=== PATIENT | male | born 1935 | race Caucasian/White ===

== ENCOUNTER 2017-05-29 08:25 | Outpatient (RCR) | payer MEDICARE, BC, SELFPAY ==
[2017-05-29 10:18] LABS: Prothrombin Time (Protime)PT. 21.8 SECONDS (11.7-14.9)
== END 2017-05-29 08:50 | disposition home or self-care (01) ==
LOC: LAB 08:25
PROVIDERS: Family Provider Internal Medicine; PCP Internal Medicine; Visit Provider Internal Medicine Cardiovascular Disease
DX: Z79.01 Long term (current) use of anticoagulants (principal); I47.2 Ventricular tachycardia; I38 Endocarditis, valve unspecified; L81.4 Other melanin hyperpigmentation; L82.0 Inflamed seborrheic keratosis; D64.9 Anemia, unspecified; D18.01 Hemangioma of skin and subcutaneous tissue; Z85.828 Personal history of other malignant neoplasm of skin; Z82.49 Family history of ischemic heart disease and other diseases of the circulatory system
CPT/HCPCS: 36415; 85610

== ENCOUNTER 2017-08-24 08:26 | Outpatient (RCR) | payer MEDICARE, BC, SELFPAY ==
[2017-08-24 09:14] LABS: International Normalized Ratio 2.2; Prothrombin Time (Protime)PT. 24.5 SECONDS (11.7-14.9)
[2017-08-24 09:46] LABS: AST(SGOT) 23 U/L (15-37); Alanine Aminotransfer ALT/SGPT 18 U/L (16-61); Albumin, Serum 3.3 g/dL (3.2-5.0); Alkaline Phosphatase 88 U/L (45-117); Bilirubin, Direct 0.27 mg/dL (0.00-0.30); Cholesterol 153 mg/dL (200); Globulin 4.1 g/dL (2.2-4.2); High Density Lipoprotein 47 mg/dL; Protein, Total 7.4 g/dL (6.4-8.2); Triglycerides 69 mg/dL; Very Low Density Lipoprotein 14 mg/dL (5-40)
== END 2017-08-24 09:00 | disposition home or self-care (01) ==
LOC: LAB 08:26
PROVIDERS: Physician Assistant Medical; Family Provider Internal Medicine; PCP Internal Medicine; Visit Provider Internal Medicine Cardiovascular Disease
DX: E78.5 Hyperlipidemia, unspecified (principal); Z82.49 Family history of ischemic heart disease and other diseases of the circulatory system; I47.2 Ventricular tachycardia; L81.4 Other melanin hyperpigmentation; L82.0 Inflamed seborrheic keratosis; D18.01 Hemangioma of skin and subcutaneous tissue; I38 Endocarditis, valve unspecified; D64.9 Anemia, unspecified; Z79.899 Other long term (current) drug therapy; Z85.828 Personal history of other malignant neoplasm of skin; Z68.30 Body mass index [BMI] 30.0-30.9, adult; Z79.01 Long term (current) use of anticoagulants
CPT/HCPCS: 36415; 80061; 80076; 85610

== ENCOUNTER 2017-09-24 08:47 | Outpatient (RCR) | payer MEDICARE, BC, SELFPAY ==
[2017-09-24 10:07] LABS: Absolute Neutrophil Count 3.7 X10^3/uL (2.0-7.7); Basophil# 0.04 X10^3/uL; Basophil% 0.7 % (0-1); Eosinophil# 0.27 X10^3/uL; Hematocrit 36.7 % (40-54); Hemoglobin 11.8 g/dl (13.0-16.5); Lymphocyte % 16.8 % (19-41); Mean Corp Hgb Conc 32.2 g/gl (32-36); Mean Corpuscular Hgb 29.5 pg (27.0-32.0); Mean Corpuscular Volume 91.8 fL (80-94); Monocyte% 9.3 % (0-10); Neutrophil # 3.66 X10^3/uL (2.7-7.7); Neutrophil % 68.2 % (47-70); Platelet Count 205 K/mm3 (150-450); RBC Distribution Width CV 14.4 % (11.6-14.6); RBC Distribution Width SD 48.5 fl (35.1-43.9); White Blood Count 5.4 K/mm3 (4.4-11.0)
[2017-09-24 10:14] LABS: International Normalized Ratio 2.2; Prothrombin Time (Protime)PT. 24.1 SECONDS (11.7-14.9)
[2017-09-24 10:15] LABS: POSITIVE COUNT NO; POSITIVE DIFFERENTIAL NO; POSITIVE MORPHOLOGY NO
[2017-09-24 10:47] LABS: ALB/GLOB Ratio 0.8 RATIO (0.9-2.4); AST(SGOT) 21 U/L (15-37); Alanine Aminotransfer ALT/SGPT 19 U/L (16-61); Albumin, Serum 3.2 g/dL (3.2-5.0); Alkaline Phosphatase 94 U/L (45-117); Anion Gap 7 (5-15); BUN 20 mg/dL (7-18); BUN/Creat Ratio 16.3 RATIO (10-20); Calcium,Total 8.7 mg/dL (8.5-10.1); Chloride 108 mmol/L (98-107); Creatinine, Serum 1.23 mg/dL (0.70-1.30); EST Glomerular Filtration Rate 60 mL/min (>60); Est Glom Filt Rate - Afr Amer 72 mL/min (>60); Ferritin 157 ng/mL (26-388); Globulin 4.2 g/dL (2.2-4.2); Glucose 92 mg/dL (74-106); Iron 76 ug/dL (65-175); Iron Binding Capacity,Total 244 ug/dL (250-450); Protein, Total 7.4 g/dL (6.4-8.2); Sodium Level 142 mmol/L (136-145); Thyroid Stim Hormone (TSH) 0.64 uIU/mL (0.358-3.74)
== END 2017-09-24 09:00 | disposition home or self-care (01) ==
LOC: LAB 08:47
PROVIDERS: Family Provider Internal Medicine; PCP Internal Medicine; Visit Provider Internal Medicine Cardiovascular Disease
DX: E03.9 Hypothyroidism, unspecified (principal); I11.9 Hypertensive heart disease without heart failure; E55.9 Vitamin D deficiency, unspecified; D50.0 Iron deficiency anemia secondary to blood loss (chronic)
CPT/HCPCS: 36415; 80053; 82306; 82728; 83540; 83550; 84443; 85025; 85610

== ENCOUNTER 2017-10-26 08:50 | Outpatient (RCR) | payer MEDICARE, BC, SELFPAY ==
--- NOTE | 2017-10-26 08:50 | DT_ITS ---
This patient was seen during an EMR downtime October 22, 2017 - October 29, 2017. This patient may have a combination of paper and electronic documentation or all paper documentation. All documentation is viewable within the e-chart portion of [employer] for each patient visit.
[2017-10-26 10:59] LABS: International Normalized Ratio 2.5; Prothrombin Time (Protime)PT. 27.4 SECONDS (11.7-14.9)
== END 2017-10-26 10:00 | disposition home or self-care (01) ==
LOC: LAB 08:50
PROVIDERS: Family Provider Internal Medicine; PCP Internal Medicine; Visit Provider Internal Medicine Cardiovascular Disease
DX: I48.91 Unspecified atrial fibrillation (principal); Z79.01 Long term (current) use of anticoagulants
CPT/HCPCS: 36415; 85610

== ENCOUNTER 2017-12-03 11:26 | Outpatient (RCR) | payer MEDICARE, BC, SELFPAY ==
[2017-12-03 12:14] LABS: International Normalized Ratio 2.2; Prothrombin Time (Protime)PT. 24.9 SECONDS (11.7-14.9)
== END 2017-12-03 13:00 | disposition home or self-care (01) ==
LOC: LAB 11:26
PROVIDERS: Family Provider Internal Medicine; PCP Internal Medicine; Visit Provider Internal Medicine Cardiovascular Disease
DX: I48.91 Unspecified atrial fibrillation (principal); Z79.01 Long term (current) use of anticoagulants
CPT/HCPCS: 36415; 85610

== ENCOUNTER → 2018-01-04 10:58 | Outpatient (CLI) | payer MEDICARE, BC, SELFPAY ==
[2018-01-04 11:10] VITALS: BP 123/72; PULSE 74; RESP 14; TEMP 36.4; O2SAT 96; BMI 28.8
[2018-01-04 15:09] VITALS: BP 111/57; PULSE 82; RESP 16; O2SAT 93
== END ==
PROVIDERS: Family Provider Internal Medicine; PCP Internal Medicine; Visit Provider Specialist
DX: M54.16 Radiculopathy, lumbar region (principal)
CPT/HCPCS: 62284; 72131; 72265; Q9965

== ENCOUNTER 2018-01-14 09:26 | Outpatient (RCR) | payer MEDICARE, BC, SELFPAY ==
[2018-01-14 10:36] LABS: International Normalized Ratio 1.9; Prothrombin Time (Protime)PT. 21.7 SECONDS (11.7-14.9)
== END 2018-01-14 11:00 | disposition home or self-care (01) ==
LOC: LAB 09:26
PROVIDERS: Family Provider Internal Medicine; PCP Internal Medicine; Visit Provider Internal Medicine Cardiovascular Disease
DX: I48.91 Unspecified atrial fibrillation (principal); Z79.01 Long term (current) use of anticoagulants
CPT/HCPCS: 36415; 85610

== ENCOUNTER 2018-01-30 13:07 | Outpatient (RCR) | payer MEDICARE, BC, SELFPAY ==
[2018-01-30 14:32] LABS: International Normalized Ratio 2.6; Prothrombin Time (Protime)PT. 27.6 SECONDS (11.7-14.9)
== END 2018-01-30 14:00 | disposition home or self-care (01) ==
LOC: LAB 13:07
PROVIDERS: Family Provider Internal Medicine; PCP Internal Medicine; Visit Provider Internal Medicine Cardiovascular Disease
DX: I48.91 Unspecified atrial fibrillation (principal); Z79.01 Long term (current) use of anticoagulants
CPT/HCPCS: 36415; 85610

== ENCOUNTER 2018-03-08 08:32 | Outpatient (RCR) | payer MEDICARE, BC, SELFPAY ==
[2018-03-08 09:44] LABS: International Normalized Ratio 2.2; Prothrombin Time (Protime)PT. 24.5 SECONDS (11.7-14.9)
[2018-03-08 10:00] LABS: AST(SGOT) 19 U/L (15-37); Alanine Aminotransfer ALT/SGPT 20 U/L (16-61); Albumin, Serum 3.2 g/dL (3.2-5.0); Alkaline Phosphatase 93 U/L (45-117); Bilirubin, Direct 0.25 mg/dL (0.00-0.30); Cholesterol 170 mg/dL (200); Globulin 3.9 g/dL (2.2-4.2); High Density Lipoprotein 45 mg/dL; Protein, Total 7.1 g/dL (6.4-8.2); Triglycerides 98 mg/dL; Very Low Density Lipoprotein 20 mg/dL (5-40)
== END 2018-03-08 10:00 | disposition home or self-care (01) ==
LOC: LAB 08:32
PROVIDERS: Physician Assistant Medical; Family Provider Internal Medicine; PCP Internal Medicine; Referring Provider Internal Medicine Cardiovascular Disease; Visit Provider Internal Medicine Cardiovascular Disease
DX: I48.91 Unspecified atrial fibrillation (principal); Z79.01 Long term (current) use of anticoagulants; E78.5 Hyperlipidemia, unspecified
CPT/HCPCS: 36415; 80061; 80076; 85610

== ENCOUNTER 2018-04-15 09:02 | Outpatient (RCR) | payer MEDICARE, BC, SELFPAY ==
[2018-04-15 09:53] LABS: International Normalized Ratio 3.3; Prothrombin Time (Protime)PT. 34.1 SECONDS (11.7-14.9)
== END 2018-04-19 10:54 | disposition home or self-care (01) ==
LOC: LAB 09:02
PROVIDERS: Family Provider Internal Medicine; PCP Internal Medicine; Referring Provider Internal Medicine Cardiovascular Disease; Visit Provider Internal Medicine Cardiovascular Disease
DX: I48.91 Unspecified atrial fibrillation (principal); Z79.01 Long term (current) use of anticoagulants
CPT/HCPCS: 36415; 85610

== ENCOUNTER → 2018-04-29 14:42 | Outpatient (CLI) | payer MEDICARE, BC, SELFPAY ==
[2018-04-29 12:55] VITALS: BMI 28.8
--- NOTE | 2018-04-29 14:55 | RAD_ITS ---
STUDY: X-RAY CHEST REASON FOR EXAM: Male, 82 years old. Tachycardia TECHNIQUE: Frontal and lateral views of the chest COMPARISON: None. FINDINGS: The lungs are clear. There are no pleural effusions. There is no pneumothorax. The heart is enlarged. There is a dual-lead pacemaker in place. There is a moderate-sized hiatal hernia. The patient is status post sternotomy and coronary artery bypass. The visualized osseous structures are within normal limits. RAD/Chest PA and Lateral IMPRESSION: Clear lungs. Cardiomegaly. Pacemaker in place. Status post sternotomy. Moderate hiatal hernia. Electronically Signed: Perfecto Fischer, at 15:13 EST Tel , Service support ,
== END ==
PROVIDERS: Family Provider Internal Medicine; PCP Internal Medicine; Referring Provider Internal Medicine Cardiovascular Disease; Visit Provider Internal Medicine Cardiovascular Disease
DX: I48.2 Chronic atrial fibrillation (principal); I44.30 Unspecified atrioventricular block; I47.2 Ventricular tachycardia; I51.7 Cardiomegaly; K44.9 Diaphragmatic hernia without obstruction or gangrene; Z95.0 Presence of cardiac pacemaker
CPT/HCPCS: 71046

== ENCOUNTER → 2018-05-06 07:53 | Day surgery (SDC) | payer MEDICARE, BC, SELFPAY ==
[2018-04-29 15:02] LABS: Bacteria 0 SEEN /hpf (None Seen); Mucous, Urine 0 SEEN /hpf (<or=2+); Red Blood Cells-Urine 0 SEEN /hpf (0-5); Squamous Epithelial Cells - UA 0 SEEN /hpf (0-5)
[2018-04-29 15:21] LABS: Hematocrit 36.6 % (40-54); Hemoglobin 11.8 g/dl (13.0-16.5); Mean Corp Hgb Conc 32.2 g/gl (32-36); Mean Corpuscular Hgb 29.9 pg (27.0-32.0); Mean Corpuscular Volume 92.9 fL (80-94); Platelet Count 224 K/mm3 (150-450); RBC Distribution Width CV 13.9 % (11.6-14.6); RBC Distribution Width SD 46.1 fl (35.1-43.9); Red Blood Count 3.94 M/mm3 (4.6-6.2); White Blood Count 6.7 K/mm3 (4.4-11.0)
[2018-04-29 15:23] LABS: Scan Indicated on CBC? Y/N NO
[2018-04-29 15:44] LABS: Anion Gap 8 (5-15); BUN 25 mg/dL (7-18); Chloride 106 mmol/L (98-107); Creatinine, Serum 1.25 mg/dL (0.70-1.30); EST Glomerular Filtration Rate 59 mL/min (>60); Est Glom Filt Rate - Afr Amer 71 mL/min (>60); Glucose 94 mg/dL (74-106); Potassium 4.2 mmol/L (3.5-5.1); Sodium Level 139 mmol/L (136-145)
[2018-04-29 15:58] LABS: Prothrombin Time (Protime)PT. 22.7 SECONDS (11.7-14.9)
[2018-04-29 17:23] LABS: Color, Urine Yellow (Yellow); Glucose, Dipstick Normal (Normal); Ketone-Dipstick Negative (Negative); Leukocyte Esterase-Dipstick Negative /ul (Negative); Nitrite-Dipstick Negative (Negative); Occult Blood-Urine Negative /ul (Negative); Protein-Dipstick Negative (Negative); Specific Gravity, Urine 1.015 (1.002-1.030); Urine Bilirubin Dipstick Negative (Negative); Urine Clarity Clear (Clear); Urine Urobilinogen Normal (Normal)
[2018-04-29 19:03] LABS: White Blood Cells 0-5 SEEN /hpf (0-5)
[2018-05-03 09:13] VITALS: BMI 28.8
--- NOTE | 2018-05-06 10:16 | CL.IE_ITS ---
Patient: IVANIA GOMEZ Study Date: 05/06/2018 Performing: Femi Bowen MD : 1935 Age: 82 Gender: male PROCEDURES PERFORMED [id number] REMOVAL+REPLACEMENT PACER-DUAL LEAD INDICATIONS Atrioventricular (AV) block End-of-life replacement indicator PROCEDURE DETAILS The patient was brought to the Catheterization Lab in the postabsorptive nonsedated state. Infor med consent was obtained prior to the procedure. Local anesthetic was given subcutaneously to the [facility] upper chest area with Lidocaine 2%. Incision was made to the right upper chest. PPM generator was removed. PPM generator was then interrogated by the graphics programmer. PPM generator was attached to the le ad(s) and inserted into the pocket. Device pocket was irrigated with antibiotic. Subcutaneous closure was completed with 3-0 Vicryl. Skin closure was completed with 4-0 Vicryl. Ster[facility]strips [facility] sub[facility]. The patient tolerated the procedure well. Estimated Blood Loss: < 10 mls IMPLANTED / EX-PLANTED DEVICES IMPLANTED DEVICE(S): PPM Generator - Buckle Strap Puncher: Rover, Model # Halma S DR CHAVIRA [place] [id number] , Serial # [id number] DEVICE PARAMETERS DEVICE PARAMETERS: Mode- VVIR Lower rate- 60 Upper rate- 130 CONCLUSIONS / RECOMMENDATIONS Device Conclusions: Successful implantation of a dual chamber pacemaker battery change and replacemen t Device Recommendations: Follow up with Primary Care Physician PROCEDURE MEDICATIONS Fentanyl 50 mcg IV Versed 1 mg IV Oxygen: 2 L/min via nasal cannula Antibiotic given in appropriate timeframe. Ancef 2 Gm IV @ 05/06/2018 09:31:34 Signed By Femi Bowen MD On 05/06/2018 10:15:28 Femi Bowen MD
--- OUTSIDE RECORDS SUMMARY | 2018-08-07 18:14 | XMS RPT_ITS ---
:1935 Author Organization [facility] Support Name Relationship Address Phone FRENCH GOMEZA Unavailable [address] + [place] [address] MENGES, YINKA Unavailable [address] + [place] [address] R Unavailable Unavailable Unavailable JASON, JAIME Unavailable [address] + [place] [address] MENLILI, YINKA Unavailable [address] + [place] [address] R Unavailable Unavailable Unavailable JASON, JAIME Unavailable [address] + [place] [address] MENLILI, YINKA Unavailable x + [place] [address] R Unavailable Unavailable Unavailable JASON, JAIME Unavailable [address] + [place] [address] MENLILI, YINKA Unavailable Unavailable + R Unavailable Unavailable Unavailable JASON, JAIME Unavailable [address] + [place] [address] MENLILI, YINKA Unavailable . + ., . . R Unavailable Unavailable Unavailable MENLILI, JAIME Unavailable [address] + [place] [address] MENLILI, YINKA Unavailable Unavailable + R Unavailable Unavailable Unavailable MENLILI, JAIME Unavailable [address] + [place] [address] R Unavailable Unavailable Unavailable MENLILI, JAIME Unavailable [address] + [place] [address] R Unavailable Unavailable Unavailable MENLILI, JAIME Unavailable [address] + [place] [address] R Unavailable Unavailable Unavailable MENGES, JAIME Unavailable [address] + [place] [address] R Unavailable Unavailable Unavailable MENGES, JAIME Unavailable [address] + [place] [address] R Unavailable Unavailable Unavailable MENGES, JAIME Unavailable [address] + [place] [address] R Unavailable Unavailable Unavailable MENGES, JAIME Unavailable [address] + [place] [address] R Unavailable Unavailable Unavailable MENGES, JAIME Unavailable [address] + [place] [address] R Unavailable Unavailable Unavailable MENGES, JAIME Unavailable [address] + [place] [address] R Unavailable Unavailable Unavailable MENGES, JAIME Unavailable [address] + [place] [address] R Unavailable Unavailable Unavailable MENGES, JAIME Unavailable [address] + [place] [address] R Unavailable Unavailable Unavailable MENGES, JAIME Unavailable [address] + [place] [address] R Unavailable Unavailable Unavailable MENGES, JAIME Unavailable [address] + [place] [address] R Unavailable Unavailable Unavailable MENGES, JAIME Unavailable [address] + [place] [address] R Unavailable Unavailable Unavailable MENGES, JAIME Unavailable [address] + [place] [address] R Unavailable Unavailable Unavailable MENGES, JAIME Unavailable [address] + [place] [address] R Unavailable Unavailable Unavailable MENGES, JAIME Unavailable [address] + [place] [address] R Unavailable Unavailable Unavailable MENGES, JAIME Unavailable [address] + [place] [address] R Unavailable Unavailable Unavailable MENGES, JAIME Unavailable [address] + [place] [address] R Unavailable Unavailable Unavailable MENGES, JAIME Unavailable [address] + [place] [address] R Unavailable Unavailable Unavailable MENGES, JAIME Unavailable [address] + [place] [address] R Unavailable Unavailable Unavailable MENGES, JAIME Unavailable [address] + [place] [address] R Unavailable Unavailable Unavailable R Unavailable Unavailable Unavailable R Unavailable Unavailable Unavailable R Unavailable Unavailable Unavailable R Unavailable Unavailable Unavailable Care Team Providers Name Role Phone Awa Blair Attending Unavailable Awa Blair Referring Unavailable Peg, Olive Primary Care Unavailable MoodisPalmer mehta Attending Unavailable Moodispaw, Palmer Referring Unavailable Peg, Olive Primary Care Unavailable Peg, Olive Consulting Unavailable Opal Shields Attending Unavailable Peg, Olive Referring Unavailable Moodispayonatan, Palmer Attending Unavailable Moodispayonatan Palmer Referring Unavailable Peg, Olive Primary Care Unavailable Peg, Olive Consulting Unavailable Opal Shields Attending Unavailable Peg, Olive Referring Unavailable Peg, Olive Attending Unavailable MoodispaPalmer tam Attending Unavailable Moodispayonatan Palmer Referring Unavailable Peg, Olive Primary Care Unavailable Awa Blair Attending Unavailable Peg, Olive Referring Unavailable Andrés, Femi Attending Unavailable Andrés, Gibson Referring Unavailable MoodispaPalmer tam Attending Unavailable Moodispaw Palmer Referring Unavailable Peg, Olive Primary Care Unavailable Opal Shields Attending Unavailable Peg, Olive Referring Unavailable Andrés, Gibson Attending Unavailable Andrés, Gibson Referring Unavailable Peg, Olive Primary Care Unavailable MoodispawPalmer Attending Unavailable Moodispaw Palmer Referring Unavailable Peg, Olive Primary Care Unavailable MoodispaPalmer tam Attending Unavailable Moodispaw, Palmer Referring Unavailable Peg, Olive Primary Care Unavailable Moodispaw, Palmer Attending Unavailable Moodispaw, Palmer Referring Unavailable Peg, Olive Primary Care Unavailable Opal Shields Attending Unavailable Peg, Olive Referring Unavailable CorneliusOpal Attending Unavailable Peg, Olive Referring Unavailable Peg, Olive Primary Care Unavailable Moodispaw, Palmer Attending Unavailable Moodispaw, Palmer Attending Unavailable Moodispaw, Palmer Referring Unavailable Peg, Olive Primary Care Unavailable Peg, Olive Consulting Unavailable Cornelius, Opal Attending Unavailable Peg, Olive Referring Unavailable Peg, Olive Primary Care Unavailable Moodispaw, Palmer Attending Unavailable Moodispaw, Palmer Referring Unavailable Peg, Olive Primary Care Unavailable Peg, Olive Consulting Unavailable Perfecto White Attending Unavailable Peg, Olive Primary Care Unavailable Moodispaw, Palmer Attending Unavailable Cornelius, Opal Attending Unavailable Peg, Olive Referring Unavailable Peg, Olive Attending Unavailable Cornelius, Opal Attending Unavailable Peg, Olive Referring Unavailable BlairAwa Attending Unavailable Peg, Olive Referring Unavailable Moodispaw, Palmer Attending Unavailable Moodispaw, Palmer Referring Unavailable Peg, Olive Primary Care Unavailable Peg, Olive Consulting Unavailable Cornelius, Opal Attending Unavailable Peg, Olive Referring Unavailable Cornelius, Opal Attending Unavailable Peg, Olive Referring Unavailable Peg, Olive Primary Care Unavailable BinghamAwa stanford Attending Unavailable Moodispaw, Palmer Attending Unavailable Moodispaw, Palmer Referring Unavailable Peg, Olive Primary Care Unavailable Peg, Olive Consulting Unavailable PROBLEMS PROBLEMS DATE TYPE CONDITION / CODE ATTENDING STATUS SOURCE 06/05/2018 Unknown I25.10 - Blair, Active [place] Atherosclerotic heart [facility] disease [facility] coronary artery Repository without angina pectoris / I25.10(ICD-10) 06/05/2018 Unknown I48.2 - Chronic atrial Blair, Active [place] fibrillation / [facility] I48.2(ICD-10) Hospital Repository 06/05/2018 Unknown Z95.0 - Presence of Blair, Active [place] cardiac pacemaker / [facility] Z95.0(ICD-10) Hospital Repository 06/05/2018 Unknown I10 - Essential Blair, Active [place] (primary) hypertension [facility] / I10(ICD-10) Hospital Repository 06/05/2018 Unknown E78.00 - Pure Blair, Active [place] hypercholesterolemia, [facility] unspecified / Hospital E78.00(ICD-10) Repository 05/20/2018 Unknown Z79.01 - long-term Moodispaw, Active [place] (current) use of [facility] anticoagulants / Hospital Z79.01(ICD-10) Repository 05/21/2018 Unknown I47.2 - Ventricular Cornelius, Opal Active [place] tachycardia / Community I47.2(ICD-10) Hospital Repository 05/21/2018 Unknown I47.9 - Paroxysmal Cornelius, Opal Active [place] tachycardia, Community unspecified / Hospital I47.9(ICD-10) Repository 05/21/2018 Unknown I44.30 - Unspecified Cornelius, Opal Active [place] atrioventricular block [facility] / I44.30(ICD-10) Hospital Repository 05/21/2018 Unknown I49.01 - Ventricular Cornelius, Opal Active [place] fibrillation / [facility] I49.01(ICD-10) Hospital Repository 03/21/2018 Unknown I48.91 - Unspecified Moodispaw, Active [place] atrial fibrillation / [facility] I48.91(ICD-10) Hospital Repository 03/21/2018 Unknown E78.5 - Moodispaw, Active [place] Hyperlipidemia, [facility] unspecified / Hospital E78.5(ICD-10) Repository 10/18/2017 Unknown E03.9 - Moodispaw, Active [place] Hypothyroidism, [facility] unspecified / Hospital E03.9(ICD-10) Repository 10/18/2017 Unknown 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, 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) / Repository D50.0(ICD-10) 10/18/2017 Unknown E55.9 - Vitamin D Moodispaw, Active [place] deficiency, [facility] unspecified / Hospital E55.9(ICD-10) Repository PROCEDURES PROCEDURES No Procedure Records FoundRESULTS RESULTS STRESS REPORT Observed: 06/11/2018 Status: F Source: [place] 10:25 AM [facility] REPOSITORY [facility] [address] [place] [address] MR#: [id number] Acct: [id number] Name: IVANIA GOMEZ Rep #: [id number] : 1935 82 From: Palmer Lindo MD Primary Care: Olive Sellers DO Status: REG RCR Ordering Dr: Sex: Domenica Collins Stress Test Report Date: 06/11/2917 Procedure: Pharmacologic stress nuclear imaging study Indications: CAD; PCI; CAD; PPM; preoperative cardiovascular evaluation Consent: Per the patient Procedure: The patient underwent pharmacologic (Regadenoson) evaluation with a peak heart rate of 64 beats per minute (46 percent predicted maximal heart rate) and a peak blood pressure of 122/76 mmHg. The baseline ECG demonstrated an electronic ventricular paced rhythm . The peak pharmacologic ECG demonstrated an electronic ventricular paced rhythm . There were no cardiac dysrhythmias pretest, during pharmacologic infusion, or recovery. There was no complaint of chest discomfort during pharmacologic infusion or recovery. The examination was discontinued secondary to completion of protocol. Impression: 1. Pharmacologic (Regadenoson) evaluation 2. Peak pharmacologic ECG with an electronic ventricular paced rhythm . 3. There were no cardiac dysrhythmias pretest, during pharmacologic infusion, or recovery. 4. Nuclear images pending Myocardial perfusion imaging study: Technique: The patient was injected with 11.1 millicuries of technetium 99m Cardiolite and subsequently rest SPECT Cardiolite nuclear imaging was obtained in the horizontal long, vertical long, and short axis views. The patient underwent pharmacologic (Regadenoson) evaluation with a peak heart rate of 64 beats per minute (46 % percent predicted maximal heart rate) and a peak blood pressure of 122/76 mmHg. The patient was injected with 33.4 millicuries of technetium 99m Cardiolite and subsequently stress SPECT Cardiolite nuclear imaging was obtained in the horizontal long, vertical long, and short axis views. A gated Cardiolite study at peak stress was not obtained. Interpretation: Rest and stress SPECT Cardiolite nuclear imaging status post realignment, normalization, and attenuation correction demonstrate the appearance of relative uniform tracer uptake and myocardial perfusion appearing within normal limits . A gated Cardiolite study at peak stress was not obtained. Impression: 1. Rest and stress SPECT Cardiolite nuclear imaging demonstrate relative uniform tracer uptake and myocardial perfusion appearing within normal limits. 2. A gated Cardiolite study at peak stress was not obtained. This note was generated with [employer] software. It may contain incorrect words, spelling, and punctuation that were not noted in checking the note before signing. 06/11/18 1025 <Electronically signed by Palmer Lindo MD> Date Palmer Lindo MD CC: Olive Jesuson DO; Palmer Lindo MD Date Dictated: 06/11/183 Date Transcribed: 06/11/181012 Viscose Cellar Worker: PM Signed PROTHROMBIN TIME W/INR Collected: 06/11/2018 Status: F Source: [place] 9:41 AM [facility] [place] TYPE CODE TESTS RESULT OUT OF RANGE REFERENCE UNITS LAB L300.4150 11.7-14.9 SECONDS High PROTIME 27.1 LAB L300.4200 Normal INR 2.5 Performed By: #### L300.3900 #### [facility] [address] [place], [address] CARDIOLOGY VISIT Observed: 06/05/2018 Status: F Source: [place] REPORT 9:57 AM [facility] [place] [facility] [address] [place] [address] OFFICE VISIT Date of Service: 06/05/18 MR#: [id number] Acct: [id number] Name: IVANIA GOMEZ Rep #: [id number] : 1935 Provider: Awa Blair Age/Sex: 82/M Location: [facility] Status: Signed HPI HPI Chief Complaint: LUMBAR MYELOGRAM Details: IVANIA GOMEZ, is a 82 M who presents to the office today for cardiac clearance for an upcoming back surgery. Last month he underwent a generator change as his pacemaker reached JASWINDER. He has a history of coronary artery disease with bypass surgery in 1980 where he had an SVG to the LAD, SVG to the RCA, SVG to the 2 circumflex branches and then a redo in 2006 with an KIRBY to the LAD, HAIDER graft to the second obtuse marginal, SVG to the posterior lateral of the circumflex, SVG to the posterior descending branch of the RCA. 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 From a cardiac standpoint, patient is doing well. He does not have any chest discomfort/heaviness/tightness. His exercise tolerance is stable for his age. He does not have any worsening symptoms of shortness of breath. He denies any PND. He does not have any orthopnea. He does not have any symptoms of congestive heart failure. He does not have any palpitations that he is aware of. He does not have any lightheadedness or dizziness. He does not have any near-syncope or syncope. He does not have any lower extremity edema. He does not have any symptoms of claudication. 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 Accompanied by: Is patient in pain?: No Allergies No Known Allergies Allergy (Verified 06/05/18 09:30) Medications aspirin 81 mg tablet,delayed release 81 mg PO QDAY 04/26/17 [History Confirmed 06/05/18] cholecalciferol (vitamin D3) 2,000 unit tablet 2,000 unit PO QDAY tab 04/26/17 [History Confirmed 06/05/18] doxazosin 8 mg tablet 8 mg PO QDAY tab 04/26/17 [History Confirmed 06/05/18] ferrous sulfate 325 mg (65 mg iron) tablet,delayed release See Rx Instructions PO QDAY tab 04/30/17 [History Confirmed 06/05/18] levothyroxine 125 mcg tablet 125 mcg PO .COMPLEX tab 01/25/18 [History Confirmed 06/05/18] pantoprazole 40 mg tablet,delayed release 40 mg PO .QOD tab 01/25/18 [History Confirmed 06/05/18] metoprolol succinate ER 50 mg tablet,extended release 24 hr 50 mg PO DAILY #90 tab 02/18/18 [Rx Confirmed 06/05/18] nitroglycerin 400 mcg/spray translingual 0.4 mg TRANSLINGUAL Q5M PRN #4.9 g 04/29/18 [Rx Confirmed 06/05/18] warfarin 3 mg tablet 3 mg PO QDAY tab 04/29/18 [History Confirmed 06/05/18] PFSH Medical History Arteriosclerotic heart disease (ASHD) (Chronic) Chronic atrial fibrillation (Chronic) Ventricular fibrillation (Acute) HLD (hyperlipidemia) (Chronic) HTN (hypertension) (Chronic) Atrioventricular block (Chronic) Paroxysmal ventricular tachycardia (Chronic) Paroxysmal tachycardia (Inactive) Atrial arrhythmia (Chronic) Syncope and collapse (Chronic) 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) 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) Anemia (Acute) Lentigo (Acute) GERD (gastroesophageal reflux disease) (Chronic) Neoplasm of oropharynx (Chronic) Surgical History Hx of CABG (Chronic) S/P PTCA (percutaneous transluminal coronary angioplasty) (Chronic 03/24/97) History of cholecystectomy (Resolved) History of circumcision (Resolved) History of tonsillectomy (Resolved 1941) S/P placement of cardiac pacemaker (Resolved) Family History Father Hypertension Cancer Son Hypertension Mother Cancer Son H/O cardiac radiofrequency ablation Social History Smoking Status: Former smoker how long ago did patient quit smokin years ago alcohol intake: current alcohol intake frequency: a few times a week Alcohol type: beer substance use type: does not use caffeine: Yes Type: coffee Number of servings: 3 eating out: 1-3 times/week what type of physical activity do you participate in: none seatbelt use: always do you feel safe at home: Yes ROS Const Const: Negative for weakness, fatigue, fever(s) or headache(s) Eyes Eyes: Negative for blind spots, loss of peripheral vision or transient loss of vision ENT ENT: Negative for headache(s) Cardio Chest Pain: No Palpitations: No Edema: None Muscle aches with walking: None Resp Respiratory: Negative for SOB with activity, SOB at rest, SOB orthopnea\SOB lying down or Cough GI GI: Negative nausea, vomiting, heartburn or vomiting blood/hematemesis : Negative for hematuria Musc Musc: Positive for muscle aches/ myalgia (back ache) Neuro Neuro: Negative for weakness or headache(s) Rafat Hematologic/Lymphatic: Negative for easy bleeding Endo Endo: Negative for fatigue Cardiology Exam Const Appearance: cooperative, no acute distress, well developed, comfortable and well groomed Orientation: alert, awake and oriented x3 Head Head: normocephalic and normal to inspection; negative atraumatic Ears: hearing grossly normal bilaterally Nose: external nose normal Face and Sinus: face symmetric Mouth: oral mucosae normal Teeth and gingiva: fair dentition Eyes General: appearance normal, both eyes and all related structures Conjunctivae: conjunctivae normal Pupils: PERRL Neck Neck: normal visual inspection, no lymphadenopathy and no JVD Carotids: Negative bruit Chest Chest inspection: normal inspection of the chest and symmetric chest movement Auscultation: Bilateral: Clear to Auscultation Cardio Palpation: normal PMI Rate: regular rate Rhythm: regular rhythm Heart sounds: S1 normal, S2 normal and rub Murmur: Grade 2/6, soft, mid systolic, LLSB and LVOT GI GI: normal to inspection, soft, no hepatosplenomegaly and bowel sounds present; negative tender Neuro General: alert, awake, oriented x3 and moves all extremities Skin Skin: no rashes or lesions noted Extremities Pulses: Normal: Right Posterior Tibial Pulse, Left Posterior Tibial Pulse, Right Radial Pulse, Left Radial Pulse Lower Extremity Edema: None: Bilateral Psych Psychological: normal affect Assessment AND Plan 1. 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 Re-do CABG x4 KIRBY to LAD free, HAIDER grafted to second obtuse marginal, SVG to posterior decend branch of RCA in 2006. Plan Stable, from a cardiac standpoint patient does not have any symptoms of angina. It has been greater than 5 years since he had his last stress test, with his upcoming surgery would like to obtain a stress test to evaluate for underlaying ischemia. Pt was not symptomatic prior to his bypass surgery. He does have a PPM, he will need a medication stress test. We recommend that they continue with current aggressive medical management and risk factor modification. Orders Orders: 2. Pure hypercholesterolemia E78.00 Plan Recent lipid profile demonstrates a total cholesterol of 170, HDL 45, LDL 105. Patient will continue with current aggressive medical management. Orders Orders: 3. Essential hypertension I10 Plan Blood pressure is well controlled on current medications, we do not recommend any changes at this time. Orders Orders: 4. Chronic atrial fibrillation I48.2 Plan Heart rate is adequately controlled. They will continue with her anticoagulation with a therapeutic INR goal of 2-3. Orders Orders: 5. Cardiac pacemaker in situ Z95.0 Plan Pacemaker is functioning appropriately. We will continue to monitor at routine scheduled pacemaker interrogations. Orders Orders: Plan Detail Additional Comments If his stress test is negative, it would be okay to proceed with his surgery from a cardiac standpoint. Would recommend that he continue with his BB through out the chino-operative phase up to and including morning of surgery. It would be okay to hold his coumadin and resume post op. Thank you for allowing us to participate in patient's plan of care, if you have any questions please do not hesitate to call. This note was generated using a voice recognition system and there may be incorrect words, spelling or punctuation errors that were not noted when reviewing the office note prior to saving. Follow Up 06/05/18 (keep as is) Coding Level of Care Code Off vis,est,level 3 Diagnoses Arteriosclerotic heart disease (ASHD) I25.10 Pure hypercholesterolemia E78.00 Hyperlipidemia type: pure hypercholesterolemia Essential hypertension I10 Hypertension type: essential hypertension Chronic atrial fibrillation I48.2 Cardiac pacemaker in situ Z95.0 Coding Level of Care Code Off vis,est,level 3 Diagnoses Arteriosclerotic heart disease (ASHD) I25.10 Pure hypercholesterolemia E78.00 Hyperlipidemia type: pure hypercholesterolemia Essential hypertension I10 Hypertension type: essential hypertension Chronic atrial fibrillation I48.2 Cardiac pacemaker in situ Z95.0 Supplemental Info Supplemental Information NONI from 2011 demonstrated: Mild concentric left ventricular hypertrophy. Left ventricular systolic function is lower limits of normal. The estimated ejection fraction is 50 %. Shaggy appearing proximal pacemaker lead within SVC with multiple mobile filamentous structures localized to distal atrial segment of lead suspicious for vegetations. Mild mitral annular calcification. Mild mitral valve prolapse. Small mobile filamentous structures localized to the atrial aspect of the mitral valve likely representing strands. Early vegetations cannot be excluded. Mild (1+) mitral valve insufficiency. Mild (1+) tricuspid valve insufficiency. Trivial aortic valve insufficiency. Mild (1+) pulmonic valve insufficiency. Right ventricular systolic pressure estimated to be 25 mmHg. Mild atherosclerosis of the aortic arch and descending aorta. Labs LDL Cholesterol 105 mg/dL (0-130) 03/08/18 HDL Cholesterol 45 mg/dL (40-) 03/08/18 Triglycerides 98 mg/dL (-199) 03/08/18 VLDL Cholesterol 20 mg/dL (5-40) 03/08/18 Diagnostics Electrocardiogram 04/29/18 Pacemaker Check 05/20/18 Chest X-Ray 04/29/18 Details:: 06/05/18 0957 <Electronically signed by Awa CHASE> Date Awa CHASE Cosigner Signature: Date (if applicable) CC: Olive Sellers DO PACEMAKER CHECK Observed: 05/20/2018 Status: F Source: [place] 12:29 PM [facility] REPOSITORY [facility] [address] [place] [address] Pacemaker Check Date of Service: 05/20/18 1203 MR#: [id number] Acct: [id number] Name: IVANIA GOMEZ Rep #: [id number] : 1935 From: Opal Shields Age/Sex: 82/M Location: [facility] [place] Status: Signed Billing Codes PM Device Codes: PM Dev Prog Eval, Dual 05/20/18 1204 <Electronically signed by Opal Shields > Date Opal Shields 05/20/18 1229<Electronically signed by Palmer Lindo MD> Sandrine Signature: Date (if applicable) Palmer Lindo MD CC: PROTHROMBIN TIME W/INR Collected: 05/20/2018 Status: F Source: [place] 10:20 AM [facility] REPOSITORY TYPE CODE TESTS RESULT OUT OF RANGE REFERENCE UNITS LAB L300.4150 11.7-14.9 SECONDS High PROTIME 23.5 LAB L300.4200 Normal INR 2.1 Performed By: #### L300.3900 #### [facility] [address] [place], [address] CARDIOLOGY VISIT Observed: 05/06/2018 Status: F Source: [place] REPORT 12:37 PM [facility] REPOSITORY [facility] [address] [place] [address] OFFICE VISIT Date of Service: 04/29/18 MR#: [id number] Acct: [id number] Name: IVANIA GOMEZ Rep #: [id number] : 1935 Provider: Awa Blair Age/Sex: 82/M Location: [facility] Status: Signed HPI HPI Details: IVANIA GOMEZ, is a 82 M who presents to the office today for an updated H AND P for his upcoming generator change on his pacemaker. He has a history of coronary artery disease with bypass surgery in 1980 where he had an SVG to the LAD, SVG to the RCA, SVG to the 2 circumflex branches and then a redo in 2006 with an KIRBY to the LAD, HAIDER graft to the second obtuse marginal, SVG to the posterior lateral of the circumflex, SVG to the posterior descending branch of the RCA. 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 Pt is also in need of having back surgery. They are requesting clearance from our office. This will be done at [facility]. From a cardiac standpoint, patient is doing well. He does not have any chest discomfort/heaviness/tightness. His exercise tolerance is stable for his age. He does not have any worsening symptoms of shortness of breath. He denies any PND. He does not have any orthopnea. He does not have any symptoms of congestive heart failure. He does not have any palpitations that he is aware of. He does not have any lightheadedness or dizziness. He does not have any near-syncope or syncope. He does not have any lower extremity edema. He does not have any symptoms of claudication. 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 Accompanied by: Is patient in pain?: No Allergies No Known Allergies Allergy (Verified 04/29/18 13:06) Medications aspirin 81 mg tablet,delayed release 81 mg PO QDAY 04/26/17 [History Confirmed 05/03/18] cholecalciferol (vitamin D3) 2,000 unit tablet 2,000 unit PO QDAY tab 04/26/17 [History Confirmed 05/03/18] doxazosin 8 mg tablet 8 mg PO QDAY tab 04/26/17 [History Confirmed 05/03/18] ferrous sulfate 325 mg (65 mg iron) tablet,delayed release See Rx Instructions PO QDAY tab 04/30/17 [History Confirmed 05/03/18] levothyroxine 125 mcg tablet 125 mcg PO .COMPLEX tab 01/25/18 [History Confirmed 05/03/18] pantoprazole 40 mg tablet,delayed release 40 mg PO .QOD tab 01/25/18 [History Confirmed 05/03/18] metoprolol succinate ER 50 mg tablet,extended release 24 hr 50 mg PO DAILY #90 tab 02/18/18 [Rx Confirmed 05/03/18] nitroglycerin 400 mcg/spray translingual 0.4 mg TRANSLINGUAL Q5M PRN #4.9 g 04/29/18 [Rx Confirmed 05/03/18] warfarin 3 mg tablet 3 mg PO QDAY tab 04/29/18 [History Confirmed 05/03/18] Ejection fraction %: 50 to 54 PFSH Medical History Arteriosclerotic heart disease (ASHD) (Chronic) Chronic atrial fibrillation (Chronic) Ventricular fibrillation (Acute) HLD (hyperlipidemia) (Chronic) HTN (hypertension) (Chronic) Atrioventricular block (Chronic) Paroxysmal ventricular tachycardia (Chronic) Paroxysmal tachycardia (Inactive) Atrial arrhythmia (Chronic) Syncope and collapse (Chronic) 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) 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) Anemia (Acute) Lentigo (Acute) GERD (gastroesophageal reflux disease) (Chronic) Neoplasm of oropharynx (Chronic) Surgical History Hx of CABG (Chronic) S/P PTCA (percutaneous transluminal coronary angioplasty) (Chronic 03/24/97) History of cholecystectomy (Resolved) History of circumcision (Resolved) History of tonsillectomy (Resolved 1941) S/P placement of cardiac pacemaker (Resolved) Family History Father Hypertension Cancer Son Hypertension Mother Cancer Son H/O cardiac radiofrequency ablation Social History Smoking Status: Former smoker how long ago did patient quit smokin years ago alcohol intake: current alcohol intake frequency: a few times a week Alcohol type: beer substance use type: does not use caffeine: Yes Type: coffee Number of servings: 3 eating out: 1-3 times/week what type of physical activity do you participate in: none seatbelt use: always do you feel safe at home: Yes ROS Const Const: Negative for weakness, fatigue, fever(s) or headache(s) Eyes Eyes: Negative for blind spots, loss of peripheral vision or transient loss of vision ENT ENT: Negative for headache(s), dizziness, tinnitus or Nosebleed/epistaxis Cardio Chest Pain: No Palpitations: No Edema: None Muscle aches with walking: None Resp Respiratory: Negative for SOB with activity, SOB at rest, SOB orthopnea\SOB lying down or Cough GI GI: Negative nausea, vomiting, heartburn or vomiting blood/hematemesis : Negative for hematuria Musc Musc: Positive for muscle aches/ myalgia (back ache) Neuro Neuro: Negative for weakness, headache(s), dizziness, near syncope, syncope, lightheadedness or orthostatic symptoms Rafat Hematologic/Lymphatic: Negative for easy bleeding Endo Endo: Negative for fatigue Cardiology Exam Const Appearance: cooperative, no acute distress, well developed, comfortable and well groomed Orientation: alert, awake and oriented x3 Head Head: normocephalic and normal to inspection; negative atraumatic Ears: hearing grossly normal bilaterally Nose: external nose normal Face and Sinus: face symmetric Mouth: oral mucosae normal Teeth and gingiva: fair dentition Eyes General: appearance normal, both eyes and all related structures Conjunctivae: conjunctivae normal Pupils: PERRL Neck Neck: normal visual inspection, no lymphadenopathy and no JVD Carotids: Negative bruit Chest Chest inspection: normal inspection of the chest and symmetric chest movement Auscultation: Bilateral: Clear to Auscultation Cardio Palpation: normal PMI Rate: regular rate Rhythm: regular rhythm Heart sounds: S1 normal, S2 normal and rub Murmur: Grade 2/6, soft, mid systolic, LLSB and LVOT GI GI: normal to inspection, soft, no hepatosplenomegaly and bowel sounds present; negative tender Neuro General: alert, awake, oriented x3 and moves all extremities Skin Skin: no rashes or lesions noted Extremities Pulses: Normal: Right Posterior Tibial Pulse, Left Posterior Tibial Pulse, Right Radial Pulse, Left Radial Pulse Lower Extremity Edema: None: Bilateral Psych Psychological: normal affect Assessment AND Plan 1. 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 Re-do CABG x4 KIRBY to LAD free, HAIDER grafted to second obtuse marginal, SVG to posterior decend branch of RCA in 2006. Plan Stable, from a cardiac standpoint patient does not have any symptoms of angina. We recommend that they continue with current aggressive medical management and risk factor modification. Orders Orders: 2. Essential hypertension I10 Plan Blood pressure is well controlled on current medications, we do not recommend any changes at this time. 3. Pure hypercholesterolemia E78.00; E78.0 Plan Recent lipid profile demonstrates a total cholesterol of 170, HDL 45, LDL 105. Patient will continue with current aggressive medical management. 4. Paroxysmal ventricular tachycardia I47.2 Plan Stable, will continue to monitor through his pacemaker interrogations. He will continue with his current dose of beta-rahat. 5. Cardiac pacemaker in situ Z95.0 Plan Patient is scheduled to have a generator change in the near future. We will continue to monitor pacemaker interrogations appropriately. Orders Orders: Plan Detail Other Medications New: Additional Comments We will follow-up with patient after his pacemaker generator change. Patient will need a cardiac clearance at that time for his upcoming surgery. Thank you for allowing us to participate in patient's plan of care, if you have any questions please do not hesitate to call. This note was generated using a voice recognition system and there may be incorrect words, spelling or punctuation errors that were not noted when reviewing the office note prior to saving. 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 Essential hypertension I10 Hypertension type: essential hypertension Pure hypercholesterolemia E78.00; E78.0 Hyperlipidemia type: pure hypercholesterolemia Paroxysmal ventricular tachycardia I47.2 Cardiac pacemaker in situ Z95.0 05/06/18 1237 <Electronically signed by Awa CHASE> Date Awa CHASE Cosigner Signature: Date (if applicable) CC: Olive Sellers DO CBC-COMPLETE BLOOD CNT Collected: 05/06/2018 Status: F Source: [place] NO DIFF 9:30 AM [facility] [place] TYPE CODE TESTS RESULT OUT OF RANGE REFERENCE UNITS LAB L100.1000 4.4-11.0 K/mm3 Normal WBC 6.7 LAB L100.1200 4.6-6.2 M/mm3 Low RBC 3.94 LAB L100.1300 13.0-16.5 g/dl Low HGB 11.8 LAB L100.1400 40-54 % Low HCT 36.6 LAB L100.1500 80-94 fL Normal MCV 92.9 LAB L100.1600 27.0-32.0 pg Normal MCH 29.9 LAB L100.1700 32-36 g/gl Normal MCHC 32.2 LAB L100.1810 11.6-14.6 % Normal RDW CV 13.9 LAB L100.1820 35.1-43.9 fl High RDW SD 46.1 LAB L100.1900 150-450 K/mm3 Normal PLT 224 LAB L100.2000 6.2-12.0 fl Normal MPV 10.0 Performed By: #### L100.0500 #### [facility] [address] [place], [address] BASIC METABOLIC Collected: 05/06/2018 Status: F Source: [place] PROFILE (BMP) 9:30 AM [facility] [place] [place] TYPE CODE TESTS RESULT OUT OF RANGE REFERENCE UNITS LAB L501.0100 74-106 mg/dL Normal GLU 94 Result Comment: Please note revised GLUCOSE reference range effective 2017. LAB L501.1000 7-18 mg/dL High BUN 25 LAB L501.1100 0.70-1.30 mg/dL Normal CREAT,SERUM 1.25 Result Comment: The validity of the calculated GFR AND GFRAA in patients over 70 years has not been determined. Clinical correlation is essential. LAB L501.1110 >60 mL/min Low EST GFR 59 Result Comment: Non- GFR Calc LAB L501.1115 >60 mL/min Normal EST GFR - AA 71 Result Comment: GFR Calc LAB L501.1300 10-20 RATIO Normal BUN/CRE 20.0 LAB L501.2200 8.5-10.1 mg/dL CA Normal 9.0 LAB L501.5300 136-145 mmol/L NA Normal 139 LAB L501.5600 3.5-5.1 mmol/L K Normal 4.2 LAB L501.5900 98-107 mmol/L CL Normal 106 LAB L501.6100 21.0-32.0 mmol/L Normal CO2 25.0 LAB L501.6200 5-15 Normal GAP 8 Performed By: #### L500.2500 #### [facility] [address] [place], [address] PROTHROMBIN TIME W/INR Collected: 05/06/2018 Status: F Source: [place] 9:30 AM [facility] [place] TYPE CODE TESTS RESULT OUT OF RANGE REFERENCE UNITS LAB L300.4150 11.7-14.9 SECONDS High PROTIME 22.7 LAB L300.4200 Normal INR 2.0 Performed By: #### L300.3900 #### [facility] [address] [place], [address] URINALYSIS, COMPLETE Collected: 05/06/2018 Status: F Source: [place] 9:30 AM [facility] [place] Order Comment: How was Urine Obtained? 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 DIPSTX 1.015 LAB L400.3550 5.0 - 8.0 pH UR Normal 6.0 LAB L400.3600 Negative mg/dl PROT Normal DIPSTX Negative LAB L400.3700 Normal mg/dl Normal UROBILI Normal LAB L400.3750 Negative Normal NITRITE UR Negative LAB L400.3780 Negative /ul Normal OCCULT BLOOD-UR Negative LAB L400.3800 Negative /ul LEUK Normal ESTERASE Negative LAB L400.4050 0-5 /hpf WBC Normal 0-5 SEEN LAB L400.4100 0-5 /hpf 0 Normal RBC-UA SEEN LAB L400.4150 0-5 /hpf SQUAM 0 Normal EPI SEEN LAB L400.4300 None Seen /hpf 0 Normal BACTERIA SEEN LAB L400.4350 <or=2+ /hpf 0 Normal MUCUS, URINE SEEN Performed By: #### L400.0001 #### [facility] [address] [place] [address], [id number] PROTIME W/INR Collected: 05/06/2018 Status: F Source: [place] FINGERSTICK 8:01 AM [facility] TYPE CODE TESTS RESULT OUT OF RANGE REFERENCE UNITS LAB L9200.1001 11.9-14.4 SEC Normal PROTIME ISTAT 14.0 Result Comment: Reference Range 11.9 - 14.4 LAB L9200.2000 Normal INR ISTAT 1.20 Result Comment: Critical Value > 3.5 Performed By: #### L9200.0000 #### [facility] Point of Care [address] [place], [place] [address] PACEMAKER CHECK Observed: 04/29/2018 Status: F Source: [place] 4:12 PM [facility] [place], [place] [id number] Pacemaker Check Date of Service: 04/29/18 1427 MR#: [id number] Acct: [id number] Name: IVANIA GOMEZ Rep #: [id number] : 1935 From: Opal Shields Age/Sex: 82/M Location: [facility] Status: Signed Billing Codes PM Device Codes: PM Dev Prog Eval, Dual 04/29/18 1431 <Electronically signed by Opal Shields > Date Opal Shields 04/29/18 1612<Electronically signed by Palmer Lindo MD> Cosigner Signature: Date (if applicable) Palmer Lindo MD CC: CHEST PA AND LATERAL Observed: 04/29/2018 Status: F Source: [place] 2:48 PM [facility] [address] [place] [address] Chest PA and Lateral MR#: [id number] Acct: [id number] Name: IVANIA GOMEZ Rep #: [id number] : 1935 M 82 From: Perfecto Fischer MD PCP: Olive Sellers DO Status: REG CLI Study: Chest PA and Lateral Date of Exam: 04/29/18 Exam# [id number] Ordering Dr: Palmer Lindo MD STUDY: X-RAY CHEST REASON FOR EXAM: Male, 82 years old. Tachycardia TECHNIQUE: Frontal and lateral views of the chest COMPARISON: None. FINDINGS: The lungs are clear. There are no pleural effusions. There is no pneumothorax. The heart is enlarged. There is a dual-lead pacemaker in place. There is a moderate-sized hiatal hernia. The patient is status post sternotomy and coronary artery bypass. The visualized osseous structures are within normal limits. RAD/Chest PA and Lateral IMPRESSION: Clear lungs. Cardiomegaly. Pacemaker in place. Status post sternotomy. Moderate hiatal hernia. Electronically Signed: Perfecto Fischer, at 15:13 EST Tel , Service support , CC: Olive Sellers DO; Palmer Lindo MD Viscose Cellar Worker: Signed 12 LEAD EKG PERFORMED Observed: 04/29/2018 Status: F Source: KEY BY [facility] 2:17 PM [facility] [address] [address] 12 Lead EKG performed by [facility] 04/29/181416 MR#: [id number] Acct: [id number] Name: IVANIA GOMEZ Rep #: [id number] : 1935 82 From: Awa CHASE Attending Dr: Awa Blair Status: DEP AMB Ordering Dr: Awa Blair Date: 04/29/18 Location: [facility] Sex: M C Admitted: BMS/12 Lead EKG performed by [facility] ECG Report Interpretation Electronic ventricular pacemaker Pacemaker ECG, No further analysis Electronically signed on 04/29/2018 at 16:16 by Palmer Lindo Software Version [id number] 04/29/18 1618 Date Awa CHASE CC: Olive Sellers DO Date Dictated: 04/29/181416 Date Transcribed: 04/29/181416 Viscose Cellar Worker: MMM Signed PROTHROMBIN TIME W/INR Collected: 04/15/2018 Status: F Source: KEY 9:07 AM [facility] REPOSITORY TYPE CODE TESTS RESULT OUT OF RANGE REFERENCE UNITS LAB L300.4150 11.7-14.9 SECONDS High PROTIME 34.1 LAB L300.4200 Normal INR 3.3 Performed By: #### L300.3900 #### [facility] [address] [place], [address] PACEMAKER CHECK Observed: 04/04/2018 Status: F Source: KEY 8:11 AM [facility] [address] [place] [address] Pacemaker Check Date of Service: 04/03/18 1759 MR#: [id number] Acct: [id number] Name: IVANIA GOMEZ Rep #: [id number] : 1935 From: Opal Shields Age/Sex: 82/M Location: [facility] Status: Signed Billing Codes PM Device Codes: PM Dev Interrogate (Remot 04/03/18 1801 <Electronically signed by Opal Shields > Date Opal Shields 04/04/18 0811<Electronically signed by Palmer Lindo MD> Cosigner Signature: Date (if applicable) Palmer Lindo MD CC: PACEMAKER CHECK Observed: 03/11/2018 Status: F Source: KEY 6:30 PM [facility] REPOSITORY [facility] [address] [place] [address] Pacemaker Check Date of Service: 03/11/18 1523 MR#: [id number] Acct: [id number] Name: IVANIA GOMEZ Rep #: [id number] : 1935 From: Opal Shields Age/Sex: 82/M Location: [facility] Status: Signed Billing Codes PM Device Codes: PM Dev Prog Micheline, Dual 03/11/18 1525 <Electronically signed by Opal Shields > Date Opal Shields 03/11/18 1830<Electronically signed by Palmer Lindo MD> Cosigner Signature: Date (if applicable) Palmer Lindo MD CC: PROTHROMBIN TIME W/INR Collected: 03/08/2018 Status: F Source: [place] 8:43 AM [facility] TYPE CODE TESTS RESULT OUT OF RANGE REFERENCE UNITS LAB L300.4150 11.7-14.9 SECONDS High PROTIME 24.5 LAB L300.4200 Normal INR 2.2 Performed By: #### L300.3900 #### [facility] [address] [place], [place], [address] LIVER PROFILE Collected: 03/08/2018 Status: F Source: [place] 8:43 AM [facility] TYPE CODE TESTS RESULT OUT OF RANGE REFERENCE UNITS LAB L501.1500 6.4-8.2 g/dL Normal T PROT 7.1 LAB L501.1800 3.2-5.0 g/dL Normal ALB 3.2 LAB L501.1950 2.2-4.2 g/dL Normal GLOB 3.9 LAB L501.4100 15-37 U/L Normal AST 19 LAB L501.4305 45-117 U/L Normal ALK P 93 LAB L501.4405 16-61 U/L Normal ALT 20 LAB L501.4600 0.20-1.00 mg/dL Normal T BILI 1.00 LAB L501.4700 0.00-0.30 mg/dL Normal D BILI 0.25 Performed By: #### L500.3400, L500.4100 #### [facility] [address] [place], [address] LIPID PROFILE Collected: 03/08/2018 Status: F Source: KEY 8:43 AM [facility] [place] TYPE CODE TESTS RESULT OUT OF RANGE REFERENCE UNITS LAB L501.4900 200 mg/dL Normal CHOL 170 Result Comment: <200 mg/dL Desirable 200-240 mg/dL Borderline >240 mg/dL High Risk LAB L501.5000 mg/dL Normal TRIG 98 Result Comment: The drugs N-Acetylcysteine and Metamizole may falsely depress this assay. Serum Triglycerides Reference Interval Normal <150 mg/dL Borderline high 150 - 199 mg/dL High 200 - 499 mg/dL Very High > or = 500 mg/dL LAB L501.6400 mg/dL Normal HDL 45 Result Comment: The drugs N-Acetylcysteine and Metamizole may falsely depress this assay. Reference Range HDL <40 mg/dL Low HDL Cholesterol HDL >or= 60 mg/dL High HDL Cholesterol LAB L501.6500 0-130 mg/dL Normal LDL 105 LAB L501.6600 5-40 mg/dL Normal VLDL 20 Performed By: #### L500.3400, L500.4100 #### [facility] [address] [place], [address] PACEMAKER CHECK Observed: 02/11/2018 Status: F Source: KEY 4:59 PM [facility] [address] [place] [address] Pacemaker Check Date of Service: 02/11/18 1628 MR#: [id number] Acct: [id number] Name: IVANIA GOMEZ Rep #: [id number] : 1935 From: Opal Shields Age/Sex: 82/M Location: [facility] Status: Signed Billing Codes PM Device Codes: PM Dev Interrogate (Remot 02/11/18 1631 <Electronically signed by Opal Shields > Date Opal Shields 02/11/18 1659<Electronically signed by Palmer Lindo MD> Cosignfe Signature: Date (if applicable) Palmer Lindo MD CC: PACEMAKER CHECK Observed: 02/08/2018 Status: F Source: KEY 4:34 PM [facility] REPOSITORY [facility] [address] [place] [address] Pacemaker Check Date of Service: 01/02/181946 MR#: [id number] Acct: [id number] Name: IVANIA GOMEZ Rep #: [id number] : 1935 From: Opal Shields Age/Sex: 82/M Location: [facility] Status: Signed Billing Codes PM Device Codes: PM Dev Interrogate (Remot 02/08/18 1129 <Electronically signed by Opal Shields > Date Opal Shields 02/08/18 1634<Electronically signed by Palmer Lindo MD> Cosignfe Signature: Date (if applicable) Palmer Lindo MD CC: PROTHROMBIN TIME W/INR Collected: 01/30/2018 Status: F Source: KEY 1:13 PM [facility] REPOSITORY TYPE CODE TESTS RESULT OUT OF RANGE REFERENCE UNITS LAB L300.4150 11.7-14.9 SECONDS High PROTIME 27.6 LAB L300.4200 Normal INR 2.6 Performed By: #### L300.3900 #### [facility] [address] [place], [address] CARDIOLOGY VISIT Observed: 01/25/2018 Status: F Source: [place] REPORT 2:51 PM [facility] [address] [place] [address] OFFICE VISIT Date of Service: 01/25/18 MR#: [id number] Acct: [id number] Name: IVANIA GOMEZ Rep #: [id number] : 1935 Provider: Palmer Lindo MD Age/Sex: 82/M Location: [facility] Status: Signed HPI HPI Details: IVANIA GOMEZ, is a 82 M who presents to the office today for outpatient cardiovascular follow-up of his complex cardiovascular disease history. 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 At the present time he states overall he is doing well. He is being followed for his complex cardiovascular disease history and his permanent pacemaker. He denies any obvious symptoms suspicious for classic angina pectoris or CHF/pulmonary edema. There has been no episodes of orthopnea or PND or peripheral pitting edema. He has had no near syncope or syncope. His pacemaker is being followed. It was checked in November of this year. His battery longevity is approximately 6 months. Intake Vital Signs01/25/18 Height 5 ft 9 in 01/25/18 Weight: 193 lb 01/25/18 Body Mass Index (BMI) 28.5 01/25/18 Blood Pressure 114/60 Intake Visit Reasons: 6 M FU Allergies No Known Allergies Allergy (Unverified 01/25/18 14:00) Medications aspirin 81 mg tablet,delayed release 81 mg PO QDAY 04/26/17 [History Confirmed 01/25/18] cholecalciferol (vitamin D3) 2,000 unit tablet 2,000 unit PO QDAY tab 04/26/17 [History Confirmed 01/25/18] doxazosin 8 mg tablet 8 mg PO QDAY tab 04/26/17 [History Confirmed 01/25/18] nitroglycerin 400 mcg/spray translingual 0.4 mg TRANSLINGUAL Q5M PRN g 04/26/17 [History Confirmed 01/25/18] ferrous sulfate 325 mg (65 mg iron) tablet,delayed release See Label Instructions PO QDAY tab 04/30/17 [History Confirmed 01/25/18] warfarin 3 mg tablet 3 mg PO QDAY #90 tab 10/17/17 [Rx Confirmed 01/25/18] levothyroxine 125 mcg tablet 125 mcg PO .COMPLEX tab 01/25/18 [History Confirmed 01/25/18] metoprolol succinate ER 50 mg tablet,extended release 24 hr 50 mg PO DAILY tab 01/25/18 [History Confirmed 01/25/18] pantoprazole 40 mg tablet,delayed release 40 mg PO .QOD tab 01/25/18 [History Confirmed 01/25/18] [facility] Medical History Chronic atrial fibrillation (Chronic) Ventricular fibrillation (Acute) HLD (hyperlipidemia) (Chronic) HTN (hypertension) (Chronic) Atrioventricular block (Chronic) Paroxysmal ventricular tachycardia (Chronic) Paroxysmal tachycardia (Inactive) Atrial arrhythmia (Chronic) Syncope and collapse (Chronic) 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) 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) Anemia (Acute) [place]igo (Acute) GERD (gastroesophageal reflux disease) (Chronic) Neoplasm of oropharynx (Chronic) Surgical History Hx of CABG (Chronic) S/P PTCA (percutaneous transluminal coronary angioplasty) (Chronic 03/24/97) S/P placement of cardiac pacemaker (Resolved) Family History Father Hypertension Cancer Son Hypertension Mother Cancer Other Diabetes Social History Smoking Status: Former smoker alcohol intake: current alcohol intake frequency: a few times a week Alcohol type: beer substance use type: does not use caffeine: Yes Type: tea Number of servings: 2, coffee Number of servings: 2 eating out: 1-3 times/week what type of physical activity do you participate in: none seatbelt use: always do you feel safe at home: Yes ROS Const Const: Positive for fatigue (continues); negative for weakness, weight gain, weight loss, frequent falls or excessive sweating Eyes Eyes: Negative for change in vision, blurry vision or transient loss of vision ENT ENT: Positive for balance problems (unsteadiness); negative for dizziness Cardio Chest Pain: No Palpitations: No Edema: None Muscle aches with walking: None Resp Respiratory: Negative for SOB with activity or SOB at rest GI GI: Negative vomiting or vomiting blood/hematemesis : Negative for hematuria Musc Musc: Positive for balance problems (unsteadiness) and muscle aches/ myalgia (DX spinal stenosis, following up with [facility]); negative for muscle weakness or joint pain Skin Skin: Negative non-healing lesions or rash Neuro Neuro: Negative for weakness, blurry vision, dizziness, lightheadedness, frequent falls or orthostatic symptoms Rafat Hematologic/Lymphatic: Negative for easy bleeding Endo Endo: Positive for fatigue (continues); negative for excessive sweating Psych Psych: Negative for anxiety or depression Allergy Allergy/Immunology: Negative for hives, Negative for rash Cardiology Exam Const Appearance: cooperative, no acute distress, well developed, comfortable and well groomed Orientation: alert, awake and oriented x3 Head Head: normocephalic and normal to inspection; negative atraumatic Ears: hearing grossly normal bilaterally Nose: external nose normal Face and Sinus: face symmetric Mouth: oral mucosae normal Teeth and gingiva: fair dentition Eyes General: appearance normal, both eyes and all related structures Conjunctivae: conjunctivae normal Pupils: PERRL Neck Neck: normal visual inspection, no lymphadenopathy and no JVD Carotids: Negative bruit Chest Chest inspection: normal inspection of the chest and symmetric chest movement Auscultation: Bilateral: Clear to Auscultation Cardio Palpation: normal PMI Rate: regular rate Rhythm: regular rhythm Heart sounds: S1 normal, S2 normal and rub Murmur: Grade 2/6, soft, mid systolic, LLSB and LVOT GI GI: normal to inspection, soft, no hepatosplenomegaly and bowel sounds present; negative tender Neuro General: alert, awake, oriented x3 and moves all extremities Skin Skin: no rashes or lesions noted Extremities Pulses: Normal: Right Posterior Tibial Pulse, Left Posterior Tibial Pulse, Right Radial Pulse, Left Radial Pulse Lower Extremity Edema: None: Bilateral Psych Psychological: normal affect Supplemental Info He did have a transthoracic echocardiogram on 09/29/2009. retation S urn ma ry Mild concentric left ventricular hypertrophy. Left ventricular systolic function is lower limits of normal, estimated ejection fraction is 50%, Paced septal motion. Mildly calcified aortic root. Mild mitral annular calcification. Mild diffuse mitral valve thickening. Mild mitral valve prolapse. Trivial mitral valve insufficiency. Mild () tricuspid valve insufficiency. Aortic sclerosis, no stenosis. Trivial aortic valve insufficiency. Trivial pulmonic valve insufficiency. Right ventricular systolic pressure estimated to be 23 mmHg. lCD or pacer leads identified within the right atrium and right ventricle. He did have a transesophageal echocardiogram performed on 04/10/2011 Interpretation Summary Mild concentric left ventricular hypertrophy. Left ventricular systolic function is lower limits of normal. The estimated ejection fraction is 50 %. Shaggy appearing proximal pacemaker lead within SVC with multiple mobile filamentous structures localized to distal atrial segment of lead suspicious for vegetations. Mild mitral annular calcification. Mild mitral valve prolapse. Small mobile filamentous structures localized to the atrial aspect of the mitral valve likely representing strands. Early vegetations cannot be excluded. Mild (1+) mitral valve insufficiency. Mild (1+) tricuspid valve insufficiency. Trivial aortic valve insufficiency. Mild (1+) pulmonic valve insufficiency. Right ventricular systolic pressure estimated to be 25 mmHg. Mild atherosclerosis of the aortic arch and descending aorta. He had a pharmacologic stress nuclear imaging study performed on 09/29/2009. CONCLUSION 1. Normal physiologic response to regadenoson. 2. No chest discomfort to suggest angina elicited with regadenoson, dyspnea. only. 3. Resting electrocardiogram demonstrating a.V sequential paced rhythm. 4. Electrocardiogram with regadenoson demonstrating AV sequential paced rhythm with pseudofusion inconclusive for ischemia.. 5. Nuclear Images demonstrate a small fixed, basal inferior perfusion defect suspicious for prior infarct versus diaphragmatic attenuation, with, a reversible perfusion defect extending into the midinferior to inferoapical and basal inferolateral segments suggestive of inducible ischemia possibly in a chino infarct distribution. Calculated, ejection fraction by gated SPECT imaging was 33%. He had a cardiac catheterization performed on 10/26/2009 at [facility]. Per the conclusion is stated he had a patent SVG graft to the third OM with patent associated free HAIDER artery to the posterior lateral branch. He had a previous cardiac catheterization on on 10/12/2009 at [facility]. Per the report he had: Subtle mid inferior segmental left ventricular dysfunction with a preserved ejection fraction of 55% Left main coronary artery 20-30% distal stenosis LAD with 20-30% ostial stenosis, 40-50% proximal stenosis, and 80-90% mid stenosis, filling via a patent KIRBY artery graft Second diagonal branch with 30-40% ostial stenosis LCx with 40-50% ostial stenosis and 40-50% proximal stenosis and 20-30% mid stenosis Second OM was 40-50% ostial stenosis Third OM occluded RCA occluded Right PDA filling via an SVG graft First right posterior lateral branch occluded and filling via collaterals Second right posterior lateral occluded filling via a patent SVG graft SVG graft to the right PDA patent SVG graft to the second right posterior lateral patent SVG graft to the posterior lateral circumflex with associated free HAIDER to the OM occluded KIRBY to the LAD patent He does have a permanent pacemaker: Date Evaluated: 01/18/2017 Follow-up location: Remote Health Coordinator: [employer] Name: Alexia Model #: SEDR01 Serial #: [id number] Date Implanted: 04/19/2011 Device Characteristics Device: Dual Chamber Type: Pacemaker Remote: [employer] Assessment AND Plan 1. CAD (coronary artery disease) I25.10 Plan At the present time he appears to be without acute symptoms. He will continue risk factor modification and medical management. 2. 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 Re-do CABG x4 KIRBY to LAD free, HAIDER grafted to second obtuse marginal, SVG to posterior decend branch of RCA in 2006. Plan He has a history of CABG as noted above. He is undergone noninvasive and invasive studies as noted above. At the present time he appears to be without acute symptoms. He will continue medical therapy 3. Chronic atrial fibrillation I48.2 Plan He does have a history of chronic underlying atrial dysrhythmia/fibrillation. He will continue medical management. This does include anticoagulant therapy peer 4. 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 He will continue to be followed. Eventually he will need a pacemaker generator change. Plan Detail Additional Comments He states he is going to be evaluated by the [facility] orthopedic surgery group for spinal stenosis. It is unclear whether he will need a surgical procedure or not. At the moment he appears to be without any obvious adverse cardiovascular symptoms or events. He will continue his medical management. If he does need a noncardiac surgical procedure then he will need to have close follow-up of his cardiac rate rhythm and blood pressure during and following his surgical procedure. An attempt should be made to avoid volume overload during and following his surgical procedure. He would need to continue medical management in and around the time of his surgical procedure especially with respect to his beta-blockers which she has been on for some time. He would need temporary interruption of his anticoagulant therapy in and around the time of his procedure. Based upon his underlying cardiac dysrhythmia would not be unreasonable to consider bridging therapy with subcutaneous Lovenox in and around the time of his surgical procedure. Certainly he would be at an increased risk for adverse cardiovascular events from noncardiac surgery, however, hopefully if he remains clinically stable with close monitoring and management of these risk and be kept at a minimum. Follow Up 6 Months (PFM) Coding Level of Care Code Off vis,est,level 3 Diagnoses CAD (coronary artery disease) I25.10 Coronary Disease-Associated Artery/Lesion type: [place] artery [place] vs. transplanted heart: [place] heart History of coronary artery bypass graft Z95.1 Chronic atrial fibrillation I48.2 Presence of cardiac pacemaker Z95.0 Coding Level of Care Code Off vis,est,level 3 Diagnoses CAD (coronary artery disease) I25.10 Coronary Disease-Associated Artery/Lesion type: [place] artery [place] vs. transplanted heart: [place] heart History of coronary artery bypass graft Z95.1 Chronic atrial fibrillation I48.2 Presence of cardiac pacemaker Z95.0 01/25/18 1451 <Electronically signed by Palmer Lindo MD> Date Palmer Lindo MD Cosigner Signature: Date (if applicable) CC: Olive Sellers DO PROTHROMBIN TIME W/INR Collected: 01/14/2018 Status: F Source: KEY 9:32 AM [facility] [place] TYPE CODE TESTS RESULT OUT OF RANGE REFERENCE UNITS LAB L300.4150 11.7-14.9 SECONDS High PROTIME 21.7 LAB L300.4200 Normal INR 1.9 Performed By: #### L300.3900 #### [facility] [address] [place], [address] LUMBAR MYELOGRAM Observed: 01/04/2018 Status: F Source: KEY 11:04 AM [facility] [place] [facility] [address] [place] [address] Lumbar Myelogram MR#: [id number] Acct: [id number] Name: IVANIA GOMEZ Rep #: [id number] : 1935 M 82 From: Dami Colindres MD PCP: Olive Sellers DO Status: REG CLI Study: Lumbar Myelogram Date of Exam: 01/04/18 Exam# [id number] Ordering Dr: Perfecto White MD PROCEDURE: LUMBAR MYELOGRAM DATE OF EXAMINATION: January 04, 2018. INDICATION: Male, 82 years old. Low back pain. PHYSICIAN: Dami Colindres M.D. CONSENT: The patient's history and physical findings were reviewed. The lumbar myelogram procedure was discussed with the patient prior to signing a consent. SEDATION: Local anesthesia with 3 mL of 1% lidocaine was used. FLUOROSCOPY TIME (if supplied): (0:48) minutes/seconds Injection Information: 15 cc of Isovue-M 200. Number of images obtained: 5 TECHNIQUE: Digital fluoroscopy was used to identify a safe approach for the lumbar myelogram. The back was prepped and draped in usual fashion. Local anesthesia was utilized. Under fluoroscopic guidance a 22- gauge spinal needle was inserted into the spinal canal at the L4-5 level. Clear spinal fluid was seen. 15 mL of Isovue 200 M was injected into the spinal canal. There is evidence of multiple levels of spinal stenosis with disc space narrowing. This is worse at the L3-L4, L4-L5 and L5-S1 levels. A CT scan will follow. The patient tolerated the procedure well. RAD/Lumbar Myelogram IMPRESSION: Multilevel spinal stenosis. A CT scan will follow. Electronically Signed: Dami Colindres MD at 13:18 EDT Tel [phone], Service support , CC: Olive Sellers DO; Perfecto White MD Viscose Cellar Worker: Signed SPINE LUMBAR WITHOUT Observed: 01/04/2018 Status: F Source: KEY CONTRAST 11:04 AM [facility] [place] [facility] [address] [place] [address] Spine Lumbar without Contrast MR#: [id number] Acct: [id number] Name: IVANIA GOMEZ Rep #: [id number] : 1935 M 82 From: Dami Colindres MD PCP: Olive Sellers DO Status: REG CLI Study: Spine Lumbar without Contrast Date of Exam: 01/04/18 Exam# [id number] Ordering Dr: Perfecto White MD STUDY: CT LUMBAR SPINE WITH INTRATHECAL CONTRAST (LUMBAR CT MYELOGRAM) REASON FOR EXAM: Male, 82 years old. Chronic low back pain and radiculopathy. RADIATION DOSAGE (If Supplied By Facility): CTDIvol = ( 18.78 ) mGy, DLP = ( 531.39 ) mGycm TECHNIQUE: Transaxial images were obtained from the L1 vertebra through the S1 vertebral level, following intrathecal administration of 15 ml of Isovue-M 200 contrast material, performed by Dr. Colindres. Please refer to this physicians technical notes for procedural details. Coronal and sagittal reconstructions were obtained. Individualized dose optimization techniques were used for this CT. COMPARISON: None. FINDINGS: There is straightening of the normal lumbar lordosis. There is no substantial scoliosis. Multilevel spondylosis. There is dependent layering of contrast material in the distal thecal sac. The conus medullaris terminates in a normal position at the L1-L2 level. There is no demonstrated cauda equina nerve root abnormality or intraspinal mass. L1-2: Mild to moderate degree of disc space narrowing with disc degeneration. Anterior spondylosis. Mild central diffuse posterior disc bulge. Mild deformity of the anterior thecal sac causing mild degree of central canal stenosis. Facet joint osteoarthritis. L2-3: Moderate degree of disc space narrowing. Hypertrophy of the facet joints as well as the ligamentum flavum causing a moderate degree of spinal stenosis worse posteriorly. Diffuse spondylosis and facet joint osteoarthritis. L3-4: Mild degree of disc space narrowing. Moderate to severe degree of spinal stenosis due to a combination of diffuse posterior disc bulge as well as facet joint osteoarthritis and hypertrophy of the ligamentum flavum. Mild degree diffuse posterior disc bulge. Marked degree of bilateral neural foraminal stenosis. L4-5: Moderate degree of disc space narrowing with disc degeneration. Marked degree of diffuse spinal stenosis with bilateral neural foraminal stenosis due to a combination of facet joint osteoarthritis and hypertrophy as well as hypertrophy of the ligamenta flava. L5-S1: Moderate degree of disc space narrowing and degeneration. Moderate size right lateral posterior disc herniation causing deformity of the thecal sac on the right side as well as compression of the right S1 nerve root. Mild degree of degenerative changes of the sacroiliac joints. Atherosclerotic calcification of the abdominal aorta. CT/Spine Lumbar without Contrast IMPRESSION: Multilevel spinal stenosis worse at the L3-L4 and L4-L5 levels. Moderate size right lateral posterior disc herniation causing compromise of the exiting nerve root on the right side. Electronically Signed: Dami Colindres MD at 13:25 EDT Tel [phone], Service support , CC: Olive White MD Viscose Cellar Worker: Signed PROTHROMBIN TIME W/INR Collected: 12/03/2017 Status: F Source: KEY 11:30 AM [facility] [place] TYPE CODE TESTS RESULT OUT OF RANGE REFERENCE UNITS LAB L300.4150 11.7-14.9 SECONDS High PROTIME 24.9 LAB L300.4200 Normal INR 2.2 Performed By: #### L300.3900 #### [facility] [address] [place], [address] PACEMAKER CHECK Observed: 11/28/2017 Status: F Source: KEY 8:01 AM [facility] [place] [facility] [address] [place] [address] Pacemaker Check Date of Service: 11/27/171936 MR#: [id number] Acct: [id number] Name: IVANIA GOMEZ Rep #: [id number] : 1935 From: Opal Shields Age/Sex: 82/M Location: [facility] [place] Status: Signed Billing Codes PM Device Codes: PM Dev Interrogate (Remot 11/27/171937 <Electronically signed by Opal Shields > Date Opal Shields 11/28/17800<Electronically signed by Palmer Lindo MD> Cosigner Signature: Date (if applicable) Palmer Lindo MD CC: DOWNTIME REPORT Observed: 11/08/2017 Status: F Source: [place] 12:21 PM [facility] Medical Records Department [address] [facility] [place] [address] Downtime Report MR#: [id number] Acct: [id number] Name: IVANIA GOMEZ Rep #: [id number] : 1935 82 From: Eric West PCP: Olive Sellers DO Status: REG RCR This patient was seen during an EMR downtime October 22, 2017 - October 29, 2017. This patient may have a combination of paper and electronic documentation or all paper documentation. All documentation is viewable within the e-chart portion of [employer] for each patient visit. PACEMAKER CHECK Observed: 10/29/2017 Status: F Source: [place] 8:40 AM [facility] [address] [place] [address] Pacemaker Check Date of Service: 10/20/17 0950 MR#: [id number] Acct: [id number] Name: IVANIA GOMEZ Rep #: [id number] : 1935 From: Opal Shields Age/Sex: 82/M Location: [facility] Status: Signed Comments Summary Comments: Remote Dual Chamber Pacemaker Evaluation: Remote interrogation shows 22 MS episodes, 100% total time and no VHR episodes since 04/30/17. Presenting rhythm shows ventricular paced @ 75 ppm with underlying atrial fib. Pt on Coumadin. Estimated battery life 9 mos. SUPERVISOR FLESHING=15.7%. Lead impedances, sensing and atrial adaptive pace/sense threshold remain stable. Normal remote PPM function. Pt notified remote transmission received and next f/u appt scheduled for in 2 mos d/t approaching JASWINDER. Device Device Date Interviewed: 10/02/17 Follow-up Location: remote Interview Reason: scheduled follow up Health Coordinator: [employer] Name: Sensia Model: SEDR01 Serial #: [id number] Implant Date: 04/19/11 Year(s): 6 Implant Physician: Perfecto Mcclendon M.D. @ [facility] Patient Characteristics Atrial Indication: Atrial tachycardia, Paroxysmal atrial fibrillation AV/Node Indication: Second degree AV block Ejection fraction %: 50 to 54 By: Echo Underlying rhythm: Sinus rhythm Pacemaker Dependent: No Device Characteristics Device: Dual Chamber Type: Pacemaker Remote Follow-Up: [facility] Leads Lead #1 Health Coordinator Lead 1: [employer] Model Lead 1: 5076/52 Serial# Lead 1: [id number] Date Implanted Lead 1: 04/26/07 Position Lead 1: RA Lead #2 Health Coordinator Lead 2: [employer] Model Lead 2: 5076/45 Serial# Lead 2: [id number] Date Implanted Lead 2: 04/19/11 Position Lead 2: RA Lead #3 Health Coordinator Lead 3: [employer] Model Lead 3: 5076/58 Serial# Lead 3: [id number] Date Implanted Lead 3: 04/26/07 Position Lead 3: RV Lead #4 Health Coordinator Lead 4: [employer] Model Lead 4: 5076/52 Serial# Lead 4: [id number] Date Implanted Lead 4: 04/19/11 Position Lead 4: RV Diagnostics Pacing % RA Pacin.8 % RV Pacin.7 Mode Switching Total # Episodes: 22 % Mode switched: 100 Arrhythmias Non-Sust Episodes: 0 Measurements Battery Voltage (V): 2.66 Predicted Remaining Longevity (months or years): 9 mos RA Measurements Signal Amplitude (mV): 1.0 Impedance (Ohms): 491 Threshold Voltage: 0.75 @ PW(ms): 0.4 RV Measurements Signal Amplitude (mV): 8.0 Impedance (Ohms): 441 Mohit Settings Mohit Settings Pacemaker Mode DDDR Output/Sensing V/PW (ms) 1.5/0.4 4.0/0.52 Sensitivity RA RV LV Comments: Billing Codes PM Device Codes: PM Dev Interrogate (Remot Assessment AND Plan Problems 1. Cardiac pacemaker in situ Z95.0 2. CAD (coronary artery disease) I25.10 3. Ventricular tachycardia I47.2 4. Syncope and collapse R55 5. Atrial arrhythmia I49.8 6. Ventricular fibrillation I49.01 7. Chronic atrial fibrillation I48.2 8. Paroxysmal tachycardia I47.9 9. Paroxysmal ventricular tachycardia I47.2 10. Atrioventricular block I44.30 10/20/17 1008 <Electronically signed by Opal Shields > Date Opal Shields 10/29/17 0839<Electronically signed by Palmer Lindo MD> Cosigner Signature: Date (if applicable) Palmer Lindo MD CC: PROTHROMBIN TIME W/INR Collected: 10/26/2017 Status: F Source: [place] 8:54 AM [facility] [place] TYPE CODE TESTS RESULT OUT OF RANGE REFERENCE UNITS LAB L300.4150 11.7-14.9 SECONDS High PROTIME 27.4 LAB L300.4200 Normal INR 2.5 Performed By: #### L300.3900 #### [facility] [address] [place], [address] CBC W/DIFF, AUTOMATED Collected: 09/24/2017 Status: F Source: [place] 8:50 AM [facility] [place] Order Comment: PT/INR FOR DR GUICHO FUENTES ARE FOR DR SELLERS TYPE CODE TESTS RESULT OUT OF RANGE REFERENCE UNITS LAB L100.1000 4.4-11.0 K/mm3 Normal WBC 5.4 LAB L100.1200 4.6-6.2 M/mm3 Low RBC 4.00 LAB L100.1300 13.0-16.5 g/dl Low HGB 11.8 LAB L100.1400 40-54 % Low HCT 36.7 LAB L100.1500 80-94 fL Normal MCV 91.8 LAB L100.1600 27.0-32.0 pg Normal MCH 29.5 LAB L100.1700 32-36 g/gl Normal MCHC 32.2 LAB L100.1810 11.6-14.6 % Normal RDW CV 14.4 LAB L100.1820 35.1-43.9 fl High RDW SD 48.5 LAB L100.1900 150-450 K/mm3 Normal PLT 205 LAB L100.2000 6.2-12.0 fl Normal MPV 10.0 LAB L100.2100 47-70 % Normal NEUT% 68.2 LAB L100.2200 19-41 % Low LY% 16.8 LAB L100.2300 0-10 % Normal MONO% 9.3 LAB L100.2400 0-5 % Normal EO% 5.0 LAB L100.2500 0-1 % Normal BASO% 0.7 LAB L100.2550 0.0-0.9 % Normal IM GRAN % 0.000 Result Comment: IG% - Immature Granulocytes (promyelocytes, myelocytes and metamyelocytes) > 1% indicates that a LEFT SHIFT is Present. LAB L100.2620 2.0-7.7 X10 3/uL Normal Absolute Neut 3.7 LAB L100.2720 0.83-4.51 X10 3/ul Normal Absolute Lymph 0.90 Performed By: #### L100.0100 #### [facility] [address] [place], [address] VITAMIN D,25 HYDROXY Collected: 09/24/2017 Status: F Source: [place] 8:50 AM [facility] [place] Order Comment: PT/INR FOR DR GUICHO FUENTES ARE FOR DR SELLERS TYPE CODE TESTS RESULT OUT OF RANGE REFERENCE UNITS LAB L506.1000 29.95-100.01 ng/mL Normal Vitamin D 56.0 25-OH Result Comment: Vitamin D 25(OH) Status Range Deficiency <20 ng/mL (50nmol/L) Insuffciency 20 - 30 ng/mL (50 - 75 nmol/L) Sufficiency 30 - 100 ng/mL (75 - 250 nmol/L) Toxicity >100 ng/mL (>250 nmol/L) Performed By: #### L506.1000 #### [facility] [address] [place], [address] COMPREHENSIVE METABOLIC Collected: 09/24/2017 Status: F Source: [facility] 8:50 AM [facility] [place] Order Comment: PT/INR FOR DR LINDO REST ARE FOR DR SELLERS TYPE CODE TESTS RESULT OUT OF RANGE REFERENCE UNITS LAB L501.0100 74-106 mg/dL Normal GLU 92 Result Comment: Please note revised GLUCOSE reference range effective 2017. LAB L501.1000 7-18 mg/dL High BUN 20 LAB L501.1100 0.70-1.30 mg/dL Normal CREAT,SERUM 1.23 Result Comment: The validity of the calculated GFR AND GFRAA in patients over 70 years has not been determined. Clinical correlation is essential. LAB L501.1110 >60 mL/min Normal EST GFR 60 Result Comment: Non- GFR Calc LAB L501.1115 >60 mL/min Normal EST GFR - AA 72 Result Comment: GFR Calc LAB L501.1300 10-20 RATIO Normal BUN/CRE 16.3 LAB L501.1500 6.4-8.2 g/dL T Normal PROT 7.4 LAB L501.1800 3.2-5.0 g/dL Normal ALB 3.2 LAB L501.1950 2.2-4.2 g/dL Normal GLOB 4.2 LAB L501.2000 0.9-2.4 RATIO Low A/G 0.8 LAB L501.2200 8.5-10.1 mg/dL CA Normal 8.7 LAB L501.4100 15-37 U/L Normal AST 21 LAB L501.4305 45-117 U/L Normal ALK P 94 LAB L501.4405 16-61 U/L Normal ALT 19 LAB L501.4600 0.20-1.00 mg/dL T Normal BILI 1.00 LAB L501.5300 136-145 mmol/L NA Normal 142 LAB L501.5600 3.5-5.1 mmol/L K Normal 4.0 LAB L501.5900 98-107 mmol/L High CL 108 LAB L501.6100 21.0-32.0 mmol/L Normal CO2 27.0 LAB L501.6200 5-15 Normal GAP 7 Performed By: #### L500.4050, L501.9520, L503.6075, L503.6150, L503.6550 #### [facility] [address] [place], [place], [id number] THYROID STIM HORMONE Collected: 09/24/2017 Status: F Source: KEY (TSH) 8:50 AM [facility] [place] [facility] Order Comment: PT/INR FOR DR GUICHO FUENTES ARE FOR DR SELLERS TYPE DILLON TESTS RESULT OUT OF RANGE REFERENCE UNITS LAB L501.9520 0.358-3.74 uIU/mL Normal TSH 0.64 Performed By: #### L500.4050, L501.9520, L503.6075, L503.6150, L503.6550 #### [facility] [address] [place], [place], [address] IRON BINDING Collected: 09/24/2017 Status: F Source: KEY [facility],TOTAL 8:50 AM [facility] [place] [facility] Order Comment: PT/INR FOR DR GUICHO FUENTES ARE FOR DR SELLERS TYPE CODE TESTS RESULT OUT OF RANGE REFERENCE UNITS LAB L503.6075 250-450 ug/dL Low TIBC 244 Performed By: #### L500.4050, L501.9520, L503.6075, L503.6150, L503.6550 #### [facility] [address] [place], [place], [id number] IRON Collected: 09/24/2017 Status: F Source: KEY 8:50 AM [facility] [place] [facility] Order Comment: PT/INR FOR DR GUICHO FUENTES ARE FOR DR SELLERS TYPE CODE TESTS RESULT OUT OF RANGE REFERENCE UNITS LAB L503.6150 65-175 ug/dL Normal IRON 76 Performed By: #### L500.4050, L501.9520, L503.6075, L503.6150, L503.6550 #### [facility] [address] [place], [place], [id number] FERRITIN Collected: 09/24/2017 Status: F Source: TIMPSON 8:50 AM [facility] [place] [facility] Order Comment: PT/INR FOR DR GUICHO FUENTES ARE FOR DR SELLERS TYPE CODE TESTS RESULT OUT OF RANGE REFERENCE UNITS LAB L503.6550 26-388 ng/mL Normal FERRITIN 157 Performed By: #### L500.4050, L501.9520, L503.6075, L503.6150, L503.6550 #### [facility] [address] [place], [place], [id number] PROTHROMBIN TIME W/INR Collected: 09/24/2017 Status: F Source: TIMPSON 8:49 AM [facility] [place] [facility] Order Comment: PT/INR FOR DR GUICHO FUENTES ARE FOR DR SELLERS Comments: standing order good from 05/29/17-05/29/18 Comments: standing order good from 05/29/17-05/29/18 TYPE CODE TESTS RESULT OUT OF RANGE REFERENCE UNITS LAB L300.4150 11.7-14.9 SECONDS High PROTIME 24.1 LAB L300.4200 Normal INR 2.2 Performed By: #### L300.3900 #### [facility] [address] [place], [place], [address] PROTHROMBIN TIME W/INR Collected: 08/24/2017 Status: F Source: TIMPSON 8:36 AM [facility] [place] [facility] TYPE CODE TESTS RESULT OUT OF RANGE REFERENCE UNITS LAB L300.4150 11.7-14.9 SECONDS High PROTIME 24.5 LAB L300.4200 Normal INR 2.2 Performed By: #### L300.3900 #### [facility] [address] [place], [place], [id number] LIVER PROFILE Collected: 08/24/2017 Status: F Source: KEY 8:35 AM [facility] [place] [facility] Order Comment: Order Date: 02/22/17 Order Info: 0788-1 - *Hepatic Function Panel Order Info: 67552-1 - *Lipid Profile CC PCP Comments: 12 hours fasting, may have water. TYPE CODE TESTS RESULT OUT OF RANGE REFERENCE UNITS LAB L501.1500 6.4-8.2 g/dL Normal T PROT 7.4 LAB L501.1800 3.2-5.0 g/dL Normal ALB 3.3 LAB L501.1950 2.2-4.2 g/dL Normal GLOB 4.1 LAB L501.4100 15-37 U/L Normal AST 23 LAB L501.4305 45-117 U/L Normal ALK P 88 LAB L501.4405 16-61 U/L Normal ALT 18 Result Comment: Please note revised ALT reference range effective 2017. LAB L501.4600 0.20-1.00 mg/dL Normal T BILI 0.90 LAB L501.4700 0.00-0.30 mg/dL Normal D BILI 0.27 Performed By: #### L500.3400 #### [facility] [address] [place], [address] LIPID PROFILE Collected: 08/24/2017 Status: F Source: KEY 8:35 AM [facility] [place] [facility] Order Comment: Order Date: 02/22/17 Order Info: 0788-1 - *Hepatic Function Panel Order Info: 73566-3 - *Lipid Profile CC PCP Comments: 12 hours fasting, may have water. TYPE CODE TESTS RESULT OUT OF RANGE REFERENCE UNITS LAB L501.4900 200 mg/dL Normal CHOL 153 Result Comment: <200 mg/dL Desirable 200-240 mg/dL Borderline >240 mg/dL High Risk LAB L501.5000 mg/dL Normal TRIG 69 Result Comment: The drugs N-Acetylcysteine and Metamizole may falsely depress this assay. Serum Triglycerides Reference Interval Normal <150 mg/dL Borderline high 150 - 199 mg/dL High 200 - 499 mg/dL Very High > or = 500 mg/dL LAB L501.6400 mg/dL Normal HDL 47 Result Comment: The drugs N-Acetylcysteine and Metamizole may falsely depress this assay. Reference Range HDL <40 mg/dL Low HDL Cholesterol HDL >or= 60 mg/dL High HDL Cholesterol LAB L501.6500 0-130 mg/dL Normal LDL 92 LAB L501.6600 5-40 mg/dL Normal VLDL 14 Performed By: #### L500.4100 #### [facility] [address] [place], [address] PACEMAKER CHECK Observed: 08/14/2017 Status: F Source: TIM[place]ON 11:40 AM [facility] [place] [facility] [address] [place] [address] Pacemaker Check Date of Service: 07/31/17 1118 MR#: [id number] Acct: [id number] Name: IVANIA GOMEZ Rep #: [id number] : 1935 From: Opal Shields Age/Sex: 82/M Location: [facility] Status: Signed Comments Summary Comments: Remote Dual Chamber Pacemaker Evaluation: Remote interrogation shows 14 MS episodes, 100% total time and no VHR episodes since 04/30/17. Presenting rhythm shows Ventricular paced @ 66 ppm with underlying atrial fib. Pt on Coumadin. SUPERVISOR FLESHING=17.6%, AP 13.2%. Battery longevity approx 11 mos. Lead impedances, sensing and adaptive atrial threshold remain stable. Normal remote PPM function. Pt notified remote transmission received and next f/u appt scheduled for in 2 mos. Device Device Date Interviewed: 07/31/17 Follow-up Location: remote Interview Reason: scheduled follow up Health Coordinator: Med[employer] Name: Sensia Model: SEDR01 Serial #: [id number] Implant Date: 04/19/11 Year(s): 6 Implant Physician: Perfecto Mcclendon M.D. @ [facility] Patient Characteristics Atrial Indication: Atrial tachycardia, Paroxysmal atrial fibrillation AV/Node Indication: Second degree AV block (Mobitz I) Ejection fraction %: 50 to 54 By: Echo Underlying rhythm: Sinus rhythm Pacemaker Dependent: No Device Characteristics Device: Dual Chamber Type: Pacemaker Remote Follow-Up: [facility] Leads Lead #1 Health Coordinator Lead 1: Medtronic Model Lead 1: 5076/52 Serial# Lead 1: [id number] Date Implanted Lead 1: 04/26/07 Position Lead 1: RA Lead #2 Health Coordinator Lead 2: Medtronic Model Lead 2: 5076/45 Serial# Lead 2: [id number] Date Implanted Lead 2: 04/19/11 Position Lead 2: RA Lead #3 Health Coordinator Lead 3: Medtronic Model Lead 3: 5076/58 Serial# Lead 3: [id number] Date Implanted Lead 3: 04/26/07 Position Lead 3: RV Lead #4 Health Coordinator Lead 4: Medtronic Model Lead 4: 5076/52 Serial# Lead 4: [id number] Date Implanted Lead 4: 04/19/11 Position Lead 4: RV Diagnostics Pacing % RA Pacin.2 % RV Pacin.6 Mode Switching Total # Episodes: 14 % Mode switched: 100 Arrhythmias Non-Sust Episodes: 0 Measurements Battery Voltage (V): 2.69 Predicted Remaining Longevity (months or years): 11 mos RA Measurements Signal Amplitude (mV): 1.0 Impedance (Ohms): 479 Threshold Voltage: 0.75 @ PW(ms): 0.4 RV Measurements Impedance (Ohms): 435 Mohit Settings Mohit Settings Pacemaker Mode DDDR Output/Sensing V/PW (ms) 1.5/0.4 4.0/0.52 Sensitivity RA RV LV Comments: Billing Codes PM Device Codes: PM Dev Interrogate (Remot Assessment AND Plan Problems 1. Cardiac pacemaker in situ Z95.0 2. Syncope and collapse R55 3. Ventricular fibrillation I49.01 4. Chronic atrial fibrillation I48.2 5. Coronary artery disease involving [place] coronary artery of [place] heart without angina pectoris I25.10 6. Paroxysmal tachycardia I47.9 7. Paroxysmal ventricular tachycardia I47.2 08/13/17 1637 <Electronically signed by Opal Shields > Date Opal Shields 08/14/17 1140<Electronically signed by Awa CHASE> Sandrine Signature: Date (if applicable) Awa Blair CC: David Jain MD ALLERGIES ALLERGIES DATE TYPE / CODE NAME / CODE REACTION SEVERITY SOURCE 06/05/2018 Drug No Known Unknown [place] [facility] Allergy/4160 Allergies/F00 Hospital 13462(SNOMED 6925421(RXNOR Repository CT) M) ENCOUNTERS ENCOUNTERS ADMIT/DISCHARGE ACCOUNT ADMITTING ENCOUNTER LOCATION SOURCE NUMBER CLASS 06/11/2018 [id number] [place]ulatory [place] 5 [facility] ing:LAB Repository 06/11/2018 [id number] Ambulatory [place] 9 [facility] ing:[facility] Repository 06/05/2018/ [id number] Ambulatory BMSBuilding:B [place] [facility] 6 [facility] Repository 05/20/2018/ [id number] Ambulatory [place] 8 9 [facility] ing:LAB Repository 05/20/2018/ [id number] Ambulatory BMSBuilding:B [place] [facility] 0 [facility] Repository 05/06/2018 [id number] Ambulatory BMSBuilding:W [place] 1 [facility] Repository 05/06/2018 [id number] [place]ulatory [place] [facility] ing:CLSP Repository 04/29/2018 [id number] Ambulatory [place] 8 [facility] ing:RAD Repository 04/29/2018/ [id number] Ambulatory BMSBuilding:B [place] 7 [facility] Repository 04/29/2018/ [id number] Ambulatory BMSBuilding:B [place] 2 [facility] Repository 04/15/2018/ [id number] Ambulatory [place] 8 4 [facility] ing:LAB Repository 04/03/2018/ [id number] Ambulatory BMSBuilding:B [place] 2 [facility] Repository 03/11/2018/ [id number] Ambulatory BMSBuilding:B [place] [facility] 3 [facility] Repository 03/08/2018/ [id number] [place]ulatory [place] 1 [facility] ing:LAB Repository 02/11/2018/09/24/201 [id number] Ambulatory BMSBuilding:B [place] 7 [facility] Repository 01/30/2018/ [id number] Ambulatory [place] 8 0 [facility] ing:LAB Repository 01/28/2018 [id number] Ambulatory BMSBuilding:B [place] 2 [facility] Repository 01/25/2018/ [id number] Ambulatory BMSBuilding:B [place] 8 9 [facility] Repository 01/25/2018 [id number] Ambulatory BMSBuilding:B [place] 1 [facility] Repository 01/14/2018/ [id number] Ambulatory [place] 8 4 [facility] ing:LAB Repository 01/09/2018 [id number] Ambulatory BMSBuilding:B [place] [facility] Repository 01/04/2018 [id number] Ambulatory [place] 2 [facility] ing:RAD Repository 01/02/2018/ [id number] Ambulatory BMSBuilding:B [place] 4 [facility] Repository 12/03/2017/ [id number] Ambulatory [place] 8 7 [facility] ing:LAB Repository 11/27/2017/ [id number] Ambulatory BMSBuilding:B [place] 9 [facility] Repository 10/26/2017/ [id number] Ambulatory [place] 8 6 [facility] ing:LAB Repository 10/02/2017/ [id number] Ambulatory BMSBuilding:B [place] 8 8 [facility] Repository 09/24/2017/ [id number] [place]ulatory [place] 7 [facility] ing:LAB Repository 08/24/2017/ [id number] Ambulatory [place] 8 5 [facility] ing:LAB Repository 07/31/2017/ [id number] Ambulatory BMSBuilding:B [place] 8 3 [facility] Repository 07/25/2017 [id number] Ambulatory BMSBuilding:B [place] 2 [facility] Repository 07/03/2017 [id number] Ambulatory BMSBuilding:B [place] [facility] Repository PAYERS PAYERS ENCOUNTER GUARANTOR PAYER SUBSCRIBER SOURCE 06/11/2018 IVANIA Nickerson Primary IVANIA Baoster [id number] Insurance:MEDICARE MENGESDOB: Community [place] PART A [facility] [id number] Number[place] Repository [address]Plj: 330 [id number] [phone] () Date:2017-06-26 06/11/2018 Secondary IVANIA Mackey Insurance:ANTHEMPolic MENGESDOB: Community y Number: [id number] Hospital [id number] Repository Date:1700-29-16GN [address] [place] [address]DK: 06/11/2018 Tertiary NOT GIVENUNK Key Insurance:SELF PAY [facility] Number: Effective Repository Date:2018-05-20 06/11/2018 IVANIA Nickerson Primary IVANIA Nickerson [place] [id number] Insurance:MEDICARE MENGESDOB: [facility] PART A [facility] [id number] Number[place] Repository [address]Gup: 330 [id number] [phone] () Date:2018-06-05 06/11/2018 Secondary IVANIA Mackey Insurance:ANTHEMPolic MENGESDOB: Community y Number: [id number] Hospital [id number] Repository Date:5025-75-35[address]Z[place], [place] [address]GX: 06/11/2018 Tertiary NOT GIVENUNK [place] Insurance:SELF PAY [facility] Number: Effective Repository Date:2018-06-05 06/05/2018 IVANIA Nickerson Primary IVANIA Baoster [id number] Insurance:MEDICARE MENGESDOB: [facility] PART A [facility] [id number] Number: Repository [address]Mdm: 330 [id number] [phone] (HP) Date:2018-04-29 06/05/2018 Secondary SOHEILA [place] Insurance:ANTHEMPolic MENGESDOB: Community y Number: [id number] Hospital [id number] Repository Date:6830-60-42BS [address]NWQ, [place] [address]TK: 06/05/2018 Tertiary NOT GIVENUNK [place] Insurance:SELF PAY [facility] Number: Effective Repository Date:2018-06-05 05/20/2018 SOHEILA Primary SOHEILA [place] [id number] Insurance:MEDICARE MENGESDOB: [facility] PART A [facility] [id number] Number: Repository [address]Jxv: 330 [id number] [phone] () Date:2017-06-26 05/20/2018 Secondary SOHEILA [place] Insurance:ANTHEMPolic MENGESDOB: Community y Number: [id number] Hospital [id number] Repository Date:7044-77-10TC [address], [place] [address]CZ: 05/20/2018 Tertiary NOT GIVENUNK [place] Insurance:SELF PAY [facility] Number: Effective Repository Date:2018-04-22 05/20/2018 SOHEILA Primary SOHEILA [place] [id number] Insurance:MEDICARE MENGESDOB: [facility] PART A [facility] [id number] Number: Repository [address]Xoz: 330 [id number] [phone] (HP) Date:2018-04-23 05/20/2018 Secondary [place] Insurance:ANTHEMPolic MENGESDOB: Community y Number: [id number] Hospital [id number] Repository Date:4611-13-62YK [address], [place] [address]CZ: 05/20/2018 Tertiary NOT GIVENUNK [place] Insurance:SELF PAY [facility] Number: Effective Repository Date:2018-05-20 05/06/2018 SOHEILA Primary SOHEILA [place] [id number] Insurance:MEDICARE MENGESDOB: Community [place] [facility] PART A [facility] [id number] Number: Repository [address]Sux: 330 [id number] [phone] (HP) Date:2018-04-22 05/06/2018 Secondary SOHEILA [place] Insurance:ANTHEMPolic MENGESDOB: Community y Number: [id number] Hospital [id number] Repository Date:6955-46-38PW [address] [place] [address]VC: 05/06/2018 Tertiary NOT GIVENUNK [place] Insurance:SELF PAY [facility] Number: Effective Repository Date:2018-05-06 05/06/2018 SOHEILA Primary [place]IL[place] [id number] Insurance:MEDICARE MENGESDOB: Community [facility] [id number] Number: Repository [address]Xui: 330 [id number] [phone] (HP) Date:2018-04-22 05/06/2018 Secondary SOHEILA [place] Insurance:ANTHEMPolic MENGESDOB: Community y Number: [id number] Hospital [id number] Repository Date:6710-22-83YZ [address] [place] [address]BA: 05/06/2018 Tertiary NOT GIVENUNK [place] Insurance:SELF PAY [facility] Number: Effective Repository Date:2018-04-22 04/29/2018 SOHEILA Primary [place]IL[place] [id number] Insurance:MEDICARE MENGESDOB: Community [facility] PART A [facility] [id number] Number: Repository [address]Mqc: 330 [id number] [phone] (HP) Date:2018-04-29 04/29/2018 Secondary [place] Insurance:ANTHEMPolic MENGESDOB: Community y Number: [id number] Hospital [id number] Repository Date:4932-10-51OO [address] [address]PW: 04/29/2018 Tertiary NOT GIVENUNK [place] Insurance:SELF PAY [facility] Number: Effective Repository Date:2018-04-29 04/29/2018 SOHEILA Primary SOHEILA [place] [id number] Insurance:MEDICARE MENGESDOB: Community [place] PART A olic [id number] Number: Repository [address]Wsl: 330 [id number] [phone] (HP) Date:2018-04-23 04/29/2018 Secondary [place] Insurance:ANTHEMPolic MENGESDOB: Community y Number: [id number] Hospital [id number] Repository Date:1922-46-98DV [address] [address]MO: 04/29/2018 Tertiary NOT GIVENUNK [place] Insurance:SELF PAY [facility] Number: Effective Repository Date:2018-04-29 04/29/2018 SOHEILA Primary [place] [id number] Insurance:MEDICARE MENGESDOB: Community [place] PART A [facility] [id number], [place] Number: Repository [address]Vvo: 330 [id number] [phone] () Date:2018-04-23 04/29/2018 Secondary SOHEILA [place] Insurance:ANTHEMPolic MENGESDOB: Community y Number: [id number] Hospital [id number] Repository Date:7748-45-06ZI [address] [place] [address] 15[address]CO: 04/29/2018 Tertiary NOT GIVENUNK [place] Insurance:SELF PAY [facility] Number: Effective Repository Date:2018-04-23 04/15/2018 SOHEILA Primary [place] [id number] Insurance:MEDICARE MENGESDOB: Community [place] PART A [facility] [id number], [place] Number: Repository [address]Zyt: 330 [id number] [phone] (HP) Date:2017-06-26 04/15/2018 Secondary SOHEILA [place] Insurance:ANTHEMPolic MENGESDOB: Community y Number: [id number] Hospital [id number] Repository Date:4386-29-30CS [address]HY[address] [place] [address]JQ: 04/15/2018 Tertiary NOT GIVENUNK [place] Insurance:SELF PAY [facility]: Effective Repository Date:2018-03-21 04/03/2018 IVANIA Nickerson Primary [place] [id number] Insurance:MEDICARE MENGESDOB: Community [place] PART A olicy [id number], [place] Number: Repository [address]Dcf: 330 [id number] [phone] () Date:2018-03-11 04/03/2018 Secondary [place] Insurance:ANTHEMPolic MENGESDOB: Community y Number: [id number] Hospital [id number] Repository Date:8004-25-94CK [address]SELX[address] [place] [address]FV: 04/03/2018 Tertiary NOT GIVENUNK [place] Insurance:SELF PAY [facility] Number: Effective Repository Date:2018-04-03 03/11/2018 IVANIA Nickerson Primary [place] [id number] Insurance:MEDICARE MENGESDOB: Community [place] PART A olic [id number], [place] Number: Repository [address]Fuu: 330 [id number] [phone] () Date:2018-02-11 03/11/2018 Secondary [place] Insurance:ANTHEMPolic MENGESDOB: Community y Number: [id number] Hospital [id number] Repository Date:0622-15-60BP [address]QPU[address] [place] [address]ZT: 03/11/2018 Tertiary NOT GIVENUNK [place] Insurance:SELF PAY [facility] Number: Effective Repository Date:2018-03-11 03/08/2018 IVANIA Nickerson Primary IVANIA Nickerson [place] [id number] Insurance:MEDICARE MENGESDOB: Community [place] PART A [facility] [id number], [place] Number: Repository [address]Jpz: 330 [id number] [phone] (HP) Date:2017-06-26 03/08/2018 Secondary IVANIA Nickerson [place] Insurance:ANTHEMPolic MENGESDOB: Community y Number: [id number] Hospital [id number] Repository Date:3387-80-02DE [address] [place] [address] 389[address]QJ: 03/08/2018 Tertiary NOT GIVENUNK [place] Insurance:SELF PAY [facility] Number: Effective Repository Date:2018-02-20 02/11/2018 IVANIA Nickerson Primary SOHEILA [place] [id number] Insurance:MEDICARE MENGESDOB: [facility] PART A [facility] [id number], [place] Number: Repository [address]Kti: 330 [id number] [phone] (HP) Date:2018-02-08 02/11/2018 Secondary [place] Insurance:ANTHEMPolic MENGESDOB: Community y Number: [id number] Hospital [id number] Repository Date:6013-90-42OX [address] [place] [address] 43[address]LV: 02/11/2018 Tertiary NOT GIVENUNK [place] Insurance:SELF PAY [facility] Number: Effective Repository Date:2018-02-11 01/30/2018 SOHEILA Primary SOHEILA [place] [id number] Insurance:MEDICARE MENGESDOB: [facility] PART A [facility] [id number], [place] Number: Repository [address]Yxj: 330 [id number] [phone] (HP) Date:2017-06-26 01/30/2018 Secondary SOHEILA [place] Insurance:ANTHEMPolic MENGESDOB: Community y Number: [id number] Hospital [id number] Repository Date:5837-71-18BV [address]JRQMQOC, [place] [address]RQ: 01/30/2018 Tertiary NOT GIVENUNK [place] Insurance:SELF PAY [facility] Number: Effective Repository Date:2018-01-22 01/28/2018 IVANIA Nickerson Primary [place] [id number] Insurance:MEDICARE MENGESDOB: Community [facility] PART [facility] [id number] Number: Repository [address]Jof: 330 [id number] [phone] (HP) Date:2017-04-30 01/28/2018 Secondary [place] Insurance:ANTHEMPolic MENGESDOB: Community y Number: [id number] Hospital [id number] Repository Date:0384-62-15TE [address] [place] [address]67[address]HM: 01/28/2018 Tertiary NOT GIVENUNK [place] Insurance:SELF PAY [facility] Number: Effective Repository Date:2017-04-30 01/25/2018 IVANIA Nickerson Primary [place] [id number] Insurance:MEDICARE MENGESDOB: Community [facility] PART A [facility] [id number], [place] Number: Repository [address]Aod: 330 [id number] [phone] (HP) Date:2017-12-11 01/25/2018 Secondary [place] Insurance:ANTHEMPolic MENGESDOB: Community y Number: [id number] Hospital [id number] Repository Date:7588-34-62VO [address]MQVGKLD, [place] [address]DS: 01/25/2018 Tertiary NOT GIVENUNK [place] Insurance:SELF PAY [facility] Number: Effective Repository Date:2018-01-25 01/25/2018 IVANIA Nickerson Primary SOHEILA [place] [id number] Insurance:MEDICARE MENGESDOB: [facility] PART A [facility] [id number], [place] Number: Repository [id number]: 330 [id number] [phone] (HP) Date:2018-01-25 01/25/2018 Secondary IVANIA Nickerson [place] Insurance:ANTHEMPolic MENGESDOB: Community y Number: [id number] Hospital [id number] Repository Date:5843-81-96NH [address]MFVRISM, [place] [address]ID: 01/25/2018 Tertiary NOT GIVENUNK [place] Insurance:SELF PAY [facility] Number: Effective Repository Date:2018-01-25 01/14/2018 SOHEILA Primary [place] [id number] Insurance:MEDICARE MENGESDOB: Community [place] PART A [facility] [id number] Number: Repository [id number]: 330 [id number] [phone] (HP) Date:2017-06-26 01/14/2018 Secondary [place] Insurance:ANTHEMPolic MENGESDOB: Community y Number: [id number] Hospital [id number] Repository Date:4900-69-21[address], [place] [address]SO: 01/14/2018 Tertiary NOT GIVENUNK [place] Insurance:SELF PAY [facility] Number: Effective Repository Date:2017-12-20 01/09/2018 SOHEILA Primary [place] [id number] Insurance:MEDICARE MENGESDOB: Community [place] A [facility] [id number] Number: Repository [id number]: 330 [id number] [phone] (HP) Date:2017-10-02 01/09/2018 Secondary [place] Insurance:ANTHEMPolic MENGESDOB: Community y Number: [id number] Hospital [id number] Repository Date:0463-70-27OL [address], [place] [address]UL: 01/09/2018 Tertiary NOT GIV[place]K [place] Insurance:SELF PAY [facility] Number: Effective Repository Date:2017-10-02 01/04/2018 SOHEILA Primary [place] [id number] Insurance:MEDICARE MENGESDOB: Community [place] PART A [facility] [id number] Number: Repository [id number]: 330 [id number] [phone] ([phone] Date:2017-11-12 01/04/2018 Secondary [place] Insurance:ANTHEMPolic MENGESDOB: Community y Number: [id number] Hospital [id number] Repository Date:3389-39-67[id number] [place] [address]GD: 01/04/2018 Tertiary NOT [place] Insurance:SELF PAY [facility]: Effective Repository Date:2017-11-12 01/02/2018 IVANIA Nickerson Primary [place] [id number] Insurance:MEDICARE MENGESDOB: Community [place] A olic[place] [id number] Number: Repository [id number]: 330 [id number] [phone] Date:2017-11-27 01/02/2018 Secondary IVANIA [place] Insurance:ANTHEMPolic MENGESDOB: Community y Number: [id number] Hospital [id number] Repository Date:1559-88-63KM [address], [place] [address]VA: 01/02/2018 Tertiary NOT [place] Insurance:SELF PAY [facility] Number: Effective Repository Date:2018-01-02 12/03/2017 IVANIA Nickerson Primary [place] [id number] Insurance:MEDICARE MENGESDOB: Community [place] A o[place] [id number] Number: Repository [id number]: 330 [id number] [phone] (HP) Date:2017-06-26 12/03/2017 Secondary [place] Insurance:ANTHEMPolic MENGESDOB: Community y Number: [id number] Hospital [id number] Repository Date:6144-76-78CF [address] [address]SU: 12/03/2017 Tertiary NOT [place] Insurance:SELF PAY [facility] Number: Effective Repository Date:2017-11-16 11/27/2017 IVANIA Nickerson Primary IVANIA Nickerson [place] [id number] Insurance:MEDICARE MENGESDOB: Community [place] [id number] Number: Repository [id number]: 330 [id number] [phone] (HP) Date:2017-10-02 11/27/2017 Secondary [place] Insurance:ANTHEMPolic MENGESDOB: Community y Number: [id number] Hospital [id number] Repository Date:5037-06-37MF [address] [place] [address]PA: 11/27/2017 Tertiary NOT [place] Insurance:SELF PAY [facility] Number: Effective Repository Date:2017-11-27 10/26/2017 IVANIA Nickerson Primary [place] [id number] Insurance:MEDICARE MENGESDOB: [facility] [id number], [place] Number: Repository [id number]: 330 [id number] [phone] (HP) Date:2017-06-26 10/26/2017 Secondary [place] Insurance:ANTHEMPolic MENGESDOB: Community y Number: [id number] Hospital [id number] Repository Date:1236-48-34VP [address] [place] [address]LN: 10/26/2017 Tertiary NOT [place] Insurance:SELF PAY [facility] Number: Effective Repository Date:2017-10-18 10/02/2017 SOHEILA Primary [place] [id number] Insurance:MEDICARE MENGESDOB: [facility] PART A [facility] [id number], [place] Number: Repository [id number]: 330 [id number] [phone] (HP) Date:2017-07-31 10/02/2017 Secondary [place] Insurance:ANTHEMPolic MENGESDOB: Community y Number: [id number] Hospital [id number] Repository Date:3129-71-78BA [address]BIHGV, [place] [address]DX: 10/02/2017 Tertiary NOT [place] Insurance:SELF PAY [facility] Number: Effective Repository Date:2017-10-02 09/24/2017 IVANIA Nickerson Primary [place] [id number] Insurance:MEDICARE MENGESDOB: Community [place] A [facility] [id number], [place] Number: Repository [id number]: 330 [id number] [phone] (HP) Date:2017-06-26 09/24/2017 Secondary [place] Insurance:ANTHEMPolic MENGESDOB: Community y Number: [id number] Hospital [id number] Repository Date:3864-39-55OU [address] [place] [address]QA: 09/24/2017 Tertiary NOT GIV[place] Insurance:SELF PAY [facility] Number: Effective Repository Date:2017-09-18 08/24/2017 IVANIA Nickerson Primary [place] [id number] Insurance:MEDICARE MENGESDOB: Community [facility] [id number] Number: Repository [id number]: 330 [id number] [phone] (HP) Date:2017-06-26 08/24/2017 Secondary IVANIA Nickerson [place] Insurance:ANTHEMPolic MENGESDOB: Community y Number: [id number] Hospital [id number] Repository Date:3590-20-97YG [address], [place] [address]NW: 08/24/2017 Tertiary NOT [place] Insurance:SELF PAY [facility] Number: Effective Repository Date:2017-06-26 07/31/2017 IVANIA Nickerson Primary [place] [id number] Insurance:MEDICARE MENGESDOB: [facility] [id number] Number: Repository [id number]: 330 [id number] [phone] (HP) Date:2017-04-29 07/31/2017 Secondary IVANIA Nickerson [place] Insurance:ANTHEMPolic MENGESDOB: Community y Number: [id number] Hospital [id number] Repository Date:7101-82-64OA [address]NTPV, [place] [address]QV: 07/31/2017 Tertiary NOT G[place]K [place] Insurance:SELF PAY [facility] Number: Effective Repository Date:2017-04-29 07/25/2017 SOHEILA Primary [place] [id number] Insurance:MEDICARE MENGESDOB: Community [place] PART A [facility] [id number], [place] Number: Repository [id number]: 330 [id number] [phone] (HP) Date:2017-07-25 07/25/2017 Secondary [place] Insurance:ANTHEMPolic MENGESDOB: Community y Number: [id number] Hospital [id number] Repository Date:3092-34-39CZ [address]AFUHIZD, [place] [address]PI: 07/25/2017 Tertiary NOT [place]K [place] Insurance:SELF PAY [facility] Number: Effective Repository Date:2017-07-25 07/03/2017 SOHEILA Primary [place] [id number] Insurance:MEDICARE MENGESDOB: [facility] PART A [facility] [id number], [place] Number: Repository [id number]: 330 [id number] [phone] (HP) Date:2017-07-03 07/03/2017 Secondary [place] Insurance:ANTHEMPolic MENGESDOB: Community y Number: [id number] Hospital [id number] Repository Date:9195-70-24KH [address], [place] [address]JR: 07/03/2017 Tertiary NOT [place] Insurance:SELF PAY [facility] Number: Effective Repository Date:2017-07-03
== END ==
PROVIDERS: Internal Medicine Cardiovascular Disease; Family Provider Internal Medicine; PCP Internal Medicine; Referring Provider Internal Medicine Cardiovascular Disease; Visit Provider Internal Medicine Cardiovascular Disease
DX: Z45.010 Encounter for checking and testing of cardiac pacemaker pulse generator [battery] (principal); I44.1 Atrioventricular block, second degree; I25.10 Atherosclerotic heart disease of native coronary artery without angina pectoris; I10 Essential (primary) hypertension; I47.2 Ventricular tachycardia; E78.00 Pure hypercholesterolemia, unspecified; I48.2 Chronic atrial fibrillation; I49.01 Ventricular fibrillation; I38 Endocarditis, valve unspecified; E78.5 Hyperlipidemia, unspecified; D64.9 Anemia, unspecified; K21.9 Gastro-esophageal reflux disease without esophagitis; Z95.1 Presence of aortocoronary bypass graft; Z79.01 Long term (current) use of anticoagulants; Z79.82 Long term (current) use of aspirin; Z79.899 Other long term (current) drug therapy; Z87.891 Personal history of nicotine dependence; Z00.6 Encounter for examination for normal comparison and control in clinical research program
CPT/HCPCS: 33228; 36415; 36416; 80048; 81001; 85027; 85610; 99152; 99153; J7040; J7050; C1769

== ENCOUNTER 2018-05-20 10:18 | Outpatient (RCR) | payer MEDICARE, BC, SELFPAY ==
[2018-05-03 09:13] VITALS: BMI 28.8
[2018-05-20 11:52] LABS: International Normalized Ratio 2.1; Prothrombin Time (Protime)PT. 23.5 SECONDS (11.7-14.9)
== END 2018-05-20 11:00 | disposition home or self-care (01) ==
LOC: LAB 10:18
PROVIDERS: Family Provider Internal Medicine; PCP Internal Medicine; Referring Provider Internal Medicine Cardiovascular Disease; Visit Provider Internal Medicine Cardiovascular Disease
DX: I48.91 Unspecified atrial fibrillation (principal); Z79.01 Long term (current) use of anticoagulants
CPT/HCPCS: 36415; 85610

== ENCOUNTER → 2018-06-11 07:06 | Outpatient (CLI) | payer MEDICARE, BC, SELFPAY ==
[2018-06-05 09:30] VITALS: BMI 28.0
--- OUTSIDE RECORDS SUMMARY | 2018-08-13 07:24 | XMS RPT_ITS ---
:1935 Author Organization [facility] Support Name Relationship Address Phone FRENCH GOMEZA Unavailable [address] + [place] [address] MENLILI, YINKA Unavailable [address] + [place] [address] R Unavailable Unavailable Unavailable JASON, JAIME Unavailable [address] + [place] [address] JASON, YINKA Unavailable [address] + [place] [address] R Unavailable Unavailable Unavailable JASON, JAIME Unavailable [address] + [place] [address] MENLILI, YINKA Unavailable x + [place] [address] R Unavailable Unavailable Unavailable JASON, JAIME Unavailable [address] + [place] [address] MENLILI, YINKA Unavailable Unavailable + R Unavailable Unavailable Unavailable JASON, JAIME Unavailable [address] + [place] [address] JASON, YINKA Unavailable . + ., . . R Unavailable Unavailable Unavailable MENLILI, JAIME Unavailable [address] + [place] [address] R Unavailable Unavailable Unavailable MENGES, JAIME Unavailable [address] + [place] [address] MENLILI, YINKA Unavailable Unavailable + R Unavailable Unavailable Unavailable JASON, JAIME Unavailable [address] + [place] [address] R Unavailable Unavailable Unavailable MENLILI, JAIME Unavailable [address] + [place] [address] R Unavailable Unavailable Unavailable MENGES, JAIME Unavailable [address] + [place] [address] R Unavailable Unavailable Unavailable MENGES, JAIME Unavailable [address] + [place] [address] R Unavailable Unavailable Unavailable MENGES, JAIME Unavailable [address] + [place] [address] R Unavailable Unavailable Unavailable MENGES, JAIME Unavailable [address] + [place] [address] R Unavailable Unavailable Unavailable MENGES, JAIME Unavailable [address] + [place] [address] R Unavailable Unavailable Unavailable MENGES, JAIME Unavailable [address] + [place] [address] R Unavailable Unavailable Unavailable MENGES, JAIME Unavailable [address] + [place] [address] R Unavailable Unavailable Unavailable MENGES, JAIME Unavailable [address] + [place] [address] R Unavailable Unavailable Unavailable MENGES, JAIME Unavailable [address] + [place] [address] R Unavailable Unavailable Unavailable MENGES, JAIME Unavailable [address] + [place] [address] R Unavailable Unavailable Unavailable MENGES, JAIME Unavailable [address] + [place] [address] R Unavailable Unavailable Unavailable MENGES, JAIME Unavailable [address] + [place] [address] R Unavailable Unavailable Unavailable MENGES, JAIME Unavailable [address] + [place] [address] R Unavailable Unavailable Unavailable MENGES, JAIME Unavailable [address] + [place] [address] R Unavailable Unavailable Unavailable MENGES, JAIME Unavailable [address] + [place] [address] R Unavailable Unavailable Unavailable MENGES, JAIME Unavailable [address] + [place] [address] R Unavailable Unavailable Unavailable MENLILI, JAIME Unavailable [address] + [place] [address] R Unavailable Unavailable Unavailable MENGES, JAIME Unavailable [address] + [place] [address] R Unavailable Unavailable Unavailable MENLILI, JAIME Unavailable [address] + [place] [address] R Unavailable Unavailable Unavailable R Unavailable Unavailable Unavailable R Unavailable Unavailable Unavailable R Unavailable Unavailable Unavailable R Unavailable Unavailable Unavailable Care Team Providers Name Role Phone Palmer Lindo Attending Unavailable ArslanispawPalmer Referring Unavailable Peg, Olive Primary Care Unavailable Andrés, Henderson Attending Unavailable Andrés, Henderson Referring Unavailable Peg, Olive Primary Care Unavailable Opal Shields Attending Unavailable Peg, Olive Referring Unavailable Moodispayonatan, Palmer Attending Unavailable Moodistyson, Palmer Referring Unavailable Peg, Olive Primary Care Unavailable Andrés, Femi Attending Unavailable Andrés, Femi Referring Unavailable Awa Blair Attending Unavailable Peg, Olive Referring Unavailable Moodispayonatan, Palmer Attending Unavailable Moodispayonatan, Palmer Referring Unavailable Peg, Olive Primary Care Unavailable Peg, Olive Attending Unavailable Peg, Olive Attending Unavailable Opal Shields Attending Unavailable Peg, Olive Referring Unavailable MoodispaPalmer tam Attending Unavailable Moodispayonatan Palmer Referring Unavailable Peg, Olive Primary Care Unavailable Peg, Olive Consulting Unavailable Opal Shields Attending Unavailable Peg, Olive Referring Unavailable Moodispaw, Palmer Attending Unavailable Moodispaw, Palmer Referring Unavailable Peg, Olive Primary Care Unavailable Peg, Olive Consulting Unavailable Awa Blair Attending Unavailable Awa Blair Referring Unavailable Peg, Olive Primary Care Unavailable Moodispaw, Palmer Attending Unavailable Moodispaw, Palmer Referring Unavailable Peg, Olive Primary Care Unavailable Peg, Olive Consulting Unavailable Opal Shields Attending Unavailable Peg, Olive Referring Unavailable Opal Shields Attending Unavailable Peg, Olive Referring Unavailable Peg, Olive Primary Care Unavailable Moodispaw, Palmer Attending Unavailable Prefecto White Attending Unavailable Peg, Olive Primary Care Unavailable Moodispaw, Palmer Attending Unavailable Moodispaw, Palmer Referring Unavailable Peg, Olive Primary Care Unavailable Peg, Olive Consulting Unavailable Cornelius, Opal Attending Unavailable Epg, Olive Referring Unavailable Peg, Olive Primary Care Unavailable Moodispaw, Palmer Attending Unavailable Moodispaw, Palmer Referring Unavailable Peg, Olive Primary Care Unavailable Peg, Olive Consulting Unavailable BinghamAwa Attending Unavailable Moodispaw, Palmer Attending Unavailable Cornelius, Opal Attending Unavailable Peg, Olive Referring Unavailable Peg, Olive Primary Care Unavailable Moodispaw, Palmer Attending Unavailable Moodispaw, Palmer Referring Unavailable Peg, Olive Primary Care Unavailable Peg, Olive Consulting Unavailable Cornelius, Opal Attending Unavailable Peg, Olive Referring Unavailable Moodispaw, Palmer Attending Unavailable Moodispaw, Palmer Referring Unavailable Peg, Olive Primary Care Unavailable Cornelius, Opal Attending Unavailable Peg, Olive Referring Unavailable Moodispaw, Palmer Attending Unavailable Moodispaw, Palmer Referring Unavailable Peg, Olive Primary Care Unavailable Awa Blair Attending Unavailable Peg, Olive Referring Unavailable Cornelius, Opal Attending Unavailable Peg, Olive Referring Unavailable PROBLEMS PROBLEMS DATE TYPE CONDITION / CODE ATTENDING STATUS SOURCE 06/05/2018 Unknown I48.2 - Chronic atrial Rossy, Active [place] fibrillation / [facility] I48.2(ICD-10) Hospital Repository 06/05/2018 Unknown Z95.0 - Presence of Blair, Active [place] cardiac pacemaker / [facility] Z95.0(ICD-10) Hospital Repository 06/05/2018 Unknown I25.10 - Blair, Active [place] Atherosclerotic heart [facility] disease of [facility] coronary artery Repository without angina pectoris / I25.10(ICD-10) 06/05/2018 Unknown I10 - Essential Blair, Active [place] (primary) hypertension [facility] / I10(ICD-10) Hospital Repository 06/05/2018 Unknown E78.00 - Pure Blair, Active [place] hypercholesterolemia, [facility] unspecified / Hospital E78.00(ICD-10) Repository 05/20/2018 Unknown Z79.01 - FDC Moodispaw, Active [place] (current) use of [facility] anticoagulants / Hospital Z79.01(ICD-10) Repository 05/21/2018 Unknown I44.30 - Unspecified CorneliusOpal Active [place] atrioventricular block [facility] / I44.30(ICD-10) Hospital Repository 05/21/2018 Unknown I47.2 - Ventricular Cornelius, Opal Active [place] tachycardia / [facility] I47.2(ICD-10) Hospital Repository 05/21/2018 Unknown I47.9 - Paroxysmal Cornelius, Opal Active [place] tachycardia, [facility] unspecified / Hospital I47.9(ICD-10) Repository 05/21/2018 Unknown I49.01 - Ventricular Cornelius, Opal Active [place] fibrillation / [facility] I49.01(ICD-10) Hospital Repository 03/21/2018 Unknown E78.5 - Moodispaw, Active [place] Hyperlipidemia, [facility] unspecified / Hospital E78.5(ICD-10) Repository 03/21/2018 Unknown I48.91 - Unspecified Moodispaw, Active [place] atrial fibrillation / [facility] I48.91(ICD-10) Hospital Repository 10/18/2017 Unknown E03.9 - Moodispaw, Active [place] Hypothyroidism, [facility] unspecified / Hospital E03.9(ICD-10) Repository 10/18/2017 Unknown 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, 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 This note was generated with [employer] software. It may contain incorrect words, spelling, and punctuation that were not noted in checking the note before signing. 06/11/18 1025 <Electronically signed by Palmer Lindo MD> Date Palmer Lindo MD CC: Olive Jesuson DO; Palmer Lindo MD Date Dictated: 06/11/183 Date Transcribed: 06/11/181012 Steam Conditioner Operator: PM Signed PROTHROMBIN TIME W/INR Collected: 06/11/2018 Status: F Source: [place] 9:41 AM [facility] REPOSITORY TYPE CODE TESTS RESULT OUT OF RANGE REFERENCE UNITS LAB L300.4150 11.7-14.9 SECONDS High PROTIME 27.1 LAB L300.4200 Normal INR 2.5 Performed By: #### L300.3900 #### [facility] [address] [place], [address] CARDIOLOGY VISIT Observed: 06/05/2018 Status: F Source: [place] REPORT 9:57 AM [facility] REPOSITORY [facility] [address] [place] [address] OFFICE VISIT Date of Service: 06/05/18 MR#: [id number] Acct: [id number] Name: IVANIA GOMEZ Rep #: [id number] : 1935 Provider: Awa Blair Age/Sex: 82/M [place] 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 [place] [address] Pacemaker Check Date of Service: 05/20/18 1203 MR#: [id number] Acct: [id number] Name: IVANIA GMOEZ Rep #: [id number] : 1935 From: Opal Shields Age/Sex: 82/M [place] [facility] [place]: Signed Billing Codes PM Device Codes: PM Dev Prog Eval, Dual 05/20/18 1204 <Electronically signed by Opal Shields > Date Opal Shields 05/20/18 1229<Electronically signed by Palmer Lindo MD> Sandrine Signature: Date (if applicable) Palmer Lindo MD CC: PROTHROMBIN TIME W/INR Collected: 05/20/2018 Status: F Source: [place] 10:20 AM [facility]PITAL REPOSITORY TYPE CODE TESTS RESULT OUT OF RANGE REFERENCE UNITS LAB L300.4150 11.7-14.9 SECONDS High PROTIME 23.5 LAB L300.4200 Normal INR 2.1 Performed By: #### L300.3900 #### [facility] [address] [place], [address] CARDIOLOGY VISIT Observed: 05/06/2018 Status: F Source: [place] REPORT 12:37 PM [facility] HOSPITAL REPOSITORY [facility] [place] [facility] [address] [place] [address] OFFICE VISIT Date of Service: 04/29/18 MR#: [id number] Acct: [id number] Name: IVANIA GOMEZ Rep #: [id number] : 1935 Provider: Awa Blair Age/Sex: 82/M [place] [facility] Status: Signed HPI HPI Details: IVANIA GOMEZ, [...] our office. This will be done at [facility]. 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, [address] PROTHROMBIN TIME W/INR Collected: 05/06/2018 Status: F Source: [place] 9:30 AM [facility] REPOSITORY TYPE CODE TESTS RESULT OUT OF RANGE REFERENCE UNITS LAB L300.4150 11.7-14.9 SECONDS High PROTIME 22.7 LAB L300.4200 Normal INR 2.0 Performed By: #### L300.3900 #### [facility] [address] [place], [address] URINALYSIS, COMPLETE Collected: 05/06/2018 Status: F Source: [place] 9:30 AM [facility] REPOSITORY Order Comment: How was Urine Obtained? BRINEYARD SUPERVISOR TO SPECIFY TYPE CODE TESTS RESULT OUT [...] URINE SEEN Performed By: #### L400.0001 #### [facility] [address] [place] [address], [id number] PROTIME W/INR Collected: 05/06/2018 Status: F Source: [place] FINGERSTICK 8:01 AM [facility] REPOSITORY TYPE CODE TESTS RESULT OUT OF RANGE REFERENCE UNITS LAB L9200.1001 11.9-14.4 SEC Normal PROTIME ISTAT 14.0 Result Comment: Reference Range 11.9 - 14.4 LAB L9200.2000 Normal INR ISTAT 1.20 Result Comment: Critical Value > 3.5 Performed By: #### L9200.0000 #### [facility] Point of Care [address] [place], [place] [address] PACEMAKER CHECK Observed: 04/29/2018 Status: F Source: [place] 4:12 PM [facility] REPOSITORY [facility] [address] [place], [place] [address] Pacemaker Check Date of Service: 04/29/18 1427 MR#: [id number] Acct: [id number] Name: IVANIA GOMEZ Rep #: [id number] : 1935 From: Opal Shields Age/Sex: 82/M [place] [facility] [place]: Signed Billing Codes PM Device Codes: PM Dev Prog Eval, Dual 04/29/18 1431 <Electronically signed by Opal Shields > Date Opal Shields 04/29/18 1612<Electronically signed by Palmer Lindo MD> Cosigner Signature: Date (if applicable) Palmer Lindo MD CC: CHEST PA AND LATERAL Observed: 04/29/2018 Status: F Source: [place] 2:48 PM [facility] REPOSITORY [facility] Imaging Services [address] [place] [address] Chest PA and Lateral MR#: [id number] Acct: [id number] Name: IVANIA GOMEZ Rep #: [id number] : 1935 M 82 From: Perfecto Fischer MD PCP: Olive Sellers DO Status: REG CLI Study: Chest PA and Lateral Date of Exam: 04/29/18 Exam# [id number] Ordering Dr: Palmer Lindo MD STUDY: X-RAY [...] Service support , CC: Olive Sellers DO; Pamler Lindo MD Steam Conditioner Operator: Signed 12 LEAD EKG PERFORMED Observed: 04/29/2018 Status: F Source: [place] [facility] 2:17 PM [facility] REPOSITORY [address] [address] 12 Lead EKG performed by [facility] 04/29/181416 MR#: [id number] Acct: [id number] Name: IVANIA GOMEZ Rep #: [id number] : 1935 82 From: Awa CHASE Attending Dr: Awa Blair Status: DEP AMB Ordering Dr: Awa Blair Date: 04/29/18 [place] [facility] Sex: M C Admitted: BMS/12 Lead EKG performed by [facility] ECG Report Interpretation Electronic ventricular pacemaker Pacemaker ECG, No further analysis Electronically signed on 04/29/2018 at 16:16 by Palmer Lindo Software Version [id number] 04/29/18 1618 Date Awa CHASE CC: Olive Sellers DO Date Dictated: 04/29/181416 Date Transcribed: 04/29/181416 Steam Conditioner Operator: MMM Signed PROTHROMBIN TIME W/INR Collected: 04/15/2018 Status: F Source: [place] 9:07 AM [facility] HOSPITAL REPOSITORY TYPE CODE TESTS RESULT OUT OF RANGE REFERENCE UNITS LAB L300.4150 11.7-14.9 SECONDS High PROTIME 34.1 LAB L300.4200 Normal INR 3.3 Performed By: #### L300.3900 #### [facility] [address] [place], [address] PACEMAKER CHECK Observed: 04/04/2018 Status: F Source: [place] 8:11 AM [facility] REPOSITORY [facility] [address] [place] [address] Pacemaker Check Date of Service: 04/03/18 1759 MR#: [id number] Acct: [id number] Name: IVANIA GOMEZ Rep #: [id number] : 1935 From: Opal Shields Age/Sex: 82/M [place] [facility] Status: Signed Billing Codes PM Device Codes: PM Dev Interrogate (Remot 04/03/18 1801 <Electronically signed by Opal Shields > Date Opal Shields 04/04/18 0811<Electronically signed by Palmer Lindo MD> Cosigner Signature: Date (if applicable) Palmer Lindo MD CC: PACEMAKER CHECK Observed: 03/11/2018 Status: F Source: [place] 6:30 PM [facility] HOSPITAL REPOSITORY [facility] [address] [place] [address] Pacemaker Check Date of Service: 03/11/18 1523 MR#: [id number] Acct: [id number] Name: IVANIA GOMEZ Rep #: [id number] : 1935 From: Opal Shields Age/Sex: 82/M Location[place] [facility] Status: Signed Billing Codes PM Device Codes: PM Dev Prog Micheline, Dual 03/11/18 1525 <Electronically signed by Opal Shields > Date Opal Shields 03/11/18 1830<Electronically signed by Palmer Lindo MD> Cosigner Signature: Date (if applicable) Palmer Lindo MD CC: PROTHROMBIN TIME W/INR Collected: 03/08/2018 Status: F Source: [place] 8:43 AM [facility] REPOSITORY TYPE CODE TESTS RESULT OUT OF RANGE REFERENCE UNITS LAB L300.4150 11.7-14.9 SECONDS High PROTIME 24.5 LAB L300.4200 Normal INR 2.2 Performed By: #### L300.3900 #### [facility] [address] [place], [place], [address] LIVER PROFILE Collected: 03/08/2018 Status: F Source: [place] 8:43 AM [facility] REPOSITORY TYPE CODE TESTS RESULT OUT OF [...] 0.25 Performed By: #### L500.3400, L500.4100 #### [facility] [address] [place], [address] LIPID PROFILE Collected: 03/08/2018 Status: F Source: [place] 8:43 AM [facility] REPOSITORY TYPE CODE TESTS RESULT OUT OF [...] 20 Performed By: #### L500.3400, L500.4100 #### [facility] [address] [place], [address] PACEMAKER CHECK Observed: 02/11/2018 Status: F Source: [place] 4:59 PM [facility] REPOSITORY [facility] [address] [place] [address] Pacemaker Check Date of Service: 02/11/18 1628 MR#: [id number] Acct: [id number] Name: IVNAIA GOMEZ Rep #: [id number] : 1935 From: Opal Shields Age/Sex: 82/M [place] [facility] [place]: Signed Billing Codes PM Device Codes: PM Dev Interrogate (Remot 02/11/18 1631 <Electronically signed by Opal Shields > Date Opal Shields 02/11/18 1659<Electronically signed by Palmer Lindo MD> Cosignfe Signature: Date (if applicable) Palmer Lindo MD CC: PACEMAKER CHECK Observed: 02/08/2018 Status: F Source: [place] 4:34 PM [facility] HOSPITAL REPOSITORY [facility] [address] [place] [address] Pacemaker Check Date of Service: 01/02/181946 MR#: [id number] Acct: [id number] Name: IVANIA GOMEZ Rep #: [id number] : 1935 From: Opal Shields Age/Sex: 82/M Location[place] [facility] Status: Signed Billing Codes PM Device Codes: PM Dev Interrogate (Remot 02/08/18 1129 <Electronically signed by Opal Shields > Date Opal Shields 02/08/18 1634<Electronically signed by Palmer Lindo MD> Cosignfe Signature: Date (if applicable) Palmer Lindo MD CC: PROTHROMBIN TIME W/INR Collected: 01/30/2018 Status: F Source: [place] 1:13 PM [facility] HOSPITAL REPOSITORY TYPE CODE TESTS RESULT OUT OF RANGE REFERENCE UNITS LAB L300.4150 11.7-14.9 SECONDS High PROTIME 27.6 LAB L300.4200 Normal INR 2.6 Performed By: #### L300.3900 #### [facility] [address] [place], [address] CARDIOLOGY VISIT Observed: 01/25/2018 Status: F Source: [place] 2:51 PM [facility] REPOSITORY [facility] [address] [place] [address] OFFICE VISIT Date of Service: 01/25/18 MR#: [id number] Acct: [id number] Name: IVANIA GOMEZ Rep #: [id number] : 1935 Provider: Palmer Lindo MD Age/Sex: 82/M [place] [facility] [place]: Signed HPI HPI Details: IVANIA GOMEZ, [...] PO .QOD tab 01/25/18 [History Confirmed 01/25/18] [facility] Medical History Chronic atrial fibrillation (Chronic) Ventricular fibrillation (Acute) HLD (hyperlipidemia) (Chronic) HTN (hypertension) (Chronic) Atrioventricular block (Chronic) Paroxysmal ventricular tachycardia (Chronic) Paroxysmal tachycardia (Inactive) Atrial arrhythmia (Chronic) Syncope and collapse (Chronic) 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 Per the conclusion is stated he had a patent SVG graft to the third OM with patent associated free HAIDER artery to the posterior lateral branch. He had a previous cardiac catheterization on on 10/12/2009 at [facility]. Per the report he had: Subtle mid [...] pacemaker: Date Evaluated: 01/18/2017 Follow-up location: Remote Stitch Cleaner: Magine Name: Alexia Model #: [id number] Serial #: [id number] Date Implanted: 04/19/2011 Device Characteristics Device: Dual Chamber Type: Pacemaker Remote: [employer] Assessment AND Plan 1. CAD (coronary artery [...] is going to be evaluated by the [facility] orthopedic surgery group for spinal stenosis. It [...] artery disease) I25.10 Coronary Disease-Associated Artery/Lesion type: ho-chunk artery [place] vs. transplanted heart: ho-chunk heart History of coronary artery bypass graft Z95.1 Chronic atrial fibrillation I48.2 Presence of cardiac pacemaker Z95.0 Coding Level of Care Code Off vis,est,level 3 Diagnoses CAD (coronary artery disease) I25.10 Coronary Disease-Associated Artery/Lesion type: ho-chunk artery [place] vs. transplanted heart: ho-chunk heart History of coronary artery bypass graft Z95.1 Chronic atrial fibrillation I48.2 Presence of cardiac pacemaker Z95.0 01/25/18 1451 <Electronically signed by Palmer Lindo MD> Date Palmer Lindo MD Cosigner Signature: Date (if applicable) CC: Olive Sellers DO PROTHROMBIN TIME W/INR Collected: 01/14/2018 Status: F Source: [place] 9:32 AM [facility] REPOSITORY TYPE CODE TESTS RESULT OUT OF RANGE REFERENCE UNITS LAB L300.4150 11.7-14.9 SECONDS High PROTIME 21.7 LAB L300.4200 Normal INR 1.9 Performed By: #### L300.3900 #### [facility] [address] [place], [place], [address] LUMBAR MYELOGRAM Observed: 01/04/2018 Status: F Source: KEY 11:04 AM [facility] REPOSITORY [facility] Imaging Services [address] [place] [address] Lumbar Myelogram MR#: [id number] Acct: [id number] Name: IVANIA GOMEZ Rep #: [id number] : 1935 M 82 From: Dami Colindres MD PCP: Olive Sellers DO Status: REG CLI Study: Lumbar Myelogram Date of Exam: 01/04/18 Exam# [id number] Ordering Dr: Perfecto White MD PROCEDURE: LUMBAR [...] Dami Colindres MD at 13:18 EDT Tel [phone], Service support , CC: Olive Sellers DO; Perfecto White MD Steam Conditioner Operator: Signed SPINE LUMBAR WITHOUT Observed: 01/04/2018 Status: F Source: KEY CONTRAST 11:04 AM [facility] REPOSITORY [facility] Imaging Services [address] [place] [address] Spine Lumbar without Contrast MR#: [id number] Acct: [id number] Name: IVANIA GOMEZ Rep #: [id number] : 1935 M 82 From: Dami Colindres MD PCP: Olive Sellers DO Status: REG CLI Study: Spine Lumbar without Contrast Date of Exam: 01/04/18 Exam# [id number] Ordering Dr: Perfecto White MD STUDY: CT [...] Dami Colindres MD at 13:25 EDT Tel [phone], Service support , CC: Olive White MD Steam Conditioner Operator: Signed PROTHROMBIN TIME W/INR Collected: 12/03/2017 Status: F Source: KEY 11:30 AM [facility] REPOSITORY TYPE CODE TESTS RESULT OUT OF RANGE REFERENCE UNITS LAB L300.4150 11.7-14.9 SECONDS High PROTIME 24.9 LAB L300.4200 Normal INR 2.2 Performed By: #### L300.3900 #### [facility] [address] [place], [address] PACEMAKER CHECK Observed: 11/28/2017 Status: F Source: KEY 8:01 AM [facility] REPOSITORY [facility] [address] [place] [address] Pacemaker Check Date of Service: 11/27/171936 MR#: [id number] Acct: [id number] Name: IVANIA GOMEZ Rep #: [id number] : 1935 From: Opal Shields Age/Sex: 82/M [place] [facility] [place]: Signed Billing Codes PM Device Codes: PM Dev Interrogate (Remot 11/27/171937 <Electronically signed by Opal Shields > Date Opal Shields 11/28/17800<Electronically signed by Palmer Lindo MD> Cosigner Signature: Date (if applicable) Palmer Lindo MD CC: DOWNTIME REPORT Observed: 11/08/2017 Status: F Source: [place] 12:21 PM [facility] Medical Records Department [address] [facility] [place] [address] Downtime Report MR#: [id number] Acct: [id number] Name: IVANIA GOMEZ Rep #: [id number] : 1935 82 From: Eric West PCP: Olive Sellers DO Status: REG RCR This patient was seen during an EMR downtime October 22, 2017 - October 29, 2017. This patient may have a combination of paper and electronic documentation or all paper documentation. All documentation is viewable within the e-chart portion of [employer] for each patient visit. PACEMAKER CHECK Observed: 10/29/2017 Status: F Source: [place] 8:40 AM [facility] [address] [place] [address] Pacemaker Check Date of Service: 10/20/17 0950 MR#: [id number] Acct: [id number] Name: IVANIA GOMEZ Rep #: [id number] : 1935 From: Opal Shields Age/Sex: 82/M [place] [facility] Status: Signed Comments Summary Comments: Remote Dual Chamber Pacemaker Evaluation: Remote interrogation shows 22 MS episodes, 100% total time and no VHR episodes since 04/30/17. Presenting rhythm shows ventricular paced @ 75 ppm with underlying atrial fib. Pt on Coumadin. Estimated battery life 9 mos. RUBBER PRESS TENDER=15.7%. Lead impedances, sensing and atrial adaptive pace/sense threshold remain stable. Normal remote PPM function. Pt notified remote transmission received and next f/u appt scheduled for in 2 mos d/t approaching JASWINDER. Device Device Date Interviewed: 10/02/17 Follow-up Location: remote Interview Reason: scheduled follow up Stitch Cleaner: Medtronic Name: Sensia Model: SEDR01 Serial #: [id number] Implant Date: 04/19/11 Year(s): 6 Implant Physician: Perfecto Mcclendon M.D. @ [facility] Patient Characteristics Atrial Indication: Atrial tachycardia, Paroxysmal atrial fibrillation AV/Node Indication: Second degree AV block Ejection fraction %: 50 to 54 By: Echo Underlying rhythm: Sinus rhythm Pacemaker Dependent: No Device Characteristics Device: Dual Chamber Type: Pacemaker Remote Follow-Up: Care[facility] Leads Lead #1 Stitch Cleaner Lead 1: Medtronic Model Lead 1: 5076/52 Serial# Lead 1: [id number] Date Implanted Lead 1: 04/26/07 Position Lead 1: RA Lead #2 Stitch Cleaner Lead 2: Medtronic Model Lead 2: 5076/45 Serial# Lead 2: [id number] Date Implanted Lead 2: 04/19/11 Position Lead 2: RA Lead #3 Stitch Cleaner Lead 3: Medtronic Model Lead 3: 5076/58 Serial# Lead 3: [id number] Date Implanted Lead 3: 04/26/07 Position Lead 3: RV Lead #4 Stitch Cleaner Lead 4: Medtronic Model Lead 4: 5076/52 Serial# Lead 4: [id number] Date Implanted Lead 4: 04/19/11 Position Lead [...] 10/26/2017 Status: F Source: [place] 8:54 AM [facility] REPOSITORY TYPE CODE TESTS RESULT OUT OF RANGE REFERENCE UNITS LAB L300.4150 11.7-14.9 SECONDS High PROTIME 27.4 LAB L300.4200 Normal INR 2.5 Performed By: #### L300.3900 #### [facility] [address] [place], [address] CBC W/DIFF, AUTOMATED Collected: 09/24/2017 Status: F Source: [place] 8:50 AM [facility] REPOSITORY Order Comment: PT/INR FOR DR GUICHO [...] Lymph 0.90 Performed By: #### L100.0100 #### [facility] [address] [place], [address] VITAMIN D,25 HYDROXY Collected: 09/24/2017 Status: F Source: [place] 8:50 AM [facility] REPOSITORY Order Comment: PT/INR FOR DR GUICHO [...] (>250 nmol/L) Performed By: #### L506.1000 #### [facility] [address] [place], [address] COMPREHENSIVE METABOLIC Collected: 09/24/2017 Status: F Source: [facility] 8:50 AM [facility] REPOSITORY Order Comment: PT/INR FOR DR LINDO [...] #### L500.4050, L501.9520, L503.6075, L503.6150, L503.6550 #### [facility] [address] [place], [place], [address] THYROID STIM HORMONE Collected: 09/24/2017 Status: F Source: [place] (TSH) 8:50 AM [facility] REPOSITORY Order Comment: PT/INR FOR DR GUICHO FUENTES ARE FOR DR SELLERS TYPE DILLON TESTS RESULT OUT OF RANGE REFERENCE UNITS LAB L501.9520 0.358-3.74 uIU/mL Normal TSH 0.64 Performed By: #### L500.4050, L501.9520, L503.6075, L503.6150, L503.6550 #### [facility] [address] [place], [place], [address] IRON BINDING Collected: 09/24/2017 Status: F Source: [place] [facility] 8:50 AM [facility] REPOSITORY Order Comment: PT/INR FOR DR GUICHO FUENTES ARE FOR DR SELLERS TYPE CODE TESTS RESULT OUT OF RANGE REFERENCE UNITS LAB L503.6075 250-450 ug/dL Low TIBC 244 Performed By: #### L500.4050, L501.9520, L503.6075, L503.6150, L503.6550 #### [facility] [address] [place], [place], [address] IRON Collected: 09/24/2017 Status: F Source: [place] 8:50 AM [facility] REPOSITORY Order Comment: PT/INR FOR DR GUICHO FUENTES ARE FOR DR SELLERS TYPE CODE TESTS RESULT OUT OF RANGE REFERENCE UNITS LAB L503.6150 65-175 ug/dL Normal IRON 76 Performed By: #### L500.4050, L501.9520, L503.6075, L503.6150, L503.6550 #### [facility] [address] [place], [place], [address] FERRITIN Collected: 09/24/2017 Status: F Source: [place] 8:50 AM [facility] REPOSITORY Order Comment: PT/INR FOR DR GUICHO FUENTES ARE FOR DR SELLERS TYPE CODE TESTS RESULT OUT OF RANGE REFERENCE UNITS LAB L503.6550 26-388 ng/mL Normal FERRITIN 157 Performed By: #### L500.4050, L501.9520, L503.6075, L503.6150, L503.6550 #### [facility] [address] [place], [place], [address] PROTHROMBIN TIME W/INR Collected: 09/24/2017 Status: F Source: [place] 8:49 AM [facility] REPOSITORY Order Comment: PT/INR FOR DR GUICHO FUENTES ARE FOR DR SELLERS Comments: standing order good from 05/29/17-05/29/18 Comments: standing order good from 05/29/17-05/29/18 TYPE CODE TESTS RESULT OUT OF RANGE REFERENCE UNITS LAB L300.4150 11.7-14.9 SECONDS High PROTIME 24.1 LAB L300.4200 Normal INR 2.2 Performed By: #### L300.3900 #### [facility] [address] [place], [place], [address] PROTHROMBIN TIME W/INR Collected: 08/24/2017 Status: F Source: [place] 8:36 AM [facility] REPOSITORY TYPE CODE TESTS RESULT OUT OF RANGE REFERENCE UNITS LAB L300.4150 11.7-14.9 SECONDS High PROTIME 24.5 LAB L300.4200 Normal INR 2.2 Performed By: #### L300.3900 #### [facility] [address] [place], [place], [address] LIVER PROFILE Collected: 08/24/2017 Status: F Source: [place] 8:35 AM [facility] REPOSITORY Order Comment: Order Date: 02/22/17 Order Info: 0788-1 - *Hepatic Function Panel Order Info: 71265-1 - *Lipid Profile CC PCP Comments: 12 [...] BILI 0.27 Performed By: #### L500.3400 #### [facility] [address] [place], [address] LIPID PROFILE Collected: 08/24/2017 Status: F Source: [place] 8:35 AM [facility] REPOSITORY Order Comment: Order Date: 02/22/17 Order Info: 0788-1 - *Hepatic Function Panel Order Info: 89764-4 - *Lipid Profile CC PCP Comments: 12 [...] VLDL 14 Performed By: #### L500.4100 #### [facility] [address] [place], [address] PACEMAKER CHECK Observed: 08/14/2017 Status: F Source: [place] 11:40 AM [facility] REPOSITORY [facility] [address] [place] [address] Pacemaker Check Date of Service: 07/31/17 1118 MR#: [id number] Acct: [id number] Name: IVANIA GOMEZ Rep #: [id number] : 1935 From: Opla Shields Age/Sex: 82/M [place] [facility] Status: Signed Comments Summary Comments: Remote Dual Chamber Pacemaker Evaluation: Remote interrogation shows 14 MS episodes, 100% total time and no VHR episodes since 04/30/17. Presenting rhythm shows Ventricular paced @ 66 ppm with underlying atrial fib. Pt on Coumadin. RUBBER PRESS TENDER=17.6%, AP 13.2%. Battery longevity approx 11 mos. Lead impedances, sensing and adaptive atrial threshold remain stable. Normal remote PPM function. Pt notified remote transmission received and next f/u appt scheduled for in 2 mos. Device Device Date Interviewed: 07/31/17 Follow-up Location: remote Interview Reason: scheduled follow up Stitch Cleaner: Medtronic Name: Sensia Model: SEDR01 Serial #: [id number] Implant Date: 04/19/11 Year(s): 6 Implant Physician: Perfecto Mcclendon M.D. @ [facility] Patient Characteristics Atrial Indication: Atrial tachycardia, Paroxysmal atrial fibrillation AV/Node Indication: Second degree AV block (Mobitz I) Ejection fraction %: 50 to 54 By: Echo Underlying rhythm: Sinus rhythm Pacemaker Dependent: No Device Characteristics Device: Dual Chamber Type: Pacemaker Remote Follow-Up: [facility] Leads Lead #1 Stitch Cleaner Lead 1: Medtronic Model Lead 1: 5076/52 Serial# Lead 1: [id number] Date Implanted Lead 1: 04/26/07 Position Lead 1: RA Lead #2 Stitch Cleaner Lead 2: Medtronic Model Lead 2: 5076/45 Serial# Lead 2: [id number] Date Implanted Lead 2: 04/19/11 Position Lead 2: RA Lead #3 Stitch Cleaner Lead 3: Medtronic Model Lead 3: 5076/58 Serial# Lead 3: [id number] Date Implanted Lead 3: 04/26/07 Position Lead 3: RV Lead #4 Stitch Cleaner Lead 4: Medtronic Model Lead 4: 5076/52 Serial# Lead 4: [id number] Date Implanted Lead 4: 04/19/11 Position Lead [...] fibrillation I48.2 5. 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 Paroxysmal tachycardia I47.9 7. Paroxysmal ventricular tachycardia I47.2 08/13/17 1637 <Electronically signed by Opal Shields > Date Opal Shields 08/14/17 1140<Electronically signed by Awa CHASE> Sandrine Signature: Date (if applicable) Awa Blair CC: David Jain MD ALLERGIES ALLERGIES DATE TYPE / CODE NAME / CODE REACTION SEVERITY SOURCE 06/05/2018 Drug No Known Unknown [place] [facility] Allergy/4160 Allergies/F00 Hospital 27435(SNOMED 3824650(RXNOR Repository CT) M) ENCOUNTERS ENCOUNTERS ADMIT/DISCHARGE ACCOUNT ADMITTING ENCOUNTER LOCATION SOURCE NUMBER CLASS 06/11/2018 [id number] Ambulatory [place] 5 [facility] ing:LAB Repository 06/11/2018 [id number] Ambulatory [place] 9 [facility] ing:[facility] Repository 06/05/2018/ [id number] Ambulatory BMSBuilding:B [place] 6 [facility] Repository 05/20/2018/ [id number] Ambulatory [place] 8 9 [facility] ing:LAB Repository 05/20/2018/ [id number] Ambulatory BMSBuilding:B [place] 0 [facility] Repository 05/06/2018 [id number] Ambulatory [place] 7 [facility] ing:CLSP Repository 05/06/2018 [id number] Ambulatory BMSBuilding:W [place] 1 [facility] Repository 04/29/2018 [id number] Ambulatory [place] 8 [facility] ing:RAD Repository 04/29/2018/ [id number] Ambulatory BMSBuilding:B [place] 8 2 [facility] Repository 04/29/2018/ [id number] Ambulatory BMSBuilding:B [place] 7 [facility] Repository 04/15/2018/ [id number] Ambulatory [place] 8 4 [facility] ing:LAB Repository 04/03/2018/ [id number] Ambulatory BMSBuilding:B [place] 2 [facility] Repository 03/11/2018/ [id number] Ambulatory BMSBuilding:B [place] 8 3 [facility] Repository 03/08/2018/ [id number] Ambulatory [place] 1 [facility] ing:LAB Repository 02/11/2018/ [id number] Ambulatory BMSBuilding:B [place] 7 [facility] Repository 01/30/2018/ [id number] Ambulatory [place] 8 0 [facility] ing:LAB Repository 01/28/2018 [id number] Ambulatory BMSBuilding:B [place] 2 [facility] Repository 01/25/2018/ [id number] Ambulatory BMSBuilding:B [place] 8 9 [facility] Repository 01/25/2018 [id number] Ambulatory BMSBuilding:B [place] 1 [facility] Repository 01/14/2018/ [id number] Ambulatory [place] 8 4 [facility] ing:LAB Repository 01/09/2018 [id number] Ambulatory BMSBuilding:B [place] 6 [facility] Repository 01/04/2018 [id number] Ambulatory [place] 2 [facility] ing:RAD Repository 01/02/2018/ [id number] Ambulatory BMSBuilding:B [place] 8 4 [facility] Repository 12/03/2017/ [id number] Ambulatory [place] 8 7 [facility] ing:LAB Repository 11/27/2017/ [id number] Ambulatory BMSBuilding:B [place] 8 9 [facility] Repository 10/26/2017/ [id number] Ambulatory [place] 8 6 [facility] ing:LAB Repository 10/02/2017/ [id number] Ambulatory BMSBuilding:B [place] 8 8 [facility] Repository 09/24/2017/ [id number] Ambulatory [place] 8 7 [facility] ing:LAB Repository 08/24/2017/ [id number] Ambulatory [place] 8 5 [facility] ing:LAB Repository 07/31/2017/ [id number] Ambulatory BMSBuilding:B [place] 8 3 [facility] Repository 07/25/2017 [id number] Ambulatory BMSBuilding:B [place] 2 [facility] Repository 07/03/2017 [id number] Ambulatory BMSBuilding:B [place] 5 [facility] Repository PAYERS PAYERS ENCOUNTER GUARANTOR PAYER SUBSCRIBER SOURCE 06/11/2018 IVANIA Nickerson Primary IVANIA Baoster [id number] Insurance:MEDICARE MENGESDOB: Community [place] PART A [facility] [id number] Number: Repository [address]Nzn: 330 [id number] [phone] () Date:2017-06-26 06/11/2018 Secondary IVANIA Mackey Insurance:ANTHEMPolic MENGESDOB: Community y Number: [id number] Hospital [id number] Repository Date:1287-03-51ZE [address] [place] [address]UO: 06/11/2018 Tertiary NOT GIVENUNK [place] Insurance:SELF PAY [facility] Number: Effective Repository Date:2018-05-20 06/11/2018 IVANIA Nickerson Primary IVANIA Nickerson [place] [id number] Insurance:MEDICARE MENGESDOB: [facility] PART A [facility] [id number], [place] Number: Repository [address]Yhk: 330 [id number] [phone] () Date:2018-06-05 06/11/2018 Secondary IVANIA Mackey Insurance:ANTHEMPolic MENGESDOB: Community y Number: [id number] Hospital [id number] Repository Date:5800-56-27QO [address], [place] [address]ZI: 06/11/2018 Tertiary NOT GIVENUNK [place] Insurance:SELF PAY [facility] Number: Effective Repository Date:2018-06-05 06/05/2018 IVANIA Nickerson Primary IVANIA Baoster [id number] Insurance:MEDICARE MENGESDOB: [facility] PART A [facility] [id number], [place] Number: Repository [address]Ahs: 330 [id number] [phone] (HP) Date:2018-04-29 06/05/2018 Secondary SOHEILA [place] Insurance:ANTHEMPolic MENGESDOB: Community y Number: [id number] Hospital [id number] Repository Date:3951-47-69FP [address], [place] [address]WB: 06/05/2018 Tertiary NOT GIVENUNK [place] Insurance:SELF PAY [facility] Number: Effective Repository Date:2018-06-05 05/20/2018 SOHEILA Primary SOHEILA [place] [id number] Insurance:MEDICARE MENGESDOB: [facility] PART A [facility] [id number], [place] Number: Repository [address]Oal: 330 [id number] [phone] () Date:2017-06-26 05/20/2018 Secondary SOHEILA [place] Insurance:ANTHEMPolic MENGESDOB: Community y Number: [id number] Hospital [id number] Repository Date:8159-39-22MK [address], [place] [address]PY: 05/20/2018 Tertiary NOT GIVENUNK [place] Insurance:SELF PAY [facility] Number: Effective Repository Date:2018-04-22 05/20/2018 SOHEILA Primary SOHEILA [place] [id number] Insurance:MEDICARE MENGESDOB: [facility] PART A [facility] [id number], [place] Number: Repository [address]Fwa: 330 [id number] [phone] (HP) Date:2018-04-23 05/20/2018 Secondary [place]ILA [place] Insurance:ANTHEMPolic MENGESDOB: Community y Number: [id number] Hospital [id number] Repository Date:0770-03-32UQ [address], [place] [address]AP: 05/20/2018 Tertiary NOT GIVENUNK [place] Insurance:SELF PAY [facility] Number: Effective Repository Date:2018-05-20 05/06/2018 SOHEILA Primary SOHEILA [place] [id number] Insurance:MEDICARE MENGESDOB: Community [place] PART A [facility] [id number], [place] Number: Repository [address]Bmw: 330 [id number] [phone] (HP) Date:2018-04-22 05/06/2018 Secondary SOHEILA [place] Insurance:ANTHEMPolic MENGESDOB: Community y Number: [id number] Hospital [id number] Repository Date:3712-01-73GK [address] [place] [address]QX: 05/06/2018 Tertiary NOT GIVENUNK [place] Insurance:SELF PAY [facility] Number: Effective Repository Date:2018-04-22 05/06/2018 SOHEILA Primary SO[place]IL[place] [id number] Insurance:MEDICARE MENGESDOB: [facility] [id number], [place] Number: Repository [address]Fdn: 330 [id number] [phone] (HP) Date:2018-04-22 05/06/2018 Secondary SOHEILA [place] Insurance:ANTHEMPolic MENGESDOB: Community y Number: [id number] Hospital [id number] Repository Date:1640-07-15AO [address] [place] [address]AC: 05/06/2018 Tertiary NOT GIVENUNK [place] Insurance:SELF PAY [facility] Hospital Number: Effective Repository Date:2018-05-06 04/29/2018 SOHEILA Primary SOHEILA [place] [id number] Insurance:MEDICARE MENGESDOB: [facility] [id number], [place] Number: Repository [address]Tmi: 330 [id number] [phone] (HP) Date:2018-04-29 04/29/2018 Secondary [place]HEIL[place] Insurance:ANTHEMPolic MENGESDOB: Community y Number: [id number] Hospital [id number] Repository Date:9342-12-20FZ [address] [address]CB: 04/29/2018 Tertiary NOT GIVENUNK [place] Insurance:SELF PAY [facility] Number: Effective Repository Date:2018-04-29 04/29/2018 SOHEILA Primary SOHEILA [place] [id number] Insurance:MEDICARE MENGESDOB: Community [place] PART A olic [id number], [place] Number: Repository [address]Xoo: 330 [id number] [phone] (HP) Date:2018-04-23 04/29/2018 Secondary [place] Insurance:ANTHEMPolic MENGESDOB: Community y Number: [id number] Hospital [id number] Repository Date:3976-25-93[address] [address]DG: 04/29/2018 Tertiary NOT GIVENUNK [place] Insurance:SELF PAY [facility] Hospital Number: Effective Repository Date:2018-04-23 04/29/2018 SOHEILA Primary SOHEILA [place] [id number] Insurance:MEDICARE MENGESDOB: Community [place] PART A [facility] [id number], [place] Number: Repository [address]Svk: 330 [id number] [phone] () Date:2018-04-23 04/29/2018 Secondary SOHEILA [place] Insurance:ANTHEMPolic MENGESDOB: Community y Number: [id number] Hospital [id number] Repository Date:3672-61-01TD [address] [place] [address]QA: 04/29/2018 Tertiary NOT GIVENUNK [place] Insurance:SELF PAY [facility] Number: Effective Repository Date:2018-04-29 04/15/2018 SOHEILA Primary [place] [id number] Insurance:MEDICARE MENGESDOB: Community [place] PART A [facility] [id number], [place] Number: Repository [address]Act: 330 [id number] [phone] (HP) Date:2017-06-26 04/15/2018 Secondary SOHEILA [place] Insurance:ANTHEMPolic MENGESDOB: Community y Number: [id number] Hospital [id number] Repository Date:8684-68-48HL [address] [address]VI: 04/15/2018 Tertiary NOT GIVENUNK [place] Insurance:SELF PAY [facility] Number: Effective Repository Date:2018-03-21 04/03/2018 IVANIA Nickerson Primary [place] [id number] Insurance:MEDICARE MENGESDOB: Community [place] PART A olicy [id number], [place] Number: Repository [address]Amj: 330 [id number] [phone] () Date:2018-03-11 04/03/2018 Secondary [place] Insurance:ANTHEMPolic MENGESDOB: Community y Number: [id number] Hospital [id number] Repository Date:1329-52-27GK [address] [place] [address]NX: 04/03/2018 Tertiary NOT GIVENUNK [place] Insurance:SELF PAY [facility] Number: Effective Repository Date:2018-04-03 03/11/2018 IVANIA Nickerson Primary [place] [id number] Insurance:MEDICARE MENGESDOB: Community [place] PART A olic [id number], [place] Number: Repository [address]Onu: 330 [id number] [phone] () Date:2018-02-11 03/11/2018 Secondary [place] Insurance:ANTHEMPolic MENGESDOB: Community y Number: [id number] Hospital [id number] Repository Date:3430-45-25YM [address] [place] [address]VN: 03/11/2018 Tertiary NOT GIVENUNK [place] Insurance:SELF PAY [facility] Number: Effective Repository Date:2018-03-11 03/08/2018 IVANIA Nickerson Primary IVANIA Nickerson [place] [id number] Insurance:MEDICARE MENGESDOB: Community [place] PART A [facility] [id number], [place] Number: Repository [address]Mkz: 330 [id number] [phone] (HP) Date:2017-06-26 03/08/2018 Secondary IVANIA Nickerson [place] Insurance:ANTHEMPolic MENGESDOB: Community y Number: [id number] Hospital [id number] Repository Date:2863-53-37CW [address] [place] [address] 35351WZ: 03/08/2018 Tertiary NOT GIVENUNK Key Insurance:SELF PAY [facility] Number: Effective Repository Date:2018-02-20 02/11/2018 IVANIA Nickerson Primary [place] [id number] Insurance:MEDICARE MENGESDOB: [facility] PART A [facility] [id number] Number[place] Repository [id number]: 330 [id number] [phone] (HP) Date:2018-02-08 02/11/2018 Secondary [place]HEILA [place] Insurance:ANTHEMPolic MENGESDOB: Community y Number: [id number] Hospital [id number] Repository Date:3888-81-78OH [address] [place] [address] 68800ZQ: 02/11/2018 Tertiary NOT GIVENUNK Key Insurance:SELF PAY [facility] Number: Effective Repository Date:2018-02-11 01/30/2018 SOHEILA Primary [place]IL[place] [id number] Insurance:MEDICARE MENGESDOB: [facility] PART A [facility] [id number] Number: Repository [id number]: 330 [id number] [phone] (HP) Date:2017-06-26 01/30/2018 Secondary [place] Insurance:ANTHEMPolic MENGESDOB: Community y Number: [id number] Hospital [id number] Repository Date:5947-05-82IP [address], [place] [address]AW: 01/30/2018 Tertiary NOT GIV[place]UNK [place] Insurance:SELF PAY [facility] Number: Effective Repository Date:2018-01-22 01/28/2018 IVANIA Nickerson Primary [place] [id number] Insurance:MEDICARE MENGESDOB: [facility] [id number] Number: Repository [id number]: 330 [id number] [phone] (HP) Date:2017-04-30 01/28/2018 Secondary [place]HEILA [place] Insurance:ANTHEMPolic MENGESDOB: Community y Number: [id number] Hospital [id number] Repository Date:7007-72-36QH [address] [place] [address] 595[address]II: 01/28/2018 Tertiary NOT GIVENUNK Key Insurance:SELF PAY [facility] Number: Effective Repository Date:2017-04-30 01/25/2018 IVANIA Nickerson Primary [place] [id number] Insurance:MEDICARE MENGESDOB: Community [facility] PART A [facility] [id number] Number: Repository [id number]: 330 [id number] [phone] (HP) Date:2017-12-11 01/25/2018 Secondary [place]IL[place] Insurance:ANTHEMPolic MENGESDOB: Community y Number: [id number] Hospital [id number] Repository Date:1526-89-86ZK [address], [place] [address]MO: 01/25/2018 Tertiary NOT GIV[place]UNK [place] Insurance:SELF PAY [facility] Number: Effective Repository Date:2018-01-25 01/25/2018 IVANIA Nickerson Primary [place] [id number] Insurance:MEDICARE MENGESDOB: [facility] PART A [facility] [id number] Number: Repository [id number]: 330 [id number] [phone] (HP) Date:2018-01-25 01/25/2018 Secondary IVANIA Nickerson [address] Insurance:ANTHEMPolic MENGESDOB: Community y Number: [id number] Hospital [id number] Repository Date:9481-64-40XT [address]GS[place], [place] [address]UX: 01/25/2018 Tertiary NOT GIV[place]UNK [place] Insurance:SELF PAY [facility] Number: Effective Repository Date:2018-01-25 01/14/2018 SOHEILA Primary [place]IL[place] [id number] Insurance:MEDICARE MENGESDOB: Community [place] PART A [facility] [id number] Number: Repository [address]Gxp: 330 [id number] [phone] (HP) Date:2017-06-26 01/14/2018 Secondary [place] Insurance:ANTHEMPolic MENGESDOB: Community y Number: [id number] Hospital [id number] Repository Date:6382-25-51TS [address]FKXQIFC, [place] [address]HY: 01/14/2018 Tertiary NOT GIV[place]UNK [place] Insurance:SELF PAY [facility] Number: Effective Repository Date:2017-12-20 01/09/2018 SOHEILA Primary [place] [id number] Insurance:MEDICARE MENGESDOB: Community [place] PART A [facility] [id number] Number: Repository [address]Mgp: 330 [id number] [phone] (HP) Date:2017-10-02 01/09/2018 Secondary [place] Insurance:ANTHEMPolic MENGESDOB: Community y Number: [id number] Hospital [id number] Repository Date:8145-23-31JQ [address], [place] [address]IS: 01/09/2018 Tertiary NOT GIVENUNK Key Insurance:SELF PAY [facility] Number: Effective Repository Date:2017-10-02 01/04/2018 SOHEILA Primary [place]IL[place] [address] [id number] Insurance:MEDICARE MENGESDOB: Community [place] PART A [facility] [id number] Number: Repository [id number]: 330 [id number] [phone] ([phone] Date:2017-11-12 01/04/2018 Secondary [place] Insurance:ANTHEMPolic MENGESDOB: Community y Number: [id number] Hospital [id number] Repository Date:0220-21-87JM [address] [place] [address] 117[address]MQ: 01/04/2018 Tertiary NOT GIVENUNK [place] Insurance:SELF PAY [facility] Effective Repository Date:2017-11-12 01/02/2018 IVANIA Nickerson Primary [place] [id number] Insurance:MEDICARE MENGESDOB: Community [place] PART A olicy [id number] Number: Repository [address]Pti: 330 [id number] [phone] Date:2017-11-27 01/02/2018 Secondary IVANIA Nickerson [address] Insurance:ANTHEMPolic MENGESDOB: Community y Number: [id number] Hospital [id number] Repository Date:4421-65-77ON [address]ANWPQV, [place] [address]IG: 01/02/2018 Tertiary NOT [place]IV[place]UNK [place] Insurance:SELF PAY [facility] Number: Effective Repository Date:2018-01-02 12/03/2017 IVANIA Nickerson Primary [place] [id number] Insurance:MEDICARE MENGESDOB: Community [place] PART A olicy [id number] Number: Repository [address]Uui: 330 [id number] [phone] (HP) Date:2017-06-26 12/03/2017 Secondary [place] Insurance:ANTHEMPolic MENGESDOB: Community y Number: [id number] Hospital [id number] Repository Date:2840-64-78IE [address] [address]HW: 12/03/2017 Tertiary NOT GIVENUNK [place] Insurance:SELF PAY [facility] Number: Effective Repository Date:2017-11-16 11/27/2017 IVANIA Nickerson Primary IVANIA Nickerson [place] [id number] Insurance:MEDICARE MENGESDOB: Community [place] PART A olicy [id number], [place] Number: Repository [address]Tmd: 330 [id number] [phone] ([phone] Date:2017-10-02 11/27/2017 Secondary [place] Insurance:ANTHEMPolic MENGESDOB: Community y Number: [id number] Hospital [id number] Repository Date:9601-13-48GB [address] [place] [address] 844[address]YS: 11/27/2017 Tertiary NOT GIVENUNK [place] Insurance:SELF PAY [facility] Number: Effective Repository Date:2017-11-27 10/26/2017 IVANIA Nickerson Primary [place] [id number] Insurance:MEDICARE MENGESDOB: [facility] [id number], [place] Number: Repository [address]Yek: 330 [id number] [phone] (HP) Date:2017-06-26 10/26/2017 Secondary [place] Insurance:ANTHEMPolic MENGESDOB: Community y Number: [id number] Hospital [id number] Repository Date:5688-22-68FD [address] [place] [address] 94252TZ: 10/26/2017 Tertiary NOT GIV[place]UNK [place] Insurance:SELF PAY [facility] Number: Effective Repository Date:2017-10-18 10/02/2017 SOHEILA Primary [place] [id number] Insurance:MEDICARE MENGESDOB: [facility] PART A [facility] [id number], [place] Number: Repository [address]Gpi: 330 [id number] [phone] ([phone] Date:2017-07-31 10/02/2017 Secondary [place] Insurance:ANTHEMPolic MENGESDOB: Community y Number: [id number] Hospital [id number] Repository Date:5667-06-48ZT [address]WYJRY, [place] [address]TR: 10/02/2017 Tertiary NOT GIV[place]UNK [place] Insurance:SELF PAY [facility] Number: Effective Repository Date:2017-10-02 09/24/2017 IVANIA Nickerson Primary [place] [id number] Insurance:MEDICARE MENGESDOB: Community [place] PART A [facility] [id number], [place] Number: Repository [address]Nkx: 330 [id number] [phone] (HP) Date:2017-06-26 09/24/2017 Secondary [place] Insurance:ANTHEMPolic MENGESDOB: Community y Number: [id number] Hospital [id number] Repository Date:6816-00-65KD [address] [place] [address] 507[address]VJ: 09/24/2017 Tertiary NOT GIVENUNK [place] Insurance:SELF PAY [facility] Number: Effective Repository Date:2017-09-18 08/24/2017 IVANIA Nickerson Primary [place] [id number] Insurance:MEDICARE MENGESDOB: [facility] [id number] Number: Repository [address]Xnb: 330 [id number] [phone] (HP) Date:2017-06-26 08/24/2017 Secondary IVANIA Nickerson [place] Insurance:ANTHEMPolic MENGESDOB: Community y Number: [id number] Hospital [id number] Repository Date:0689-81-94LU [address]QGWQNZU, [place] [address]VV: 08/24/2017 Tertiary NOT GIVENUNK [place] Insurance:SELF PAY [facility] Hospital Number: Effective Repository Date:2017-06-26 07/31/2017 IVANIA Nickerson Primary [place] [id number] Insurance:MEDICARE [facility]ENGESDOB[facility] [id number], [place] Number: Repository [address]Aln: 330 [id number] [phone] (HP) Date:2017-04-29 07/31/2017 Secondary IVANIA Nickerson [place] Insurance:ANTHEMPolic MENGESDOB: Community y Number: [id number] Hospital [id number] Repository Date:7143-70-55ZF [address]BV, [place] [address]AU: 07/31/2017 Tertiary NOT GIVENUNK [place] Insurance:SELF PAY [facility] Number: Effective Repository Date:2017-04-29 07/25/2017 SOHEILA Primary [place] [id number] Insurance:MEDICARE MENGESDOB: Community [place] [facility] [id number] Number: Repository 58[address]Gcl: 330 [id number] [phone] (HP) Date:2017-07-25 07/25/2017 Secondary [place] Insurance:ANTHEMPolic MENGESDOB: Community y Number: [id number] Hospital [id number] Repository Date:4679-31-44WU [address]NFQKXBL, [place] [address]TY: 07/25/2017 Tertiary NOT GIVENUNK [place] Insurance:SELF PAY [facility] Number: Effective Repository Date:2017-07-25 07/03/2017 SOHEILA Primary [place] [id number] Insurance:MEDICARE MENGESDOB: [facility] PART A [facility] [id number], [place] Number: Repository [address]Jpd: 330 [id number] [phone] (HP) Date:2017-07-03 07/03/2017 Secondary [place]A [place] Insurance:ANTHEMPolic MENGESDOB: Community y Number: [id number] Hospital [id number] Repository Date:5811-75-84BJ [address]EZMSKYX, [place] [address]OZ: 07/03/2017 Tertiary NOT GIVENUNK [place] Insurance:SELF PAY [facility] Number: Effective Repository Date:2017-07-03
== END ==
PROVIDERS: Family Provider Internal Medicine; PCP Internal Medicine; Referring Provider Physician Assistant Medical; Visit Provider Physician Assistant Medical
DX: I25.10 Atherosclerotic heart disease of native coronary artery without angina pectoris (principal); I48.2 Chronic atrial fibrillation; I10 Essential (primary) hypertension; E78.00 Pure hypercholesterolemia, unspecified; Z95.0 Presence of cardiac pacemaker
CPT/HCPCS: 78452; 93017; A9500; A4216; J2785

== ENCOUNTER 2018-06-11 09:37 | Outpatient (RCR) | payer MEDICARE, BC, SELFPAY ==
[2018-05-03 09:13] VITALS: BMI 28.8
[2018-06-05 09:30] VITALS: BMI 28.0
--- NOTE | 2018-06-11 10:13 | STRESSREP ---
Stress Test Report Date: 06/11/2917 Procedure: Pharmacologic stress nuclear imaging study Indications: CAD; PCI; CAD; PPM; preoperative cardiovascular evaluation Consent: Per the patient Procedure: The patient underwent pharmacologic (Regadenoson) evaluation with a peak heart rate of 64 beats per minute (46 percent predicted maximal heart rate) and a peak blood pressure of 122/76 mmHg. The baseline ECG demonstrated an electronic ventricular paced rhythm . The peak pharmacologic ECG demonstrated an electronic ventricular paced rhythm . There were no cardiac dysrhythmias pretest, during pharmacologic infusion, or recovery. There was no complaint of chest discomfort during pharmacologic infusion or recovery. The examination was discontinued secondary to completion of protocol. Impression: 1. Pharmacologic (Regadenoson) evaluation 2. Peak pharmacologic ECG with an electronic ventricular paced rhythm . 3. There were no cardiac dysrhythmias pretest, during pharmacologic infusion, or recovery. 4. Nuclear images pending Myocardial perfusion imaging study: Technique: The patient was injected with 11.1 millicuries of technetium 99m Cardiolite and subsequently rest SPECT Cardiolite nuclear imaging was obtained in the horizontal long, vertical long, and short axis views. The patient underwent pharmacologic (Regadenoson) evaluation with a peak heart rate of 64 beats per minute (46 % percent predicted maximal heart rate) and a peak blood pressure of 122/76 mmHg. The patient was injected with 33.4 millicuries of technetium 99m Cardiolite and subsequently stress SPECT Cardiolite nuclear imaging was obtained in the horizontal long, vertical long, and short axis views. A gated Cardiolite study at peak stress was not obtained. Interpretation: Rest and stress SPECT Cardiolite nuclear imaging status post realignment, normalization, and attenuation correction demonstrate the appearance of relative uniform tracer uptake and myocardial perfusion appearing within normal limits . A gated Cardiolite study at peak stress was not obtained. Impression: 1. Rest and stress SPECT Cardiolite nuclear imaging demonstrate relative uniform tracer uptake and myocardial perfusion appearing within normal limits. 2. A gated Cardiolite study at peak stress was not obtained. This note was generated with [employer] software. It may contain incorrect words, spelling, and punctuation that were not noted in checking the note before signing.
[2018-06-11 10:34] LABS: International Normalized Ratio 2.5; Prothrombin Time (Protime)PT. 27.1 SECONDS (11.7-14.9)
--- OUTSIDE RECORDS SUMMARY | 2018-08-13 11:15 | XMS RPT_ITS ---
:1935 Author Organization [facility] Support Name Relationship Address Phone FRENCH GOMEZA Unavailable [address] + [place] [address] MENLILI, YINKA Unavailable [address] + [place] [address] R Unavailable Unavailable Unavailable JASON, JAIME Unavailable [address] + [place] [address] JASON, YINKA Unavailable [address] + [place] [address] R Unavailable Unavailable Unavailable JASON, JAIME Unavailable [address] + [place] [address] MENLILI, YINKA Unavailable x + [place] [address] R Unavailable Unavailable Unavailable JASON, JAIME Unavailable [address] + [place] [address] MENLILI, YINKA Unavailable Unavailable + R Unavailable Unavailable Unavailable JASON, JAIME Unavailable [address] + [place] [address] JASON, YINKA Unavailable . + ., . . R Unavailable Unavailable Unavailable MENLILI, JAIME Unavailable [address] + [place] [address] R Unavailable Unavailable Unavailable MENGES, JAIME Unavailable [address] + [place] [address] MENLILI, YINKA Unavailable Unavailable + R Unavailable Unavailable Unavailable JASON, JAIME Unavailable [address] + [place] [address] R Unavailable Unavailable Unavailable MENLILI, JAIME Unavailable [address] + [place] [address] R Unavailable Unavailable Unavailable MENGES, JAIME Unavailable [address] + [place] [address] R Unavailable Unavailable Unavailable MENGES, JAIME Unavailable [address] + [place] [address] R Unavailable Unavailable Unavailable MENGES, JAIME Unavailable [address] + [place] [address] R Unavailable Unavailable Unavailable MENGES, JAIME Unavailable [address] + [place] [address] R Unavailable Unavailable Unavailable MENGES, JAIME Unavailable [address] + [place] [address] R Unavailable Unavailable Unavailable MENGES, JAIME Unavailable [address] + [place] [address] R Unavailable Unavailable Unavailable MENGES, JAIME Unavailable [address] + [place] [address] R Unavailable Unavailable Unavailable MENGES, JAIME Unavailable [address] + [place] [address] R Unavailable Unavailable Unavailable MENGES, JAIME Unavailable [address] + [place] [address] R Unavailable Unavailable Unavailable MENGES, JAIME Unavailable [address] + [place] [address] R Unavailable Unavailable Unavailable MENGES, JAIME Unavailable [address] + [place] [address] R Unavailable Unavailable Unavailable MENGES, JAIME Unavailable [address] + [place] [address] R Unavailable Unavailable Unavailable MENGES, JAIME Unavailable [address] + [place] [address] R Unavailable Unavailable Unavailable MENGES, JAIME Unavailable [address] + [place] [address] R Unavailable Unavailable Unavailable MENGES, JAIME Unavailable [address] + [place] [address] R Unavailable Unavailable Unavailable MENGES, JAIME Unavailable [address] + [place] [address] R Unavailable Unavailable Unavailable MENREUBEN PEARSONNICA Unavailable [address] + [place] [address] R Unavailable Unavailable Unavailable MENLILI, JAIME Unavailable [address] + [place] [address] R Unavailable Unavailable Unavailable MENREUBEN PEARSONNICA Unavailable [address] + [place] [address] R Unavailable Unavailable Unavailable R Unavailable Unavailable Unavailable R Unavailable Unavailable Unavailable R Unavailable Unavailable Unavailable R Unavailable Unavailable Unavailable Care Team Providers Name Role Phone Palmer Lindo Attending Unavailable Palmer Lindo Referring Unavailable Peg, Olive Primary Care Unavailable Andrés, Friesland Attending Unavailable Andrés, Friesland Referring Unavailable Peg, Olive Primary Care Unavailable Opal Shields Attending Unavailable Peg, Olive Referring Unavailable MoodPalmer linder Attending Unavailable Palmer Lindo Referring Unavailable Peg, Olive Primary Care Unavailable Andrés, Femi Attending Unavailable Andrés, Femi Referring Unavailable BlairAwa ndiaye Attending Unavailable Peg, Olive Referring Unavailable BlairAwa Attending Unavailable BlairAwa M Referring Unavailable Pge, Olive Primary Care Unavailable Palmer Lindo Attending Unavailable Palmer Lindo Referring Unavailable Peg, Olive Primary Care Unavailable Peg, Olive Attending Unavailable Peg, Olive Attending Unavailable Opal Shields Attending Unavailable Peg, Olive Referring Unavailable Palmer Lindo Attending Unavailable Palmer Lindo Referring Unavailable Peg, Olive Primary Care Unavailable Peg, Olive Consulting Unavailable Opal Shields Attending Unavailable Peg, Olive Referring Unavailable MoodispaPalmer tam Attending Unavailable Palmer Lindo Referring Unavailable Peg, Olive Primary Care Unavailable Peg, Olive Consulting Unavailable Palmer Lindo Attending Unavailable Palmer Lindo Referring Unavailable Peg, Olive Primary Care Unavailable Peg, Olive Consulting Unavailable Opal Shields Attending Unavailable Peg, Olive Referring Unavailable Opal Shields Attending Unavailable Peg, Olive Referring Unavailable Peg, Olive Primary Care Unavailable ArslanisPalmer mehta Attending Unavailable Perfecto White Attending Unavailable Peg, Olive [...] Chronic atrial Rossy, Active [place] fibrillation / [facility] I48.2(ICD-10) Hospital Repository 06/05/2018 Unknown Z95.0 - Presence of Blair, Active [place] cardiac pacemaker / [facility] Z95.0(ICD-10) Hospital Repository 06/05/2018 Unknown I25.10 - Blair, Active [place] Atherosclerotic heart [facility] disease of [facility] coronary artery Repository without angina pectoris / I25.10(ICD-10) 06/05/2018 Unknown I10 - Essential Blair, Active [place] (primary) hypertension [facility] / I10(ICD-10) Hospital Repository 06/05/2018 Unknown E78.00 - Pure Blair, Active [place] hypercholesterolemia, [facility] unspecified / Hospital E78.00(ICD-10) Repository 05/20/2018 Unknown Z79.01 - care home [place], Active [place] (current) use of [facility] anticoagulants / Hospital Z79.01(ICD-10) Repository 05/21/2018 Unknown I44.30 - Unspecified CorneliusOpal Active [place] atrioventricular block [facility] / I44.30(ICD-10) Hospital Repository 05/21/2018 Unknown I47.2 - Ventricular Cornelius, Opal Active [place] tachycardia / [facility] I47.2(ICD-10) Hospital Repository 05/21/2018 Unknown I47.9 - Paroxysmal Cornelius, Opal Active [place] tachycardia, [facility] unspecified / Hospital I47.9(ICD-10) Repository 05/21/2018 Unknown I49.01 - Ventricular Cornelius, Opal Active [place] fibrillation / [facility] I49.01(ICD-10) Hospital Repository 03/21/2018 Unknown E78.5 - [place], Active [place] Hyperlipidemia, [facility] unspecified / Hospital E78.5(ICD-10) Repository 03/21/2018 Unknown I48.91 - Unspecified [place], Active [place] atrial fibrillation / [facility] I48.91(ICD-10) Hospital Repository 10/18/2017 Unknown E03.9 - [place], Active [place] Hypothyroidism, [facility] unspecified / Hospital E03.9(ICD-10) Repository 10/18/2017 Unknown 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, 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 This note was generated with [employer] software. It may contain incorrect words, spelling, and punctuation that were not noted in checking the note before signing. 06/11/18 1025 <Electronically signed by Palmer Lindo MD> Date Palmer Lindo MD CC: Olive Jesuson DO; Palmer Lindo MD Date Dictated: 06/11/183 Date Transcribed: 06/11/181012 Pharmacy Aide: PM Signed PROTHROMBIN TIME W/INR Collected: 06/11/2018 Status: F Source: [place] 9:41 AM [facility] TYPE CODE TESTS RESULT OUT OF RANGE REFERENCE UNITS LAB L300.4150 11.7-14.9 SECONDS High PROTIME 27.1 LAB L300.4200 Normal INR 2.5 Performed By: #### L300.3900 #### [facility] [address] [place], [address] CARDIOLOGY VISIT Observed: 06/05/2018 Status: F Source: [place] REPORT 9:57 AM [facility] 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 [place] [address] Pacemaker Check Date of Service: 05/20/18 1203 MR#: [id number] Acct: [id number] Name: IVANIA GOMEZ Rep #: [id number] : 1935 From: Opal Shields Age/Sex: 82/M Location: [facility] Status: Signed Billing Codes PM Device Codes: PM Dev Prog Eval, Dual 05/20/18 1204 <Electronically signed by Opal Shields > Date Opal Shields 05/20/18 1229<Electronically signed by Palmer Lindo MD> Sandrine Signature: Date (if applicable) Palmer Lindo MD CC: PROTHROMBIN TIME W/INR Collected: 05/20/2018 Status: F Source: [place] 10:20 AM [facility] REPOSITORY TYPE CODE TESTS RESULT OUT OF RANGE REFERENCE UNITS LAB L300.4150 11.7-14.9 SECONDS High PROTIME 23.5 LAB L300.4200 Normal INR 2.1 Performed By: #### L300.3900 #### [facility] [address] [place], [address] CARDIOLOGY VISIT Observed: 05/06/2018 Status: F Source: [place] REPORT 12:37 PM [facility] REPOSITORY [facility] [address] [place] [address] OFFICE VISIT Date of Service: 04/29/18 MR#: [id number] Acct: [id number] Name: IVANIA GOMEZ Rep #: [id number] : 1935 Provider: wAa Blair Age/Sex: 82/M Location: [facility] Status: Signed HPI HPI Details: IVANIA [...] our office. This will be done at [facility]. 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, [address] PROTHROMBIN TIME W/INR Collected: 05/06/2018 Status: F Source: [place] 9:30 AM [facility] TYPE CODE TESTS RESULT OUT OF RANGE REFERENCE UNITS LAB L300.4150 11.7-14.9 SECONDS High PROTIME 22.7 LAB L300.4200 Normal INR 2.0 Performed By: #### L300.3900 #### [facility] [address] [facility] [place], [address] URINALYSIS, COMPLETE Collected: 05/06/2018 Status: F Source: [place] 9:30 AM [facility] Order Comment: How was Urine Obtained? SUPERVISOR MOLD CONSTRUCTION TO SPECIFY TYPE CODE TESTS RESULT OUT [...] URINE SEEN Performed By: #### L400.0001 #### [facility] [address] [place] [address], [id number] PROTIME W/INR Collected: 05/06/2018 Status: F Source: [place] FINGERSTICK 8:01 AM [facility] TYPE CODE TESTS RESULT OUT OF RANGE REFERENCE UNITS LAB L9200.1001 11.9-14.4 SEC Normal PROTIME ISTAT 14.0 Result Comment: Reference Range 11.9 - 14.4 LAB L9200.2000 Normal INR ISTAT 1.20 Result Comment: Critical Value > 3.5 Performed By: #### L9200.0000 #### [facility] Point of Care [address] [place], [place] [address] PACEMAKER CHECK Observed: 04/29/2018 Status: F Source: [place] 4:12 PM [facility] [place], [place] [address] Pacemaker Check Date of Service: 04/29/18 1427 MR#: [id number] Acct: [id number] Name: IVANIA GOMEZ Rep #: [id number] : 1935 From: Opal Shields Age/Sex: 82/M Location: [facility] Status: Signed Billing Codes PM Device Codes: PM Dev Prog Eval, Dual 04/29/18 1431 <Electronically signed by Opal Shields > Date Opal Shields 04/29/18 1612<Electronically signed by Palmer Lindo MD> Cosigner Signature: Date (if applicable) Palmer Lindo MD CC: CHEST PA AND LATERAL Observed: 04/29/2018 Status: F Source: [place] 2:48 PM [facility] Imaging Services [address] [place] [address] Chest PA and Lateral MR#: [id number] Acct: [id number] Name: IVANIA GOMEZ Rep #: [id number] : 1935 M 82 From: Perfecto Fischer MD PCP: Olive Sellers DO Status: REG CLI Study: Chest PA and Lateral Date of Exam: 04/29/18 Exam# [id number] Ordering Dr: Palmer Lindo MD STUDY: X-RAY [...] CC: Olive Sellers DO; Palmer Lindo MD Pharmacy Aide: Signed 12 LEAD EKG PERFORMED Observed: 04/29/2018 Status: F Source: [place] BY [facility] 2:17 PM [facility] [address] [address] 12 Lead EKG performed by [facility] 04/29/181416 MR#: [id number] Acct: [id number] Name: IVANIA GOMEZ Rep #: [id number] : 1935 82 From: Awa CHASE Attending Dr: Awa Blair Status: DEP AMB Ordering Dr: Awa Blair Date: 04/29/18 Location: [facility] Sex: M C Admitted: BMS/12 Lead EKG performed by [facility] ECG Report Interpretation Electronic ventricular pacemaker Pacemaker ECG, No further analysis Electronically signed on 04/29/2018 at 16:16 by Palmer Lindo Software Version [id number] 04/29/18 1618 Date Awa CHASE CC: Olive Sellers DO Date Dictated: 04/29/181416 Date Transcribed: 04/29/181416 Pharmacy Aide: MMM Signed PROTHROMBIN TIME W/INR Collected: 04/15/2018 Status: F Source: [place] 9:07 AM [facility] REPOSITORY TYPE CODE TESTS RESULT OUT OF RANGE REFERENCE UNITS LAB L300.4150 11.7-14.9 SECONDS High PROTIME 34.1 LAB L300.4200 Normal INR 3.3 Performed By: #### L300.3900 #### [facility] [address] [place], [address] PACEMAKER CHECK Observed: 04/04/2018 Status: F Source: [place] 8:11 AM [facility] [address] [place] [address] Pacemaker Check Date of Service: 04/03/18 1759 MR#: [id number] Acct: [id number] Name: IVANIA GOMEZ Rep #: [id number] : 1935 From: Opal Shields Age/Sex: 82/M Location: [facility] Status: Signed Billing Codes PM Device Codes: PM Dev Interrogate (Remot 04/03/18 1801 <Electronically signed by Opal Shields > Date Opal Shields 04/04/18 0811<Electronically signed by Palmer Lindo MD> Cosigner Signature: Date (if applicable) Palmer Lindo MD CC: PACEMAKER CHECK Observed: 03/11/2018 Status: F Source: [place] 6:30 PM [facility] REPOSITORY [facility] [address] [place] [address] Pacemaker Check Date of Service: 03/11/18 1523 MR#: [id number] Acct: [id number] Name: IVANIA OGMEZ Rep #: [id number] : 1935 From: Opal Shields Age/Sex: 82/M Location: [facility] Status: Signed Billing Codes PM Device Codes: PM Dev Prog Micheline, Dual 03/11/18 1525 <Electronically signed by Opal Shields > Date Opal Shields 03/11/18 1830<Electronically signed by Palmer Lindo MD> Cosigner Signature: Date (if applicable) Palmer Lindo MD CC: PROTHROMBIN TIME W/INR Collected: 03/08/2018 Status: F Source: [place] 8:43 AM [facility] TYPE CODE TESTS RESULT OUT OF RANGE REFERENCE UNITS LAB L300.4150 11.7-14.9 SECONDS High PROTIME 24.5 LAB L300.4200 Normal INR 2.2 Performed By: #### L300.3900 #### [facility] [address] [place], [place], [address] LIVER PROFILE Collected: 03/08/2018 Status: F Source: [place] 8:43 AM [facility] TYPE CODE TESTS RESULT OUT OF [...] 0.25 Performed By: #### L500.3400, L500.4100 #### [facility] [address] [place], [address] LIPID PROFILE Collected: 03/08/2018 Status: F Source: [place] 8:43 AM [facility] TYPE CODE TESTS RESULT OUT OF [...] 20 Performed By: #### L500.3400, L500.4100 #### [facility] [address] [place], [address] PACEMAKER CHECK Observed: 02/11/2018 Status: F Source: [place] 4:59 PM [facility] [address] [place] [address] Pacemaker Check Date of Service: 02/11/18 1628 MR#: [id number] Acct: [id number] Name: IVANIA GOMEZ Rep #: [id number] : 1935 From: Opal Shields Age/Sex: 82/M Location: [facility] Status: Signed Billing Codes PM Device Codes: PM Dev Interrogate (Remot 02/11/18 1631 <Electronically signed by Opal Shields > Date Opal Shields 02/11/18 1659<Electronically signed by Palmer Lindo MD> Cosignfe Signature: Date (if applicable) Palmer Lindo MD CC: PACEMAKER CHECK Observed: 02/08/2018 Status: F Source: [place] 4:34 PM [facility] REPOSITORY [facility] [address] [place] [address] Pacemaker Check Date of Service: 01/02/181946 MR#: [id number] Acct: [id number] Name: IVANIA GOMEZ Rep #: [id number] : 1935 From: Opal Shields Age/Sex: 82/M Location: [facility] Status: Signed Billing Codes PM Device Codes: PM Dev Interrogate (Remot 02/08/18 1129 <Electronically signed by Opal Shields > Date Opal Shields 02/08/18 1634<Electronically signed by Palmer Lindo MD> Cosignfe Signature: Date (if applicable) Palmer Lindo MD CC: PROTHROMBIN TIME W/INR Collected: 01/30/2018 Status: F Source: [place] 1:13 PM [facility] REPOSITORY TYPE CODE TESTS RESULT OUT OF RANGE REFERENCE UNITS LAB L300.4150 11.7-14.9 SECONDS High PROTIME 27.6 LAB L300.4200 Normal INR 2.6 Performed By: #### L300.3900 #### [facility] [address] [place], [address] CARDIOLOGY VISIT Observed: 01/25/2018 Status: F Source: [place] RE[place] 2:51 PM [facility] [address] [place] [address] OFFICE VISIT Date of Service: 01/25/18 MR#: [id number] Acct: [id number] Name: IVANIA GOMEZ Rep #: [id number] : 1935 Provider: Palmer Lindo MD Age/Sex: 82/M Location: [facility] Status: Signed HPI HPI Details: IVANIA GOMEZ, [...] PO .QOD tab 01/25/18 [History Confirmed 01/25/18] [facility] Medical History Chronic atrial fibrillation (Chronic) Ventricular fibrillation (Acute) HLD (hyperlipidemia) (Chronic) HTN (hypertension) (Chronic) Atrioventricular block (Chronic) Paroxysmal ventricular tachycardia (Chronic) Paroxysmal tachycardia (Inactive) Atrial arrhythmia (Chronic) Syncope and collapse (Chronic) 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 Per the conclusion is stated he had a patent SVG graft to the third OM with patent associated free HAIDER artery to the posterior lateral branch. He had a previous cardiac catheterization on on 10/12/2009 at [facility]. 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 CAD (coronary artery [...] is going to be evaluated by the [facility] orthopedic surgery group for spinal stenosis. [...] artery disease) I25.10 Coronary Disease-Associated Artery/Lesion type: [place] artery [place] vs. transplanted heart: [place] heart History of coronary artery bypass graft Z95.1 Chronic atrial fibrillation I48.2 Presence of cardiac pacemaker Z95.0 Coding Level of Care Code Off vis,est,level 3 Diagnoses CAD (coronary artery disease) I25.10 Coronary Disease-Associated Artery/Lesion type: [place] artery [place] vs. transplanted heart: [place] heart History of coronary artery bypass graft Z95.1 Chronic atrial fibrillation I48.2 Presence of cardiac pacemaker Z95.0 01/25/18 1451 <Electronically signed by Palmer Lindo MD> Date Palmer Lindo MD Cosigner Signature: Date (if applicable) CC: Olive Sellers DO PROTHROMBIN TIME W/INR Collected: 01/14/2018 Status: F Source: [place] 9:32 AM [facility] TYPE CODE TESTS RESULT OUT OF RANGE REFERENCE UNITS LAB L300.4150 11.7-14.9 SECONDS High PROTIME 21.7 LAB L300.4200 Normal INR 1.9 Performed By: #### L300.3900 #### [facility] [address] [place], [address] LUMBAR MYELOGRAM Observed: 01/04/2018 Status: F Source: [place] 11:04 AM [facility] Imaging Services [address] [place] [address] Lumbar Myelogram MR#: [id number] Acct: [id number] Name: IVANIA GOMEZ Rep #: [id number] : 1935 M 82 From: Dami Colindres MD PCP: Olive Sellers DO Status: REG CLI Study: Lumbar Myelogram Date of Exam: 01/04/18 Exam# [id number] Ordering Dr: Perfecto White MD PROCEDURE: LUMBAR [...] Dami Colindres MD at 13:18 EDT Tel [phone], Service support , CC: Olive Sellers DO; Perfecto White MD Pharmacy Aide: Signed SPINE LUMBAR WITHOUT Observed: 01/04/2018 Status: F Source: [place] CONTRAST 11:04 AM [facility] Imaging Services [address] [place] [address] Spine Lumbar without Contrast MR#: [id number] Acct: [id number] Name: IVANIA GOMEZ Rep #: [id number] : 1935 M 82 From: Dami Colindres MD PCP: Olive Sellers DO Status: REG CLI Study: Spine Lumbar without Contrast Date of Exam: 01/04/18 Exam# [id number] Ordering Dr: Perfecto White MD STUDY: CT [...] Dami Colindres MD at 13:25 EDT Tel [phone], Service support , CC: Olive White MD Pharmacy Aide: Signed PROTHROMBIN TIME W/INR Collected: 12/03/2017 Status: F Source: [place] 11:30 AM [facility] TYPE CODE TESTS RESULT OUT OF RANGE REFERENCE UNITS LAB L300.4150 11.7-14.9 SECONDS High PROTIME 24.9 LAB L300.4200 Normal INR 2.2 Performed By: #### L300.3900 #### [facility] [address] [place], [address] PACEMAKER CHECK Observed: 11/28/2017 Status: F Source: [place] 8:01 AM [facility] [facility] REPOSITORY [facility] [address] [place] [address] Pacemaker Check Date of Service: 11/27/171936 MR#: [id number] Acct: [id number] Name: IVANIA GOMEZ Rep #: [id number] : 1935 From: Opal Shields Age/Sex: 82/M Location: [facility] Status: Signed Billing Codes PM Device Codes: PM Dev Interrogate (Remot 11/27/171937 <Electronically signed by Opal Shields > Date Opal Shields 11/28/17800<Electronically signed by Palmer Lindo MD> Cosigner Signature: Date (if applicable) Palmer Lindo MD CC: DOWNTIME REPORT Observed: 11/08/2017 Status: F Source: [place] 12:21 PM [facility] Medical Records Department [address] [facility] [place] [address] Downtime Report MR#: [id number] Acct: [id number] Name: IVANIA GOMEZ Rep #: [id number] : 1935 82 From: Eric West PCP: Olive Sellers DO Status: REG RCR This patient was seen during an EMR downtime October 22, 2017 - October 29, 2017. This patient may have a combination of paper and electronic documentation or all paper documentation. All documentation is viewable within the e-chart portion of [employer] for each patient visit. PACEMAKER CHECK Observed: 10/29/2017 Status: F Source: [place] 8:[address] [facility] [address] [place] [address] Pacemaker Check Date of Service: 10/20/17 0950 MR#: [id number] Acct: [id number] Name: IVANIA GOMEZ Rep #: [id number] : 1935 From: Opal Shields Age/Sex: 82/M Location: [facility] Status: Signed Comments Summary Comments: Remote Dual Chamber Pacemaker Evaluation: Remote interrogation shows 22 MS episodes, 100% total time and no VHR episodes since 04/30/17. Presenting rhythm shows ventricular paced @ 75 ppm with underlying atrial fib. Pt on Coumadin. Estimated battery life 9 mos. 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 Lead impedances, sensing and atrial adaptive pace/sense threshold remain stable. Normal remote PPM function. Pt notified remote transmission received and next f/u appt scheduled for in 2 mos d/t approaching JASWINDER. Device Device Date Interviewed: 10/02/17 Follow-up Location: remote Interview Reason: scheduled follow up Professor Of Industrial Technology: Medtronic Name: Sensia Model: SEDR01 Serial #: [id number] Implant Date: 04/19/11 Year(s): 6 Implant Physician: Perfecto Mcclendon M.D. @ [facility] Patient Characteristics Atrial Indication: Atrial tachycardia, Paroxysmal atrial fibrillation AV/Node Indication: Second degree AV block Ejection fraction %: 50 to 54 By: Echo Underlying rhythm: Sinus rhythm Pacemaker Dependent: No Device Characteristics Device: Dual Chamber Type: Pacemaker Remote Follow-Up: [employer] Leads Lead #1 Professor Of Industrial Technology Lead 1: Medtronic Model Lead 1: 5076/52 Serial# Lead 1: [id number] Date Implanted Lead 1: 04/26/07 Position Lead 1: RA Lead #2 Professor Of Industrial Technology Lead 2: Medtronic Model Lead 2: 5076/45 Serial# Lead 2: [id number] Date Implanted Lead 2: 04/19/11 Position Lead 2: RA Lead #3 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, [address] CBC W/DIFF, AUTOMATED Collected: 09/24/2017 Status: F Source: [place] 8:50 AM [facility] [place] Order Comment: PT/INR FOR DR GUICHO [...] Lymph 0.90 Performed By: #### L100.0100 #### [facility] [address] [place], [address] VITAMIN D,25 HYDROXY Collected: 09/24/2017 Status: F Source: [place] 8:50 AM [facility] [facility] Order Comment: PT/INR FOR DR GUICHO [...] (>250 nmol/L) Performed By: #### L506.1000 #### [facility] [address] [place], [address] COMPREHENSIVE METABOLIC Collected: 09/24/2017 Status: F Source: [facility] 8:50 AM [facility] [facility] Order Comment: PT/INR FOR DR LINDO [...] #### L500.4050, L501.9520, L503.6075, L503.6150, L503.6550 #### [facility] [address] [place], [place], [address] THYROID STIM HORMONE Collected: 09/24/2017 Status: F Source: [place] (T[facility]) 8:50 AM [facility] [place] [facility] Order Comment: PT/INR FOR DR GUICHO FUENTES ARE FOR DR SELLERS TYPE DILLON TESTS RESULT OUT OF RANGE REFERENCE UNITS LAB L501.9520 0.358-3.74 uIU/mL Normal TSH 0.64 Performed By: #### L500.4050, L501.9520, L503.6075, L503.6150, L503.6550 #### [facility] [address] [place], [place], [address] IRON BINDING Collected: 09/24/2017 Status: F Source: [place] [facility] 8:50 AM [facility] [place] [facility] [place] Order Comment: PT/INR FOR DR GUICHO FUENTES ARE FOR DR SELLERS TYPE CODE TESTS RESULT OUT OF RANGE REFERENCE UNITS LAB L503.6075 250-450 ug/dL Low TIBC 244 Performed By: #### L500.4050, L501.9520, L503.6075, L503.6150, L503.6550 #### [facility] [address] [place], [place], [address] IRON Collected: 09/24/2017 Status: F Source: [place] 8:50 AM [facility] [place] [facility] Order Comment: PT/INR FOR DR GUICHO FUENTES ARE FOR DR SELLERS TYPE CODE TESTS RESULT OUT OF RANGE REFERENCE UNITS LAB L503.6150 65-175 ug/dL Normal IRON 76 Performed By: #### L500.4050, L501.9520, L503.6075, L503.6150, L503.6550 #### [facility] [address] [place], [place], [address] FERRITIN Collected: 09/24/2017 Status: F Source: [place] 8:50 AM [facility] [place] [facility] Order Comment: PT/INR FOR DR GUICHO FUENTES ARE FOR DR SELLERS TYPE CODE TESTS RESULT OUT OF RANGE REFERENCE UNITS LAB L503.6550 26-388 ng/mL Normal FERRITIN 157 Performed By: #### L500.4050, L501.9520, L503.6075, L503.6150, L503.6550 #### [facility] [address] [place], [place], [address] PROTHROMBIN TIME W/INR Collected: 09/24/2017 Status: F Source: [place] 8:49 AM [facility] [place] [facility] Order Comment: PT/INR FOR DR GUICHO FUENTES ARE FOR DR SELLERS Comments: standing order good from 05/29/17-05/29/18 Comments: standing order good from 05/29/17-05/29/18 TYPE CODE TESTS RESULT OUT OF RANGE REFERENCE UNITS LAB L300.4150 11.7-14.9 SECONDS High PROTIME 24.1 LAB L300.4200 Normal INR 2.2 Performed By: #### L300.3900 #### [facility] [address] [place], [place], [address] PROTHROMBIN TIME W/INR Collected: 08/24/2017 Status: F Source: [place] 8:36 AM [facility] [place] [facility] TYPE CODE TESTS RESULT OUT OF RANGE REFERENCE UNITS LAB L300.4150 11.7-14.9 SECONDS High PROTIME 24.5 LAB L300.4200 Normal INR 2.2 Performed By: #### L300.3900 #### [facility] [address] [place], [place], [address] LIVER PROFILE Collected: 08/24/2017 Status: F Source: [place] 8:35 AM [facility] [place] [facility] Order Comment: Order Date: 02/22/17 Order Info: 0788-1 - *Hepatic Function Panel Order Info: 32369-7 - *Lipid Profile CC PCP Comments: 12 [...] BILI 0.27 Performed By: #### L500.3400 #### [facility] [address] [place], [address] LIPID PROFILE Collected: 08/24/2017 Status: F Source: [place] 8:35 AM [facility] [place] [facility] Order Comment: Order Date: 02/22/17 Order Info: 0788-1 - *Hepatic Function Panel Order Info: 48963-6 - *Lipid Profile CC PCP Comments: 12 [...] VLDL 14 Performed By: #### L500.4100 #### [facility] [address] [place], [address] PACEMAKER CHECK Observed: 08/14/2017 Status: F Source: [place] 11:40 AM [facility] [place] [facility] [place] [facility] [address] [place] [address] Pacemaker Check Date of Service: 07/31/17 1118 MR#: [id number] Acct: [id number] Name: IVANIA GOMEZ Rep #: [id number] : 1935 From: Opal Shields Age/Sex: 82/M Location: [facility] Status: Signed Comments Summary Comments: Remote Dual Chamber Pacemaker Evaluation: Remote interrogation shows 14 MS episodes, 100% total time and no VHR episodes since 04/30/17. Presenting rhythm shows Ventricular paced @ 66 ppm with underlying atrial fib. Pt on Coumadin. 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 Battery longevity approx 11 mos. Lead impedances, sensing and adaptive atrial threshold remain stable. Normal remote PPM function. Pt notified remote transmission received and next f/u appt scheduled for in 2 mos. Device Device Date Interviewed: 07/31/17 Follow-up Location: remote Interview Reason: scheduled follow up Professor Of Industrial Technology: Medtronic Name: Sensia Model: SEDR01 Serial #: [id number] Implant Date: 04/19/11 Year(s): 6 Implant Physician: Perfecto Mcclendon M.D. @ [facility] Patient Characteristics Atrial Indication: Atrial tachycardia, Paroxysmal atrial fibrillation AV/Node Indication: Second degree AV block (Mobitz I) Ejection fraction %: 50 to 54 By: Echo Underlying rhythm: Sinus rhythm Pacemaker Dependent: No Device Characteristics Device: Dual Chamber Type: Pacemaker Remote Follow-Up: [employer] Lead #1 Professor Of Industrial Technology Lead 1: Medtronic Model Lead 1: 5076/52 Serial# Lead 1: [id number] Date Implanted Lead 1: 04/26/07 Position Lead 1: RA Lead #2 Professor Of Industrial Technology Lead 2: Medtronic Model Lead 2: 5076/45 Serial# Lead 2: [id number] Date Implanted Lead 2: 04/19/11 Position Lead 2: RA Lead #3 Professor Of Industrial Technology Lead 3: Medtronic Model Lead 3: 5076/58 Serial# Lead 3: [id number] Date Implanted Lead 3: 04/26/07 Position Lead 3: RV Lead #4 Professor Of Industrial Technology Lead 4: Medtronic Model Lead 4: 5076/52 Serial# Lead 4: [id number] Date Implanted Lead 4: 04/19/11 Position Lead [...] fibrillation I48.2 5. 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 Paroxysmal tachycardia I47.9 7. Paroxysmal ventricular tachycardia I47.2 08/13/17 1637 <Electronically signed by Opal Shields > Date Opal Shields 08/14/17 1140<Electronically signed by Awa CHASE> Sandrine Signature: Date (if applicable) Awa Blair CC: David Jain MD ALLERGIES ALLERGIES DATE TYPE / CODE NAME / CODE REACTION SEVERITY SOURCE 06/05/2018 Drug No Known Unknown [facility] Allergy/4160 Allergies/F00 Hospital 40949(SNOMED 2206739(RXNOR Repository CT) M) ENCOUNTERS ENCOUNTERS ADMIT/DISCHARGE ACCOUNT ADMITTING ENCOUNTER LOCATION SOURCE NUMBER CLASS 06/11/2018 [id number] Ambulatory [place] [facility] ing:LAB Repository 06/11/2018 [id number] Ambulatory [place] [facility] ing:[facility] Repository 06/05/2018/ [id number] Ambulatory BMSBuilding:B [place] [facility] 6 [facility] Repository 05/20/2018/ [id number] Ambulatory [place] 8 9 [facility] ing:LAB Repository 05/20/2018/ [id number] Ambulatory BMSBuilding:B [place] 8 0 [place] Repository 05/06/2018 [id number] Ambulatory [place] 7 [facility] ing:CLSP Repository 05/06/2018 [id number] Ambulatory BMSBuilding:W [place] [facility] Repository 04/29/2018 [id number] Ambulatory [place] 8 [facility] ing:RAD Repository 04/29/2018/ [id number] Ambulatory BMSBuilding:B [place] 8 2 [place] Repository 04/29/2018/ [id number] Ambulatory BMSBuilding:B [place] 7 [place] Repository 04/15/2018/ [id number] Ambulatory [place] 8 4 [facility] ing:LAB Repository 04/03/2018/ [id number] Ambulatory BMSBuilding:B [place] 8 2 [place] Repository 03/11/2018/ [id number] Ambulatory BMSBuilding:B [place] 8 3 [facility] Repository 03/08/2018/ [id number] Ambulatory [place] 8 1 [facility] ing:LAB Repository 02/11/2018/ [id number] Ambulatory BMSBuilding:B [place] 7 [place] Repository 01/30/2018/ [id number] Ambulatory [place] 8 0 [facility] ing:LAB Repository 01/28/2018 [id number] Ambulatory BMSBuilding:B [place] 2 [facility] Repository 01/25/2018/ [id number] Ambulatory BMSBuilding:B [place] 8 9 [facility] Repository 01/25/2018 [id number] Ambulatory BMSBuilding:B [place] 1 [facility] Repository 01/14/2018/ [id number] Ambulatory [place] 8 4 [facility] ing:LAB Repository 01/09/2018 [id number] Ambulatory BMSBuilding:B [place] 6 [facility] Repository 01/04/2018 [id number] Ambulatory [place] [facility] ing:RAD Repository 01/02/2018/ [id number] Ambulatory BMSBuilding:B [place] 8 4 [facility] Repository 12/03/2017/ [id number] Ambulatory [place] 8 7 [facility] ing:LAB Repository 11/27/2017/ [id number] Ambulatory BMSBuilding:B [place] 8 9 [facility] Repository 10/26/2017/ [id number] Ambulatory [place] 8 6 [facility] ing:LAB Repository 10/02/2017/ [id number] Ambulatory BMSBuilding:B [place] 8 8 [facility] Repository 09/24/2017/ [id number] Ambulatory [place] 8 7 [facility] ing:LAB Repository 08/24/2017/ [id number] Ambulatory [place] 8 5 [facility] ing:LAB Repository 07/31/2017/ [id number] Ambulatory BMSBuilding:B [place] 8 3 [facility] Repository 07/25/2017 [id number] Ambulatory BMSBuilding:B [place] 2 [facility] Repository 07/03/2017 [id number] Ambulatory BMSBuilding:B [place] 5 [facility] Repository PAYERS PAYERS ENCOUNTER GUARANTOR PAYER SUBSCRIBER SOURCE 06/11/2018 IVANIA Nickerson Primary IVANIA Baoster [id number] Insurance:MEDICARE MENGESDOB: Community [place] PART [place] [facility] [id number] Number: Repository [address]Has: 330 [id number] [phone] () Date:2017-06-26 06/11/2018 Secondary IVANIA Mackey Insurance:ANTHEMPolic MENGESDOB: Community y Number: [id number] [facility] [id number] Repository Date:2189-08-81TB [id number] [place] [address]VF: 06/11/2018 Tertiary NOT GIVENUNK Key Insurance:SELF PAY [facility] Number: Effective Repository Date:2018-05-20 06/11/2018 IVANIA Nickerson Primary IVANIA Nickerson [place] [id number] Insurance:MEDICARE MENGESDOB: [facility] PART A [facility] [id number] Number: Repository [address]Mfj: 330 [id number] [phone] () Date:2018-06-05 06/11/2018 Secondary IVANIA Mackey Insurance:ANTHEMPolic MENGESDOB: Community y Number: [id number] Hospital [id number] Repository Date:3749-97-03WS [address], [place] [address]MH: 06/11/2018 Tertiary NOT GIV[place]UNK [place] Insurance:SELF PAY [facility] Number: Effective Repository Date:2018-06-05 06/05/2018 IVANIA Nickerson Primary IVANIA Baoster [id number] Insurance:MEDICARE MENGESDOB: [facility] PART A [facility] [id number] Number: Repository [address]Mee: 330 [id number] [phone] (HP) Date:2018-04-29 06/05/2018 Secondary SOHEILA [place] Insurance:ANTHEMPolic MENGESDOB: Community y Number: [id number] Hospital [id number] Repository Date:9158-13-50ED [address], [place] [address]UV: 06/05/2018 Tertiary NOT GIVENUNK [place] Insurance:SELF PAY [facility] Number: Effective Repository Date:2018-06-05 05/20/2018 SOHEILA Primary SO[place] [id number] Insurance:MEDICARE MENGESDOB: [facility] PART A [facility] [id number] Number: Repository [address]Tiw: 330 [id number] [phone] () Date:2017-06-26 05/20/2018 Secondary SOHEILA [place] Insurance:ANTHEMPolic MENGESDOB: Community y Number: [id number] Hospital [id number] Repository Date:7458-05-10JE [address], [place] [address]UY: 05/20/2018 Tertiary NOT GIVENUNK [place] Insurance:SELF PAY [facility] Number: Effective Repository Date:2018-04-22 05/20/2018 SOHEILA Primary SOHEILA [place] [id number] Insurance:MEDICARE MENGESDOB: [facility] PART A [facility] [id number] Number: Repository [address]Plh: 330 [id number] [phone] (HP) Date:2018-04-23 05/20/2018 Secondary [place] Insurance:ANTHEMPolic MENGESDOB: Community y Number: [id number] Hospital [id number] Repository Date:0244-21-63US [address]FLO[place], [place] [address]II: 05/20/2018 Tertiary NOT GIVENUNK [place] Insurance:SELF PAY [facility] Number: Effective Repository Date:2018-05-20 05/06/2018 SOHEILA Primary SOHEILA [place] [id number] Insurance:MEDICARE MENGESDOB: [place] PART [place] [facility] [id number] Number: Repository [address]Lni: 330 [id number] [phone] (HP) Date:2018-04-22 05/06/2018 Secondary SOHEILA [place] Insurance:ANTHEMPolic MENGESDOB: Community y Number: [id number] Hospital [id number] Repository Date:0832-91-10NL [address] [place] [address]XQ: 05/06/2018 Tertiary NOT GIVENUNK [place] Insurance:SELF PAY [facility] Number: Effective Repository Date:2018-04-22 05/06/2018 SOHEILA Primary [place] [id number] Insurance:MEDICARE MENGESDOB: [facility] [id number] Number: Repository [address]Mef: 330 [id number] [phone] (HP) Date:2018-04-22 05/06/2018 Secondary SOHEILA [place] Insurance:ANTHEMPolic MENGESDOB: Community y Number: [id number] Hospital [id number] Repository Date:0783-87-53HR [address] [place] [address]HF: 05/06/2018 Tertiary NOT GIVENUNK [place] Insurance:SELF PAY [facility] Number: Effective Repository Date:2018-05-06 04/29/2018 SOHEILA Primary [place] [id number] Insurance:MEDICARE MENGESDOB: [facility] [id number] Number: Repository [address]Jzg: 330 [id number] [phone] (HP) Date:2018-04-29 04/29/2018 Secondary [place] Insurance:ANTHEMPolic MENGESDOB: Community y Number: [id number] Hospital [id number] Repository Date:1219-24-49GY [address] [address]QO: 04/29/2018 Tertiary NOT GIVENUNK Key Insurance:SELF PAY [facility] Number: Effective Repository Date:2018-04-29 04/29/2018 SOHEILA Primary SOHEILA [place] [id number] Insurance:MEDICARE MENGESDOB: Community [place] olic [id number] Number: Repository [address]Bbo: 330 [id number] [phone] (HP) Date:2018-04-23 04/29/2018 Secondary [place] Insurance:ANTHEMPolic MENGESDOB: Community y Number: [id number] Hospital [id number] Repository Date:1699-87-54KC[address] [address]TU: 04/29/2018 Tertiary NOT GIVENUNK Key Insurance:SELF PAY [facility] Number: Effective Repository Date:2018-04-23 04/29/2018 SOHEILA Primary [place] [id number] Insurance:MEDICARE MENGESDOB: Community [place] PART A [facility] [id number] Number: Repository [address]Svh: 330 [id number] [phone] () Date:2018-04-23 04/29/2018 Secondary SOHEILA [place] Insurance:ANTHEMPolic MENGESDOB: Community y Number: [id number] Hospital [id number] Repository Date:3858-71-18XK [address] [place] [address]KX: 04/29/2018 Tertiary NOT GIVENUNK [place] Insurance:SELF PAY [facility] Number: Effective Repository Date:2018-04-29 04/15/2018 SOHEILA Primary [place] [id number] Insurance:MEDICARE MENGESDOB: Community [place] PART A [facility] [id number] Number: Repository [address]Jmu: 330 [id number] [phone] (HP) Date:2017-06-26 04/15/2018 Secondary SOHEILA [place] Insurance:ANTHEMPolic MENGESDOB: Community y Number: [id number] Hospital [id number] Repository Date:3757-44-23QC [address]XSS[address] [place] [address]RF: 04/15/2018 Tertiary NOT GIVENUNK [place] Insurance:SELF PAY [facility]: Effective Repository Date:2018-03-21 04/03/2018 IVANIA Nickerson Primary [place] [id number] Insurance:MEDICARE MENGESDOB: Community [place] PART A olicy [id number] Number: Repository [address]Duz: 330 [id number] [phone] () Date:2018-03-11 04/03/2018 Secondary [place] Insurance:ANTHEMPolic MENGESDOB: Community y Number: [id number] Hospital [id number] Repository Date:1325-17-67LC [address] [place] [address]DC: 04/03/2018 Tertiary NOT GIVENUNK [place] Insurance:SELF PAY [facility] Number: Effective Repository Date:2018-04-03 03/11/2018 IVANIA Nickerson Primary [place] [id number] Insurance:MEDICARE MENGESDOB: Community [place] A olic [id number] Number: Repository [address]Aqy: 330 [id number] [phone] () Date:2018-02-11 03/11/2018 Secondary [place] Insurance:ANTHEMPolic MENGESDOB: Community y Number: [id number] Hospital [id number] Repository Date:8501-30-37KN [address]CNPKZGG [place] [address]XK: 03/11/2018 Tertiary NOT GIVENUNK [place] Insurance:SELF PAY [facility] Number: Effective Repository Date:2018-03-11 03/08/2018 IVANIA Nickerson Primary IVANIA Nickerson [place] [id number] Insurance:MEDICARE MENGESDOB: Community [place] PART A [facility] [id number] Number: Repository [address]Feo: 330 [id number] [phone] (HP) Date:2017-06-26 03/08/2018 Secondary IVANIA Nickerson [place] Insurance:ANTHEMPolic MENGESDOB: Community y Number: [id number] Hospital [id number] Repository Date:5653-91-57DM [address] [place] [address]KS: 03/08/2018 Tertiary NOT GIVENUNK [place] Insurance:SELF PAY [facility] Number: Effective Repository Date:2018-02-20 02/11/2018 IVANIA Nickerson Primary SOHEILA [place] [id number] Insurance:MEDICARE MENGESDOB: [facility] PART A [facility] [id number] Number: Repository [address]Fvm: 330 [id number] [phone] (HP) Date:2018-02-08 02/11/2018 Secondary [place] Insurance:ANTHEMPolic MENGESDOB: Community y Number: [id number] Hospital [id number] Repository Date:8144-14-12JC [address] [place] [address]VT: 02/11/2018 Tertiary NOT GIVENUNK [place] Insurance:SELF PAY [facility] Number: Effective Repository Date:2018-02-11 01/30/2018 SOHEILA Primary SOHEILA [place] [id number] Insurance:MEDICARE MENGESDOB: [facility] PART A [facility] [id number] Number: Repository [address]Kcm: 330 [id number] [phone] (HP) Date:2017-06-26 01/30/2018 Secondary SOHEILA [place] Insurance:ANTHEMPolic MENGESDOB: Community y Number: [id number] Hospital [id number] Repository Date:0369-17-39NG [address]U, [place] [address]US: 01/30/2018 Tertiary NOT GIVENUNK [place] Insurance:SELF PAY [facility] Number: Effective Repository Date:2018-01-22 01/28/2018 IVANIA Nickerson Primary [place] [id number] Insurance:MEDICARE MENGESDOB: [facility] [id number] Number: Repository [address]Tll: 330 [id number] [phone] (HP) Date:2017-04-30 01/28/2018 Secondary [place] Insurance:ANTHEMPolic MENGESDOB: Community y Number: 3022-09-54GYY [facility] [id number] Repository Date:2563-49-06CN [address] [place] [address] 46555WU: 01/28/2018 Tertiary NOT GIVENUNK [place] Insurance:SELF PAY [facility] Number: Effective Repository Date:2017-04-30 01/25/2018 IVANIA Nickerson Primary [place] [id number] Insurance:MEDICARE MENGESDOB: Community [facility] PART A [facility] [id number] Number: Repository [address]Oai: 330 [id number] [phone] (HP) Date:2017-12-11 01/25/2018 Secondary [place] Insurance:ANTHEMPolic MENGESDOB: Community y Number: [id number] Hospital [id number] Repository Date:6816-75-25[address]CPTQOC, [place] [address]RN: 01/25/2018 Tertiary NOT GIVENUNK [place] Insurance:SELF PAY [facility] Number: Effective Repository Date:2018-01-25 01/25/2018 IVANIA Nickerson Primary [place] [id number] Insurance:MEDICARE MENGESDOB: [facility] PART A [facility] [id number] Number: Repository [id number]: 330 [id number] [phone] (HP) Date:2018-01-25 01/25/2018 Secondary IVANIA Nickerson [place] Insurance:ANTHEMPolic MENGESDOB: Community y Number: [id number] Hospital [id number] Repository Date:8019-41-12RP [address]ZALHJMI, [place] [address]BF: 01/25/2018 Tertiary NOT GIVENUNK [place] Insurance:SELF PAY [facility] Number: Effective Repository Date:2018-01-25 01/14/2018 [place] Primary [place] [id number] Insurance:MEDICARE MENGESDOB: Community [place] PART A [facility] [id number] Number: Repository [id number]: 330 [id number] [phone] (HP) Date:2017-06-26 01/14/2018 Secondary [place] Insurance:ANTHEMPolic MENGESDOB: Community y Number: [id number] Hospital [id number] Repository Date:8481-76-82[address]FIH, [place] [address]CZ: 01/14/2018 Tertiary NOT GIVENUNK [place] Insurance:SELF PAY [facility] Number: Effective Repository Date:2017-12-20 01/09/2018 [place] Primary [place] [id number] Insurance:MEDICARE MENGESDOB: Community [place] PART A [facility] [id number] Number: Repository [id number]: 330 [id number] [phone] (HP) Date:2017-10-02 01/09/2018 Secondary [place] Insurance:ANTHEMPolic MENGESDOB: Community y Number: [id number] Hospital [id number] Repository Date:6339-65-51[address]IPGHT[place], [place] [address]CZ: 01/09/2018 Tertiary NOT GIVENUNK [place] Insurance:SELF PAY [facility] Number: Effective Repository Date:2017-10-02 01/04/2018 [place] Primary [place] [id number] Insurance:MEDICARE MENGESDOB: Community [place] PART A [facility] [id number] Number: Repository [address]Pcu: 330 [id number] [phone] (HP) Date:2017-11-12 01/04/2018 Secondary [place] Insurance:ANTHEMPolic MENGESDOB: Community y Number: [id number] Hospital [id number] Repository Date:1051-75-50TR [address] [place] [address]IW: 01/04/2018 Tertiary NOT GIVENUNK [place] Insurance:SELF PAY [facility] Effective Repository Date:2017-11-12 01/02/2018 IVANIA Nickerson Primary [place] [id number] Insurance:MEDICARE MENGESDOB: Community [place] PART A [place] [id number] Number: Repository [address]Bls: 330 [id number] [phone] Date:2017-11-27 01/02/2018 Secondary IVANIA Nickerson [place] Insurance:ANTHEMPolic MENGESDOB: Community y Number: [id number] Hospital [id number] Repository Date:4620-07-15BQ [address]SEHZHNT, [place] [address]NO: 01/02/2018 Tertiary NOT GIVENUNK [place] Insurance:SELF PAY [facility] Number: Effective Repository Date:2018-01-02 12/03/2017 IVANIA Nickerson Primary [place] [id number] Insurance:MEDICARE MENGESDOB: Community [place] PART A [place] [id number] Number[place] Repository [address]Lbp: 330 [id number] [phone] (HP) Date:2017-06-26 12/03/2017 Secondary [place] Insurance:ANTHEMPolic MENGESDOB: Community y Number: [id number] Hospital [id number] Repository Date:3915-84-09AC [address]BJLLPJB [place] [address]XS: 12/03/2017 Tertiary NOT GIVENUNK [place] Insurance:SELF PAY [facility] Number: Effective Repository Date:2017-11-16 11/27/2017 IVANIA Nickerson Primary IVANIA Nickerson [place] [id number] Insurance:MEDICARE MENGESDOB: Community [place] PART A [place] [id number] Number: Repository [address]Uol: 330 [id number] [phone] (HP) Date:2017-10-02 11/27/2017 Secondary [place] Insurance:ANTHEMPolic MENGESDOB: Community y Number: [id number] Hospital [id number] Repository Date:6952-41-53ZL [address] [place] [address] 379[address]VB: 11/27/2017 Tertiary NOT GIVENUNK [place] Insurance:SELF PAY [facility] Number: Effective Repository Date:2017-11-27 10/26/2017 IVANIA Nickerson Primary [place] [id number] Insurance:MEDICARE MENGESDOB: [facility] [id number] Number: Repository [address]Lhm: 330 [id number] [phone] (HP) Date:2017-06-26 10/26/2017 Secondary [place] Insurance:ANTHEMPolic MENGESDOB: Community y Number: [id number] Hospital [id number] Repository Date:1855-83-71YS [address] [place] [address]GU: 10/26/2017 Tertiary NOT GIVENUNK [place] Insurance:SELF PAY [facility] Number: Effective Repository Date:2017-10-18 10/02/2017 [place] Primary [place] [id number] Insurance:MEDICARE MENGESDOB: [facility] PART A [facility] [id number] Number: Repository [address]Fso: 330 [id number] [phone] (HP) Date:2017-07-31 10/02/2017 Secondary [place] Insurance:ANTHEMPolic MENGESDOB: Community y Number: [id number] Hospital [id number] Repository Date:8821-11-36[address]RFKBVZR, [place] [address]EV: 10/02/2017 Tertiary NOT GIVENUNK [place] Insurance:SELF PAY [facility] Number: Effective Repository Date:2017-10-02 09/24/2017 IVANIA Nickerson Primary [place] [id number] Insurance:MEDICARE MENGESDOB: Community [place] PART A [facility] [id number] Number: Repository [address]Qsi: 330 [id number] [phone] (HP) Date:2017-06-26 09/24/2017 Secondary [place] Insurance:ANTHEMPolic MENGESDOB: Community y Number: [id number] Hospital [id number] Repository Date:0989-13-97CR [address] [place] [address]PX: 09/24/2017 Tertiary NOT GIVENUNK [place] Insurance:SELF PAY [facility] Number: Effective Repository Date:2017-09-18 08/24/2017 IVANIA Nickerson Primary [place] [id number] Insurance:MEDICARE MENGESDOB: [facility] [id number] Number[place] Repository [address]Ctn: 330 [id number] [phone] (HP) Date:2017-06-26 08/24/2017 Secondary IVANIA Nickerson [place] Insurance:ANTHEMPolic MENGESDOB: Community y Number: [id number] Hospital [id number] Repository Date:3167-95-12QG [address]TAUIVWI, [place] [address]EA: 08/24/2017 Tertiary NOT GIVENUNK [place] Insurance:SELF PAY [facility] Number: Effective Repository Date:2017-06-26 07/31/2017 IVANIA Nickerson Primary [place] [id number] Insurance:MEDICARE [facility] [id number] Number[place] Repository [id number]: 330 [id number] [phone] (HP) Date:2017-04-29 07/31/2017 Secondary IVANIA Nickerson [place] Insurance:ANTHEMPolic MENGESDOB: Community y Number: [id number] Hospital [id number] Repository Date:5111-06-89ZV [address]BVSXVWY, [place] [address]KH: 07/31/2017 Tertiary NOT GIVENUNK [place] Insurance:SELF PAY [facility] Number: Effective Repository Date:2017-04-29 07/25/2017 [place] Primary [place] [id number] Insurance:MEDICARE MENGESDOB: [place] [facility] [id number] Number: Repository [address]Yns: 330 [id number] [phone] (HP) Date:2017-07-25 07/25/2017 Secondary [place] Insurance:ANTHEMPolic MENGESDOB: Community y Number: [id number] Hospital [id number] Repository Date:7673-79-33ZM [address]RDQLSLN, [place] [address]QV: 07/25/2017 Tertiary NOT GIVENUNK [place] Insurance:SELF PAY [facility] Number: Effective Repository Date:2017-07-25 07/03/2017 [place] Primary [place] [id number] Insurance:MEDICARE MENGESDOB: [facility] PART A [facility] [id number] Number: Repository [address]Wpn: 330 [id number] [phone] (HP) Date:2017-07-03 07/03/2017 Secondary [place] Insurance:ANTHEMPolic MENGESDOB: Community y Number: [id number] Hospital [id number] Repository Date:5894-45-24AN [address]AIKPK[place], [place] [address]ZY: 07/03/2017 Tertiary NOT GIVENUNK [place] Insurance:SELF PAY [facility] Number: Effective Repository Date:2017-07-03
== END 2018-06-11 10:00 | disposition home or self-care (01) ==
LOC: LAB 09:37
PROVIDERS: Family Provider Internal Medicine; PCP Internal Medicine; Referring Provider Internal Medicine Cardiovascular Disease; Visit Provider Internal Medicine Cardiovascular Disease
DX: I48.2 Chronic atrial fibrillation (principal); I25.10 Atherosclerotic heart disease of native coronary artery without angina pectoris; I10 Essential (primary) hypertension; E78.00 Pure hypercholesterolemia, unspecified; Z95.0 Presence of cardiac pacemaker; Z79.01 Long term (current) use of anticoagulants
CPT/HCPCS: 36415; 78452; 85610; 93017; A9500; A4216; J2785

== ENCOUNTER 2018-07-12 08:40 | Outpatient (RCR) | payer MEDICARE, BC, SELFPAY ==
[2018-06-05 09:30] VITALS: BMI 28.0
[2018-07-12 10:33] LABS: International Normalized Ratio 2.9; Prothrombin Time (Protime)PT. 30.2 SECONDS (11.7-14.9)
== END 2018-07-18 14:17 | disposition home or self-care (01) ==
LOC: LAB 08:40
PROVIDERS: Family Provider Internal Medicine; PCP Internal Medicine; Referring Provider Internal Medicine Cardiovascular Disease; Visit Provider Internal Medicine Cardiovascular Disease
DX: I48.91 Unspecified atrial fibrillation (principal); Z79.01 Long term (current) use of anticoagulants
CPT/HCPCS: 36415; 85610

== ENCOUNTER 2018-08-12 09:16 | Outpatient (RCR) | payer MEDICARE, BC, SELFPAY ==
[2018-06-05 09:30] VITALS: BMI 28.0
[2018-08-12 09:56] LABS: International Normalized Ratio 2.7; Prothrombin Time (Protime)PT. 28.8 SECONDS (11.7-14.9)
== END 2018-08-12 10:00 | disposition home or self-care (01) ==
LOC: LAB 09:16
PROVIDERS: Family Provider Internal Medicine; PCP Internal Medicine; Referring Provider Internal Medicine Cardiovascular Disease; Visit Provider Internal Medicine Cardiovascular Disease
DX: I48.91 Unspecified atrial fibrillation (principal); Z79.01 Long term (current) use of anticoagulants
CPT/HCPCS: 36415; 85610

== ENCOUNTER → 2018-08-23 08:10 | Outpatient (CLI) | payer MEDICARE, BC, SELFPAY ==
[2018-06-05 09:30] VITALS: BMI 28.0
[2018-08-23 08:18] LABS: Mucous, Urine 0 SEEN /hpf (<or=2+); Red Blood Cells-Urine 0 SEEN /hpf (0-5)
[2018-08-23 09:16] LABS: Absolute Lymphocyte Count 0.92 X10^3/ul (0.83-4.51); Absolute Neutrophil Count 3.9 X10^3/uL (2.0-7.7); Basophil# 0.07 X10^3/uL; Basophil% 1.2 % (0-1); Eosinophil# 0.29 X10^3/uL; Eosinophils% 5.1 % (0-5); Hemoglobin 11.1 g/dl (13.0-16.5); Lymphocyte # 0.92 X10^3/ul (4.0); Lymphocyte % 16.1 % (19-41); Mean Corp Hgb Conc 31.7 g/gl (32-36); Mean Corpuscular Hgb 28.9 pg (27.0-32.0); Mean Corpuscular Volume 91.1 fL (80-94); Mean Platelet Vol. 9.7 fl (6.2-12.0); Monocyte# 0.52 X10^3/uL; Monocyte% 9.1 % (0-10); Neutrophil # 3.93 X10^3/uL (2.7-7.7); Neutrophil % 68.5 % (47-70); Platelet Count 209 K/mm3 (150-450); RBC Distribution Width CV 14.3 % (11.6-14.6); RBC Distribution Width SD 47.1 fl (35.1-43.9); Red Blood Count 3.84 M/mm3 (4.6-6.2); White Blood Count 5.7 K/mm3 (4.4-11.0)
[2018-08-23 09:18] LABS: POSITIVE COUNT NO; POSITIVE DIFFERENTIAL NO; POSITIVE MORPHOLOGY NO
[2018-08-23 09:19] LABS: Color, Urine Yellow (Yellow); Glucose, Dipstick Normal (Normal); Ketone-Dipstick Negative (Negative); Leukocyte Esterase-Dipstick Negative /ul (Negative); Nitrite-Dipstick Negative (Negative); Occult Blood-Urine Negative /ul (Negative); Protein-Dipstick Negative (Negative); Specific Gravity, Urine 1.015 (1.002-1.030); Urine Bilirubin Dipstick Negative (Negative); Urine Clarity Sl. Cloudy (Clear); Urine Urobilinogen 1 mg/dl (Normal)
[2018-08-23 09:33] LABS: Bacteria RARE /hpf (None Seen); Squamous Epithelial Cells - UA 0-5 SEEN /hpf (0-5); White Blood Cells 0-5 SEEN /hpf (0-5)
[2018-08-23 09:40] LABS: Microalbumin,Random Urine 11.1 mg/L (NO RANGE EST.)
[2018-08-23 09:49] LABS: Vitamin D,25 Hydroxy 61.2 ng/mL (29.95-100.01)
[2018-08-23 09:52] LABS: ALB/GLOB Ratio 0.8 RATIO (0.9-2.4); AST(SGOT) 20 U/L (15-37); Alanine Aminotransfer ALT/SGPT 15 U/L (16-61); Albumin, Serum 3.1 g/dL (3.2-5.0); Alkaline Phosphatase 95 U/L (45-117); Anion Gap 8 (5-15); BUN 20 mg/dL (7-18); BUN/Creat Ratio 15.2 RATIO (10-20); Calcium,Total 8.6 mg/dL (8.5-10.1); Chloride 108 mmol/L (98-107); Creatinine, Serum 1.32 mg/dL (0.70-1.30); EST Glomerular Filtration Rate 55 mL/min (>60); Est Glom Filt Rate - Afr Amer 67 mL/min (>60); Free T3 2.3 pg/mL (2.18-3.98); Glucose 90 mg/dL (74-106); Potassium 3.9 mmol/L (3.5-5.1); Protein, Total 7.1 g/dL (6.4-8.2); Sodium Level 144 mmol/L (136-145); Thyroid Stim Hormone (TSH) 0.04 uIU/mL (0.358-3.74)
[2018-08-24 16:06] LABS: CHOLESTEROL TOTAL 160 mg/dL (100-199); HDL-C 44 mg/dL (>39); SMALL LDL-P 533 nmol/L (<=527); TRIGLYCERIDES 71 mg/dL (0-149)
[2018-08-25 09:51] LABS: INSULIN RESISTANCE SCORE 40 (<=45); LDL SIZE 20.7 nm (>20.5); LDL-C 102 mg/dL (0-99); LDL-P 1221 nmol/L (<1000)
== END ==
PROVIDERS: Family Provider Internal Medicine; PCP Internal Medicine; Referring Provider Internal Medicine; Visit Provider Internal Medicine
DX: E55.9 Vitamin D deficiency, unspecified (principal); E78.00 Pure hypercholesterolemia, unspecified; E03.9 Hypothyroidism, unspecified; I25.10 Atherosclerotic heart disease of native coronary artery without angina pectoris
CPT/HCPCS: 36415; 80053; 80061; 81001; 82043; 82306; 82570; 83704; 84439; 84443; 84481; 85025

== ENCOUNTER 2018-09-13 08:21 | Outpatient (RCR) | payer MEDICARE, BC, SELFPAY ==
[2018-06-05 09:30] VITALS: BMI 28.0
[2018-09-04 15:45] VITALS: BMI 27.8
[2018-09-13 09:33] LABS: International Normalized Ratio 2.7; Prothrombin Time (Protime)PT. 28.7 SECONDS (11.7-14.9)
== END 2018-09-17 16:00 | disposition home or self-care (01) ==
LOC: LAB 08:21
PROVIDERS: Family Provider Internal Medicine; PCP Internal Medicine; Referring Provider Internal Medicine Cardiovascular Disease; Visit Provider Internal Medicine Cardiovascular Disease
DX: I48.91 Unspecified atrial fibrillation (principal); Z79.01 Long term (current) use of anticoagulants
CPT/HCPCS: 36415; 85610

== ENCOUNTER → 2018-11-08 13:35 | Outpatient (CLI) | payer MEDICARE, BC, SELFPAY ==
[2018-09-04 15:45] VITALS: BMI 27.8
--- NOTE | 2018-11-08 13:39 | CT_ITS ---
STUDY: CT CERVICAL SPINE WITHOUT CONTRAST REASON FOR EXAM: Male, 83 years old. Tingling in neck RADIATION DOSAGE (If Supplied By Facility): CTDIvol = ( 32.53 ) mGy, DLP = ( 1334.69 ) mGycm TECHNIQUE: High resolution transaxial imaging was performed without contrast material. Sagittal and coronal images were reconstructed. Individualized dose optimization techniques were used for this CT. COMPARISON: None available. FINDINGS: There is no evidence of fracture or dislocation in the cervical spine. The dens is intact. Alignment is normal. The vertebral body heights are well-maintained. There are mild multilevel degenerative changes with facet hypertrophy, disc space narrowing and small osteophytes. There is no canal stenosis. There is a 5.6 x 2.6 x 2.1 cm fluid collection in the left neck. There is consolidation noted in the lung apices. CT/Spine Cervical without Contras IMPRESSION: No fracture or dislocation in the cervical spine. Mild multilevel degenerative change. No canal stenosis. 5.6 x 2.6 x 2.1 cm fluid collection in the left neck. Further evaluation with a contrast-enhanced CT of the soft tissues of the neck is recommended. Consolidation the lung apices which is likely due to scarring. Electronically Signed: Perfecto Fischer, at 14:39 EDT Tel , Service support ,
== END ==
PROVIDERS: Family Provider Internal Medicine; PCP Internal Medicine
DX: M47.812 Spondylosis without myelopathy or radiculopathy, cervical region (principal)
CPT/HCPCS: 72125

== ENCOUNTER 2018-11-11 08:30 | Outpatient (RCR) | payer MEDICARE, BC, SELFPAY ==
[2018-09-04 15:45] VITALS: BMI 27.8
[2018-11-01 09:39] LABS: Prothrombin Time (Protime)PT. 36.3 SECONDS (11.7-14.9)
[2018-11-01 09:41] LABS: International Normalized Ratio 3.6
[2018-11-11 09:03] LABS: International Normalized Ratio 2.8
== END 2018-11-17 12:00 | disposition home or self-care (01) ==
LOC: LAB 08:30
PROVIDERS: Family Provider Internal Medicine; PCP Internal Medicine; Referring Provider Internal Medicine Cardiovascular Disease; Visit Provider Internal Medicine Cardiovascular Disease
DX: I48.91 Unspecified atrial fibrillation (principal); Z79.01 Long term (current) use of anticoagulants
CPT/HCPCS: 36415; 85610

== ENCOUNTER → 2018-11-25 17:46 | Outpatient (CLI) | payer MEDICARE, BC, SELFPAY ==
[2018-09-04 15:45] VITALS: BMI 27.8
--- NOTE | 2018-11-25 17:51 | CT_ITS ---
STUDY: CT SOFT TISSUE NECK WITH CONTRAST REASON FOR EXAM: Male, 83 years old. LEFT CYSTIC MASS-known. Has been biopsied in past with negative results. 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 RADIATION DOSAGE (If Supplied By Facility): CTDIvol = ( 17.06 ) mGy, DLP = ( 545.23 ) mGycm TECHNIQUE: The patient was scanned in a multi-detector CT scanner. High resolution transaxial imaging was performed following intravenous administration of 80ml IV Isovue 300. Sagittal and coronal images were reconstructed. Individualized dose optimization techniques were used for this CT. COMPARISON: November 08, 2018 and August 31, 2014 FINDINGS: Again noted is 2.5 x 3.0 cm left parotid region cystic mass which is stable in comparison with the prior examination in 2014. There are bilateral carotid calcifications. The right parotid gland is unremarkable. Normal bilateral parapharyngeal spaces. Normal bilateral carotid spaces. Normal bilateral sublingual and submandibular glands and spaces. Normal visualized nasopharynx. Normal retropharyngeal space. Normal perivertebral space. Normal visualized bilateral faucial tonsils. The visualized tongue, tongue base and oropharynx are normal. The visualized cervical lymph nodes (levels I-) are within normal size limits, and maintain normal morphology. Normal epiglottis, bilateral vallecula and hypopharynx. The pre-epiglottic and paraglottic adipose spaces are normal. Normal visualized bilateral piriform sinuses, aryepiglottic folds, vocal cords, and arytenoid-cricoid articulations. Normal subglottic trachea. There is multilevel degenerative changes of the cervical spine. CT/Soft Tissue Neck WITH Contrast IMPRESSION: Stable 3 cm left parotid mass. Electronically Signed: Esha Barth MD at 12:32 EDT Tel , Service support ,
[2018-11-25 18:01] LABS: CREATININE FINGERSTICK 1.4 mg/dL (0.70-1.30)
== END ==
PROVIDERS: Family Provider Internal Medicine; PCP Internal Medicine
DX: K11.8 Other diseases of salivary glands (principal)
CPT/HCPCS: 70491; Q9967; A4216

== ENCOUNTER 2018-12-02 10:30 | Outpatient (RCR) | payer MEDICARE, BC, SELFPAY ==
[2018-09-04 15:45] VITALS: BMI 27.8
[2018-12-02 11:39] LABS: International Normalized Ratio 2.2; Prothrombin Time (Protime)PT. 24.1 SECONDS (11.7-14.9)
== END 2018-12-02 11:00 | disposition home or self-care (01) ==
LOC: LAB 10:30
PROVIDERS: Family Provider Internal Medicine; PCP Internal Medicine; Referring Provider Internal Medicine Cardiovascular Disease; Visit Provider Internal Medicine Cardiovascular Disease
DX: I48.2 Chronic atrial fibrillation (principal); Z79.01 Long term (current) use of anticoagulants
CPT/HCPCS: 36415; 85610

== ENCOUNTER 2018-12-23 08:35 | Outpatient (RCR) | payer MEDICARE, BC, SELFPAY ==
[2018-09-04 15:45] VITALS: BMI 27.8
[2018-12-23 09:27] LABS: International Normalized Ratio 2.6; Prothrombin Time (Protime)PT. 27.6 SECONDS (11.7-14.9)
[2018-12-23 10:17] LABS: Free T3 1.7 pg/mL (2.18-3.98); T4 Free Direct 1.34 ng/dL (0.76-1.46); Thyroid Stim Hormone (TSH) 0.37 uIU/mL (0.358-3.74)
== END 2018-12-23 12:00 | disposition home or self-care (01) ==
LOC: LAB 08:35
PROVIDERS: Family Provider Internal Medicine; PCP Internal Medicine; Referring Provider Internal Medicine Cardiovascular Disease; Visit Provider Internal Medicine Cardiovascular Disease
DX: I48.2 Chronic atrial fibrillation (principal); Z79.01 Long term (current) use of anticoagulants; R79.89 Other specified abnormal findings of blood chemistry
CPT/HCPCS: 36415; 84439; 84443; 84481; 85610

== ENCOUNTER 2019-01-24 08:13 | Outpatient (RCR) | payer MEDICARE, BC, SELFPAY ==
[2018-09-04 15:45] VITALS: BMI 27.8
[2019-01-24 11:30] LABS: International Normalized Ratio 2.7; Prothrombin Time (Protime)PT. 28.4 SECONDS (11.7-14.9)
== END 2019-01-24 13:00 | disposition home or self-care (01) ==
LOC: LAB 08:13
PROVIDERS: Family Provider Internal Medicine; PCP Internal Medicine; Referring Provider Internal Medicine Cardiovascular Disease; Visit Provider Internal Medicine Cardiovascular Disease
DX: I48.2 Chronic atrial fibrillation (principal); Z79.01 Long term (current) use of anticoagulants
CPT/HCPCS: 36415; 85610

== ENCOUNTER 2019-02-24 10:59 | Outpatient (RCR) | payer MEDICARE, BC, SELFPAY ==
[2018-09-04 15:45] VITALS: BMI 27.8
[2019-02-24 11:42] LABS: International Normalized Ratio 2.4; Prothrombin Time (Protime)PT. 26.1 SECONDS (11.7-14.9)
== END 2019-02-24 18:00 | disposition home or self-care (01) ==
LOC: LAB 10:59
PROVIDERS: Family Provider Internal Medicine; PCP Internal Medicine; Referring Provider Internal Medicine Cardiovascular Disease; Visit Provider Internal Medicine Cardiovascular Disease
DX: I48.20 Chronic atrial fibrillation, unspecified (principal); Z79.01 Long term (current) use of anticoagulants
CPT/HCPCS: 36415; 85610

== ENCOUNTER → 2019-03-05 08:04 | Outpatient (CLI) | payer MEDICARE, BC, SELFPAY ==
[2019-03-04 08:54] VITALS: BMI 26.9
[2019-03-05 09:09] LABS: AST(SGOT) 18 U/L (15-37); Alanine Aminotransfer ALT/SGPT 13 U/L (16-61); Alkaline Phosphatase 94 U/L (45-117); Bilirubin, Direct 0.23 mg/dL (0.00-0.30); Cholesterol 137 mg/dL (200); Globulin 4.1 g/dL (2.2-4.2); Protein, Total 7.1 g/dL (6.4-8.2); Triglycerides 72 mg/dL
[2019-03-05 09:10] LABS: High Density Lipoprotein 44 mg/dL; Very Low Density Lipoprotein 14 mg/dL (5-40)
== END ==
PROVIDERS: Family Provider Internal Medicine; PCP Internal Medicine; Referring Provider Physician Assistant Medical; Visit Provider Physician Assistant Medical
DX: E78.5 Hyperlipidemia, unspecified (principal)
CPT/HCPCS: 36415; 80061; 80076

== ENCOUNTER 2019-04-01 10:22 | Outpatient (RCR) | payer MEDICARE, BC, SELFPAY ==
[2019-03-04 08:54] VITALS: BMI 26.9
[2019-04-01 12:24] LABS: International Normalized Ratio 2.1; Prothrombin Time (Protime)PT. 23.9 SECONDS (11.7-14.9)
== END 2019-04-01 18:00 | disposition home or self-care (01) ==
LOC: LAB 10:22
PROVIDERS: Family Provider Internal Medicine; PCP Internal Medicine; Referring Provider Internal Medicine Cardiovascular Disease; Visit Provider Internal Medicine Cardiovascular Disease
DX: I48.20 Chronic atrial fibrillation, unspecified (principal); Z79.01 Long term (current) use of anticoagulants
CPT/HCPCS: 36415; 85610

== ENCOUNTER 2019-04-22 08:06 | Outpatient (RCR) | payer MEDICARE, BC, SELFPAY ==
[2019-03-04 08:54] VITALS: BMI 26.9
[2019-04-22 09:30] LABS: Absolute Lymphocyte Count 1.05 X10^3/uL (0.83-4.51); Absolute Neutrophil Count 4.3 X10^3/uL (2.0-7.7); Basophil# 0.06 X10^3/uL; Eosinophil# 0.29 X10^3/uL; Eosinophils% 4.7 % (0-5); Hematocrit 36.8 % (40-54); Hemoglobin 11.7 g/dL (13.0-16.5); Lymphocyte # 1.05 X10^3/ul (4.0); Lymphocyte % 17.1 % (19-41); Mean Corp Hgb Conc 31.8 g/dL (32-36); Mean Corpuscular Hgb 28.9 pg (27.0-32.0); Mean Corpuscular Volume 90.9 fL (80-94); Mean Platelet Vol. 10.2 fl (6.2-12.0); Monocyte# 0.46 X10^3/uL; Monocyte% 7.5 % (0-10); NRBC Flagged by Analyzer 0 % (0-5); Neutrophil # 4.26 X10^3/uL (2.7-7.7); Neutrophil % 69.5 % (47-70); Platelet Count 217 K/mm3 (150-450); RBC Distribution Width CV 14.6 % (11.6-14.6); RBC Distribution Width SD 48.7 fl (35.1-43.9); Red Blood Count 4.05 M/mm3 (4.6-6.2); White Blood Count 6.1 K/mm3 (4.4-11.0)
[2019-04-22 09:51] LABS: International Normalized Ratio 2.2; Prothrombin Time (Protime)PT. 24.3 SECONDS (11.7-14.9)
[2019-04-22 09:56] LABS: ALB/GLOB Ratio 0.8 RATIO (0.9-2.4); AST(SGOT) 20 U/L (15-37); Alanine Aminotransfer ALT/SGPT 15 U/L (16-61); Albumin, Serum 3.2 g/dL (3.2-5.0); Alkaline Phosphatase 93 U/L (45-117); Anion Gap 5 (5-15); BUN 26 mg/dL (7-18); BUN/Creat Ratio 19.1 RATIO (10-20); Calcium,Total 9.2 mg/dL (8.5-10.1); Chloride 108 mmol/L (98-107); Creatinine, Serum 1.36 mg/dL (0.70-1.30); EST Glomerular Filtration Rate 53 mL/min (>60); Est Glom Filt Rate - Afr Amer 64 mL/min (>60); Globulin 3.9 g/dL (2.2-4.2); Glucose 90 mg/dL (74-106); Potassium 4.1 mmol/L (3.5-5.1); Protein, Total 7.1 g/dL (6.4-8.2); Sodium Level 141 mmol/L (136-145)
[2019-04-22 10:32] LABS: Vitamin D,25 Hydroxy 70.8 ng/mL (29.95-100.01)
[2019-04-23 14:08] LABS: CHOLESTEROL TOTAL 168 mg/dL (100-199); HDL-C 47 mg/dL (>39); HDL-P TOTAL 27.3 umol/L (>=30.5); SMALL LDL-P 567 nmol/L (<=527); TRIGLYCERIDES 81 mg/dL (0-149)
[2019-04-23 20:33] LABS: INSULIN RESISTANCE SCORE 34 (<=45); LDL SIZE 21.1 nm (>20.5); LDL-C 105 mg/dL (0-99); LDL-P 1230 nmol/L (<1000)
== END 2019-04-22 18:00 | disposition home or self-care (01) ==
LOC: LAB 08:06
PROVIDERS: Family Provider Internal Medicine; PCP Internal Medicine; Referring Provider Internal Medicine Cardiovascular Disease; Visit Provider Internal Medicine Cardiovascular Disease
DX: I48.20 Chronic atrial fibrillation, unspecified (principal); Z79.01 Long term (current) use of anticoagulants; E55.9 Vitamin D deficiency, unspecified; E78.00 Pure hypercholesterolemia, unspecified; I11.9 Hypertensive heart disease without heart failure
CPT/HCPCS: 36415; 80053; 80061; 82306; 83704; 85025; 85610

== ENCOUNTER 2019-05-30 08:15 | Outpatient (RCR) | payer MEDICARE, BC, SELFPAY ==
[2019-03-04 08:54] VITALS: BMI 26.9
[2019-05-30 09:45] LABS: Prothrombin Time (Protime)PT. 31.6 SECONDS (11.7-14.9)
== END 2019-05-30 18:00 | disposition home or self-care (01) ==
LOC: LAB 08:15
PROVIDERS: Family Provider Internal Medicine; PCP Internal Medicine; Referring Provider Internal Medicine Cardiovascular Disease; Visit Provider Internal Medicine Cardiovascular Disease
DX: I48.20 Chronic atrial fibrillation, unspecified (principal); Z79.01 Long term (current) use of anticoagulants
CPT/HCPCS: 36415; 85610

== ENCOUNTER 2019-07-08 08:30 | Outpatient (RCR) | payer MEDICARE, BC, SELFPAY ==
[2019-03-04 08:54] VITALS: BMI 26.9
[2019-07-08 09:08] LABS: International Normalized Ratio 2.2; Prothrombin Time (Protime)PT. 24.1 SECONDS (11.7-14.9)
== END 2019-07-08 18:00 | disposition home or self-care (01) ==
LOC: LAB 08:30
PROVIDERS: Family Provider Internal Medicine; PCP Internal Medicine; Referring Provider Internal Medicine Cardiovascular Disease; Visit Provider Internal Medicine Cardiovascular Disease
DX: I48.20 Chronic atrial fibrillation, unspecified (principal); Z79.01 Long term (current) use of anticoagulants
CPT/HCPCS: 36415; 85610

== ENCOUNTER 2019-08-06 09:11 | Outpatient (RCR) | payer MEDICARE, BC, SELFPAY ==
[2019-03-04 08:54] VITALS: BMI 26.9
[2019-08-06 10:22] LABS: International Normalized Ratio 2.1; Prothrombin Time (Protime)PT. 23.7 SECONDS (11.7-14.9)
== END 2019-08-06 18:00 | disposition home or self-care (01) ==
LOC: LAB 09:11
PROVIDERS: Family Provider Internal Medicine; PCP Internal Medicine; Referring Provider Internal Medicine Cardiovascular Disease; Visit Provider Internal Medicine Cardiovascular Disease
DX: I48.20 Chronic atrial fibrillation, unspecified (principal); Z79.01 Long term (current) use of anticoagulants
CPT/HCPCS: 36415; 85610

== ENCOUNTER 2019-09-10 09:10 | Outpatient (RCR) | payer MEDICARE, BC, SELFPAY ==
[2019-03-04 08:54] VITALS: BMI 26.9
[2019-09-10 12:38] LABS: International Normalized Ratio 3.1; Prothrombin Time (Protime)PT. 31.6 SECONDS (11.7-14.9)
== END 2019-09-18 18:00 | disposition home or self-care (01) ==
LOC: MTLAB 09:10
PROVIDERS: Family Provider Internal Medicine; PCP Internal Medicine; Referring Provider Internal Medicine Cardiovascular Disease; Visit Provider Internal Medicine Cardiovascular Disease
DX: I48.20 Chronic atrial fibrillation, unspecified (principal); Z79.01 Long term (current) use of anticoagulants
CPT/HCPCS: 36415; 85610

== ENCOUNTER 2019-09-24 09:07 | Outpatient (RCR) | payer MEDICARE, BC, SELFPAY ==
[2019-03-04 08:54] VITALS: BMI 26.9
[2019-09-24 11:14] LABS: International Normalized Ratio 2.7; Prothrombin Time (Protime)PT. 27.8 SECONDS (11.7-14.9)
== END 2019-09-24 18:00 | disposition home or self-care (01) ==
LOC: LAB 09:07
PROVIDERS: Family Provider Internal Medicine; PCP Internal Medicine; Referring Provider Internal Medicine Cardiovascular Disease; Visit Provider Internal Medicine Cardiovascular Disease
DX: I48.20 Chronic atrial fibrillation, unspecified (principal); Z79.01 Long term (current) use of anticoagulants
CPT/HCPCS: 36415; 85610

== ENCOUNTER 2019-10-23 11:53 | Outpatient (RCR) | payer MEDICARE, BC, SELFPAY ==
[2019-03-04 08:54] VITALS: BMI 26.9
[2019-10-23 12:49] LABS: International Normalized Ratio 2.9; Prothrombin Time (Protime)PT. 29.9 SECONDS (11.7-14.9)
== END 2019-10-23 18:00 | disposition home or self-care (01) ==
LOC: LAB 11:53
PROVIDERS: Family Provider Internal Medicine; PCP Internal Medicine; Referring Provider Internal Medicine Cardiovascular Disease; Visit Provider Internal Medicine Cardiovascular Disease
DX: I48.20 Chronic atrial fibrillation, unspecified (principal); Z79.01 Long term (current) use of anticoagulants
CPT/HCPCS: 36415; 85610

== ENCOUNTER 2019-12-19 10:46 | Outpatient (RCR) | payer MEDICARE, BC, SELFPAY ==
[2019-03-04 08:54] VITALS: BMI 26.9
[2019-11-24 13:05] LABS: International Normalized Ratio 3.1; Prothrombin Time (Protime)PT. 31.7 SECONDS (11.7-14.9)
[2019-12-19 12:32] LABS: International Normalized Ratio 2.3
== END 2019-12-19 18:00 | disposition home or self-care (01) ==
LOC: LAB 10:46
PROVIDERS: Family Provider Internal Medicine; PCP Internal Medicine; Referring Provider Internal Medicine Cardiovascular Disease; Visit Provider Internal Medicine Cardiovascular Disease
DX: I48.20 Chronic atrial fibrillation, unspecified (principal); Z79.01 Long term (current) use of anticoagulants
CPT/HCPCS: 36415; 85610

== ENCOUNTER 2020-01-09 08:11 | Outpatient (RCR) | payer MEDICARE, BC, SELFPAY ==
[2019-12-19 09:46] VITALS: BMI 26.3
--- NOTE | 2020-01-09 08:12 | ECHOCS_ITS ---
Reason For Study: CAD/ASHD Procedure This was a 2D Doppler, Color Flow transthoracic echocardiogram. The study was technically difficult. Contrast injection was performed. Exam performed in department. Left Ventricle Normal LV size. Segmental dysfunction with preserved ejection fraction (see wall motion). The estimated ejection fraction is 55 %. Paced septal motion. Unable to assess diastolic dysfunction. Mid-inferoseptal : Hypokinetic. Mid-anteroseptal : Hypokinetic. Right Ventricle Normal RV size. ICD or pacer leads identified within the right ventricle. Normal systolic function. Atria The left atrium is mildly enlarged. Normal right atrium. ICD or pacer leads identified within the right atrium. No doppler evidence for ASD. Mitral Valve There is no mitral annular calcification. Mild diffuse mitral valve thickening. Trivial mitral valve insufficiency. Tricuspid Valve Normal tricuspid valve. Moderate (2+) tricuspid valve insufficiency. Right ventricular systolic pressure estimated to be 32 mmHg. Aortic Valve Trisinus/trileaflet aortic valve. Mild focal aortic valve calcification. Mild aortic stenosis. Pulmonic Valve The pulmonic valve is not well visualized. Trivial pulmonic valve insufficiency. Great Vessels Normal sized aortic root. Pericardium/Pleural No pericardial effusion. Medication 22 gauge I.V. with prn adaptor inserted into right arm. Diluted definity 3ml given slow IV push to enhance endocardial definition. MMode/2D Measurements & Calculations LVIDd: 4.9 cm IVSd: 1.1 cm LVOT diam: 2.0 cm LVIDs: 3.7 cm LVPWd: 1.1 cm RVDd: 4.1 cm FS: 23.2 % LVOT area: 3.1 cm2 Ao root diam: 3.2 cm LAV(MOD-bp): 68.9 ml LVAd ap4: 32.8 cm2 LAV(MOD-bp) Indexed: 35.7 ml/m2 EDV(MOD-sp4): 109.9 ml LAV(MOD-sp2): 62.1 ml EDV(sp4-el): 112.6 ml LAV(MOD-sp4): 77.9 ml LVAs ap4: 24.5 cm2 ESV(MOD-sp4): 65.4 ml ESV(sp4-el): 67.8 ml EF(MOD-sp4): 40.5 % EF(sp4-el): 39.8 % SV(MOD-sp4): 44.6 ml SV(sp4-el): 44.8 ml LA A4 area: 24.0 cm2 LA dimension(2D): 5.0 cm RA A4 area: 19.2 cm2 Doppler Measurements & Calculations MV E max shante: 106.6 cm/sec Ao V2 max: 195.9 cm/sec LV V1 max: 94.4 cm/sec Ao max P.4 mmHg LV V1 max P.6 mmHg Ao V2 mean: 130.8 cm/sec LV V1 mean P.8 mmHg Ao mean P.6 mmHg LV V1 mean: 64.5 cm/sec Ao V2 VTI: 40.1 cm LV V1 VTI: 19.7 cm ESTEPHANIA(I,D): 1.5 cm2 ESTEPHANIA(V,D): 1.5 cm2 SV(LVOT): 61.2 ml PA V2 max: 87.5 cm/sec PI end-d shante: 130.7 cm/sec PI dec slope: 147.4 cm/sec2 TR max shante: 267.5 cm/sec TR max P.7 mmHg Interpretation Summary The study was technically difficult. Contrast injection was performed. Segmental dysfunction with preserved ejection fraction (see wall motion). The estimated ejection fraction is 55 %. Paced septal motion. The left atrium is mildly enlarged. Mild diffuse mitral valve thickening. Trivial mitral valve insufficiency. Moderate (2+) tricuspid valve insufficiency. Mild aortic stenosis. Trivial pulmonic valve insufficiency. Right ventricular systolic pressure estimated to be 32 mmHg. Unable to assess diastolic dysfunction. Ordering Physician: Palmer Ghosh Referring Physician: AYAAN SELLERS Performed By: Claire Alexander RDCS
[2020-01-09 09:17] LABS: International Normalized Ratio 2.8; Prothrombin Time (Protime)PT. 29.1 SECONDS (11.7-14.9)
[2020-01-09 09:25] LABS: AST(SGOT) 17 U/L (15-37); Alanine Aminotransfer ALT/SGPT 15 U/L (16-61); Alkaline Phosphatase 87 U/L (45-117); Bilirubin, Direct 0.22 mg/dL (0.00-0.30); Cholesterol 148 mg/dL (200); Globulin 4.2 g/dL (2.2-4.2); High Density Lipoprotein 46 mg/dL; Protein, Total 7.2 g/dL (6.4-8.2); Triglycerides 78 mg/dL; Very Low Density Lipoprotein 16 mg/dL (5-40)
== END 2020-01-19 18:00 | disposition home or self-care (01) ==
LOC: LAB 08:11
PROVIDERS: Family Provider Internal Medicine; PCP Internal Medicine; Referring Provider Internal Medicine Cardiovascular Disease; Visit Provider Internal Medicine Cardiovascular Disease
DX: I48.20 Chronic atrial fibrillation, unspecified (principal); I25.10 Atherosclerotic heart disease of native coronary artery without angina pectoris; E78.00 Pure hypercholesterolemia, unspecified; Z79.01 Long term (current) use of anticoagulants
CPT/HCPCS: 36415; 80061; 80076; 85610; 93306; C8929

== ENCOUNTER → 2020-01-09 08:42 | Outpatient (CLI) | payer MEDICARE, BC, SELFPAY ==
[2019-12-19 09:46] VITALS: BMI 26.3
== END ==
PROVIDERS: PCP Internal Medicine; Referring Provider Internal Medicine Cardiovascular Disease; Visit Provider Internal Medicine Cardiovascular Disease
DX: I25.10 Atherosclerotic heart disease of native coronary artery without angina pectoris (principal); I47.9 Paroxysmal tachycardia, unspecified; I10 Essential (primary) hypertension; E78.00 Pure hypercholesterolemia, unspecified; R55 Syncope and collapse; Z95.0 Presence of cardiac pacemaker; Z95.1 Presence of aortocoronary bypass graft; Z79.01 Long term (current) use of anticoagulants
CPT/HCPCS: 36415; 80061; 80076; 85610; 93306; Q9957; A4216; C8929

== ENCOUNTER 2020-02-10 09:57 | Outpatient (RCR) | payer MEDICARE, BC, SELFPAY ==
[2019-12-19 09:46] VITALS: BMI 26.3
[2020-02-10 11:48] LABS: International Normalized Ratio 2.2; Prothrombin Time (Protime)PT. 23.8 SECONDS (11.7-14.9)
== END 2020-02-10 18:00 | disposition home or self-care (01) ==
LOC: LAB 09:57
PROVIDERS: Family Provider Internal Medicine; PCP Internal Medicine; Referring Provider Internal Medicine Cardiovascular Disease; Visit Provider Internal Medicine Cardiovascular Disease
DX: I48.20 Chronic atrial fibrillation, unspecified (principal); Z79.01 Long term (current) use of anticoagulants
CPT/HCPCS: 36415; 85610

== ENCOUNTER 2020-03-11 10:21 | Outpatient (RCR) | payer MEDICARE, BC, SELFPAY ==
[2019-12-19 09:46] VITALS: BMI 26.3
[2020-03-11 11:00] LABS: International Normalized Ratio 1.9; Prothrombin Time (Protime)PT. 21.4 SECONDS (11.7-14.9)
== END 2020-03-11 18:00 | disposition home or self-care (01) ==
LOC: LAB 10:21
PROVIDERS: Family Provider Internal Medicine; PCP Internal Medicine; Referring Provider Internal Medicine Cardiovascular Disease; Visit Provider Internal Medicine Cardiovascular Disease
DX: I48.20 Chronic atrial fibrillation, unspecified (principal); Z79.01 Long term (current) use of anticoagulants
CPT/HCPCS: 36415; 85610

== ENCOUNTER 2020-03-25 09:31 | Outpatient (RCR) | payer MEDICARE, BC, SELFPAY ==
[2019-12-19 09:46] VITALS: BMI 26.3
[2020-03-25 10:46] LABS: International Normalized Ratio 2.2; Prothrombin Time (Protime)PT. 24.3 SECONDS (11.7-14.9)
== END 2020-03-25 18:00 | disposition home or self-care (01) ==
LOC: LAB 09:31
PROVIDERS: Family Provider Internal Medicine; PCP Internal Medicine; Referring Provider Internal Medicine Cardiovascular Disease; Visit Provider Internal Medicine Cardiovascular Disease
DX: I48.20 Chronic atrial fibrillation, unspecified (principal); Z79.01 Long term (current) use of anticoagulants
CPT/HCPCS: 36415; 85610

== ENCOUNTER → 2020-04-02 08:11 | Outpatient (CLI) | payer MEDICARE, BC, SELFPAY ==
[2019-12-19 09:46] VITALS: BMI 26.3
[2020-04-02 08:30] LABS: Mucous, Urine 0 SEEN /hpf (<or=2+); Red Blood Cells-Urine 0 SEEN /hpf (0-5); Squamous Epithelial Cells - UA 0 SEEN /hpf (0-5)
[2020-04-02 09:09] LABS: Absolute Lymphocyte Count 1.12 X10^3/uL (0.83-4.51); Absolute Neutrophil Count 3.8 X10^3/uL (2.0-7.7); Basophil# 0.06 X10^3/uL; Color, Urine Yellow (Yellow); Eosinophil# 0.25 X10^3/uL; Eosinophils% 4.3 % (0-5); Glucose, Dipstick Normal (Normal); Hemoglobin 11.9 g/dL (13.0-16.5); Ketone-Dipstick Negative (Negative); Leukocyte Esterase-Dipstick 25 /ul (Negative); Lymphocyte # 1.12 X10^3/ul (4.0); Lymphocyte % 19.3 % (19-41); Mean Corp Hgb Conc 31.3 g/dL (32-36); Mean Corpuscular Hgb 29.8 pg (27.0-32.0); Mean Corpuscular Volume 95.2 fL (80-94); Mean Platelet Vol. 9.9 fl (6.2-12.0); Monocyte# 0.51 X10^3/uL; Monocyte% 8.8 % (0-10); NRBC Flagged by Analyzer 0 % (0-5); Neutrophil # 3.82 X10^3/uL (2.7-7.7); Neutrophil % 66.1 % (47-70); Nitrite-Dipstick Negative (Negative); Occult Blood-Urine Negative /ul (Negative); Platelet Count 217 K/mm3 (150-450); Protein-Dipstick 15 mg/dl (Negative); RBC Distribution Width CV 13.8 % (11.6-14.6); RBC Distribution Width SD 48.6 fl (35.1-43.9); Red Blood Count 3.99 M/mm3 (4.6-6.2); Urine Bilirubin Dipstick Negative (Negative); Urine Clarity Clear (Clear); Urine Urobilinogen 1 mg/dl (Normal); White Blood Count 5.8 K/mm3 (4.4-11.0)
[2020-04-02 09:22] LABS: Bacteria 3+ /hpf (None Seen); White Blood Cells 0-5 SEEN /hpf (0-5)
[2020-04-02 09:29] LABS: Microalbumin:Creatinine Ratio 6.1 mg/g CRE (<30 mg/g CRE)
[2020-04-02 09:47] LABS: ALB/GLOB Ratio 0.7 RATIO (0.9-2.4); AST(SGOT) 14 U/L (15-37); Alanine Aminotransfer ALT/SGPT 15 U/L (16-61); Albumin, Serum 3.1 g/dL (3.2-5.0); Alkaline Phosphatase 96 U/L (45-117); Anion Gap 1 (5-15); BUN 20 mg/dL (7-18); BUN/Creat Ratio 15.6 RATIO (10-20); Calcium,Total 9.2 mg/dL (8.5-10.1); Chloride 106 mmol/L (98-107); Cholesterol 154 mg/dL (200); Creatinine, Serum 1.28 mg/dL (0.70-1.30); EST Glomerular Filtration Rate 57 mL/min (>60); Est Glom Filt Rate - Afr Amer 69 mL/min (>60); Globulin 4.2 g/dL (2.2-4.2); Glucose 88 mg/dL (74-106); High Density Lipoprotein 53 mg/dL; Potassium 4.1 mmol/L (3.5-5.1); Protein, Total 7.3 g/dL (6.4-8.2); Sodium Level 140 mmol/L (136-145); Thyroid Stim Hormone (TSH) 0.32 uIU/mL (0.358-3.74); Triglycerides 63 mg/dL; Very Low Density Lipoprotein 13 mg/dL (5-40)
== END ==
PROVIDERS: PCP Internal Medicine; Referring Provider Internal Medicine; Visit Provider Internal Medicine
DX: E55.9 Vitamin D deficiency, unspecified (principal); I11.9 Hypertensive heart disease without heart failure; E03.9 Hypothyroidism, unspecified
CPT/HCPCS: 36415; 80053; 80061; 81001; 82043; 82306; 82570; 84443; 85025

== ENCOUNTER 2020-05-06 09:11 | Outpatient (RCR) | payer MEDICARE, BC, SELFPAY ==
[2019-12-19 09:46] VITALS: BMI 26.3
[2020-04-28 10:27] LABS: International Normalized Ratio 1.6; Prothrombin Time (Protime)PT. 18.2 SECONDS (11.7-14.9)
[2020-05-06 09:55] LABS: International Normalized Ratio 1.7; Prothrombin Time (Protime)PT. 19.9 SECONDS (11.7-14.9)
== END 2020-05-06 18:00 | disposition home or self-care (01) ==
LOC: LAB 09:11
PROVIDERS: Family Provider Internal Medicine; PCP Internal Medicine; Referring Provider Internal Medicine Cardiovascular Disease; Visit Provider Internal Medicine Cardiovascular Disease
DX: I48.20 Chronic atrial fibrillation, unspecified (principal); Z79.01 Long term (current) use of anticoagulants
CPT/HCPCS: 36415; 85610

== ENCOUNTER 2020-06-07 10:19 | Outpatient (RCR) | payer MEDICARE, BC, SELFPAY ==
[2019-12-19 09:46] VITALS: BMI 26.3
[2020-05-24 09:53] LABS: International Normalized Ratio 2.6; Prothrombin Time (Protime)PT. 27.3 SECONDS (11.7-14.9)
[2020-05-24 10:15] LABS: AST(SGOT) 16 U/L (15-37); Alanine Aminotransfer ALT/SGPT 15 U/L (16-61); Albumin, Serum 3.3 g/dL (3.2-5.0); Alkaline Phosphatase 100 U/L (45-117); Cholesterol 159 mg/dL (200); Globulin 4.1 g/dL (2.2-4.2); High Density Lipoprotein 54 mg/dL; Protein, Total 7.4 g/dL (6.4-8.2); Triglycerides 73 mg/dL; Very Low Density Lipoprotein 15 mg/dL (5-40)
[2020-06-07 10:52] LABS: International Normalized Ratio 2.5; Prothrombin Time (Protime)PT. 26.3 SECONDS (11.7-14.9)
== END 2020-06-07 18:00 | disposition home or self-care (01) ==
LOC: LAB 10:19
PROVIDERS: Family Provider Internal Medicine; PCP Internal Medicine; Referring Provider Internal Medicine Cardiovascular Disease; Visit Provider Internal Medicine Cardiovascular Disease
DX: I48.20 Chronic atrial fibrillation, unspecified (principal); Z79.01 Long term (current) use of anticoagulants; E78.00 Pure hypercholesterolemia, unspecified
CPT/HCPCS: 36415; 80061; 80076; 85610

== ENCOUNTER 2020-07-30 08:49 | Outpatient (RCR) | payer MEDICARE, BC, SELFPAY ==
[2019-12-19 09:46] VITALS: BMI 26.3
[2020-06-30 09:00] VITALS: BMI 26.6
[2020-07-20 12:59] LABS: AST(SGOT) 22 U/L (15-37); Alanine Aminotransfer ALT/SGPT 16 U/L (16-61); Albumin, Serum 3.3 g/dL (3.2-5.0); Alkaline Phosphatase 96 U/L (45-117); Cholesterol 162 mg/dL (200); High Density Lipoprotein 53 mg/dL; Protein, Total 7.3 g/dL (6.4-8.2); Triglycerides 97 mg/dL; Very Low Density Lipoprotein 19 mg/dL (5-40)
[2020-07-30 09:36] LABS: International Normalized Ratio 2.5; Prothrombin Time (Protime)PT. 26.6 SECONDS (11.7-14.9)
[2020-07-30 10:11] LABS: Free T3 2.1 pg/mL (2.18-3.98); T4 Free Direct 1.25 ng/dL (0.76-1.46); Thyroid Stim Hormone (TSH) 0.26 uIU/mL (0.358-3.74)
== END 2020-07-30 18:00 | disposition home or self-care (01) ==
LOC: LAB 08:49
PROVIDERS: Family Provider Internal Medicine; PCP Internal Medicine; Referring Provider Internal Medicine Cardiovascular Disease; Visit Provider Internal Medicine Cardiovascular Disease
DX: I48.20 Chronic atrial fibrillation, unspecified (principal); E78.00 Pure hypercholesterolemia, unspecified; Z79.01 Long term (current) use of anticoagulants
CPT/HCPCS: 36415; 80061; 80076; 84439; 84443; 84481; 85610

== ENCOUNTER 2020-09-02 12:29 | Outpatient (RCR) | payer MEDICARE, BC, SELFPAY ==
[2020-06-30 09:00] VITALS: BMI 26.6
[2020-09-02 14:05] LABS: International Normalized Ratio 2.6; Prothrombin Time (Protime)PT. 27.2 SECONDS (11.7-14.9)
[2020-09-02 14:21] LABS: Free T3 1.9 pg/mL (2.18-3.98); T4 Free Direct 1.44 ng/dL (0.76-1.46); Thyroid Stim Hormone (TSH) 0.18 uIU/mL (0.358-3.74)
== END 2020-09-02 18:00 | disposition home or self-care (01) ==
LOC: LAB 12:29
PROVIDERS: Family Provider Internal Medicine; PCP Internal Medicine; Referring Provider Internal Medicine Cardiovascular Disease; Visit Provider Internal Medicine Cardiovascular Disease
DX: I48.20 Chronic atrial fibrillation, unspecified (principal); E78.00 Pure hypercholesterolemia, unspecified; E03.9 Hypothyroidism, unspecified; R79.89 Other specified abnormal findings of blood chemistry; Z79.01 Long term (current) use of anticoagulants
CPT/HCPCS: 36415; 84439; 84443; 84481; 85610

== ENCOUNTER 2020-10-04 09:31 | Outpatient (RCR) | payer MEDICARE, BC, SELFPAY ==
[2020-06-30 09:00] VITALS: BMI 26.6
[2020-10-04 10:29] LABS: International Normalized Ratio 2.9; Prothrombin Time (Protime)PT. 29.8 SECONDS (11.7-14.9)
== END 2020-10-04 18:00 | disposition home or self-care (01) ==
LOC: LAB 09:31
PROVIDERS: Family Provider Internal Medicine; PCP Internal Medicine; Referring Provider Internal Medicine Cardiovascular Disease; Visit Provider Internal Medicine Cardiovascular Disease
DX: I48.20 Chronic atrial fibrillation, unspecified (principal); Z79.01 Long term (current) use of anticoagulants
CPT/HCPCS: 36415; 85610

== ENCOUNTER 2020-11-09 09:29 | Outpatient (RCR) | payer MEDICARE, BC, SELFPAY ==
[2020-06-30 09:00] VITALS: BMI 26.6
[2020-11-09 10:58] LABS: International Normalized Ratio 3.3; Prothrombin Time (Protime)PT. 32.9 SECONDS (11.7-14.9)
== END 2020-11-09 18:00 | disposition home or self-care (01) ==
LOC: LAB 09:29
PROVIDERS: Family Provider Internal Medicine; PCP Internal Medicine; Referring Provider Internal Medicine Cardiovascular Disease; Visit Provider Internal Medicine Cardiovascular Disease
DX: I48.20 Chronic atrial fibrillation, unspecified (principal); Z79.01 Long term (current) use of anticoagulants
CPT/HCPCS: 36415; 85610

== ENCOUNTER 2020-11-24 11:09 | Outpatient (RCR) | payer MEDICARE, BC, SELFPAY ==
[2020-06-30 09:00] VITALS: BMI 26.6
[2020-11-24 11:55] LABS: International Normalized Ratio 2.5; Prothrombin Time (Protime)PT. 25.8 SECONDS (11.7-14.9)
== END 2020-11-24 18:00 | disposition home or self-care (01) ==
LOC: LAB 11:09
PROVIDERS: Family Provider Internal Medicine; PCP Internal Medicine; Referring Provider Internal Medicine Cardiovascular Disease; Visit Provider Internal Medicine Cardiovascular Disease
DX: I48.20 Chronic atrial fibrillation, unspecified (principal); Z79.01 Long term (current) use of anticoagulants
CPT/HCPCS: 36415; 85610

== ENCOUNTER 2020-12-24 08:45 | Outpatient (RCR) | payer MEDICARE, BC, SELFPAY ==
[2020-06-30 09:00] VITALS: BMI 26.6
[2020-12-24 09:37] LABS: International Normalized Ratio 2.4; Prothrombin Time (Protime)PT. 25.7 SECONDS (11.7-14.9)
== END 2020-12-24 18:00 | disposition home or self-care (01) ==
LOC: LAB 08:45
PROVIDERS: Family Provider Internal Medicine; PCP Internal Medicine; Referring Provider Internal Medicine Cardiovascular Disease; Visit Provider Internal Medicine Cardiovascular Disease
DX: I48.20 Chronic atrial fibrillation, unspecified (principal); Z79.01 Long term (current) use of anticoagulants
CPT/HCPCS: 36415; 85610

== ENCOUNTER → 2021-01-13 10:40 | Outpatient (CLI) | payer MEDICARE, BC, SELFPAY ==
[2020-12-31 10:06] VITALS: BMI 25.9
--- NOTE | 2021-01-13 10:51 | CDU_ITS ---
Reason For Study: Carotid artery bruit Rt. Velocities/BP Lt. Velocities/BP Prox CCA 76/14.7 cm/sec. Prox CCA 94.9/22.5 cm/sec. Mid CCA 91.7/22.6 cm/sec. Mid CCA 86.3/17.6 cm/sec. Dist CCA 87.8/18.6 cm/sec. Dist CCA 91.5/24.5 cm/sec. Prox ICA 103.4/23.9 cm/sec. Prox ICA 76.1/20.1 cm/sec. Mid ICA 102.1/27.8 cm/sec. Mid ICA 74/23.4 cm/sec. Dist ICA 77.3/25.2 cm/sec. Dist ICA 60.8/16.8 cm/sec. Rt. ICA/CCA = 1.18. Lt. ICA/CCA = 0.83. Prox ECA 117.8/10.8 cm/sec. Prox ECA 83.8/6.9 cm/sec. Rt. Vert. 42.8/13.5 cm/sec. Lt. Vert. 23.3/8.7 cm/sec. Right Extracranial There is homogeneous, smooth atherosclerotic plaque noted in the right common carotid artery. Abnormality noted at CCA mid, unable to rule out dissection versus plaque. There is heterogeneous, irregular atherosclerotic plaque noted in the right internal carotid artery. There is heterogeneous, irregular atherosclerotic plaque noted in the right external carotid artery. Antegrade flow is noted in the right vertebral artery. Left Extracranial There is heterogeneous, irregular atherosclerotic plaque noted in the left common carotid artery. There is heterogeneous, irregular atherosclerotic plaque noted in the left internal carotid artery. There is intimal thickening but no significant atherosclerotic plaque noted in the left external carotid artery. Antegrade flow is noted in the left vertebral artery. Procedure Carotid Duplex [id number]. This is a Carotid Duplex examination using B-mode, color flow and specral Doppler. Exam performed in department. Preliminary report given to Baron Tan. VL/Carotid Duplex Ultrasound Interpretation Summary Homogeneous plaque mid right common carotid artery. This appears to be consiste nt with focal plaque although a localized dissection cannot be excluded. Heterogenous plaque proximal right internal and external carotid arteries Less than 50% stenosis right internal carotid artery Less than 50% stenosis right external carotid artery Heterogenous plaque at the proximal left internal carotid artery Less than 50% stenosis left internal carotid artery Less than 50% stenosis left external carotid artery Patent and antegrade vertebral arteries bilaterally Ordering Physician: Palmer Ghosh Referring Physician: Olive Ruvalcaba M.D. Performed By: Marleni Rodriguez RVT
== END ==
PROVIDERS: PCP Internal Medicine; Referring Provider Internal Medicine Cardiovascular Disease; Visit Provider Internal Medicine Cardiovascular Disease
DX: I65.23 Occlusion and stenosis of bilateral carotid arteries (principal); R55 Syncope and collapse
CPT/HCPCS: 93880

== ENCOUNTER 2021-01-26 13:25 | Outpatient (RCR) | payer MEDICARE, BC, SELFPAY ==
[2021-01-18 23:29] VITALS: BMI 26.6
[2021-01-26 14:07] LABS: International Normalized Ratio 2.5; Prothrombin Time (Protime)PT. 26.3 SECONDS (11.7-14.9)
== END 2021-01-26 18:00 | disposition home or self-care (01) ==
LOC: LAB 13:25
PROVIDERS: Family Provider Internal Medicine; PCP Internal Medicine; Referring Provider Internal Medicine Cardiovascular Disease; Visit Provider Internal Medicine Cardiovascular Disease
DX: I48.20 Chronic atrial fibrillation, unspecified (principal); Z79.01 Long term (current) use of anticoagulants
CPT/HCPCS: 36415; 85610

== ENCOUNTER 2021-02-28 09:49 | Outpatient (RCR) | payer MEDICARE, BC, SELFPAY ==
[2021-02-17 21:19] VITALS: BMI 26.6
[2021-02-28 11:04] LABS: International Normalized Ratio 2.2; Prothrombin Time (Protime)PT. 23.8 SECONDS (11.7-14.9)
== END 2021-03-20 18:00 | disposition home or self-care (01) ==
LOC: LAB 09:49
PROVIDERS: Family Provider Internal Medicine; PCP Internal Medicine; Referring Provider Internal Medicine Cardiovascular Disease; Visit Provider Internal Medicine Cardiovascular Disease
DX: I48.20 Chronic atrial fibrillation, unspecified (principal); Z79.01 Long term (current) use of anticoagulants
CPT/HCPCS: 36415; 85610

== ENCOUNTER 2021-04-01 09:54 | Outpatient (RCR) | payer MEDICARE, BC, SELFPAY ==
[2021-03-20 20:10] VITALS: BMI 26.6
[2021-04-01 10:58] LABS: International Normalized Ratio 2.1; Prothrombin Time (Protime)PT. 23.1 SECONDS (11.7-14.9)
== END 2021-04-19 18:00 | disposition home or self-care (01) ==
LOC: LAB 09:54
PROVIDERS: Family Provider Internal Medicine; PCP Internal Medicine; Referring Provider Internal Medicine Cardiovascular Disease; Visit Provider Internal Medicine Cardiovascular Disease
DX: I48.20 Chronic atrial fibrillation, unspecified (principal); Z79.01 Long term (current) use of anticoagulants
CPT/HCPCS: 36415; 85610

== ENCOUNTER 2021-05-02 08:38 | Outpatient (RCR) | payer MEDICARE, BC, SELFPAY ==
[2021-04-20 03:27] VITALS: BMI 26.6
[2021-05-02 09:44] LABS: International Normalized Ratio 2.2; Prothrombin Time (Protime)PT. 23.6 SECONDS (11.7-14.9)
== END 2021-05-21 18:00 | disposition home or self-care (01) ==
LOC: LAB 08:38
PROVIDERS: Family Provider Internal Medicine; PCP Internal Medicine; Referring Provider Internal Medicine Cardiovascular Disease; Visit Provider Internal Medicine Cardiovascular Disease
DX: I48.20 Chronic atrial fibrillation, unspecified (principal); Z79.01 Long term (current) use of anticoagulants
CPT/HCPCS: 36415; 85610

== ENCOUNTER 2021-06-03 08:21 | Outpatient (RCR) | payer MEDICARE, BC, SELFPAY ==
[2021-05-22 04:29] VITALS: BMI 26.6
[2021-06-03 08:28] LABS: Mucous, Urine 0 SEEN /hpf (<or=2+); Red Blood Cells-Urine 0 SEEN /hpf (0-5)
[2021-06-03 09:38] LABS: Absolute Neutrophil Count 4.7 X10^3/uL (2.0-7.7); Basophil# 0.07 X10^3/uL; Basophil% 1.1 % (0-1); Eosinophil# 0.24 X10^3/uL; Eosinophils% 3.6 % (0-5); Hematocrit 36.6 % (40-54); Hemoglobin 11.5 g/dL (13.0-16.5); International Normalized Ratio 2.4; Lymphocyte % 16.6 % (19-41); Mean Corp Hgb Conc 31.4 g/dL (32-36); Mean Corpuscular Hgb 29.1 pg (27.0-32.0); Mean Corpuscular Volume 92.7 fL (80-94); Monocyte# 0.53 X10^3/uL; NRBC Flagged by Analyzer 0 % (0-5); Neutrophil # 4.67 X10^3/uL (2.7-7.7); Neutrophil % 70.5 % (47-70); Platelet Count 215 K/mm3 (150-450); Prothrombin Time (Protime)PT. 25.7 SECONDS (11.7-14.9); RBC Distribution Width CV 13.6 % (11.6-14.6); RBC Distribution Width SD 47.1 fl (35.1-43.9); Red Blood Count 3.95 M/mm3 (4.6-6.2); White Blood Count 6.6 K/mm3 (4.4-11.0)
[2021-06-03 09:59] LABS: Vitamin D,25 Hydroxy 66.9 ng/mL
[2021-06-03 10:10] LABS: ALB/GLOB Ratio 0.7 RATIO (0.9-2.4); AST(SGOT) 17 U/L (15-37); Alanine Aminotransfer ALT/SGPT 15 U/L (16-61); Albumin, Serum 3.1 g/dL (3.2-5.0); Alkaline Phosphatase 91 U/L (45-117); Anion Gap 5 (5-15); BUN 21 mg/dL (7-18); BUN/Creat Ratio 17.6 RATIO (10-20); Calcium,Total 9.1 mg/dL (8.5-10.1); Chloride 103 mmol/L (98-107); Cholesterol 143 mg/dL (200); Creatinine, Serum 1.19 mg/dL (0.70-1.30); EST Glomerular Filtration Rate 62 mL/min (>60); Est Glom Filt Rate - Afr Amer 75 mL/min (>60); Globulin 4.4 g/dL (2.2-4.2); Glucose 90 mg/dL (74-106); High Density Lipoprotein 57 mg/dL; Potassium 3.9 mmol/L (3.5-5.1); Protein, Total 7.5 g/dL (6.4-8.2); Sodium Level 137 mmol/L (136-145); Thyroid Stim Hormone (TSH) 0.16 uIU/mL (0.358-3.74); Triglycerides 58 mg/dL; Very Low Density Lipoprotein 12 mg/dL (5-40)
[2021-06-03 11:26] LABS: Color, Urine Yellow (Yellow); Glucose, Dipstick Normal (Normal); Ketone-Dipstick Negative (Negative); Leukocyte Esterase-Dipstick Negative /ul (Negative); Nitrite-Dipstick Negative (Negative); Occult Blood-Urine 10 /ul (Negative); Protein-Dipstick Negative (Negative); Specific Gravity, Urine 1.015 (1.002-1.030); Urine Bilirubin Dipstick Negative (Negative); Urine Clarity Clear (Clear); Urine Urobilinogen 1 mg/dl (Normal)
[2021-06-03 11:40] LABS: White Blood Cells 0-5 SEEN /hpf (0-5)
[2021-06-03 11:41] LABS: Bacteria RARE /hpf (None Seen); Squamous Epithelial Cells - UA 0-5 SEEN /hpf (0-5)
[2021-06-03 11:47] LABS: Microalbumin,Random Urine 17.5 mg/L (NO RANGE EST.); Microalbumin:Creatinine Ratio 12.2 mg/g CRE (<30 mg/g CRE)
== END 2021-06-20 18:00 | disposition home or self-care (01) ==
LOC: LAB 08:21
PROVIDERS: Family Provider Internal Medicine; PCP Internal Medicine; Referring Provider Internal Medicine Cardiovascular Disease; Visit Provider Internal Medicine Cardiovascular Disease
DX: I48.20 Chronic atrial fibrillation, unspecified (principal); Z79.01 Long term (current) use of anticoagulants; I11.9 Hypertensive heart disease without heart failure; E03.9 Hypothyroidism, unspecified; E55.9 Vitamin D deficiency, unspecified
CPT/HCPCS: 36415; 80053; 80061; 81001; 82043; 82306; 82570; 84443; 85025; 85610

== ENCOUNTER 2021-07-18 14:12 | Outpatient (RCR) | payer MEDICARE, BC, SELFPAY ==
[2021-06-21 01:19] VITALS: BMI 26.6
[2021-07-04 11:40] LABS: International Normalized Ratio 3.1; Prothrombin Time (Protime)PT. 30.8 SECONDS (11.7-14.9)
[2021-07-18 15:26] LABS: International Normalized Ratio 2.1; Prothrombin Time (Protime)PT. 22.6 SECONDS (11.7-14.9)
== END 2021-07-18 23:59 | disposition home or self-care (01) ==
LOC: LAB 14:12
PROVIDERS: Family Provider Internal Medicine; PCP Internal Medicine; Referring Provider Internal Medicine Cardiovascular Disease; Visit Provider Internal Medicine Cardiovascular Disease
DX: I48.20 Chronic atrial fibrillation, unspecified (principal); Z79.01 Long term (current) use of anticoagulants
CPT/HCPCS: 36415; 85610

== ENCOUNTER 2021-08-12 08:09 | Outpatient (RCR) | payer MEDICARE, BC, SELFPAY ==
[2021-07-19 09:47] VITALS: BMI 26.6
[2021-08-12 08:19] LABS: Bacteria 0 SEEN /hpf (None Seen); Mucous, Urine 0 SEEN /hpf (<or=2+); Red Blood Cells-Urine 0 SEEN /hpf (0-5); White Blood Cells 0 SEEN /hpf (0-5)
[2021-08-12 09:31] LABS: Color, Urine Yellow (Yellow); Glucose, Dipstick Normal (Normal); Ketone-Dipstick Negative (Negative); Leukocyte Esterase-Dipstick Negative /ul (Negative); Nitrite-Dipstick Negative (Negative); Occult Blood-Urine Negative /ul (Negative); Protein-Dipstick Negative (Negative); Specific Gravity, Urine 1.015 (1.002-1.030); Urine Bilirubin Dipstick Negative (Negative); Urine Clarity Sl. Cloudy (Clear); Urine Urobilinogen Normal (Normal)
[2021-08-12 09:43] LABS: Squamous Epithelial Cells - UA 0-5 SEEN /hpf (0-5)
[2021-08-12 09:48] LABS: International Normalized Ratio 2.1; Prothrombin Time (Protime)PT. 22.8 SECONDS (11.7-14.9)
[2021-08-12 10:10] LABS: AST(SGOT) 17 U/L (15-37); Alanine Aminotransfer ALT/SGPT 16 U/L (16-61); Albumin, Serum 3.2 g/dL (3.2-5.0); Alkaline Phosphatase 91 U/L (45-117); Bilirubin, Direct 0.27 mg/dL (0.00-0.30); Cholesterol 149 mg/dL (200); Globulin 4.3 g/dL (2.2-4.2); High Density Lipoprotein 52 mg/dL; Protein, Total 7.5 g/dL (6.4-8.2); Thyroid Stim Hormone (TSH) 0.56 uIU/mL (0.358-3.74); Triglycerides 72 mg/dL; Very Low Density Lipoprotein 14 mg/dL (5-40)
== END 2021-08-18 18:00 | disposition home or self-care (01) ==
LOC: LAB 08:09
PROVIDERS: Family Provider Internal Medicine; PCP Internal Medicine; Referring Provider Internal Medicine Cardiovascular Disease; Visit Provider Internal Medicine Cardiovascular Disease
DX: I48.20 Chronic atrial fibrillation, unspecified (principal); Z79.01 Long term (current) use of anticoagulants; E03.9 Hypothyroidism, unspecified; R31.29 Other microscopic hematuria
CPT/HCPCS: 36415; 80061; 80076; 81001; 84443; 85610

== ENCOUNTER 2021-09-12 08:34 | Outpatient (RCR) | payer MEDICARE, BC, SELFPAY ==
[2021-08-19 02:35] VITALS: BMI 26.6
[2021-09-12 10:19] LABS: International Normalized Ratio 2.4; Prothrombin Time (Protime)PT. 25.5 SECONDS (11.7-14.9)
== END 2021-09-12 18:00 | disposition home or self-care (01) ==
LOC: LAB 08:34
PROVIDERS: Family Provider Internal Medicine; PCP Internal Medicine; Referring Provider Internal Medicine Cardiovascular Disease; Visit Provider Internal Medicine Cardiovascular Disease
DX: I48.20 Chronic atrial fibrillation, unspecified (principal); Z79.01 Long term (current) use of anticoagulants
CPT/HCPCS: 36415; 85610

== ENCOUNTER 2021-10-12 08:41 | Outpatient (RCR) | payer MEDICARE, BC, SELFPAY ==
[2021-09-18 03:29] VITALS: BMI 26.6
[2021-10-12 09:30] LABS: International Normalized Ratio 1.9; Prothrombin Time (Protime)PT. 21.2 SECONDS (11.7-14.9)
== END 2021-10-12 18:00 | disposition home or self-care (01) ==
LOC: LAB 08:41
PROVIDERS: Family Provider Internal Medicine; PCP Internal Medicine; Referring Provider Internal Medicine Cardiovascular Disease; Visit Provider Internal Medicine Cardiovascular Disease
DX: I48.20 Chronic atrial fibrillation, unspecified (principal); Z79.01 Long term (current) use of anticoagulants
CPT/HCPCS: 36415; 85610

== ENCOUNTER 2021-10-26 08:34 | Outpatient (RCR) | payer MEDICARE, BC, SELFPAY ==
[2021-10-18 20:49] VITALS: BMI 26.6
[2021-10-26 09:28] LABS: International Normalized Ratio 2.1; Prothrombin Time (Protime)PT. 22.9 SECONDS (11.7-14.9)
== END 2021-10-26 23:59 | disposition home or self-care (01) ==
LOC: LAB 08:34
PROVIDERS: Family Provider Internal Medicine; PCP Internal Medicine; Referring Provider Internal Medicine Cardiovascular Disease; Visit Provider Internal Medicine Cardiovascular Disease
DX: I48.20 Chronic atrial fibrillation, unspecified (principal); Z79.01 Long term (current) use of anticoagulants
CPT/HCPCS: 36415; 85610

== ENCOUNTER 2021-11-28 08:14 | Outpatient (RCR) | payer MEDICARE, BC, SELFPAY ==
[2021-11-18 07:07] VITALS: BMI 26.6
[2021-11-28 09:53] LABS: International Normalized Ratio 2.5; Prothrombin Time (Protime)PT. 26.6 SECONDS (11.7-14.9)
== END 2021-12-18 02:43 | disposition home or self-care (01) ==
LOC: LAB 08:14
PROVIDERS: Family Provider Internal Medicine; PCP Internal Medicine; Referring Provider Internal Medicine Cardiovascular Disease; Visit Provider Internal Medicine Cardiovascular Disease
DX: I48.20 Chronic atrial fibrillation, unspecified (principal); Z79.01 Long term (current) use of anticoagulants
CPT/HCPCS: 36415; 85610

== ENCOUNTER 2021-12-22 08:33 | Outpatient (RCR) | payer MEDICARE, BC, SELFPAY ==
[2021-12-18 02:44] VITALS: BMI 26.6
[2021-12-22 09:27] LABS: International Normalized Ratio 2.8; Prothrombin Time (Protime)PT. 28.8 SECONDS (11.7-14.9)
== END 2021-12-22 18:00 | disposition home or self-care (01) ==
LOC: LAB 08:33
PROVIDERS: Family Provider Internal Medicine; PCP Internal Medicine; Referring Provider Internal Medicine Cardiovascular Disease; Visit Provider Internal Medicine Cardiovascular Disease
DX: I48.20 Chronic atrial fibrillation, unspecified (principal); Z79.01 Long term (current) use of anticoagulants
CPT/HCPCS: 36415; 85610

== ENCOUNTER 2022-02-17 08:30 | Outpatient (RCR) | payer MEDICARE, BC, SELFPAY ==
[2022-01-18 23:10] VITALS: BMI 26.6
[2022-01-19 09:40] LABS: Absolute Lymphocyte Count 0.84 X10^3/uL (0.83-4.51); Absolute Neutrophil Count 3.6 X10^3/uL (2.0-7.7); Basophil# 0.09 X10^3/uL; Basophil% 1.7 % (0-1); Eosinophil# 0.27 X10^3/uL; Eosinophils% 5.1 % (0-5); Hematocrit 32.4 % (40-54); Hemoglobin 10.1 g/dL (13.0-16.5); Lymphocyte # 0.84 X10^3/ul (0.83-4.51); Lymphocyte % 15.9 % (19-41); Mean Corp Hgb Conc 31.2 g/dL (32-36); Mean Corpuscular Hgb 29.1 pg (27.0-32.0); Mean Corpuscular Volume 93.4 fL (80-94); Mean Platelet Vol. 9.8 fl (6.2-12.0); Monocyte% 9.5 % (0-10); NRBC Flagged by Analyzer 0 % (0-5); Neutrophil # 3.57 X10^3/uL (2.7-7.7); Neutrophil % 67.6 % (47-70); Platelet Count 217 K/mm3 (150-450); RBC Distribution Width CV 14.1 % (11.6-14.6); RBC Distribution Width SD 47.9 fl (35.1-43.9); Red Blood Count 3.47 M/mm3 (4.6-6.2); White Blood Count 5.3 K/mm3 (4.4-11.0)
[2022-01-19 09:48] LABS: International Normalized Ratio 2.8; Prothrombin Time (Protime)PT. 29.4 SECONDS (11.7-14.9)
[2022-01-19 10:11] LABS: Microalbumin,Random Urine 10.1 mg/L (NO RANGE EST.); Microalbumin:Creatinine Ratio 7.3 mg/g CRE (<30 mg/g CRE)
[2022-01-19 10:13] LABS: Vitamin D,25 Hydroxy 59.6 ng/mL
[2022-01-19 10:19] LABS: ALB/GLOB Ratio 0.7 RATIO (0.9-2.4); AST(SGOT) 17 U/L (15-37); Alanine Aminotransfer ALT/SGPT 15 U/L (16-61); Alkaline Phosphatase 80 U/L (45-117); Anion Gap 7 (5-15); BUN 21 mg/dL (7-18); BUN/Creat Ratio 17.6 RATIO (10-20); Bilirubin, Direct 0.27 mg/dL (0.00-0.30); Calcium,Total 8.8 mg/dL (8.5-10.1); Chloride 104 mmol/L (98-107); Cholesterol 134 mg/dL (200); Creatinine, Serum 1.19 mg/dL (0.70-1.30); EST Glomerular Filtration Rate 62 mL/min (>60); Est Glom Filt Rate - Afr Amer 75 mL/min (>60); Globulin 4.1 g/dL (2.2-4.2); Glucose 91 mg/dL (74-106); High Density Lipoprotein 56 mg/dL; Potassium 4.1 mmol/L (3.5-5.1); Protein, Total 7.1 g/dL (6.4-8.2); Sodium Level 140 mmol/L (136-145); Triglycerides 51 mg/dL; Very Low Density Lipoprotein 10 mg/dL (5-40)
[2022-02-17 09:21] LABS: International Normalized Ratio 2.5; Prothrombin Time (Protime)PT. 26.9 SECONDS (11.7-14.9)
== END 2022-02-17 18:00 | disposition home or self-care (01) ==
LOC: LAB 08:30
PROVIDERS: Physician Assistant Medical; Family Provider Internal Medicine; PCP Internal Medicine; Referring Provider Internal Medicine Cardiovascular Disease; Visit Provider Internal Medicine Cardiovascular Disease
DX: I48.20 Chronic atrial fibrillation, unspecified (principal); Z79.01 Long term (current) use of anticoagulants; E78.00 Pure hypercholesterolemia, unspecified; E55.9 Vitamin D deficiency, unspecified; I77.9 Disorder of arteries and arterioles, unspecified; I25.10 Atherosclerotic heart disease of native coronary artery without angina pectoris
CPT/HCPCS: 36415; 80053; 80061; 82043; 82248; 82306; 82570; 84443; 85025; 85610

== ENCOUNTER 2022-03-17 08:40 | Outpatient (RCR) | payer MEDICARE, BC, SELFPAY ==
[2022-02-17 21:40] VITALS: BMI 26.6
[2022-03-17 09:35] LABS: International Normalized Ratio 2.5
== END 2022-03-17 18:00 | disposition home or self-care (01) ==
LOC: LAB 08:40
PROVIDERS: Family Provider Internal Medicine; PCP Internal Medicine; Referring Provider Internal Medicine Cardiovascular Disease; Visit Provider Internal Medicine Cardiovascular Disease
DX: I48.20 Chronic atrial fibrillation, unspecified (principal); I25.10 Atherosclerotic heart disease of native coronary artery without angina pectoris; I77.9 Disorder of arteries and arterioles, unspecified; E78.00 Pure hypercholesterolemia, unspecified; E55.9 Vitamin D deficiency, unspecified; Z79.01 Long term (current) use of anticoagulants
CPT/HCPCS: 36415; 85610

== ENCOUNTER 2022-04-17 09:29 | Outpatient (RCR) | payer MEDICARE, BC, SELFPAY ==
[2022-03-21 10:08] VITALS: BMI 26.6
[2022-04-17 10:22] LABS: International Normalized Ratio 3.1; Prothrombin Time (Protime)PT. 31.3 SECONDS (11.7-14.9)
== END 2022-04-19 18:00 | disposition home or self-care (01) ==
LOC: LAB 09:29
PROVIDERS: Family Provider Internal Medicine; PCP Internal Medicine; Referring Provider Internal Medicine Cardiovascular Disease; Visit Provider Internal Medicine Cardiovascular Disease
DX: I48.20 Chronic atrial fibrillation, unspecified (principal); Z79.01 Long term (current) use of anticoagulants
CPT/HCPCS: 36415; 85610

== ENCOUNTER 2022-05-02 09:47 | Outpatient (RCR) | payer MEDICARE, BC, SELFPAY ==
[2022-04-20 00:29] VITALS: BMI 26.6
[2022-05-02 10:49] LABS: International Normalized Ratio 2.5; Prothrombin Time (Protime)PT. 26.4 SECONDS (11.7-14.9)
== END 2022-05-02 18:00 | disposition home or self-care (01) ==
LOC: LAB 09:47
PROVIDERS: Family Provider Internal Medicine; PCP Internal Medicine; Referring Provider Internal Medicine Cardiovascular Disease; Visit Provider Internal Medicine Cardiovascular Disease
DX: I48.20 Chronic atrial fibrillation, unspecified (principal); Z79.01 Long term (current) use of anticoagulants
CPT/HCPCS: 36415; 85610

== ENCOUNTER 2022-05-29 11:37 | Outpatient (RCR) | payer MEDICARE, BC, SELFPAY ==
[2022-05-21 04:04] VITALS: BMI 26.6
[2022-05-29 13:51] LABS: International Normalized Ratio 2.5; Prothrombin Time (Protime)PT. 26.8 SECONDS (11.7-14.9)
== END 2022-05-29 18:00 | disposition home or self-care (01) ==
LOC: LAB 11:37
PROVIDERS: Family Provider Internal Medicine; PCP Internal Medicine; Referring Provider Internal Medicine Cardiovascular Disease; Visit Provider Internal Medicine Cardiovascular Disease
DX: I48.20 Chronic atrial fibrillation, unspecified (principal); Z79.01 Long term (current) use of anticoagulants
CPT/HCPCS: 36415; 85610

== ENCOUNTER 2022-07-31 10:29 | Outpatient (RCR) | payer MEDICARE, BC, SELFPAY ==
[2022-06-21 08:05] VITALS: BMI 26.6
[2022-07-31 11:30] LABS: International Normalized Ratio 2.5; Prothrombin Time (Protime)PT. 26.5 SECONDS (11.7-14.9)
== END 2022-08-18 23:11 | disposition home or self-care (01) ==
LOC: LAB 10:29
PROVIDERS: Family Provider Internal Medicine; PCP Internal Medicine; Referring Provider Internal Medicine Cardiovascular Disease; Visit Provider Internal Medicine Cardiovascular Disease
DX: I48.20 Chronic atrial fibrillation, unspecified (principal); Z79.01 Long term (current) use of anticoagulants
CPT/HCPCS: 36415; 85610

== ENCOUNTER 2022-09-04 12:36 | Outpatient (RCR) | payer MEDICARE, BC, SELFPAY ==
[2022-08-18 23:11] VITALS: BMI 26.6
[2022-09-04 13:11] LABS: Absolute Lymphocyte Count 1.08 X10^3/uL (0.83-4.51); Absolute Neutrophil Count 5.4 X10^3/uL (2.0-7.7); Basophil# 0.08 X10^3/uL; Basophil% 1.1 % (0-1); Eosinophil# 0.19 X10^3/uL; Eosinophils% 2.6 % (0-5); Hematocrit 37.6 % (40-54); Hemoglobin 11.8 g/dL (13.0-16.5); Lymphocyte # 1.08 X10^3/ul (0.83-4.51); Lymphocyte % 14.7 % (19-41); Mean Corp Hgb Conc 31.4 g/dL (32-36); Mean Corpuscular Hgb 29.1 pg (27.0-32.0); Mean Corpuscular Volume 92.8 fL (80-94); Mean Platelet Vol. 9.8 fl (6.2-12.0); Monocyte# 0.58 X10^3/uL; Monocyte% 7.9 % (0-10); NRBC Flagged by Analyzer 0 % (0-5); Neutrophil % 73.3 % (47-70); Platelet Count 207 K/mm3 (150-450); RBC Distribution Width SD 51.6 fl (35.1-43.9); Red Blood Count 4.05 M/mm3 (4.6-6.2); White Blood Count 7.4 K/mm3 (4.4-11.0)
[2022-09-04 13:26] LABS: International Normalized Ratio 2.2; Prothrombin Time (Protime)PT. 23.9 SECONDS (11.7-14.9)
[2022-09-04 13:49] LABS: Anion Gap 2 (5-15); BUN 25 mg/dL (7-18); BUN/Creat Ratio 21.6 RATIO (10-20); Calcium,Total 9.4 mg/dL (8.5-10.1); Chloride 104 mmol/L (98-107); Creatinine, Serum 1.16 mg/dL (0.70-1.30); EST Glomerular Filtration Rate 63 mL/min (>60); Est Glom Filt Rate - Afr Amer 77 mL/min (>60); Glucose 92 mg/dL (74-106); Potassium 4.4 mmol/L (3.5-5.1); Sodium Level 137 mmol/L (136-145)
== END 2022-09-17 01:26 | disposition home or self-care (01) ==
LOC: LAB 12:36
PROVIDERS: Physician Assistant Medical; Family Provider Internal Medicine; PCP Internal Medicine; Referring Provider Nurse Practitioner Family; Visit Provider Nurse Practitioner Family
DX: I48.20 Chronic atrial fibrillation, unspecified (principal); Z79.01 Long term (current) use of anticoagulants; I25.10 Atherosclerotic heart disease of native coronary artery without angina pectoris; I10 Essential (primary) hypertension; E78.00 Pure hypercholesterolemia, unspecified; Z95.0 Presence of cardiac pacemaker; I49.8 Other specified cardiac arrhythmias; I47.9 Paroxysmal tachycardia, unspecified
CPT/HCPCS: 36415; 80048; 84443; 85025; 85610

== ENCOUNTER 2022-10-05 09:40 | Outpatient (RCR) | payer MEDICARE, BC, SELFPAY ==
[2022-09-17 01:26] VITALS: BMI 26.6
[2022-10-05 10:32] LABS: International Normalized Ratio 2.2; Prothrombin Time (Protime)PT. 24.6 SECONDS (11.7-14.9)
== END 2022-10-18 18:00 | disposition home or self-care (01) ==
LOC: LAB 09:40
PROVIDERS: Internal Medicine Cardiovascular Disease; Family Provider Internal Medicine; PCP Internal Medicine; Referring Provider Nurse Practitioner Family; Visit Provider Nurse Practitioner Family
DX: I48.20 Chronic atrial fibrillation, unspecified (principal); Z79.01 Long term (current) use of anticoagulants; I47.9 Paroxysmal tachycardia, unspecified
CPT/HCPCS: 36415; 85610

== ENCOUNTER 2022-11-13 09:57 | Outpatient (RCR) | payer MEDICARE, BC, SELFPAY ==
[2022-10-19 09:50] VITALS: BMI 26.6
[2022-11-06 09:40] LABS: International Normalized Ratio 3.6; Prothrombin Time (Protime)PT. 36.2 SECONDS (11.7-14.9)
[2022-11-13 10:27] LABS: International Normalized Ratio 2.7; Prothrombin Time (Protime)PT. 29.1 SECONDS (11.7-14.9)
== END 2022-11-13 18:00 | disposition home or self-care (01) ==
LOC: LAB 09:57
PROVIDERS: Family Provider Internal Medicine; PCP Internal Medicine; Referring Provider Nurse Practitioner Family; Visit Provider Nurse Practitioner Family
DX: I48.20 Chronic atrial fibrillation, unspecified (principal); Z79.01 Long term (current) use of anticoagulants; I47.9 Paroxysmal tachycardia, unspecified; Z95.0 Presence of cardiac pacemaker
CPT/HCPCS: 36415; 85610

== ENCOUNTER 2022-12-13 09:39 | Outpatient (RCR) | payer MEDICARE, BC, SELFPAY ==
[2022-11-17 22:32] VITALS: BMI 26.6
[2022-12-13 11:38] LABS: International Normalized Ratio 1.9; Prothrombin Time (Protime)PT. 22.1 SECONDS (11.7-14.9)
== END 2022-12-18 18:00 | disposition home or self-care (01) ==
LOC: LAB 09:39
PROVIDERS: Family Provider Internal Medicine; PCP Internal Medicine; Referring Provider Nurse Practitioner Family; Visit Provider Internal Medicine Cardiovascular Disease
DX: I48.20 Chronic atrial fibrillation, unspecified (principal); Z79.01 Long term (current) use of anticoagulants; I47.9 Paroxysmal tachycardia, unspecified
CPT/HCPCS: 36415; 85610

== ENCOUNTER 2023-01-11 10:04 | Outpatient (RCR) | payer MEDICARE, BC, SELFPAY ==
[2022-12-19 00:50] VITALS: BMI 26.6
[2022-12-27 10:29] LABS: International Normalized Ratio 2.9; Prothrombin Time (Protime)PT. 30.6 SECONDS (11.7-14.9)
[2023-01-11 11:37] LABS: International Normalized Ratio 3.2; Prothrombin Time (Protime)PT. 33.4 SECONDS (11.7-14.9)
== END 2023-01-11 18:00 | disposition home or self-care (01) ==
LOC: LAB 10:04
PROVIDERS: Family Provider Internal Medicine; PCP Internal Medicine; Referring Provider Nurse Practitioner Family; Visit Provider Internal Medicine Cardiovascular Disease
DX: I48.20 Chronic atrial fibrillation, unspecified (principal); Z79.01 Long term (current) use of anticoagulants; I47.9 Paroxysmal tachycardia, unspecified
CPT/HCPCS: 36415; 85610

== ENCOUNTER 2023-01-19 15:44 | Emergency (ER) | payer MEDICARE, BC, SELFPAY ==
[2023-01-19 15:46] VITALS: BP 140/68; PULSE 77; RESP 18; TEMP 36.6; O2SAT 92; BMI 22.8
--- NOTE | 2023-01-19 16:02 | EDS_ITS ---
HPI HPI - Fall History of Present Illness Chief Complaint: Fall Informant: patient Narrative Narrative: Patient presents with skin tear to his left arm. Patient states he was not going to come in. But his was concerned and called the ambulance. Patient was out in his yard. He turned off the spigot to a hose. When he did this he looked at the other and to make sure it was not going to spray him. Evidently this is one of the self collapsing hoses. He states when you turn it off it collapses and will spray water out. The process of leaning forward and twisting caused him to fall. He states he fell into a mom zavala. He scraped his face but he states he never hit his head. He was not hurt at all. He states he has a skin tear on his left arm. He was wearing his glasses and they did not get hurt. His only complaint is a skin tear but because it is very raw and red his is concerned. Of note he is on Coumadin for A-fib and he has had bypass surgery as well as a pacer. His last check was 2.9 and they reduced his dose this past week. He is not having any other bleeding. He has no headache. He really does not want evaluation. Last tetanus was between 2 and 3 years ago. He states it is definitely not 5 years ago. [facility] Medical History Anemia Atherosclerotic heart disease of [place] coronary artery without angina pectoris Atrial arrhythmia Atrioventricular block Bilateral carotid artery disease Bruit of left carotid artery Cardiac pacemaker in situ Chronic atrial fibrillation Endocarditis Essential hypertension GERD (gastroesophageal reflux disease) History of throat cancer HLD (hyperlipidemia) HTN (hypertension) [place] [facility] current use of anticoagulant Neoplasm of oropharynx Nonsustained ventricular tachycardia Paroxysmal tachycardia Paroxysmal ventricular tachycardia Pure hypercholesterolemia Syncope and collapse Ventricular fibrillation Ventricular tachycardia Home Medications aspirin 81 mg tablet,delayed release 81 mg PO QDAY 04/26/17 [History Last Taken 12/25/17] cholecalciferol (vitamin D3) 50 mcg (2,000 unit) tablet 2,000 unit PO QDAY 04/26/17 [History Last Taken Unknown] ferrous sulfate 325 mg (65 mg iron) tablet,delayed release See Rx Instructions PO QDAY 04/30/17 [History Last Taken Unknown] pantoprazole 40 mg tablet,delayed release (Protonix) 40 mg PO Q OTHER DAY 07/04/21 [History Last Taken Unknown] warfarin 3 mg tablet 3 mg PO QDAY #90 tabs 03/09/22 [Rx Last Taken Unknown] doxazosin 2 mg tablet 2 mg PO QDAY #90 tabs 08/29/22 [Rx Last Taken Unknown] levothyroxine 125 mcg tablet 125 mcg PO DAILY 08/29/22 [History Last Taken Unknown] metoprolol succinate 25 mg tablet,extended release 24 hr 25 mg PO DAILY #90 tabs 08/29/22 [Rx Last Taken Unknown] nitroglycerin 400 mcg/spray translingual 0.4 mg translingual Q5M PRN chest pain #4.9 grams 08/29/22 [Rx Last Taken Unknown] Allergy/AdvReac Type Severity Reaction Status Date / Time No Known Allergies Allergy Verified 08/29/22 09:44 Family History Father Hypertension Heart disease Cancer lung Son Hypertension Mother Cancer liver Son H/O cardiac radiofrequency ablation Hypertension Son Hypertension Surgical History History of cholecystectomy History of circumcision History of squamous cell carcinoma excision History of tonsillectomy (~194) Hx of CABG (~2006) S/P placement of cardiac pacemaker S/P PTCA (percutaneous transluminal coronary angioplasty) (~03/24/97) Social History Smoking Status: Never smoker how long ago did patient quit smokin years ago alcohol intake: current alcohol intake frequency: a few times a week Alcohol type: beer substance use type: does not use caffeine: Yes Type: coffee Number of servings: 3 eating out: 1-3 times/week what type of physical activity do you participate in: none seatbelt use: always do you feel safe at home: Yes ROS ROS ED ROS Narrative A complete review of systems was performed and is negative except as documented in the history of present illness. Some specific details below. Constitutional: No recent fevers or chills. No rigors. Patient has not generally felt ill. This was a mechanical fall. EYE: No discharge, visual complaints, or pain. No visual field cuts ENT: No difficulty swallowing. He has abrasions to his nose and forehead but states they do not hurt. He scraped them on the mom Zavala and part of the brand- new mulch. He did not impact the area. CV: No chest pain, pressure or aching. No palpitations or irregular beats. Patient has not been presyncopal or syncopal. He does have a pacer atrial fibrillation has had bypass surgery but no valve surgery. Respiratory: No trouble breathing. No cough. No wheezing. No sputum production. No pain with breathing. GI: No abdominal pain. No nausea vomiting diarrhea. No blood in stool recently. : No frequency dysuria or hematuria. Musculoskeletal: No recent trauma. No pains. No swelling. Skin: Abrasions on face and left dorsal forearm Neuro: No weakness or numbness. No difficulty with speaking. No difficulty understanding speech. No visual loss. Endocrine: No polyuria or polydipsia. EXAM Physical Exam Narrative Exam Narrative: Patient is awake alert no acute distress. He is very pleasant. HEENT shows a few just very superficial abrasions to the glabella area and the bridge of his nose. But no bleeding inside. No tenderness. He states the area does not hurt at all. He is wearing his glasses that do not show sign of injury. Eyes show no subconjunctival hemorrhage. Neck is supple with no tenderness at all and no pain with range of motion. Lungs are clear. Heart actually sounds are regular. He may have a paced rhythm. It does not sound like atrial fibrillation now. He has a pacemaker in his right upper chest. This was evidently done after a period of sepsis that caused infection of the prior line a couple years back. Abdomen is soft and nontender Extremities show no deformities. He has a few small typical bruises consistent with being on Coumadin. Left dorsal forearm has an area of superficial skin tear. There is nothing that can be repaired here. I moisten the dressings and remove them. We have looked at the whole area and rinsed it. He understands that this is not something that can be sutured. Patient moves his arms and legs well with no pain at all. Neurologic: Patient is awake alert appropriate. He is an excellent informant for details of what happened and why it happened along with his past history. He knows his meds his dosages his recent blood levels. This is an extremely sharp individual. Const Vital Signs: 01/19/23 15:46 Temperature 97.8 F Temperature Source Temporal Pulse Rate 77 Respiratory Rate 18 Blood Pressure 140/68 H Blood Pressure Mean 92 Pulse Ox 92 Oxygen Delivery Method Room Air MDM MDM MDM Narrative Medical decision making narrative: I talked with the patient that normally when somebody of his age falls has abrasions on the face or head and is on Coumadin that something we would do CT scans of. He states he never hit his head or face. He just scraped them. He really does not want that done. He feels perfectly fine. I cannot force this to be done. Patient is clearly capable of making his own decisions. We will discuss this with his who is on her way and also. We will further clean and dress the arm. We will then get him up and walk around. He normally uses a cane. We will make sure nothing hurts or he is not having problems with stability and his feels he is acting appropriately. We discussed the case with the . He is acting at his baseline. He has gotten up and walked here. He feels well. He is very mobile. They would both like to go home at this time Discharge Plan Triage Chief Complaint: Fall Other Complaint: Head Injury ED Provider: Rohan May Dx/Rx/DC Orders Clinical Impression: Fall at home, Skin tear of left forearm without complication, Abrasion of face, Warfarin-induced coagulopathy Instructions: ED Head Injury (Adult), ED Skin Avulsion Prescriptions: No Action doxazosin 2 mg tablet 2 mg PO QDAY Qty: 90 3RF metoprolol succinate 25 mg tablet extended release 24 hr 25 mg PO DAILY Qty: 90 4RF nitroglycerin 400 mcg/spray spray,non-aerosol 0.4 mg Translingual Q5M PRN (Reason: chest pain) Qty: 4.9 3RF aspirin 81 mg tablet,delayed release (DR/EC) 81 mg PO QDAY cholecalciferol (vitamin D3) 2,000 unit tablet 2,000 unit tablet 2,000 unit PO QDAY ferrous sulfate 325 mg (65 mg iron) tablet,delayed release (DR/EC) See Patient Comments PO QDAY Dose Instruction: 1/2 tablet daily PO QDAY Patient Comments: 1/2 tablet daily PO QDAY Rx Instructions: 1/2 tablet daily PO QDAY pantoprazole [Protonix] 40 mg tablet,delayed release (DR/EC) 40 mg PO Q OTHER DAY warfarin 3 mg tablet 3 mg PO QDAY Qty: 90 3RF Protocol: Dose Management Condition: Sunday Dose/Route: 1.5 mg Instruction: 0.5 x 3 mg tablets Condition: Sunday Dose/Route: 3 mg Instruction: 1 x 3 mg tablet Condition: Sunday Dose/Route: 1.5 mg Instruction: 0.5 x 3 mg tablets Condition: Sunday Dose/Route: 3 mg Instruction: 1 x 3 mg tablet Condition: Dose/Route: 1.5 mg Instruction: 0.5 x 3 mg tablets Condition: Sunday Dose/Route: 1.5 mg Instruction: 0.5 x 3 mg tablets Condition: Sunday Dose/Route: 1.5 mg Instruction: 0.5 x 3 mg tablets Protocol Text: Adjustment Start Date: 01/11/23 INR Value: 3.2 INR Date: 01/11/23 Recheck Date: 01/25/23 levothyroxine 125 mcg tablet 125 mcg PO DAILY Rx Instructions: 1/2 tab Primary Care Provider: Olive Ruvalcaba Referrals: Olive Ruvalcaba DO [Primary Care Provider] - 3-5 Days if not improving Disposition Disposition: Home, Self Care
== END 2023-01-19 16:52 | disposition home or self-care (01) ==
LOC: ED 16:37
PROVIDERS: Emergency Provider Emergency Medicine; PCP Internal Medicine; Visit Provider Emergency Medicine
DX: S41.112A Laceration without foreign body of left upper arm, initial encounter (principal); S00.81XA Abrasion of other part of head, initial encounter; I25.10 Atherosclerotic heart disease of native coronary artery without angina pectoris; Z95.0 Presence of cardiac pacemaker; Z95.1 Presence of aortocoronary bypass graft; W19.XXXA Unspecified fall, initial encounter
CPT/HCPCS: 99284

== ENCOUNTER 2023-01-26 10:22 | Outpatient (RCR) | payer MEDICARE, BC, SELFPAY ==
[2023-01-18 23:04] VITALS: BMI 26.6
[2023-01-26 11:00] LABS: International Normalized Ratio 2.9; Prothrombin Time (Protime)PT. 30.8 SECONDS (11.7-14.9)
== END 2023-01-26 18:00 | disposition home or self-care (01) ==
LOC: LAB 10:22
PROVIDERS: Family Provider Internal Medicine; PCP Internal Medicine; Referring Provider Nurse Practitioner Family; Visit Provider Internal Medicine Cardiovascular Disease
DX: I48.20 Chronic atrial fibrillation, unspecified (principal); Z79.01 Long term (current) use of anticoagulants; I47.9 Paroxysmal tachycardia, unspecified
CPT/HCPCS: 36415; 85610

== ENCOUNTER 2023-02-08 01:55 | Inpatient (IN) | payer MEDICARE, BC, SELFPAY ==
[2023-02-08] VITALS (20 sets, daily range): BP systolic 99–128; BP diastolic 47–108; PULSE 60–74; RESP 15–30; TEMP 36.3–37; O2SAT 75–100; BMI 21.7
--- NOTE | 2023-02-08 02:06 | EKG12_ITS ---
Test Reason : DYSRHYTHMIA Blood Pressure : / mmHG Vent. Rate : 072 BPM Atrial Rate : 000 BPM P-R Int : 000 ms QRS Dur : 110 ms QT Int : 392 ms P-R-T Axes : 000 -44 -58 degrees QTc Int : 429 ms significant basline artifact, Possible Afib with PVC's Left axis deviation ST & T wave abnormality, consider anterolateral ischemia Abnormal ECG Confirmed by GIOVANI SCHNEIDER, EBONIE ([id number]), staff editor KADEN PARIS ([id number]) on 02/13/2023 11:17:09 AM Referred By: Confirmed By:JUAN JOSE MATUTE MD
--- NOTE | 2023-02-08 02:06 | RAD_ITS ---
INDICATION: cough EXAMINATION: Frontal view of the chest COMPARISON: Chest x-ray April 29, 2018. FINDINGS: Frontal view of the chest was obtained. A pacing device projects over the right hemithorax. The cardiac silhouette is mildly enlarged. Postsurgical changes after CABG. Airspace opacities in the lower lungs bilaterally as well as the right midlung. Scarring in the lung apices bilaterally as before. Calcified granuloma in the left upper lobe. Possible small right pleural effusion. No pneumothorax. Large hiatal hernia is again identified. RAD/Chest 1 View (Portable) IMPRESSION: Bilateral pulmonary opacities concerning for infection and/or aspiration. Hiatal hernia. Electronically Signed: Lucas Esparza MD at 2:31 EDT ,
--- NOTE | 2023-02-08 02:08 | EDS_ITS ---
HPI History of Present Illness Chief Complaint: Shortness of Breath Informant: patient and spouse/S.O. Narrative Narrative: Ends of trouble clearing his throat. This patient states that in the last 2 weeks he has noticed that he has had much more trouble swallowing foods. He has trouble drinking. His throat gets sore and it is physically hard to swallow. He has to constantly clear his throat. This bothers him a lot at night. He states if he lays down he has more material gathering the back of his throat and it is hard to cough up. He states is not from his lungs at all in his throat. He denies being short of breath even when his saturations are in the high 70% range. His saturations are about 78% and he is awake alert and actually a very good informant at this level. He is not confused or lethargic at all. We placed him on oxygen and when he is not talking he comes up to about 90%. He evidently has also dropped about 10 pounds in the last 2 weeks. This patient did have a fall and I saw him about 3 weeks ago. But he states then he was feeling overall good. He does have a history of throat cancer that was treated with radiation and chemotherapy about 15 years ago. Because of the radiation therapy he had a esophageal narrowing and this was stretched about 5 years ago. He feels like this is coming back now. But there has been a significant global climate change analyst the last 2 weeks. He is losing weight he is having trouble eating or drinking, he is having less urine output because he is not drinking as much, he just feels tired and worn out. [facility] Medical History Anemia Atherosclerotic heart disease of [place] coronary artery without angina pectoris Atrial arrhythmia Atrioventricular block Bilateral carotid artery disease Bruit of left carotid artery Cardiac pacemaker in situ Chronic atrial fibrillation Endocarditis Essential hypertension GERD (gastroesophageal reflux disease) History of throat cancer HLD (hyperlipidemia) HTN (hypertension) [place] [facility] current use of anticoagulant Neoplasm of oropharynx Nonsustained ventricular tachycardia Paroxysmal tachycardia Paroxysmal ventricular tachycardia Pure hypercholesterolemia Syncope and collapse Ventricular fibrillation Ventricular tachycardia Home Medications aspirin 81 mg tablet,delayed release 81 mg PO QDAY 04/26/17 [History Last Taken 12/25/17] cholecalciferol (vitamin D3) 50 mcg (2,000 unit) tablet 2,000 unit PO QDAY 04/26/17 [History Last Taken Unknown] ferrous sulfate 325 mg (65 mg iron) tablet,delayed release See Rx Instructions PO QDAY 04/30/17 [History Last Taken Unknown] pantoprazole 40 mg tablet,delayed release (Protonix) 40 mg PO Q OTHER DAY 07/04/21 [History Last Taken Unknown] warfarin 3 mg tablet 3 mg PO QDAY #90 tabs 03/09/22 [Rx Last Taken Unknown] doxazosin 2 mg tablet 2 mg PO QDAY #90 tabs 08/29/22 [Rx Last Taken Unknown] levothyroxine 125 mcg tablet 125 mcg PO DAILY 08/29/22 [History Last Taken Unknown] metoprolol succinate 25 mg tablet,extended release 24 hr 25 mg PO DAILY #90 tabs 08/29/22 [Rx Last Taken Unknown] nitroglycerin 400 mcg/spray translingual 0.4 mg translingual Q5M PRN chest pain #4.9 grams 08/29/22 [Rx Last Taken Unknown] azithromycin 250 mg tablet (Zithromax Z-Cesar) See Rx Instructions PO .COMPLEX #6 tabs 02/06/23 [Rx Last Taken Unknown] Allergy/AdvReac Type Severity Reaction Status Date / Time No Known Allergies Allergy Verified 02/08/23 02:09 Family History Father Hypertension Heart disease Cancer lung Son Hypertension Mother Cancer liver Son H/O cardiac radiofrequency ablation Hypertension Son Hypertension Surgical History History of cholecystectomy History of circumcision History of squamous cell carcinoma excision History of tonsillectomy (~1942) Hx of CABG (~2006) S/P placement of cardiac pacemaker S/P PTCA (percutaneous transluminal coronary angioplasty) (~03/24/97) Social History Smoking Status: Never smoker how long ago did patient quit smokin years ago alcohol intake: current alcohol intake frequency: a few times a week Alcohol type: beer substance use type: does not use caffeine: Yes Type: coffee Number of servings: 3 eating out: 1-3 times/week what type of physical activity do you participate in: none seatbelt use: always do you feel safe at home: Yes ROS ROS ED ROS Narrative A complete review of systems was performed and is negative except as documented in the history of present illness. Some specific details below. Constitutional: No recent fevers or chills. He does have some overall malaise but he thinks it is from not eating and drinking. He does not feel as though he is ill or has a flu type illness. He has lost about 30 pounds in the last 2 years but about 10 pounds in the last 2 weeks. EYE: Visual changes ENT: History of present illness. He has trouble getting up phlegm. He has occasional discomfort with swallowing but mostly it is difficult to swallow. CV: [place] chest pain. He has had bypass surgery and has a pacer. Respiratory: His states that he coughs and clears his throat. But patient swears this is not from his lungs at all from the throat. But he is also hypoxic here. Of note he is on Coumadin and his last check when I saw him was 2.9 3 weeks ago GI: No abdominal pain. No nausea vomiting diarrhea. No blood in stool. : No frequency dysuria or hematuria. Musculoskeletal: No recent trauma. No pains. No swelling. Skin: No rash. Nondiaphoretic. Neuro: No weakness or numbness. Endocrine: No polyuria or polydipsia. EXAM Physical Exam Narrative Exam Narrative: CONSTITUTIONAL: Patient is nontoxic in appearance. The patient looks comfortable. He is appropriate and not lethargic. HEENT: Dentition, dry mouth. He also has some mild erythema and some thicker mucus in the posterior pharynx. I do not see a definitive mass or asymmetry though. He is able to handle his secretions. He has a very raspy voice that is relatively new. He has always had some of this but it is worsened and changed significantly over the last couple weeks. EYES: No conjunctival injection. NECK: Does have a lot of upper airway sounds. I do not think it is truly strid orous though. CARDIOVASCULAR: Regular rate. Sleep paced rhythm. No notable murmur. No JVD. Is a pacer in the right upper chest RESPIRATORY: Patient does time his breathing a bit. On 4 L of oxygen he will go down to 82-84% just talking while sitting still in the bed. When he stops talking his saturations go up to about 90% has coarse breath sounds throughout but some of this sounds like it may be upper airway transmitted sounds. I occasionally get a hint of a wheeze. We will try a breathing treatment to see if this does give him some benefit. Slight contusion over the left breast area. GASTROINTESTINAL: Not distended. Bowel sounds are normal. No tenderness. No guarding. No rebound. No palpable mass. No bruit is heard. GENITOURINARY: No tenderness over the bladder. No CVA tenderness. MUSCULOSKELETAL: Atraumatic. No peripheral edema. No cord. No tenderness. NEUROLOGICAL: Patient is alert and appropriate. No focal deficit noted. He is actually a good informant for dates times and the physicians that he has seen. Despite borderline and low oxygen levels he has no decrease in mental capabilities at all. SKIN: No noted rashes. No diaphoresis. He has contusions and some abrasions. He is healing from the skin tear. PSYCHIATRIC: Patient is calm. Mood is appropriate. Const Vital Signs: 02/08/23 01:57 02/08/23 02:06 02/08/23 02:21 Temperature 98.6 F Temperature Source Temporal Pulse Rate 67 70 Respiratory Rate 15 26 H Respiratory Pattern Tachypnea Blood Pressure 128/106 H Blood Pressure Mean 113 Pulse Ox 75 90 Oxygen Delivery Method Room Air Nasal Cannula Oxygen Flow Rate (L/min) 4 MDM MDM MDM Narrative Medical decision making narrative: Patient CBC shows a mild baseline anemia but white count platelets are normal. Patient's INR is high at 6.9 but there is no acute bleeding. Patient's electrolytes show a slight bump of his creatinine likely from not eating and drinking much. Patient's lactic acid was high at 2.2 likely due to to his recent hypoxia. Patient's liver function tests are not showing marked abnormalities. There is slight elevation of his total bilirubin. Patient's BNP is up at 433 but I do not think this shows significant congestive heart failure as the cause of his symptoms. My independent her potation of his x-ray shows pneumonia most prominently on the right. Final reading does mention bilateral opacities concerning for infection or asked for an the also known of hiatal hernia. With his weight loss, decreased p.o. intake, infiltrate cough and hypoxia I am treating him as a pneumonia. He would be community-acquired. But he needs admission due to his weakness elevated creatinine and hypoxia. I have added CT of his neck and chest. I do not think this is a pulmonary embolus as I know his INR has been therapeutic for a while and he is actually over anticoagulated right now. But there may be concern for return of his throat cancer with some of his symptoms. This study is pending. But even if normal, he will require admission. I did discuss the case with the hospitalist. Lab Data Attestation: I reviewed the patient's lab results. Labs: Laboratory Results - last 24 hr 02/08/23 02:15 WBC 7.3 RBC 3.74 L Hgb 10.6 L Hct 34.2 L MCV 91.4 MCH 28.3 MCHC 31.0 L RDW Std Deviation 48.9 H RDW Coeff of [place] 14.6 Plt Count 229 MPV 9.7 Immature Gran % (Auto) 0.300 Neut % (Auto) 90.1 H Lymph % (Auto) 5.2 L Mora % (Auto) 4.3 Eos % (Auto) 0.0 Baso % (Auto) 0.1 Absolute Neuts (auto) 6.6 Absolute Lymphs (auto) 0.38 L Nucleated RBC % 0 PT 61.3 H INR 6.9 H* Sodium 135 L Potassium 4.1 Chloride 99 Carbon Dioxide 31.0 Anion Gap 5 BUN 35 H Creatinine 1.33 H Est GFR (MDRD) Af Amer 65 Est GFR (MDRD) Non-Af 54 L BUN/Creatinine Ratio 26.3 H Glucose 105 Lactic Acid 2.2 H* Calcium 9.0 Total Bilirubin 1.20 H AST 28 ALT 25 Alkaline Phosphatase 90 B-Natriuretic Peptide 433.6 H Total Protein 7.7 Albumin 2.7 L Globulin 5.0 H Albumin/Globulin Ratio 0.5 L Radiography Diagnostic Testing: Clinical Impression(s) from Imaging Studies Chest X-Ray 02/08/23 02:06 IMPRESSION: Bilateral pulmonary opacities concerning for infection and/or aspiration. Hiatal hernia. Electronically Signed: Lucas Esparza MD at 2:31 EDT , Management Discussion w/another healthcare provider: Hospitalist Discharge Plan Triage Chief Complaint: Shortness of Breath ED Provider: Rohan May Dx/Rx/DC Orders Clinical Impression: Creatinine elevation, Community acquired pneumonia, History of throat cancer, Hypoxia, Warfarin-induced coagulopathy Prescriptions: No Action doxazosin 2 mg tablet 2 mg PO QDAY Qty: 90 3RF metoprolol succinate 25 mg tablet extended release 24 hr 25 mg PO DAILY Qty: 90 4RF nitroglycerin 400 mcg/spray spray,non-aerosol 0.4 mg Translingual Q5M PRN (Reason: chest pain) Qty: 4.9 3RF aspirin 81 mg tablet,delayed release (DR/EC) 81 mg PO QDAY cholecalciferol (vitamin D3) 2,000 unit tablet 2,000 unit tablet 2,000 unit PO QDAY ferrous sulfate 325 mg (65 mg iron) tablet,delayed release (DR/EC) See Patient Comments PO QDAY Dose Instruction: 1/2 tablet daily PO QDAY Patient Comments: 1/2 tablet daily PO QDAY Rx Instructions: 1/2 tablet daily PO QDAY pantoprazole [Protonix] 40 mg tablet,delayed release (DR/EC) 40 mg PO Q OTHER DAY warfarin 3 mg tablet 3 mg PO QDAY Qty: 90 3RF Protocol: Dose Management Condition: Sunday Dose/Route: 1.5 mg Instruction: 0.5 x 3 mg tablets Condition: Sunday Dose/Route: 1.5 mg Instruction: 0.5 x 3 mg tablets Condition: Sunday Dose/Route: 1.5 mg Instruction: 0.5 x 3 mg tablets Condition: Sunday Dose/Route: 3 mg Instruction: 1 x 3 mg tablet Condition: Dose/Route: 1.5 mg Instruction: 0.5 x 3 mg tablets Condition: Sunday Dose/Route: 1.5 mg Instruction: 0.5 x 3 mg tablets Condition: Sunday Dose/Route: 1.5 mg Instruction: 0.5 x 3 mg tablets Protocol Text: Adjustment Start Date: Sunday01/26/23 INR Value: 2.9 INR Date: 01/26/23 Recheck Date: 02/23/23 Patient Comments: 3 mg po on SUNDAY ONLY 1.5 MG -SUNDAY levothyroxine 125 mcg tablet 125 mcg PO DAILY Rx Instructions: 1/2 tab on azithromycin [Zithromax Z-Cesar] 250 mg tablet See Rx Instructions PO .COMPLEX Qty: 6 0RF Rx Instructions: For 250 mg dose pack: take 500 mg today (day 1), then 250 mg for 4 days (days 2-5) PO Primary Care Provider: Olive Ruvalcaba Referrals: Olive Ruvalcaba DO [Primary Care Provider] - Disposition Disposition: Acute Care Hospital [facility]
[2023-02-08] MEDS: Ipratropium/Albuterol Sulfate 3 ML AMPUL.NEB INHALATION (02:21)
[2023-02-08 02:36] LABS: Absolute Lymphocyte Count 0.38 X10^3/uL (0.83-4.51); Absolute Neutrophil Count 6.6 X10^3/uL (2.0-7.7); Basophil# 0.01 X10^3/uL; Basophil% 0.1 % (0-1); Hematocrit 34.2 % (40-54); Hemoglobin 10.6 g/dL (13.0-16.5); Lymphocyte # 0.38 X10^3/ul (0.83-4.51); Lymphocyte % 5.2 % (19-41); Mean Corpuscular Hgb 28.3 pg (27.0-32.0); Mean Corpuscular Volume 91.4 fL (80-94); Mean Platelet Vol. 9.7 fl (6.2-12.0); Monocyte# 0.31 X10^3/uL; Monocyte% 4.3 % (0-10); NRBC Flagged by Analyzer 0 % (0-5); Neutrophil # 6.55 X10^3/uL (2.7-7.7); Neutrophil % 90.1 % (47-70); POSITIVE DIFFERENTIAL YES; POSITIVE MORPHOLOGY YES; Platelet Count 229 K/mm3 (150-450); RBC Distribution Width CV 14.6 % (11.6-14.6); RBC Distribution Width SD 48.9 fl (35.1-43.9); Red Blood Count 3.74 M/mm3 (4.6-6.2); White Blood Count 7.3 K/mm3 (4.4-11.0)
[2023-02-08 02:37] LABS: Differential Indicated SCAN CRITERIA MET
[2023-02-08 02:48] LABS: International Normalized Ratio 6.9; Prothrombin Time (Protime)PT. 61.3 SECONDS (11.7-14.9)
[2023-02-08 02:53] LABS: ALB/GLOB Ratio 0.5 RATIO (0.9-2.4); AST(SGOT) 28 U/L (15-37); Alanine Aminotransfer ALT/SGPT 25 U/L (16-61); Albumin, Serum 2.7 g/dL (3.2-5.0); Alkaline Phosphatase 90 U/L (45-117); Anion Gap 5 (5-15); BUN 35 mg/dL (7-18); BUN/Creat Ratio 26.3 RATIO (10-20); Chloride 99 mmol/L (98-107); Creatinine, Serum 1.33 mg/dL (0.70-1.30); EST Glomerular Filtration Rate 54 mL/min (>60); Est Glom Filt Rate - Afr Amer 65 mL/min (>60); Glucose 105 mg/dL (74-106); Potassium 4.1 mmol/L (3.5-5.1); Protein, Total 7.7 g/dL (6.4-8.2); Sodium Level 135 mmol/L (136-145)
[2023-02-08 02:55] LABS: BNP,B-Type NATRIURETIC PEPTIDE 433.6 pg/mL (0-100)
--- NOTE | 2023-02-08 03:04 | CT_ITS ---
EXAM: CT chest with IV contrast. HISTORY: Throat cancer, hypoxia, question infiltrate TECHNIQUE: Intravenous contrast was administered. A radiation dose optimization technique was used for this scan. COMPARISON: None. LIMITATIONS: Motion artifact. LUNGS: Confluent airspace disease in the lower lobes bilaterally. Airspace disease to a lesser degree in the right middle lobe. Patchy ill-defined nodular opacities in the right upper lobe and superior segments of the bilateral lower lobes. Scarring in the lung apices bilaterally. Mild to moderate chronic interstitial lung disease with bronchiectasis or honeycombing in the apices bilaterally. Calcified granuloma in the left upper lobe. HEART: Enlarged, especially the atria, right greater than left. Distention of the IVC with reflux of contrast into the hepatic veins and IVC. Postsurgical changes after CABG. PLEURA: Trace right pleural effusion. MEDIASTINUM: Mediastinal lymph nodes measure up to 1.5 cm in short axis. RICKY: Right hilar lymph nodes are mildly enlarged. AORTA: Thoracic aorta is normal caliber. ESOPHAGUS: Moderate hiatal hernia. Moderate gaseous distention of the proximal esophagus. UPPER ABDOMEN: Cholecystectomy. Fatty infiltration of the liver. BONES/SOFT TISSUES: Query postradiation changes in the clavicles and manubrium. No acute fracture. OTHER: None. CONCLUSION: Motion artifact. Airspace disease bilaterally, predominantly in the lower lobes, suggestive of infection and/or aspiration. Chronic interstitial lung disease. Mediastinal and right hilar lymphadenopathy. Moderate hiatal hernia. Cardiomegaly. Electronically Signed: Lucas Esparza MD at 4:48 EDT , CT/Chest WITH Contrast IMPRESSION: undefined
--- NOTE | 2023-02-08 03:04 | CT_ITS ---
INDICATION: History of cancer. Trouble swallowing EXAMINATION: CT NECK WITH CONTRAST - CT Soft Tissue Neck W/ Contrast Injection TECHNIQUE: Helically acquired images were obtained of the neck following IV contrast. A radiation dose optimization technique was used for this scan. COMPARISON: CT neck November 25, 2018. FINDINGS: There is submucosal edema with adjacent soft tissue thickening on the left side at the hypopharynx, new since the prior exam. Irregularity of the thyroid cartilage on the left is new since the prior exam. The 2.5 x 2.5 cm cystic lesion in the region of the left parotid gland is grossly stable in size and appearance. No pathologically enlarged lymph nodes. Punctate calcifications in the region of the parotid glands bilaterally, similar to the prior exam. Atherosclerotic calcification at the carotid bulbs bilaterally. Mucosal thickening of the left maxillary sinus. Lymphadenopathy and other findings within the chest are described in the chest CT report from the same day. CT/Soft Tissue Neck WITH Contrast IMPRESSION: 1. Submucosal edema and adjacent soft tissue thickening of the hypopharynx on the left side with irregularity of the thyroid cartilage on the left. These findings are new since the prior exam and could be secondary to malignancy, infection or could be treatment related. 2. Cystic lesion in the region of the left parotid gland is stable in size and appearance. Electronically Signed: Lucas Esparza MD at 5:39 EDT ,
[2023-02-08 03:08] LABS: Lactic Acid 2.2 mmol/L (0.4-1.9)
[2023-02-08] MEDS: Ceftriaxone 1 GM/50 ML BAG IV ×2 (03:16→22:22)
--- NOTE | 2023-02-08 03:23 | PCM.HP.STD ---
HPI - General General Date of Admission: 02/08/23 Date of Service: 02/08/23 Chief Complaint: Hypoxia, dysphagia HPI Narrative IVANIA GOMEZ, is a 87 M with history of chronic A-fib on warfarin, history of throat cancer s/p radiation and chemotherapy, esophageal narrowing post radiation s/p esophageal dilation, CABG x4 in 1980 and redo CABG x4 in 2006, heart block s/p pacemaker and hypertension who presented to [facility] ED on 10/08/2022 with shortness of breath and difficulty swallowing. Patient seen at bedside, no family present. Patient was curled up in bed under multiple blankets and appears quite fatigued. He appears chronically ill and somewhat cachectic. Had moderate conversational dyspnea on my interview. States that he has had worsening dysphagia and shortness of breath over the past several weeks. He has not been able to eat and drink very little over the past 2 weeks in particular. He has never required oxygen at home. He has never had significant conversational dyspnea like this. Patient lives with his at home and until a few weeks ago was doing everything for himself at home per his report. Patient currently denies any fevers or chills. Denies any cough sputum production. Denies any dyspnea on exertion recently. Denies any lower extremity edema. No other acute concerns. Vitals in ED notable for O2 saturations in the low 90s on 4 L nasal cannula, vitals otherwise normal. Labs notable for INR 6.9, lactate 2.2, otherwise unremarkable. Chest x-ray showed bilateral pulmonary opacities concerning for infection and/or aspiration, as well as a hiatal hernia. CT soft tissue neck with IV contrast showed submucosal edema and adjacent soft tissue thickening of hypopharynx on the left side with irregularity of left thyroid cartilage, concerning for possible malignancy versus infection versus secondary to previous radiation treatment. CT chest showed mediastinal and right hilar lymphadenopathy, bilateral airspace disease, cardiomegaly and chronic interstitial lung disease. 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 Neoplasm of oropharynx Nonsustained ventricular tachycardia Paroxysmal tachycardia Paroxysmal ventricular tachycardia Pure hypercholesterolemia Syncope and collapse Ventricular fibrillation Ventricular tachycardia Home Medications aspirin 81 mg tablet,delayed release 81 mg PO QDAY 04/26/17 [History Last Taken 12/25/17] cholecalciferol (vitamin D3) 50 mcg (2,000 unit) tablet 2,000 unit PO QDAY 04/26/17 [History Last Taken Unknown] ferrous sulfate 325 mg (65 mg iron) tablet,delayed release See Rx Instructions PO QDAY 04/30/17 [History Last Taken Unknown] pantoprazole 40 mg tablet,delayed release (Protonix) 40 mg PO Q OTHER DAY 07/04/21 [History Last Taken Unknown] warfarin 3 mg tablet 3 mg PO QDAY #90 tabs 03/09/22 [Rx Last Taken Unknown] doxazosin 2 mg tablet 2 mg PO QDAY #90 tabs 08/29/22 [Rx Last Taken Unknown] levothyroxine 125 mcg tablet 125 mcg PO DAILY 08/29/22 [History Last Taken Unknown] metoprolol succinate 25 mg tablet,extended release 24 hr 25 mg PO DAILY #90 tabs 08/29/22 [Rx Last Taken Unknown] nitroglycerin 400 mcg/spray translingual 0.4 mg translingual Q5M PRN chest pain #4.9 grams 08/29/22 [Rx Last Taken Unknown] azithromycin 250 mg tablet (Zithromax Z-Cesar) See Rx Instructions PO .COMPLEX #6 tabs 02/06/23 [Rx Last Taken Unknown] Allergy/AdvReac Type Severity Reaction Status Date / Time No Known Allergies Allergy Verified 02/08/23 02:09 Family History Father Hypertension Heart disease Cancer lung Son Hypertension Mother Cancer liver Son H/O cardiac radiofrequency ablation Hypertension Son Hypertension Surgical History History of cholecystectomy History of circumcision History of squamous cell carcinoma excision History of tonsillectomy (~1942) Hx of CABG (~2006) S/P placement of cardiac pacemaker S/P PTCA (percutaneous transluminal coronary angioplasty) (~03/24/97) Social History Smoking Status: Former smoker how long ago did patient quit smokin years ago alcohol intake: current alcohol intake frequency: a few times a week Alcohol type: beer substance use type: does not use caffeine: Yes Type: coffee Number of servings: 3 eating out: 1-3 times/week what type of physical activity do you participate in: none seatbelt use: always do you feel safe at home: Yes ROS Constitutional Constitutional: Reports change in weight, fatigue and weakness; Denies chills, fever(s) or malaise Eyes Eyes: Denies change in vision ENT HEENT: Reports dysphagia Cardiovascular Cardiovascular: Denies chest pain, edema or palpitations Respiratory/Chest Respiratory/Chest: Reports dyspnea and shortness of breath at rest; Denies cough, hemoptysis, productive cough or wheezing Gastrointestinal Gastrointestinal: Denies abdominal pain, constipation, diarrhea, nausea or vomiting Vital Signs Vital Signs Vital Signs: 02/08/23 01:57 02/08/23 02:06 02/08/23 02:21 Temperature 98.6 F Temperature Source Temporal Pulse Rate 67 70 Respiratory Rate 15 26 H Respiratory Pattern Tachypnea Blood Pressure 128/106 H Blood Pressure Mean 113 Pulse Ox 75 90 Oxygen Delivery Method Room Air Nasal Cannula Oxygen Flow Rate (L/min) 4 Physical Exam Const alert Constitutional Narrative: Elderly male, appears somewhat cachectic, chronically ill, moderate conversational dyspnea, laying comfortably in bed under several blankets, no acute distress. General Appearance: cooperative and comfortable HEENT normocephalic, head/scalp atraumatic, hearing grossly normal bilaterally, nasal mucous membranes and turbinates normal and moist oral mucous membranes Eyes PERRL, EOMs intact bilaterally and conjunctivae normal Neck full ROM, no lymphadenopathy and supple Lymph Lymphatic: no lymphadenopathy noted Chest inspection of chest normal Resp Resp Narrative: Bilateral crackles noted throughout. Breathing comfortably on 4 L nasal cannula, no increased work of breathing noted. Cardio regular rate, regular rhythm, no murmurs and peripheral pulses 2+ throughout GI normal to inspection, nondistended, normoactive bowel sounds, soft to palpation, non-tender and non-distended Back/Spine normal ROM Extremity normal to inspection, full ROM and no pedal edema Skin no rashes or lesions noted Psych mental status grossly normal Results Lab / Micro Data 02/08/23 02:15 02/08/23 02:15 Labs: Laboratory Results - last 24 hr 02/08/23 02:15: WBC 7.3, RBC 3.74 L, Hgb 10.6 L, Hct 34.2 L, MCV 91.4, MCH 28.3, MCHC 31.0 L, RDW Std Deviation 48.9 H, RDW Coeff of Minerva 14.6, Plt Count 229, MPV 9.7, Immature Gran % (Auto) 0.300, Neut % (Auto) 90.1 H, Lymph % (Auto) 5.2 L, Dukes % (Auto) 4.3, Eos % (Auto) 0.0, Baso % (Auto) 0.1, Absolute Neuts (auto) 6.6, Absolute Lymphs (auto) 0.38 L, Nucleated RBC % 0, PT 61.3 H, INR 6.9 H*, Sodium 135 L, Potassium 4.1, Chloride 99, Carbon Dioxide 31.0, Anion Gap 5, BUN 35 H, Creatinine 1.33 H, Est GFR (MDRD) Af Amer 65, Est GFR (MDRD) Non-Af 54 L, BUN/Creatinine Ratio 26.3 H, Glucose 105, Lactic Acid 2.2 H*, Calcium 9.0, Total Bilirubin 1.20 H, AST 28, ALT 25, Alkaline Phosphatase 90, B-Natriuretic Peptide 433.6 H, Total Protein 7.7, Albumin 2.7 L, Globulin 5.0 H, Albumin/Globulin Ratio 0.5 L Radiology Impression Chest X-Ray 02/08/23 02:06 IMPRESSION: Bilateral pulmonary opacities concerning for infection and/or aspiration. Hiatal hernia. Electronically Signed: Lucas Esparza MD at 2:31 EDT , Assessment & Plan Assessment/Plan (1) Hypoxia: PLAN: Plan Patient is an 87-year-old male with history of chronic A-fib on warfarin, history of throat cancer s/p radiation and chemotherapy, esophageal narrowing post radiation s/p esophageal dilation, CABG x4 in 1980 and redo CABG x4 in 2006, heart block s/p pacemaker and hypertension who presented to [facility] ED on 10/08/2022 with shortness of breath and difficulty swallowing. 1. Acute hypoxic respiratory failure with dyspnea Suspected secondary to aspiration pneumonia versus pulmonary edema from volume overload. Patient does not require oxygen at home. Was found to have oxygen saturations in the high 70s in the ED with good pleth, improved to low 90s on 4 L nasal cannula. Chest x-ray showed bilateral pulmonary opacities concerning for infection and/or aspiration, as well as a hiatal hernia. Notably with normal vitals, afebrile, normal WBC count. Patient was notably dyspneic with conversation, which he states is not his baseline. Had 1-2+ edema in lower extremities. ? Treating for aspiration pneumonia as noted below. Gave 1 dose of IV Lasix 40 mg in the ED, will monitor response. Echo ordered given patient's extensive cardiac history as noted below, as well as previous history of radiation to the neck and chest area. Continue supplemental oxygen, wean as able. 2. Suspected aspiration pneumonia Patient high risk for aspiration pneumonia given his reported severe dysphagia as noted below. Chest x-ray with findings concerning for aspiration as noted above. ?Started on ceftriaxone. Blood cultures, sputum culture, urine antigens, respiratory panel ordered. Narrow antibiotics as able. 3. Dysphagia Patient noted worsening dysphagia with liquids and solids over the past several weeks. 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 Had significant dysphagia requiring esophageal dilation about 5 years ago. Newly worsening dysphagia may be secondary to progression of chronic esophageal scarring, cannot rule out new malignancy. CT soft tissue neck with IV contrast showed submucosal edema and adjacent soft tissue thickening of hypopharynx on the left side with irregularity of left thyroid cartilage, concerning for possible malignancy versus infection versus secondary to previous radiation treatment. CT chest showed mediastinal and right hilar lymphadenopathy, bilateral airspace disease, cardiomegaly and chronic interstitial lung disease. ? GI consulted for further recommendations. Diet n.p.o. Speech therapy consulted. 4. Chronic A-fib on warfarin, supratherapeutic INR ? INR 6.9 on admit. No signs of active bleeding. Hemoglobin 10.6, at baseline. Hold home warfarin on 02/08. Monitor daily INR, restart warfarin as able. Continue home metoprolol. 5. Failure to thrive ? Patient reported an approximately 10 pound weight loss over the past several weeks prior to admission. Had been eating and drinking very little due to his dysphagia. Albumin 2.7. PT/OT/case management consulted for further recommendations. Chronic medical conditions: ? CAD s/p CABG: Continue home aspirin, metoprolol. Unclear on why patient is not on home statin. ? Hypothyroidism: Continue home Synthroid. DVT prophylaxis: SCDs CODE STATUS: Full code, unverified. Attempted to discuss with patient at bedside in the ED, but patient had fairly significant conversational dyspnea and was unable to clearly state his wishes. Would recommend discussing further with patient and his over the next few days. Expected disposition: TBD Total clinical time spent by myself addressing the patient's medical issues, reviewing all the data, and collaborating with patient's care team: 55 minutes. Charges/Coding Visit Charges Inpatient E&M: 68427 Init Hosp L2
--- NOTE | 2023-02-08 03:53 | ECHOD_ITS ---
Reason For Study: s/p CABG Procedure This was a 2D Doppler, Color Flow transthoracic echocardiogram. Exam performed portable in ED. Left Ventricle Normal LV size. The estimated ejection fraction is 50-55 %. Unable to assess diastolic dysfunction. Septal Hypokinesis. Right Ventricle Normal RV size. ICD or pacer leads identified within the right ventricle. Normal systolic function. Atria The left atrium is moderately enlarged. The right atrium is moderately enlarged. ICD or pacer leads identified within the right atrium. No doppler evidence for ASD. Mitral Valve There is no mitral valve stenosis. Trivial mitral valve insufficiency. Tricuspid Valve There is no tricuspid stenosis. Severe (4+) tricuspid valve insufficiency. Pulmonary artery systolic pressure is 45-50 mmHg. Aortic Valve Aortic sclerosis, no stenosis. Trisinus/trileaflet aortic valve. No aortic valve insufficiency. Pulmonic Valve There is no pulmonic valvular stenosis. Mild (1+) pulmonic valve insufficiency. Great Vessels Normal aortic root. Pericardium/Pleural No pericardial effusion. MMode/2D Measurements & Calculations LVIDd: 4.7 cm IVSd: 1.1 cm LVOT diam: 2.2 cm LVIDs: 3.7 cm LVPWd: 1.4 cm LVOT area: 3.7 cm2 RVDd: 4.5 cm FS: 21.9 % Ao root diam: 3.0 cm LAV(MOD-bp): 79.1 ml LA A4 area: 23.8 cm2 LA dimension: 4.6 cm LAV(MOD-sp2): 80.0 ml LAV(MOD-sp4): 69.8 ml RA A4 area: 23.4 cm2 Doppler Measurements & Calculations MV E max louie: 112.8 cm/sec Lat Peak E' Louie: 7.0 cm/sec Med Peak E' Louie: 5.2 cm/sec E/E' lat: 16.1 E/E' med: 21.7 MV V2 max: 118.8 cm/sec Ao V2 max: 190.2 cm/sec LV V1 max: 107.8 cm/sec MV max P.7 mmHg Ao max P.5 mmHg LV V1 max P.7 mmHg MV V2 mean: 53.3 cm/sec Ao V2 mean: 123.7 cm/sec LV V1 mean P.0 mmHg MV mean P.6 mmHg Ao mean P.2 mmHg LV V1 mean: 63.2 cm/sec MV V2 VTI: 33.1 cm Ao V2 VTI: 36.2 cm LV V1 VTI: 21.2 cm AV (velocity ratio): 0.59 MVA(VTI): 2.3 cm2 ESTEPHANIA(I,D): 2.2 cm2 ESTEPHANIA(V,D): 2.1 cm2 SV(LVOT): 77.8 ml PA V2 max: 116.6 cm/sec PI dec slope: 164.0 cm/sec2 PA V2 mean: 75.8 cm/sec TR max louie: 326.2 cm/sec TR max P.6 mmHg ECHO/Echo Complete Interpretation Summary The estimated ejection fraction is 50-55 %. Unable to assess diastolic dysfunction. Septal Hypokinesis Trivial mitral valve insufficiency. The left atrium is moderately enlarged. The right atrium is moderately enlarged. Ordering Physician: Tj Newton Performed By: Mitch Garcia RCS
[2023-02-08] MEDS: Furosemide 40 MG/4 ML Vial IV (04:21)
[2023-02-08 06:33] LABS: Reflex Lactate? Y
[2023-02-08 07:49] LABS: Lactic Acid 1.1 mmol/L (0.4-1.9)
[2023-02-08 09:22] LABS: Prothrombin Time (Protime)PT. 68.1 SECONDS (11.7-14.9)
[2023-02-08 09:28] LABS: International Normalized Ratio 7.9
[2023-02-08] MEDS: Levothyroxine 125 MCG Tablet 62.5 MCG PO (10:24)
[2023-02-08] MEDS: Aspirin E.C. 81 MG Tablet PO (10:24)
[2023-02-08] MEDS: Pantoprazole Sodium 40 MG Tablet PO (10:25)
--- NOTE | 2023-02-08 13:43 | PN_ITS ---
Subjective Subjective Patient seen and examined. He was admitted with a complaint of difficulty swallowing.He also had some shortness of breath. He said his breathing had improved. Review of systems is otherwise negative. He had no other complaints and review of systems was otherwise negative. Objective Data Objective Data Vital Signs: Vital Signs Temp Pulse Resp BP Pulse Ox O2 Del Method O2 Flow Rate 97.9 F 74 16 102/51 L 88 Nasal Cannula 3 02/08/23 12:00 02/08/23 12:00 02/08/23 12:00 02/08/23 12:00 02/08/23 13:13 02/08/23 13:13 02/08/23 13:13 Oxygen Flow Rate (L/min) 3 Oxygen Delivery Method Nasal Cannula Weight: 143 lb 1.28 oz Body Mass Index (BMI) 21.7 Intake & Output: Intake and Output for Last 24 Hours 02/06/23 02/07/23 02/08/23 23:59 23:59 23:59 Intake Total 50 / 50 Output Total 525 / 525 Balance -475 / -475 Lab / Micro Data 02/08/23 02:15 02/08/23 02:15 Labs: Laboratory Results - last 24 hr 02/08/23 02:15: WBC 7.3, RBC 3.74 L, Hgb 10.6 L, Hct 34.2 L, MCV 91.4, MCH 28.3, MCHC 31.0 L, RDW Std Deviation 48.9 H, RDW Coeff of Minerva 14.6, Plt Count 229, MPV 9.7, Immature Gran % (Auto) 0.300, Neut % (Auto) 90.1 H, Lymph % (Auto) 5.2 L, [place] % (Auto) 4.3, Eos % (Auto) 0.0, Baso % (Auto) 0.1, Absolute Neuts (auto) 6.6, Absolute Lymphs (auto) 0.38 L, Nucleated RBC % 0, PT 61.3 H, INR 6.9 H*, Sodium 135 L, Potassium 4.1, Chloride 99, Carbon Dioxide 31.0, Anion Gap 5, BUN 35 H, Creatinine 1.33 H, Est GFR (MDRD) Af Amer 65, Est GFR (MDRD) Non-Af 54 L, BUN/Creatinine Ratio 26.3 H, Glucose 105, Lactic Acid 2.2 H*, Calcium 9.0, Total Bilirubin 1.20 H, AST 28, ALT 25, Alkaline Phosphatase 90, B-Natriuretic Peptide 433.6 H, Total Protein 7.7, Albumin 2.7 L, Globulin 5.0 H, Albumin/Globulin Ratio 0.5 L 02/08/23 07:10: Lactic Acid 1.1 02/08/23 09:05: PT 68.1 H, INR 7.9 H* Micro: Microbiology 02/08/23 05:30 Mucosa - Nasopharyngeal Respiratory Panel (PCR) - Final Rhinovirus 02/08/23 05:05 Urine, Clean Catch Legionella Antigen - Final 02/08/23 05:05 Urine, Clean Catch Streptococcus pneumoniae Antigen (M - Final Radiography Diagnostic Testing: Radiology Impression Chest X-Ray 02/08/23 02:06 IMPRESSION: Bilateral pulmonary opacities concerning for infection and/or aspiration. Hiatal hernia. Electronically Signed: Lucas Esparza MD at 2:31 EDT , Chest CT 02/08/23 03:04 IMPRESSION: undefined Soft Tissue Neck CT 02/08/23 03:04 IMPRESSION: 1. Submucosal edema and adjacent soft tissue thickening of the hypopharynx on the left side with irregularity of the thyroid cartilage on the left. These findings are new since the prior exam and could be secondary to malignancy, infection or could be treatment related. 2. Cystic lesion in the region of the left parotid gland is stable in size and appearance. Electronically Signed: Lucas Esparza MD at 5:39 EDT , Physical Exam Const alert, oriented x3 and no apparent distress Constitutional Narrative: frail General Appearance: cooperative HEENT normocephalic, head/scalp atraumatic and moist oral mucous membranes Eyes PERRL and EOMs intact bilaterally Neck no lymphadenopathy, supple and no JVD Lymph Lymphatic: no lymphadenopathy noted and no lymphedema noted Resp normal respiratory effort, normal air movement and clear to auscultation bilaterally Cardio regular rate, regular rhythm, S1 normal heart sound, S2 normal heart sound and no murmurs GI normal to inspection, nondistended, normoactive bowel sounds, soft to palpation, non-tender and non-distended Extremity normal capillary refill, no clubbing, cyanosis or edema and no calf tenderness Skin General Skin Exam: no breakdown and turgor normal Neuro CN's II-XII intact bilaterally, no focal motor deficits and no sensory deficits noted Motor Exam: strength 5/5 throughout and general weakness Psych thought process normal and cooperative Appearance: appropriate Assessment & Plan Assessment/Plan (1) Hypoxia: (2) History of throat cancer: PLAN: Plan #Hypoxia due to probable aspiration pneumonia * saturation was in the 70s on admission. * CXR showed bilateral pulmonary opacities concerning for infection and/or aspiration. * 2D echo also ordered * on IV lasix. * #Dysphagia * has been having dysphagia which is worsening, especially to solids an dliquids over the past several weeks. * Had a histoyr of head and neck cancer and had radiation. Has had significant dyspagia requiring esophageal dilatation * CT of the soft tissue neck with IV contrast showed submucosal edema and adjacent soft tissue thickening of the hypopharynx on the left side with irregularity of the left thyroid cartilage, concerning for maignancy vs infection. * CT chest showed mediastinal and right hilar lymphadenopathy, bilateral airspace disease as well as cardiomegaly and chronic interstitial lung disease * GI on board. * urrently NPO * speech therapy on board * #Chronic afib * on coumadin> INR was supratherapeuic at 6.9 on admission. * INR today is up to 7.9. Give PO vitamin K 2.5mg x * on metoprolol * #Failure to thrive * has had ~ 10 pound weight loss over the pat several weeks, and hasnt been eating and drinking well * albumin is 2.7 * Nutrition consulted. * #CAD s/p CABG; on aspirin and metoprolol. Not on statin. unclear why #hypothyroidism; on synthroid DVT prophylaxis; not indicated as INR is supratherapeutic Charges/Coding Visit Charges Inpatient E&M: 29112 Subs Hosp L3
--- NOTE | 2023-02-08 14:10 | NURSING ---
pt on PCU step down monitor [id number]
--- NOTE | 2023-02-08 14:11 | EX.PCM.CON.G ---
HPI Consult Data Date of Consult: 02/08/23 HPI Narrative Reason for Consultation: Esophageal dysphagia HPI Narrative: IVANIA GOMEZ, is a 87 M who presents from home with trouble swallowing. He states that in the last 2 weeks he has noticed that he has had much more trouble swallowing foods. He has trouble drinking. His throat gets sore and it is physically hard to swallow. He has to constantly clear his throat. This bothers him a lot at night. He states if he lays down he has more material gathering the back of his throat and it is hard to cough up. He states is not from his lungs at all in his throat. He denies being short of breath even when his saturations are in the high 70% range. His saturations are about 78% and he is awake alert and actually a very good informant at this level. He is not confused or lethargic at all. We placed him on oxygen and when he is not talking he comes up to about 90%. He evidently has also dropped about 10 pounds in the last 2 weeks. This patient did have a fall and I saw him about 3 weeks ago. But he states then he was feeling overall good. He does have a history of throat cancer that was treated with radiation and chemotherapy about 15 years ago. Because of the radiation therapy he had a esophageal narrowing and this was stretched about 5 years ago. He feels like this is coming back now. But there has been a significant change analyst the last 2 weeks. He is losing weight he is having trouble eating or drinking, he is having less urine output because he is not drinking as much, he just feels tired and worn out. I was called to evaluate him for esophageal dysphagia FORMERLY [facility], [facility] Medical History Anemia Atherosclerotic heart disease of [place] coronary artery without angina pectoris Atrial arrhythmia Atrioventricular block Bilateral carotid artery disease Bruit of left carotid artery Cardiac pacemaker in situ Chronic atrial fibrillation Endocarditis Essential hypertension GERD (gastroesophageal reflux disease) History of throat cancer HLD (hyperlipidemia) HTN (hypertension) Lentigo long-term current use of anticoagulant Neoplasm of oropharynx Nonsustained ventricular tachycardia Paroxysmal tachycardia Paroxysmal ventricular tachycardia Pure hypercholesterolemia Syncope and collapse Ventricular fibrillation Ventricular tachycardia Home Medications aspirin 81 mg tablet,delayed release 81 mg PO QDAY 04/26/17 [History Last Taken 12/25/17] cholecalciferol (vitamin D3) 50 mcg (2,000 unit) tablet 2,000 unit PO QDAY 04/26/17 [History Last Taken Unknown] ferrous sulfate 325 mg (65 mg iron) tablet,delayed release See Rx Instructions PO QDAY 04/30/17 [History Last Taken Unknown] pantoprazole 40 mg tablet,delayed release (Protonix) 40 mg PO Q OTHER DAY 07/04/21 [History Last Taken Unknown] warfarin 3 mg tablet 3 mg PO QDAY #90 tabs 03/09/22 [Rx Last Taken Unknown] doxazosin 2 mg tablet 2 mg PO QDAY #90 tabs 08/29/22 [Rx Last Taken Unknown] levothyroxine 125 mcg tablet 125 mcg PO DAILY 08/29/22 [History Last Taken Unknown] metoprolol succinate 25 mg tablet,extended release 24 hr 25 mg PO DAILY #90 tabs 08/29/22 [Rx Last Taken Unknown] nitroglycerin 400 mcg/spray translingual 0.4 mg translingual Q5M PRN chest pain #4.9 grams 08/29/22 [Rx Last Taken Unknown] azithromycin 250 mg tablet (Zithromax Z-Cesar) See Rx Instructions PO .COMPLEX #6 tabs 02/06/23 [Rx Last Taken Unknown] Allergy/AdvReac Type Severity Reaction Status Date / Time No Known Allergies Allergy Verified 02/08/23 02:09 Family History Father Hypertension Heart disease Cancer lung Son Hypertension Mother Cancer liver Son H/O cardiac radiofrequency ablation Hypertension Son Hypertension Surgical History History of cholecystectomy History of circumcision History of squamous cell carcinoma excision History of tonsillectomy (~1942) Hx of CABG (~2006) S/P placement of cardiac pacemaker S/P PTCA (percutaneous transluminal coronary angioplasty) (~03/24/97) Social History Smoking Status: Former smoker how long ago did patient quit smokin years ago alcohol intake: current alcohol intake frequency: a few times a week Alcohol type: beer substance use type: does not use caffeine: Yes Type: coffee Number of servings: 3 eating out: 1-3 times/week what type of physical activity do you participate in: none seatbelt use: always do you feel safe at home: Yes ROS Constitutional Constitutional: Reports change in weight, fatigue and weakness; Denies chills, fever(s) or malaise Eyes Eyes: Denies change in vision ENT HEENT: Reports dysphagia Cardiovascular Cardiovascular: Denies chest pain, edema or palpitations Respiratory/Chest Respiratory/Chest: Reports dyspnea and shortness of breath at rest; Denies cough, hemoptysis, productive cough or wheezing Gastrointestinal Gastrointestinal: Denies abdominal pain, constipation, diarrhea, nausea or vomiting Physical Exam Const alert, oriented x3 and no apparent distress Constitutional Narrative: frail General Appearance: cooperative and comfortable HEENT normocephalic, head/scalp atraumatic, hearing grossly normal bilaterally, nasal mucous membranes and turbinates normal and moist oral mucous membranes Eyes PERRL, EOMs intact bilaterally and conjunctivae normal Neck full ROM, no lymphadenopathy, supple and no JVD Lymph Lymphatic: no lymphadenopathy noted and no lymphedema noted Chest inspection of chest normal Resp normal respiratory effort, normal air movement and clear to auscultation bilaterally Resp Narrative: Bilateral crackles noted throughout. Remains on 4L of oxygen by nasal canula Cardio regular rate, regular rhythm, S1 normal heart sound, S2 normal heart sound, no murmurs and peripheral pulses 2+ throughout GI normal to inspection, nondistended, normoactive bowel sounds, soft to palpation, non-tender and non-distended Back/Spine normal ROM Extremity normal to inspection, full ROM, normal capillary refill, no clubbing, cyanosis or edema, no calf tenderness and no pedal edema Skin no rashes or lesions noted General Skin Exam: no breakdown and turgor normal Neuro CN's II-XII intact bilaterally, no focal motor deficits and no sensory deficits noted Motor Exam: strength 5/5 throughout and general weakness Psych mental status grossly normal, thought process normal and cooperative Appearance: appropriate Medical Records Data Medical Nutrition Assessment Dietitian: Malnutrition Criteria Met Start: 02/08/23 15:17 Freq: Status: Active Protocol: Document 02/08/23 16:20 RMA (Rec: 02/08/23 16:21 RMA [id number]) Nutrition Malnutrition Evidence of Malnutrition Exists Yes Malnutrition (severe): Acute Illness/Injury,Chronic Evidenced By Suboptimal Energy Intake ( Severe),Weight Loss (Severe), Physical Changes (Moderate) Intake Problem Inadequate Oral Intake Etiology related to swallowing difficulty Signs/Symptoms as evidenced by NPO Status Active Problem Clinical Problem Acute Disease or Injury Related Malnutrition Etiology 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 May need to consider enteral nutrition support if PO remains contraindicated/unsafe for PO diet. Pt will try ensure plus high protein and magic cup for tolerance if PO diet advanced. Suspect weight loss likely continue due to inability to take adequate PO---will monitor and follow-up with further interventions. Lab / Micro Data 02/09/23 06:15 02/09/23 06:15 Labs: Laboratory Results - last 24 hr 02/09/23 06:15: WBC 8.6, RBC 3.69 L, Hgb 10.9 L, Hct 33.8 L, MCV 91.6, MCH 29.5, MCHC 32.2, RDW Std Deviation 48.9 H, RDW Coeff of Minerva 14.5, Plt Count 232, MPV 9.8, PT 20.8 H, INR 1.8, APTT 45.2 H, Sodium 138, Potassium 3.4 L, Chloride 100, Carbon Dioxide 31.0, Anion Gap 7, BUN 32 H, Creatinine 0.94, Estim Creat Clear Calc 50.82, Est GFR (MDRD) Af Amer 97, Est GFR (MDRD) Non-Af 81, BUN/Creatinine Ratio 34.0 H, Glucose 73 L, Calcium 8.9 Micro: Microbiology 02/08/23 11:27 Sputum, Expectorated/Coughed Gram Stain - Final 02/08/23 05:30 Mucosa - Nasopharyngeal Respiratory Panel (PCR) - Final Rhinovirus Radiology Impression Echocardiogram 02/08/23 03:53 Interpretation Summary The estimated ejection fraction is 50-55 %. Unable to assess diastolic dysfunction. Septal Hypokinesis Trivial mitral valve insufficiency. The left atrium is moderately enlarged. The right atrium is moderately enlarged. Ordering Physician: Tj Newton Performed By: Mitch Garcia RCS Assessment & Plan Assessment/Plan (1) Hypoxia: PLAN: Plan Patient is an 87-year-old male with history of chronic A-fib on warfarin, history of throat cancer s/p radiation and chemotherapy, esophageal narrowing post radiation s/p esophageal dilation with shortness of breath and difficulty swallowing. Acute hypoxic respiratory failure with dyspnea secondary to RSV. He is only on 2 L of oxygen at this time. He should be able to tolerate an upper endoscopy. He is also being treated for aspiration pneumonia. S Patient noted worsening dysphagia with liquids and solids over the past several weeks. 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 Had significant dysphagia requiring esophageal dilation about 5 years ago. Newly worsening dysphagia may be secondary to progression of chronic esophageal scarring, cannot rule out new malignancy. CT soft tissue neck with IV contrast showed submucosal edema and adjacent soft tissue thickening of hypopharynx on the left side with irregularity of left thyroid cartilage, concerning for possible malignancy versus infection versus secondary to previous radiation treatment. CT chest showed mediastinal and right hilar lymphadenopathy, bilateral airspace disease, cardiomegaly and chronic interstitial lung disease. He will undergo evaluation of his abdomen GI tract with possible dilation. He was explained alternatives, risk, benefits including outstanding bleeding, infection, sepsis, perforation, need for emergent surgery or . He will have an ASA of 3.
--- NOTE | 2023-02-08 15:30 | CASEMGMT ---
RN?CM?EMERGENCY VEHICLE OPERATIONS INSTRUCTOR?CM?to room to meet with patient for initial transition planning/care coordination?assessment. Pt resting in bed in no distress at this time.??RN?CM?introduced self and role at [facility].? Pt voices understanding, and states that this RN TUSHAR just missed his and asked RN TUSHAR to call her. Call placed to pt's at this time. Care providers, pharmacy, and demographics verified/updated at this time. PCP: Dr Ruvalcaba Specialists: IDA/cardiology, Dr Rodriguez-ENT Preferred Pharmacy: [facility] Insurance: Katherine RODRIGUEZ Prescription Benefit:?Yes Living Will/HPOA:?Has both LW and HCPOA, who is his , Rahel LNOK: , Rahel. 3 sons: Bakari, Sumanth, and Shahriar Living Arrangements: Lives w/his in one-story home w/1-2 steps to enter. Pt is independent w/ADL's and manages his own medications when @ his baseline. does home mgnt tasks. states he was doing everything at home on his own until he became ill. Transportation: DME: ?Has the following DME:?cane, grab bars, electric W/C (does not use it). Pt does not have home O2 and does not have a pulse ox. states prefers [employer] for DME co, should pt be able to discharge home and need O2 and states they can afford to buy a pulse ox. She states no need for further DME at this time.? HHC/SNF: No hx of SNF. Has had HHC In the past in 2011. states thinks pt should go to SNF @ discharge. She thinks [facility] will [facility] her 1st preference but is interested in looking @ list of options. Cecilia LIVINGSTON, made aware. RN TUSHAR informed of [facility]'s 3 In-patient [place] criteria for SNF. She voices understanding. PLAN:??SNF Warner BSN?RN?CM
[2023-02-08] MEDS: 0.9% Saline Lock 10 ML Syringe IV (15:38)
[2023-02-08] MEDS: Phytonadione (Vit K) 2.5 MG in 0.9% Normal Saline (50mL Bag) 50 ML 150 MG IV (15:38)
--- NOTE | 2023-02-08 16:31 | CASEMGMT ---
Discharge Planning A list of SNF providers including quality and resource use data and consistent with the patient?s preferred geographic region, medical needs, and insurance network were printed and provided from the [employer] Guide. Pily Newton, Discharge Planning Asst.
[2023-02-09] VITALS (12 sets, daily range): BP systolic 93–118; BP diastolic 44–59; PULSE 60–75; RESP 12–18; TEMP 35.8–36.9; O2SAT 93–100; BMI 21.9
--- NOTE | 2023-02-09 05:55 | EKG12_ITS ---
Test Reason : AM EKG Blood Pressure : / mmHG Vent. Rate : 062 BPM Atrial Rate : 065 BPM P-R Int : 000 ms QRS Dur : 174 ms QT Int : 462 ms P-R-T Axes : 000 -79 078 degrees QTc Int : 468 ms Ventricular-paced rhythm Abnormal ECG When compared with ECG of 08-FEB-2023 02:21, MANUAL COMPARISON REQUIRED, DATA IS UNCONFIRMED Confirmed by JOSE SCHNEIDER, CHARLIE ([id number]), industrial editor KADEN PARIS ([id number]) on 02/28/2023 1:43:48 PM Referred By: Confirmed By:CHARLIE GARCIA MD
[2023-02-09 06:40] LABS: Hematocrit 33.8 % (40-54); Hemoglobin 10.9 g/dL (13.0-16.5); Mean Corp Hgb Conc 32.2 g/dL (32-36); Mean Corpuscular Hgb 29.5 pg (27.0-32.0); Mean Corpuscular Volume 91.6 fL (80-94); Mean Platelet Vol. 9.8 fl (6.2-12.0); Platelet Count 232 K/mm3 (150-450); RBC Distribution Width CV 14.5 % (11.6-14.6); RBC Distribution Width SD 48.9 fl (35.1-43.9); Red Blood Count 3.69 M/mm3 (4.6-6.2); White Blood Count 8.6 K/mm3 (4.4-11.0)
[2023-02-09 06:48] LABS: International Normalized Ratio 1.8; Prothrombin Time (Protime)PT. 20.8 SECONDS (11.7-14.9)
[2023-02-09 07:02] LABS: Partial Thromboplast Time 45.2 Seconds (24.1-36.2)
[2023-02-09 07:17] LABS: Anion Gap 7 (5-15); BUN 32 mg/dL (7-18); Calcium,Total 8.9 mg/dL (8.5-10.1); Chloride 100 mmol/L (98-107); Creatinine, Serum 0.94 mg/dL (0.70-1.30); EST Glomerular Filtration Rate 81 mL/min (>60); Est Glom Filt Rate - Afr Amer 97 mL/min (>60); Estimated Creatinine Clearance 50.82 ml/min; Glucose 73 mg/dL (74-106); Potassium 3.4 mmol/L (3.5-5.1); Sodium Level 138 mmol/L (136-145)
--- NOTE | 2023-02-09 10:52 | PN_ITS ---
Subjective Subjective Patient seen and examined. He is still having difficulty swallowing. He had an uneventful night and review of systems is otherwise negative. He is due for a swallow test today. Objective Data Objective Data Vital Signs: Vital Signs Temp Pulse Resp BP Pulse Ox O2 Del Method O2 Flow Rate 97.0 F L 72 18 114/55 L 94 High Flow 4 02/09/23 08:00 02/09/23 08:00 02/09/23 08:00 02/09/23 08:00 02/09/23 08:00 02/09/23 08:00 02/09/23 08:00 Oxygen Flow Rate (L/min) 4 Oxygen Delivery Method High Flow Weight: 144 lb 9.972 oz Body Mass Index (BMI) 21.9 Intake & Output: Intake and Output for Last 24 Hours 02/07/23 02/08/23 02/09/23 23:59 23:59 23:59 Intake Total 150.25 / 150.25 Output Total 775 / 775 300 / 300 Balance -624.75 / -624.75 -300 / -300 Medical Nutrition Assessment Dietitian: Malnutrition Criteria Met Start: 02/08/23 15:17 Freq: Status: Active Protocol: Document 02/08/23 16:20 RMA (Rec: 02/08/23 16:21 RMA [id number]) Nutrition Malnutrition Evidence of Malnutrition Exists Yes Malnutrition (severe): Acute Illness/Injury,Chronic Evidenced By Suboptimal Energy Intake ( Severe),Weight Loss (Severe), Physical Changes (Moderate) Intake Problem Inadequate Oral Intake Etiology related to swallowing difficulty Signs/Symptoms as evidenced by NPO Status Active Problem Clinical Problem Acute Disease or Injury Related Malnutrition Etiology 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 May need to consider enteral nutrition support if PO remains contraindicated/unsafe for PO diet. Pt will try ensure plus high protein and magic cup for tolerance if PO diet advanced. Suspect weight loss likely continue due to inability to take adequate PO---will monitor and follow-up with further interventions. Lab / Micro Data 02/09/23 06:15 02/09/23 06:15 Labs: Laboratory Results - last 24 hr 02/09/23 06:15: WBC 8.6, RBC 3.69 L, Hgb 10.9 L, Hct 33.8 L, MCV 91.6, MCH 29.5, MCHC 32.2, RDW Std Deviation 48.9 H, RDW Coeff of Minerva 14.5, Plt Count 232, MPV 9.8, PT 20.8 H, INR 1.8, APTT 45.2 H, Sodium 138, Potassium 3.4 L, Chloride 100, Carbon Dioxide 31.0, Anion Gap 7, BUN 32 H, Creatinine 0.94, Estim Creat Clear Calc 50.82, Est GFR (MDRD) Af Amer 97, Est GFR (MDRD) Non-Af 81, BUN/Creatinine Ratio 34.0 H, Glucose 73 L, Calcium 8.9 Micro: Microbiology 02/08/23 05:30 Mucosa - Nasopharyngeal Respiratory Panel (PCR) - Final Rhinovirus 02/08/23 05:05 Urine, Clean Catch Legionella Antigen - Final 02/08/23 05:05 Urine, Clean Catch Streptococcus pneumoniae Antigen (M - Final Radiography Diagnostic Testing: Radiology Impression Echocardiogram 02/08/23 03:53 Interpretation Summary The estimated ejection fraction is 50-55 %. Unable to assess diastolic dysfunction. Septal Hypokinesis Trivial mitral valve insufficiency. The left atrium is moderately enlarged. The right atrium is moderately enlarged. Ordering Physician: Tj Newton Performed By: Mitch Garcia RCS Physical Exam Const alert, oriented x3 and no apparent distress Constitutional Narrative: frail General Appearance: cooperative and comfortable HEENT normocephalic, head/scalp atraumatic, hearing grossly normal bilaterally, nasal mucous membranes and turbinates normal and moist oral mucous membranes Eyes PERRL, EOMs intact bilaterally and conjunctivae normal Neck full ROM, no lymphadenopathy, supple and no JVD Lymph Lymphatic: no lymphadenopathy noted and no lymphedema noted Chest inspection of chest normal Resp normal respiratory effort, normal air movement and clear to auscultation bilaterally Resp Narrative: Bilateral crackles noted throughout. Remains on 4L of oxygen by nasal canula Cardio regular rate, regular rhythm, S1 normal heart sound, S2 normal heart sound, no murmurs and peripheral pulses 2+ throughout GI normal to inspection, nondistended, normoactive bowel sounds, soft to palpation, non-tender and non-distended Back/Spine normal ROM Extremity normal to inspection, full ROM, normal capillary refill, no clubbing, cyanosis or edema, no calf tenderness and no pedal edema Skin no rashes or lesions noted General Skin Exam: no breakdown and turgor normal Neuro CN's II-XII intact bilaterally, no focal motor deficits and no sensory deficits noted Motor Exam: strength 5/5 throughout and general weakness Psych mental status grossly normal, thought process normal and cooperative Appearance: appropriate Assessment & Plan Assessment/Plan (1) Hypoxia: (2) History of throat cancer: PLAN: Plan #Hypoxia due to probable aspiration pneumonia * saturation was in the 70s on admission. * CXR showed bilateral pulmonary opacities concerning for infection and/or aspiration. * 2D echo: EF of 50-55%, with septal hypokinesis and moderately enlarged left and right atria. ICD pacer leads in the right atrium. Pulmonary artery systolic pressure is 45-50mhg * on IV lasix. * on 4L of oxygen by nasal canula * respiratory panel positive for rhinovirus infection * #URTI due to Rhinovirus infection * on 4L of oxygen. titrate oxygen to maintain sats >90% * breathing treatment with bronchodilators * supportive management * #Dysphagia * has been having dysphagia which is worsening, especially to solids an dliquids over the past several weeks. * Had a history of head and neck cancer and had radiation. Has had significant dyspagia requiring esophageal dilatation * CT of the soft tissue neck with IV contrast showed submucosal edema and adjacent soft tissue thickening of the hypopharynx on the left side with irregularity of the left thyroid cartilage, concerning for malignancy vs infection. * CT chest showed mediastinal and right hilar lymphadenopathy, bilateral airspace disease as well as cardiomegaly and chronic interstitial lung disease * GI on board. * urrently NPO * speech therapy on board * #Chronic afib * on coumadin> INR was supratherapeuic at 6.9 on admission. * INR went up to 7.9 yesterday and he received a dose of vitamin K 2.5mg * INR today is 1.8 * on metoprolol * #Failure to thrive * has had ~ 10 pound weight loss over the pat several weeks, and hasnt been eating and drinking well * albumin is 2.7 * Nutrition on board * #CAD s/p CABG; on aspirin and metoprolol. Not on statin. unclear why #hypothyroidism; on synthroid DVT prophylaxis; INR was supratherapeutic so coumadin was held. Resume coumadin today Charges/Coding Visit Charges Inpatient E&M: 32435 Subs Hosp L2
[2023-02-09] MEDS: Lactated Ringers 1,000 ML 15 ML IV (12:15)
--- NOTE | 2023-02-09 15:24 | CASEMGMT ---
YARA called patient's and left her a voice mail requesting a return call regarding d/c plan. Cecilia BULLOCK
--- NOTE | 2023-02-09 16:30 | OP.CCLET_ITS ---
02/09/2023 Olive Ruvalcaba [address] [place] [address] Re : Upper GI endoscopy procedure for Martin Sanders Dear Dr. Ruvalcaba This procedure was performed on Thursday, February 09, 2023. My impressions and recommendations are as follows: Impressions : - Benign-appearing esophageal stenosis. Dilated. - Medium-sized hiatal hernia. - No gross lesions in the duodenal bulb. - No specimens collected. Recommendations : - [facility] - Advance diet as tolerated. - Continue present medications. My findings are described in the full procedure note, which is enclosed. If I can be of further assistance, please feel free to contact me at . Sincerely, Mike Lagunas, 02/09/2023 4:29:55 PM This report has been signed electronically.
--- NOTE | 2023-02-09 16:30 | OP.EGD_ITS ---
Patient Name: Martin Sanders Procedure Date: 02/09/2023 3:03 PM Date of : 1935 Age: 87 Procedure: Upper GI endoscopy Indications: Dysphagia Providers: Mike Lagunas DO Medicines: Monitored Anesthesia Care Patient Profile: This is an 87 year old male. Refer to note in patient chart for documentation of history and physical. Patient has symptoms of chronic dysphagia and dysphagia with both liquids and solids. Complications: No immediate complications. Procedure: Pre-Anesthesia Assessment: - Prior to the procedure, a History and Physical was performed, and patient medications and allergies were reviewed. The risks and benefits of the procedure and the sedation options and risks were discussed with the patient. All questions were answered and informed consent was obtained. Patient identification and proposed procedure were verified by the physician. Mental Status Examination: normal. Prophylactic Antibiotics: The patient does not require prophylactic antibiotics. Prior Anticoagulants: The patient has taken no anticoagulant or antiplatelet agents. After reviewing the risks and benefits, the patient was deemed in satisfactory condition to undergo the procedure. The anesthesia plan was to use monitored anesthesia care (MAC). Immediately prior to administration of medications, the patient was re-assessed for adequacy to receive sedatives. The heart rate, respiratory rate, oxygen saturations, blood pressure, adequacy of pulmonary ventilation, and response to care were monitored throughout the procedure. The physical status of the patient was re-assessed after the procedure. After obtaining informed consent, the endoscope was passed under direct vision. Throughout the procedure, the patient's blood pressure, pulse, and oxygen saturations were monitored continuously. The gastroscope was introduced through the mouth, and advanced to the second part of duodenum. The upper GI endoscopy was accomplished without difficulty. The patient tolerated the procedure well. Scope In: 3:08:54 PM Scope Out: 3:15:13 PM Total Procedure Duration Time 0 hours 6 minutes 19 seconds Findings: One benign-appearing, intrinsic severe (stenosis; an endoscope cannot pass) stenosis was found 18 to 23 cm from the incisors. This stenosis measured 5 cm (in length). The stenosis was traversed after downsizing scope and dilating. A guidewire was placed and the scope was withdrawn. Dilation was performed with a Savary dilator with no resistance at 51 Fr. The dilation site was examined and showed moderate improvement in luminal narrowing. Estimated blood loss was minimal. A medium-sized hiatal hernia was present. No other significant abnormalities were identified in a careful examination of the stomach. No gross lesions were noted in the duodenal bulb. Impression: - Benign-appearing esophageal stenosis. Dilated. - Medium-sized hiatal hernia. - No gross lesions in the duodenal bulb. - No specimens collected. Recommendation: - [facility]. - Advance diet as tolerated. - Continue present medications. Procedure Code(s): --- Professional --- 34823, Esophagogastroduodenoscopy, flexible, transoral; with insertion of guide wire followed by passage of dilator(s) through esophagus over guide wire CPT copyright 2021 [employer]. All rights reserved. The codes documented in this report are preliminary and upon electrician telephone review may be revised to meet current compliance requirements. Mike Lagunas DO 02/09/2023 4:29:55 PM This report has been signed electronically. Number of Addenda: 0 Note Initiated On: 02/09/2023 3:03 PM
--- NOTE | 2023-02-09 16:30 | CASEMGMT ---
SW spoke with patient's . Introduced self and role at [facility]. SW asked patient's Rahel if she reviewed the SNF list or if she spoke with patient about halfway. Rahel said she has not. After much discussion she was thinking [facility]. She was agreeable to SW making a referral. SW asked Pily d/c financial planning consultant to send a referral to [facility]. Plan: SNF possibly [facility] if they accept and patient and his are agreeable. Cecilia Clifford ANIMATED CARTOONS PAINTER ARA
--- NOTE | 2023-02-09 16:43 | CASEMGMT ---
Discharge Planning Referral sent to [facility] via [facility]. Pily Newton, Discharge Planning Asst.
--- NOTE | 2023-02-09 18:15 | ST.MBS ---
Modified Barium Swallow Patient Information Study Date: 02/09/23 Study Time: 17:00 Direct Billable Minutes: 94 Total Minutes procedure & reportin Diagnosis: Dysphagia (R13.10), Hypoxia, Cough Referring Physician: Evelyn Hairston Reason for Referral: Objectively assess swallow function, assess risk for aspiration, and determine recommendations for least restrictive diet textures and compensatory strategies to improve safety of swallow. Medical History: Martin Sanders is a 87 M with history of chronic A-fib on warfarin, history of throat cancer s/p radiation and chemotherapy, esophageal narrowing post radiation s/p esophageal dilation, CABG x4 in 1980 and redo CABG x4 in 2006, heart block s/p pacemaker, and hypertension who presented to [facility] ED on 10/08/2022 with shortness of breath and difficulty swallowing. Chest x-ray showed bilateral pulmonary opacities concerning for infection and/or aspiration, as well as a hiatal hernia. CT soft tissue neck with IV contrast showed submucosal edema and adjacent soft tissue thickening of hypopharynx on the left side with irregularity of left thyroid cartilage, concerning for possible malignancy versus infection versus secondary to previous radiation treatment. Family and patient provided CYBER SECURITY ANALYST additional details regarding history of cancer and swallowing difficulty. 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 No surgery completed, but patient underwent chemoradiation. Since, he has had no dysphagia therapy, only a home trismus exercise program. Per RN, pt sounds wet with consumption of water and pills. He was made NPO with ice chips supervised per CYBER SECURITY ANALYST and recommended for MBSS. He underwent EGD 02/09/2023 - awaiting full report. Pt is cleared by Dr. Lagunas for participation in MBSS today. Current Diet Ordered: NPO with ice chips supervised Dentition: Decay and Missing Teeth Mental Status: WNL Respiratory Status: Oxygenating on 2L/M nasal cannula (O2 was increased to 4L/min after study by RN assisting due to patient desaturating to 84% after trials.) Penetration-Aspiration Scale Penetration-Aspiration Scale: OBJECTIVE ASSESSMENT OF SWALLOW FUNCTION (QUANTITATIVE ? PER TRIAL): PENETRATION / ASPIRATION SCALE (JEAN BAPTISTE): 1 = does not enter airway 2 = enters airway/above vocal folds/ejected 3 = enters airway/above vocal folds/not ejected 4 = enters airway/contacts vocal folds/ejected 5 = enters airway/contacts vocal folds/not ejected 6 = enters airway/below vocal folds/ejected 7 = enters airway/below vocal folds/not ejected despite effort 8 = enters airway/below vocal folds/no effort VIDEOFLOROSCOPIC SCALE SCORE (JEAN BAPTISTE): Grade I = aspiration of material that has penetrated into the laryngeal vestibule, intact cough reflex Grade II = aspiration < 10 % of the bolus, intact cough reflex Grade III = aspiration of < 10 % of the bolus, reduced cough reflex or aspiration of > 10 % of the bolus, intact cough reflex Grade IV = aspiration of > 10 % of the bolus, reduced cough reflex Penetration-Aspiration Scale Score Thin liquid via 1/2 tsp: Comment: Unable to score as the patient was unable to initiate a full swallow. CYBER SECURITY ANALYST proceeded with 1 additional trial of larger size to increase sensation and promote a swallow. Thin Liquid via teaspoon: Result: 7= enters airways/below vocal folds/not ejected despite effort Comment: CYBER SECURITY ANALYST cued cough and expectoration of trial as the patient still could not initiate a complete swallow. SpO2 decreased to 84% after trial. Nursing was called in to observed patient. He did recover to low 90s on 4L O2/min. Oral Phase Labial Seal: No Labial Escape Tongue Control During Bolus Hold: Posterior escape of greater than half of bolus Bolus Transport/Lingual Motion: Repetitive/disorganized tongue motion Oral Residue: Majority of bolus remaining Pharyngeal Phase Initiation of Pharyngeal Swallow: Bolus head in pyriforms Soft Palate Elevation: No bolus between soft palate and pharyngeal wall Laryngeal Elevation: Min superior movement thyroid cart/min apprx aryte cart-epig petiole Anterior Hyoid Excursion: Partial anterior movement (minimal anterior movement) Epiglottic Movement: No inversion Laryngeal Vestibule Closure at Height of Swallow: None; wide column of air/contrast in laryngeal vestibule (minimal laryngeal vestibular closure) Pharyngeal Stripping Wave: Absent Pharyngoesophageal Segment Opening: Parital distension and partial duration; parital obstruction of flow Tongue Base Retraction: Wide column of contrast between tongue base & post. pharyngeal wall Pharyngeal Residue: Majority of contrast within or on pharyngeal structures Diagnosis/Impression Diagnosis: Severe oropharyngeal phase dysphagia (R13.12) Impression: The oral phase is marked by... -Severe deficits in A-P transport and bolus control with posterior loss of tsp sip to the laryngeal vestibule and pyriforms. -moderate oral residue after the swallow. The pharyngeal phase is marked by... -Inability to initiate a complete swallow and complete airway closure due to minimal anterior hyoid excursion and laryngeal elevation and no epiglottic inversion and pharyngeal stripping wave. -Aspiration of thin liquid by tsp with weak reflexive cough. He was able to expectorate some of the tsp (~60%) of barium when cued by CYBER SECURITY ANALYST to cough and spit out trial. Limited trials as the patient began to desaturate from 2 trials mentioned above. Will recommend discussion with physician re: alternative means of nutrition and hydration. RNLori, will speak with physician regarding CYBER SECURITY ANALYST recommendations. Recommendations Diet: NPO Comment: Ok for ice chips sparingly (5-10 ice chips, 3-5X daily) with nursing or CYBER SECURITY ANALYST only. Monitor SpO2 closely with ice chip trials. No meds by mouth. Recommend Repeat Modified Barium Swallow: TBD Need for Skilled Speech Therapy Services: Yes Comment: Trial ice chips while monitoring SpO2 to provide increased opportunities for swallowing. Implement exercises including effortful swallows and lingual resistance exercises to promote improved lingual strength and control, as well as improved airway closure and pharyngeal contraction. Do NOT advance diet prior to repeat MBSS. Recommended Referrals: Dietitian Consult Education Completed: 1. Described result of evaluation., 2. Pt understands evaluation & agrees with goals and treatment plan. and 7. Pt requires further education on strategies & risks. Status Active ST Patient: Active Contact Information [facility] Speech Therapy:: Izabel Monson M.A. [facility]-CYBER SECURITY ANALYST Speech-Language Pathologist [facility] [address] [place] [address] [email or web address] [phone]
[2023-02-09] MEDS: Ceftriaxone 1 GM/50 ML BAG IV (23:07)
[2023-02-10 04:00] VITALS: BP 115/56; PULSE 62; RESP 18; TEMP 36.6; O2SAT 94
[2023-02-10 08:12] LABS: Absolute Lymphocyte Count 0.43 X10^3/uL (0.83-4.51); Absolute Neutrophil Count 8.2 X10^3/uL (2.0-7.7); Basophil# 0.02 X10^3/uL; Basophil% 0.2 % (0-1); Eosinophil# 0.05 X10^3/uL; Eosinophils% 0.5 % (0-5); Hematocrit 37.2 % (40-54); Hemoglobin 10.7 g/dL (13.0-16.5); Lymphocyte # 0.43 X10^3/ul (0.83-4.51); Lymphocyte % 4.7 % (19-41); Mean Corp Hgb Conc 28.8 g/dL (32-36); Mean Corpuscular Hgb 28.2 pg (27.0-32.0); Mean Corpuscular Volume 98.2 fL (80-94); Mean Platelet Vol. 9.6 fl (6.2-12.0); Monocyte# 0.36 X10^3/uL; Monocyte% 3.9 % (0-10); NRBC Flagged by Analyzer 0 % (0-5); Neutrophil # 8.19 X10^3/uL (2.7-7.7); Neutrophil % 89.9 % (47-70); POSITIVE DIFFERENTIAL YES; Platelet Count 229 K/mm3 (150-450); RBC Distribution Width CV 14.6 % (11.6-14.6); RBC Distribution Width SD 52.8 fl (35.1-43.9); Red Blood Count 3.79 M/mm3 (4.6-6.2); White Blood Count 9.1 K/mm3 (4.4-11.0)
[2023-02-10 08:15] LABS: Differential Indicated SCAN CRITERIA MET
[2023-02-10 08:22] LABS: International Normalized Ratio 2.1; Magnesium 2.3 mg/dL (1.6-2.6); Prothrombin Time (Protime)PT. 23.3 SECONDS (11.7-14.9)
[2023-02-10 08:28] LABS: Anion Gap 8 (5-15); BUN 32 mg/dL (7-18); BUN/Creat Ratio 34.9 RATIO (10-20); Calcium,Total 9.2 mg/dL (8.5-10.1); Chloride 101 mmol/L (98-107); Creatinine, Serum 0.92 mg/dL (0.70-1.30); EST Glomerular Filtration Rate 83 mL/min (>60); Est Glom Filt Rate - Afr Amer 100 mL/min (>60); Estimated Creatinine Clearance 52.49 ml/min; Glucose 74 mg/dL (74-106); Potassium 3.7 mmol/L (3.5-5.1); Sodium Level 140 mmol/L (136-145)
[2023-02-10 08:35] LABS: Differential Comment SCANNED
[2023-02-10 08:37] VITALS: BP 127/45; PULSE 67; RESP 20; TEMP 36.2; O2SAT 94
[2023-02-10 09:00] VITALS: O2SAT 94
--- NOTE | 2023-02-10 09:29 | CASEMGMT ---
Social Work SW checked [facility] this morning, no response from [facility]. SW spoke w/physician, pt will be here through the weekend. SALINAS Muhammad
--- NOTE | 2023-02-10 11:16 | PN_ITS ---
Subjective Subjective Patient seen and examined. He is having some epistaxis. He is now on 6L of oxygen. He says he had some dry coughing. He is NPO except for ice chips. Revie of systems is otherwise negative. He had EGD yesterday which showed benign appearing esophageal stenosis which was dilated and a medium sized hiatal hernia. Speech therapy on board. Objective Data Objective Data Vital Signs: Vital Signs Temp Pulse Resp BP Pulse Ox O2 Del Method O2 Flow Rate 97.2 F L 67 20 H 127/45 H 94 High Flow 6 02/10/23 08:37 02/10/23 08:37 02/10/23 08:37 02/10/23 08:37 02/10/23 09:00 02/10/23 09:55 02/10/23 09:55 Oxygen Flow Rate (L/min) 6 Oxygen Delivery Method High Flow Weight: 144 lb 9.972 oz Body Mass Index (BMI) 21.9 Intake & Output: Intake and Output for Last 24 Hours 02/08/23 02/09/23 02/10/23 23:59 23:59 23:59 Intake Total 150.25 / 150.25 0 / 0 258.5 / 258.5 Output Total 775 / 775 700 / 700 200 / 200 Balance -624.75 / -624.75 -700 / -700 58.5 / 58.5 Medical Nutrition Assessment Dietitian: Malnutrition Criteria Met Start: 02/08/23 15:17 Freq: Status: Active Protocol: Document 02/08/23 16:20 RMA (Rec: 02/08/23 16:21 RMA [id number]) Nutrition Malnutrition Evidence of Malnutrition Exists Yes Malnutrition (severe): Acute Illness/Injury,Chronic Evidenced By Suboptimal Energy Intake ( Severe),Weight Loss (Severe), Physical Changes (Moderate) Intake Problem Inadequate Oral Intake Etiology related to swallowing difficulty Signs/Symptoms as evidenced by NPO Status Active Problem Clinical Problem Acute Disease or Injury Related Malnutrition Etiology 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 related to swallowing difficulty and inadequate oral intake Signs/Symptoms as evidenced by ~5% weight loss x past 3 weeks, ~11% weight loss x past 1 year, PO meeting less than 50% estimated nutrition needs x 1 month, visible muscle wasting and fat depletion in the clavicle, face, arms and legs and currently NPO Status Active Problem Recommendation Dietitian Recommendations/Changes Recommend regular diet as tolerated with texture/ consistency as per IMPREGNATOR AND DRIER. May need to consider enteral nutrition support if PO remains contraindicated/unsafe for PO diet. Pt will try ensure plus high protein and magic cup for tolerance if PO diet advanced. Suspect weight loss likely continue due to inability to take adequate PO---will monitor and follow-up with further interventions. Lab / Micro Data 02/10/23 08:00 02/10/23 08:00 Labs: Laboratory Results - last 24 hr 02/10/23 08:00: WBC 9.1, RBC 3.79 L, Hgb 10.7 L, Hct 37.2 L, MCV 98.2 H D, MCH 28.2, MCHC 28.8 L D, RDW Std Deviation 52.8 H, RDW Coeff of Minerva 14.6, Plt Count 229, MPV 9.6, Immature Gran % (Auto) 0.800, Neut % (Auto) 89.9 H, Lymph % (Auto) 4.7 L, [place] % (Auto) 3.9, Eos % (Auto) 0.5, Baso % (Auto) 0.2, Absolute Neuts (auto) 8.2 H, Absolute Lymphs (auto) 0.43 L, Nucleated RBC % 0, Differential Comment SCANNED, PT 23.3 H, INR 2.1, Sodium 140, Potassium 3.7, Chloride 101, Carbon Dioxide 31.0, Anion Gap 8, BUN 32 H, Creatinine 0.92, Estim Creat Clear Calc 52.49, Est GFR (MDRD) Af Amer 100, Est GFR (MDRD) Non-Af 83, BUN/Creatinine Ratio 34.9 H, Glucose 74, Calcium 9.2, Magnesium 2.3 Micro: Microbiology 02/08/23 02:30 Blood Culture (Wb) #2 - Anticubital Left Blood Culture - Preliminary No growth in 48 hours. 02/08/23 02:15 Blood Culture (Wb) - Anticubital Right Blood Culture - Preliminary No growth in 48 hours. 02/08/23 11:27 Sputum, Expectorated/Coughed Gram Stain - Final 02/08/23 11:27 Sputum, Expectorated/Coughed Respiratory Culture - Preliminary Gram Positive Cocci Staphylococcus aureus 02/08/23 05:30 Mucosa - Nasopharyngeal Respiratory Panel (PCR) - Final Rhinovirus 02/08/23 05:05 Urine, Clean Catch Legionella Antigen - Final 02/08/23 05:05 Urine, Clean Catch Streptococcus pneumoniae Antigen (M - Final Physical Exam Const alert, oriented x3 and no apparent distress Constitutional Narrative: frail General Appearance: cooperative and comfortable HEENT normocephalic, head/scalp atraumatic, hearing grossly normal bilaterally and moist oral mucous membranes HEENT Narrative: having mild epistaxis due to dry nostrils from oxygen use Mouth: dry mucous membranes Eyes PERRL, EOMs intact bilaterally and conjunctivae normal Neck full ROM, no lymphadenopathy, supple and no JVD Lymph Lymphatic: no lymphadenopathy noted and no lymphedema noted Chest inspection of chest normal Resp normal respiratory effort, normal air movement and clear to auscultation bilaterally Resp Narrative: Bilateral crackles noted throughout. Remains on 4L of oxygen by nasal canula Cardio regular rate, regular rhythm, S1 normal heart sound, S2 normal heart sound, no murmurs and peripheral pulses 2+ throughout GI normal to inspection, nondistended, normoactive bowel sounds, soft to palpation, non-tender and non-distended Back/Spine normal ROM Extremity normal to inspection, full ROM, normal capillary refill, no clubbing, cyanosis or edema, no calf tenderness and no pedal edema Skin no rashes or lesions noted General Skin Exam: no breakdown and turgor normal Neuro CN's II-XII intact bilaterally, no focal motor deficits and no sensory deficits noted Motor Exam: strength 5/5 throughout and general weakness Psych mental status grossly normal, thought process normal and cooperative Appearance: appropriate Assessment & Plan Assessment/Plan (1) Hypoxia: (2) History of throat cancer: PLAN: Plan #Hypoxia due to probable aspiration pneumonia * saturation was in the 70s on admission. * CXR showed bilateral pulmonary opacities concerning for infection and/or aspiration. * 2D echo: EF of 50-55%, with septal hypokinesis and moderately enlarged left and right atria. ICD pacer leads in the right atrium. Pulmonary artery systolic pressure is 45-50mhg * on IV lasix. * on 4L of oxygen by nasal canula * respiratory panel positive for rhinovirus infection * now on 6L of oxygen. * Sputum cultures growing gram-positive cocci and Staphylococcus aureus. Started on IV vancomycin. * blood cultures negative * #URTI due to Rhinovirus infection * on 4L of oxygen. titrate oxygen to maintain sats >90% * breathing treatment with bronchodilators * supportive management * #Dysphagia * has been having dysphagia which is worsening, especially to solids an dliquids over the past several weeks. * Had a history of head and neck cancer and had radiation. Has had significant dyspagia requiring esophageal dilatation * CT of the soft tissue neck with IV contrast showed submucosal edema and adjacent soft tissue thickening of the hypopharynx on the left side with irregularity of the left thyroid cartilage, concerning for malignancy vs infec tion. * CT chest showed mediastinal and right hilar lymphadenopathy, bilateral airspace disease as well as cardiomegaly and chronic interstitial lung disease * GI on board. Had EGD yesteday which showed a benign appearing esophageal stenosis which ws dilated, and a medium sizes hiatal hernia, with no gross lesions in the duodenal bulb. * currently NPO * speech therapy on board; modified barium swallow showed inability to initiate a complete swallow and complete occlusion and aspiration of thin liquid by teaspoon with weak reflexive cough. Limited trials done as patient desaturated after attempts at swallowing trial. * Still n.p.o. except for ice chips. Will need to initiate discussion about alte rnate routes of nutrition eg PEG tube if patient is inerested * #Chronic afib * on coumadin> INR was supratherapeuic at 6.9 on admission. * INR went up to 7.9 yesterday and he received a dose of vitamin K 2.5mg * INR today is 1.8 * on metoprolol * having scant epistaxis due to oxygen. INR is 2.1 toda * #Failure to thrive * has had ~ 10 pound weight loss over the pat several weeks, and hasnt been eating and drinking well * albumin is 2.7 * Nutrition on board * #CAD s/p CABG; on aspirin and metoprolol. Not on statin. unclear why #hypothyroidism; on synthroid DVT prophylaxis; INR was supratherapeutic so coumadin was held. INR today is 2.1 Charges/Coding Visit Charges Inpatient E&M: 00313 Subs Hosp L3
[2023-02-10] MEDS: Vancomycin HCl 1,750 MG in 0.9% Normal Saline (500mL Bag) 500 ML 250 MG IV (13:12)
--- NOTE | 2023-02-10 14:21 | EX.PCM.PN.GI ---
Subjective Subjective Patient underwent an upper endoscopy yesterday with esophageal dilation. He is able to get down liquids better today. He has not attempted solid food. He underwent a swallowing study and was determined to have severe oropharyngeal dysphagia with high aspiration risk. Objective Data Objective Data Vital Signs: Vital Signs Temp Pulse Resp BP Pulse Ox O2 Del Method O2 Flow Rate 97.2 F L 67 20 H 127/45 H 94 High Flow 6 02/10/23 08:37 02/10/23 08:37 02/10/23 08:37 02/10/23 08:37 02/10/23 09:00 02/10/23 09:55 02/10/23 09:55 Oxygen Flow Rate (L/min) 6 Oxygen Delivery Method High Flow Weight: 144 lb 9.972 oz Body Mass Index (BMI) 21.9 Intake & Output: Intake and Output for Last 24 Hours 02/08/23 02/09/23 02/10/23 23:59 23:59 23:59 Intake Total 150.25 / 150.25 0 / 0 258.5 / 258.5 Output Total 775 / 775 700 / 700 200 / 200 Balance -624.75 / -624.75 -700 / -700 58.5 / 58.5 Medical Nutrition Assessment Dietitian: Malnutrition Criteria Met Start: 02/08/23 15:17 Freq: Status: Active Protocol: Document 02/08/23 16:20 RMA (Rec: 02/08/23 16:21 RMA [id number]) Nutrition Malnutrition Evidence of Malnutrition Exists Yes Malnutrition (severe): Acute Illness/Injury,Chronic Evidenced By Suboptimal Energy Intake ( Severe),Weight Loss (Severe), Physical Changes (Moderate) Intake Problem Inadequate Oral Intake Etiology related to swallowing difficulty Signs/Symptoms as evidenced by NPO Status Active Problem Clinical Problem Acute Disease or Injury Related Malnutrition Etiology 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 May need to consider enteral nutrition support if PO remains contraindicated/unsafe for PO diet. Pt will try ensure plus high protein and magic cup for tolerance if PO diet advanced. Suspect weight loss likely continue due to inability to take adequate PO---will monitor and follow-up with further interventions. Lab / Micro Data 02/10/23 08:00 02/10/23 08:00 Labs: Laboratory Results - last 24 hr 02/10/23 08:00: WBC 9.1, RBC 3.79 L, Hgb 10.7 L, Hct 37.2 L, MCV 98.2 H D, MCH 28.2, MCHC 28.8 L D, RDW Std Deviation 52.8 H, RDW Coeff of Minerva 14.6, Plt Count 229, MPV 9.6, Immature Gran % (Auto) 0.800, Neut % (Auto) 89.9 H, Lymph % (Auto) 4.7 L, [place] % (Auto) 3.9, Eos % (Auto) 0.5, Baso % (Auto) 0.2, Absolute Neuts (auto) 8.2 H, Absolute Lymphs (auto) 0.43 L, Nucleated RBC % 0, Differential Comment SCANNED, PT 23.3 H, INR 2.1, Sodium 140, Potassium 3.7, Chloride 101, Carbon Dioxide 31.0, Anion Gap 8, BUN 32 H, Creatinine 0.92, Estim Creat Clear Calc 52.49, Est GFR (MDRD) Af Amer 100, Est GFR (MDRD) Non-Af 83, BUN/Creatinine Ratio 34.9 H, Glucose 74, Calcium 9.2, Magnesium 2.3 Micro: Microbiology 02/08/23 02:30 Blood Culture (Wb) #2 - Anticubital Left Blood Culture - Preliminary No growth in 48 hours. 02/08/23 02:15 Blood Culture (Wb) - Anticubital Right Blood Culture - Preliminary No growth in 48 hours. 02/08/23 11:27 Sputum, Expectorated/Coughed Gram Stain - Final 02/08/23 11:27 Sputum, Expectorated/Coughed Respiratory Culture - Preliminary Gram Positive Cocci Staphylococcus aureus 02/08/23 05:30 Mucosa - Nasopharyngeal Respiratory Panel (PCR) - Final Rhinovirus 02/08/23 05:05 Urine, Clean Catch Legionella Antigen - Final 02/08/23 05:05 Urine, Clean Catch Streptococcus pneumoniae Antigen (M - Final Physical Exam Const alert, oriented x3 and no apparent distress Constitutional Narrative: frail General Appearance: cooperative and comfortable HEENT normocephalic, head/scalp atraumatic, hearing grossly normal bilaterally and moist oral mucous membranes HEENT Narrative: having mild epistaxis due to dry nostrils from oxygen use Mouth: dry mucous membranes Eyes PERRL, EOMs intact bilaterally and conjunctivae normal Neck full ROM, no lymphadenopathy, supple and no JVD Lymph Lymphatic: no lymphadenopathy noted and no lymphedema noted Chest inspection of chest normal Resp normal respiratory effort, normal air movement and clear to auscultation bilaterally Resp Narrative: Bilateral crackles noted throughout. Remains on 4L of oxygen by nasal canula Cardio regular rate, regular rhythm, S1 normal heart sound, S2 normal heart sound, no murmurs and peripheral pulses 2+ throughout GI normal to inspection, nondistended, normoactive bowel sounds, soft to palpation, non-tender and non-distended Back/Spine normal ROM Extremity normal to inspection, full ROM, normal capillary refill, no clubbing, cyanosis or edema, no calf tenderness and no pedal edema Skin no rashes or lesions noted General Skin Exam: no breakdown and turgor normal Neuro CN's II-XII intact bilaterally, no focal motor deficits and no sensory deficits noted Motor Exam: strength 5/5 throughout and general weakness Psych mental status grossly normal, thought process normal and cooperative Appearance: appropriate Assessment & Plan Assessment/Plan (1) Hypoxia: PLAN: Plan Patient is an 87-year-old male with history of chronic A-fib on warfarin, history of throat cancer s/p radiation and chemotherapy, esophageal narrowing post radiation s/p esophageal dilation with shortness of breath and difficulty swallowing. Acute hypoxic respiratory failure with dyspnea secondary to RSV. He is only on 2 L of oxygen at this time. He should be able to tolerate an upper endoscopy. He is also being treated for aspiration pneumonia. S Patient noted worsening dysphagia with liquids and solids over the past several weeks. 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 Had significant dysphagia requiring esophageal dilation about 5 years ago. Newly worsening dysphagia may be secondary to progression of chronic esophageal scarring, cannot rule out new malignancy. CT soft tissue neck with IV contrast showed submucosal edema and adjacent soft tissue thickening of hypopharynx on the left side with irregularity of left thyroid cartilage, concerning for possible malignancy versus infection versus secondary to previous radiation treatment. CT chest showed mediastinal and right hilar lymphadenopathy, bilateral airspace disease, cardiomegaly and chronic interstitial lung disease. Patient was dilated as safely as possible up to 51 [place]. 60 [place] is normal diameter and typically 54 [place] as needed to be able to swallow solid foods. However he has a significant oropharyngeal dysphagia that is different from his esophageal dysphagia from his previous radiation therapy. He may need supplemental feeding in the future with a feeding tube. Charges/Coding Visit Charges Inpatient E&M: 74665 Subs Hosp L3
[2023-02-10 14:30] VITALS: BP 118/78; PULSE 68; RESP 20; TEMP 36.8; O2SAT 96
[2023-02-10] MEDS: Dextrose 5%/0.9% NaCl 1,000 ML 75 ML IV (18:55)
--- NOTE | 2023-02-10 18:57 | PCM.RX.CS ---
Consult Antibiotic Management Pharmacy has been consulted to manage selected antiobiotic: Vancomycin Type of Intervention Type of Consult: New start Suspected Infection Suspected Infection: Pneumonia Labs Labs: Sodium 140 mmol/L (136-145) 02/10/23 08:00 Potassium 3.7 mmol/L (3.5-5.1) 02/10/23 08:00 Chloride 101 mmol/L (98-107) 02/10/23 08:00 Carbon Dioxide 31.0 mmol/L (21.0-32.0) 02/10/23 08:00 Anion Gap 8 (5-15) 02/10/23 08:00 BUN 32 mg/dL (7-18) H 02/10/23 08:00 Creatinine 0.92 mg/dL (0.70-1.30) 02/10/23 08:00 Est GFR (MDRD) Af Amer 100 mL/min (>60) 02/10/23 08:00 Est GFR (MDRD) Non-Af 83 mL/min (>60) 02/10/23 08:00 BUN/Creatinine Ratio 34.9 RATIO (10-20) H 02/10/23 08:00 Glucose 74 mg/dL (74-106) 02/10/23 08:00 Microbiology Microbiology: Microbiology 02/08/23 02:30 Blood Culture (Wb) #2 - Anticubital Left Blood Culture - Preliminary No growth in 48 hours. 02/08/23 02:15 Blood Culture (Wb) - Anticubital Right Blood Culture - Preliminary No growth in 48 hours. 02/08/23 11:27 Sputum, Expectorated/Coughed Gram Stain - Final 02/08/23 11:27 Sputum, Expectorated/Coughed Respiratory Culture - Preliminary Gram Positive Cocci Staphylococcus aureus 02/08/23 05:30 Mucosa - Nasopharyngeal Respiratory Panel (PCR) - Final Rhinovirus 02/08/23 05:05 Urine, Clean Catch Legionella Antigen - Final 02/08/23 05:05 Urine, Clean Catch Streptococcus pneumoniae Antigen (M - Final Dosing Weight Weight used for dosin.6 kg Estimated Creatinine Clearance Estimated Creatinine Clearance: 52ml/min Goal Trough Goal Trough: 15-20 mcg/mL Pharmacy Plan for Drug Dosing Pharmacy Plan for Drug Dosing: NEW START IV VANCOMYCIN Consulting Physician: Dr. Hairston Indication: PNA Goal Trough: 15-20 SrCr: 0.92 CrCl: 52mls/min Comments: pt received a 1750mg (25mg/kg) loading dose on 02/10/23 at 1312 Vancomycin Dose: based on patients weight and renal function, recommend an initial dose of 750mg q12h starting 02/11/23 at 0100. Trough prior to the 4th total dose Pending Level: 02/12/23 at 0030 Pharmacy Service will continue to monitor and adjust dosing as required. Follow-Up Labs Follow-Up Labs: Trough: Vancomycin (02/12/23 @ 0030)
[2023-02-10 22:00] VITALS: RESP 18
[2023-02-10 22:30] VITALS: BP 120/53; PULSE 65; RESP 18; TEMP 36.6; O2SAT 93
[2023-02-10] MEDS: Ceftriaxone 1 GM/50 ML BAG IV (22:40)
[2023-02-11] MEDS: Vancomycin HCl 750 MG in 0.9% Normal Saline (250mL Bag) 250 ML 250 MG IV (01:19)
[2023-02-11 04:30] VITALS: BP 128/60; PULSE 66; RESP 18; TEMP 36.5; O2SAT 96
[2023-02-11 06:00] LABS: Absolute Lymphocyte Count 0.55 X10^3/uL (0.83-4.51); Absolute Neutrophil Count 8.5 X10^3/uL (2.0-7.7); Basophil# 0.03 X10^3/uL; Basophil% 0.3 % (0-1); Eosinophil# 0.11 X10^3/uL; Eosinophils% 1.1 % (0-5); Hematocrit 35.9 % (40-54); Hemoglobin 10.6 g/dL (13.0-16.5); Lymphocyte # 0.55 X10^3/ul (0.83-4.51); Lymphocyte % 5.6 % (19-41); Mean Corp Hgb Conc 29.5 g/dL (32-36); Mean Platelet Vol. 9.7 fl (6.2-12.0); Monocyte# 0.53 X10^3/uL; Monocyte% 5.4 % (0-10); NRBC Flagged by Analyzer 0 % (0-5); Neutrophil # 8.51 X10^3/uL (2.7-7.7); Neutrophil % 86.9 % (47-70); POSITIVE DIFFERENTIAL YES; POSITIVE MORPHOLOGY YES; Platelet Count 242 K/mm3 (150-450); RBC Distribution Width CV 14.5 % (11.6-14.6); RBC Distribution Width SD 50.5 fl (35.1-43.9); Red Blood Count 3.78 M/mm3 (4.6-6.2); White Blood Count 9.8 K/mm3 (4.4-11.0)
[2023-02-11 06:03] LABS: Differential Indicated SCAN CRITERIA MET
[2023-02-11 06:26] LABS: Anion Gap 6 (5-15); BUN 24 mg/dL (7-18); BUN/Creat Ratio 27.8 RATIO (10-20); Calcium,Total 7.9 mg/dL (8.5-10.1); Chloride 105 mmol/L (98-107); Creatinine, Serum 0.86 mg/dL (0.70-1.30); EST Glomerular Filtration Rate 89 mL/min (>60); Est Glom Filt Rate - Afr Amer 108 mL/min (>60); Estimated Creatinine Clearance 56.15 ml/min; Glucose 96 mg/dL (74-106); Potassium 3.4 mmol/L (3.5-5.1); Sodium Level 143 mmol/L (136-145)
[2023-02-11 06:38] LABS: International Normalized Ratio 3.5; Prothrombin Time (Protime)PT. 35.8 SECONDS (11.7-14.9)
[2023-02-11 07:12] LABS: Differential Comment SCANNED
[2023-02-11] MEDS: Dextrose 5%/0.9% NaCl 1,000 ML 75 ML IV (08:15)
[2023-02-11 10:30] VITALS: BP 133/56; PULSE 60; RESP 24; TEMP 36.3; O2SAT 96
[2023-02-11] MEDS: levoFLOXacin IV 500 MG/100 ML BAG 100 MG IV (11:06)
[2023-02-11] MEDS: 0.9% Saline Lock 10 ML Syringe IV (11:07)
--- NOTE | 2023-02-11 11:09 | PN_ITS ---
Subjective Subjective Patient seen and examined. He had no active complaints. He had had only minimal epistaxis since yesterday. He is on 4L of oxygen by nasal canula. Review of systems is otherwise negative. He is on 4L of oxygen. Objective Data Objective Data Vital Signs: Vital Signs Temp Pulse Resp BP Pulse Ox O2 Del Method O2 Flow Rate 97.7 F L 66 18 128/60 H 96 Nasal Cannula 4 02/11/23 04:30 02/11/23 04:30 02/11/23 04:30 02/11/23 04:30 02/11/23 04:30 02/11/23 04:30 02/11/23 04:30 Oxygen Flow Rate (L/min) 4 Oxygen Delivery Method Nasal Cannula Weight: 144 lb 9.972 oz Body Mass Index (BMI) 21.9 Intake & Output: Intake and Output for Last 24 Hours 02/09/23 02/10/23 02/11/23 23:59 23:59 23:59 Intake Total 0 / 0 793.5 / 793.5 315 / 315 Output Total 700 / 700 450 / 450 Balance -700 / -700 343.5 / 343.5 315 / 315 Medical Nutrition Assessment Dietitian: Malnutrition Criteria Met Start: 02/08/23 15:17 Freq: Status: Active Protocol: Document 02/08/23 16:20 RMA (Rec: 02/08/23 16:21 RMA [id number]) Nutrition Malnutrition Evidence of Malnutrition Exists Yes Malnutrition (severe): Acute Illness/Injury,Chronic Evidenced By Suboptimal Energy Intake ( Severe),Weight Loss (Severe), Physical Changes (Moderate) Intake Problem Inadequate Oral Intake Etiology related to swallowing difficulty Signs/Symptoms as evidenced by NPO Status Active Problem Clinical Problem Acute Disease or Injury Related Malnutrition Etiology 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 related to swallowing difficulty and inadequate oral intake Signs/Symptoms as evidenced by ~5% weight loss x past 3 weeks, ~11% weight loss x past 1 year, PO meeting less than 50% estimated nutrition needs x 1 month, visible muscle wasting and fat depletion in the clavicle, face, arms and legs and currently NPO Status Active Problem Recommendation Dietitian Recommendations/Changes Recommend regular diet as tolerated with texture/ consistency as per SPORTS EQUIPMENT SUPERVISOR. May need to consider enteral nutrition support if PO remains contraindicated/unsafe for PO diet. Pt will try ensure plus high protein and magic cup for tolerance if PO diet advanced. Suspect weight loss likely continue due to inability to take adequate PO---will monitor and follow-up with further interventions. Lab / Micro Data 02/11/23 05:20 02/11/23 05:20 Labs: Laboratory Results - last 24 hr 02/11/23 05:20: WBC 9.8, RBC 3.78 L, Hgb 10.6 L, Hct 35.9 L, MCV 95.0 H, MCH 28.0, MCHC 29.5 L, RDW Std Deviation 50.5 H, RDW Coeff of [place]erv[place] 14.5, Plt Count 242, MPV 9.7, Immature Gran % (Auto) 0.700, Neut % (Auto) 86.9 H, Lymph % (Auto) 5.6 L, [place] % (Auto) 5.4, Eos % (Auto) 1.1, Baso % (Auto) 0.3, Absolute Neuts (auto) 8.5 H, Absolute Lymphs (auto) 0.55 L, Nucleated RBC % 0, Differential Comment SCANNED, PT 35.8 H, INR 3.5, Sodium 143, Potassium 3.4 L, Chloride 105, Carbon Dioxide 32.0, Anion Gap 6, BUN 24 H, Creatinine 0.86, Estim Creat Clear Calc 56.15, Est GFR (MDRD) Af Amer 108, Est GFR (MDRD) Non-Af 89, BUN/Creatinine Ratio 27.8 H, Glucose 96, Calcium 7.9 L Micro: Microbiology 02/08/23 11:27 Sputum, Expectorated/Coughed Gram Stain - Final 02/08/23 11:27 Sputum, Expectorated/Coughed Respiratory Culture - Final Streptococcus pneumoniae Staphylococcus aureus 02/08/23 02:30 Blood Culture (Wb) #2 - Anticubital Left Blood Culture - Preliminary No growth in 48 hours. 02/08/23 02:15 Blood Culture (Wb) - Anticubital Right Blood Culture - Prel iminary No growth in 48 hours. 02/08/23 05:30 Mucosa - Nasopharyngeal Respiratory Panel (PCR) - Final Rhinovirus 02/08/23 05:05 Urine, Clean Catch Legionella Antigen - Final 02/08/23 05:05 Urine, Clean Catch Streptococcus pneumoniae Antigen (M - Final Physical Exam Const alert, oriented x3 and no apparent distress Constitutional Narrative: frail General Appearance: cooperative and comfortable HEENT normocephalic, head/scalp atraumatic, hearing grossly normal bilaterally and nasal mucous membranes and turbinates normal Mouth: dry mucous membranes Eyes PERRL, EOMs intact bilaterally and conjunctivae normal Neck full ROM, no lymphadenopathy, supple and no JVD Lymph Lymphatic: no lymphadenopathy noted and no lymphedema noted Chest inspection of chest normal Resp normal respiratory effort, normal air movement and clear to auscultation bilaterally Resp Narrative: Few crackles bilaterally. Remains on 4L of oxygen by nasal canula Cardio regular rate, regular rhythm, S1 normal heart sound, S2 normal heart sound, no murmurs and peripheral pulses 2+ throughout GI normal to inspection, nondistended, normoactive bowel sounds, soft to palpation, non-tender and non-distended Back/Spine normal ROM Extremity normal to inspection, full ROM, normal capillary refill, no clubbing, cyanosis or edema, no calf tenderness and no pedal edema Skin no rashes or lesions noted General Skin Exam: no breakdown and turgor normal Neuro CN's II-XII intact bilaterally, no focal motor deficits and no sensory deficits noted Motor Exam: strength 5/5 throughout and general weakness Psych mental status grossly normal, thought process normal and cooperative Appearance: appropriate Assessment & Plan Assessment/Plan (1) Hypoxia: (2) History of throat cancer: PLAN: Plan #Hypoxia due to probable aspiration pneumonia and rhinovirus infection * saturation was in the 70s on admission. * CXR showed bilateral pulmonary opacities concerning for infection and/or aspiration. * 2D echo: EF of 50-55%, with septal hypokinesis and moderately enlarged left and right atria. ICD pacer leads in the right atrium. Pulmonary artery systo lic pressure is 45-50mhg * on IV lasix. * on 4L of oxygen by nasal canula * respiratory panel positive for rhinovirus infection * Sputum cultures growing Strep pneumonia and Staph aureus, both sensitive to levofloxacin. Was started on IV vancomycin; will switch to IV levofloxacin. * blood cultures negative * #URTI due to Rhinovirus infection * on 4L of oxygen. titrate oxygen to maintain sats >90% * breathing treatment with bronchodilators * supportive management * #Dysphagia * has been having dysphagia which is worsening, especially to solids an dliquids over the past several weeks. * Had a history of head and neck cancer and had radiation. Has had significant dyspagia requiring esophageal dilatation * CT of the soft tissue neck with IV contrast showed submucosal edema and adjacent soft tissue thickening of the hypopharynx on the left side with irregularity of the left thyroid cartilage, concerning for malignancy vs infection. * CT chest showed mediastinal and right hilar lymphadenopathy, bilateral airspace disease as well as cardiomegaly and chronic interstitial lung disease * GI on board. Had EGD yesteday which showed a benign appearing esophageal stenosis which ws dilated, and a medium sizes hiatal hernia, with no gross lesions in the duodenal bulb. * currently NPO * speech therapy on board; modified barium swallow showed inability to initiate a complete swallow and complete occlusion and aspiration of thin liquid by teaspoon with weak reflexive cough. Limited trials done as patient twin aturated after attempts at swallowing trial. * Still n.p.o. except for ice chips. Speech therapy on board and reassess patient today. * If he still remains NPO, will have to re-evaluate for alternate means of nutrition. * #Chronic afib * on coumadin> INR was supratherapeuic at 6.9 on admission. * INR went up to 7.9 and he received a dose of vitamin K 2.5mg * INR today is 3.5 * on metoprolol. back on coumadin. * * #Failure to thrive * has had ~ 10 pound weight loss over the pat several weeks, and hasnt been eating and drinking well * albumin is 2.7 * Nutrition on board * #CAD s/p CABG; on aspirin and metoprolol. Not on statin. unclear why #hypothyroidism; on synthroid DVT prophylaxis; on coumadin Charges/Coding Visit Charges Inpatient E&M: 84343 Subs Hosp L2
[2023-02-11 16:08] VITALS: O2SAT 99
[2023-02-11 16:30] VITALS: BP 128/62; PULSE 64; RESP 20; TEMP 36.6; O2SAT 95
[2023-02-11] MEDS: Ceftriaxone 1 GM/50 ML BAG IV (21:48)
[2023-02-11 22:30] VITALS: BP 133/72; PULSE 68; RESP 18; TEMP 36.6; O2SAT 98
[2023-02-12] VITALS (7 sets, daily range): BP systolic 119–134; BP diastolic 54–68; PULSE 60–74; RESP 18–22; TEMP 36.3–36.7; O2SAT 95–98
[2023-02-12] MEDS: Dextrose 5%/0.9% NaCl 1,000 ML 75 ML IV (00:54)
[2023-02-12 05:30] LABS: Absolute Lymphocyte Count 0.56 X10^3/uL (0.83-4.51); Absolute Neutrophil Count 8.1 X10^3/uL (2.0-7.7); Basophil# 0.01 X10^3/uL; Basophil% 0.1 % (0-1); Eosinophil# 0.16 X10^3/uL; Eosinophils% 1.7 % (0-5); Hemoglobin 10.4 g/dL (13.0-16.5); Lymphocyte # 0.56 X10^3/ul (0.83-4.51); Mean Corp Hgb Conc 30.6 g/dL (32-36); Mean Corpuscular Hgb 28.8 pg (27.0-32.0); Mean Corpuscular Volume 94.2 fL (80-94); Mean Platelet Vol. 9.5 fl (6.2-12.0); Monocyte% 4.3 % (0-10); NRBC Flagged by Analyzer 0 % (0-5); Neutrophil # 8.07 X10^3/uL (2.7-7.7); POSITIVE DIFFERENTIAL YES; Platelet Count 233 K/mm3 (150-450); RBC Distribution Width CV 14.3 % (11.6-14.6); RBC Distribution Width SD 49.6 fl (35.1-43.9); Red Blood Count 3.61 M/mm3 (4.6-6.2); White Blood Count 9.3 K/mm3 (4.4-11.0)
[2023-02-12 05:41] LABS: Differential Indicated SCAN CRITERIA MET
[2023-02-12 05:57] LABS: Prothrombin Time (Protime)PT. 41.3 SECONDS (11.7-14.9)
[2023-02-12 05:59] LABS: International Normalized Ratio 4.2
[2023-02-12 06:02] LABS: Anion Gap 2 (5-15); BUN 21 mg/dL (7-18); BUN/Creat Ratio 32.1 RATIO (10-20); Calcium,Total 8.9 mg/dL (8.5-10.1); Chloride 108 mmol/L (98-107); Creatinine, Serum 0.65 mg/dL (0.70-1.30); EST Glomerular Filtration Rate 123 mL/min (>60); Est Glom Filt Rate - Afr Amer 148 mL/min (>60); Estimated Creatinine Clearance 48.29 ml/min; Glucose 125 mg/dL (74-106); Potassium 3.1 mmol/L (3.5-5.1); Sodium Level 147 mmol/L (136-145)
[2023-02-12 06:36] LABS: Differential Comment SCANNED
[2023-02-12] MEDS: levoFLOXacin IV 500 MG/100 ML BAG 100 MG IV (09:57)
[2023-02-12] MEDS: 0.9% Saline Lock 10 ML Syringe IV (09:58)
--- NOTE | 2023-02-12 09:58 | PCM.PN.HOSP ---
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 Patient and family want to meet with hospice to discuss options and have vacillated on if they want a feeding tube or not. Objective Data Objective Data Vital Signs: Vital Signs Temp Pulse Resp BP Pulse Ox O2 Del Method O2 Flow Rate 98.1 F 60 18 125/54 H 97 Nasal Cannula 4 02/12/23 04:00 02/12/23 04:00 02/12/23 04:00 02/12/23 04:00 02/12/23 04:00 02/12/23 04:00 02/12/23 04:00 Oxygen Flow Rate (L/min) 4 Oxygen Delivery Method Nasal Cannula Weight: 65.6 kg Body Mass Index (BMI) 21.9 Intake & Output: Intake and Output for Last 24 Hours 02/10/23 02/11/23 02/12/23 23:59 23:59 23:59 Intake Total 793.5 / 793.5 2465 / 2465 0 / 0 Output Total 450 / 450 1100 / 1100 150 / 150 Balance 343.5 / 343.5 1365 / 1365 -150 / -150 Medical Nutrition Assessment Dietitian: Malnutrition Criteria Met Start: 02/08/23 15:17 Freq: Status: Active Protocol: Document 02/11/23 15:24 RMA (Rec: 02/11/23 15:24 RMA [id number]) Nutrition Malnutrition Evidence of Malnutrition Exists Yes Malnutrition (severe): Acute Illness/Injury,Chronic Evidenced By Suboptimal Energy Intake ( Severe),Weight Loss (Severe), Physical Changes (Moderate) Intake Problem Inadequate Oral Intake Etiology related to swallowing difficulty Signs/Symptoms as evidenced by NPO x day 3 Status Active Problem Clinical Problem Acute Disease or Injury Related Malnutrition Etiology 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 Recommend PEG for enteral nutrition support if diet remains contraindicated and pt unsafe for PO. Pt will try ensure plus high protein and magic cup for tolerance if PO diet advanced. Suspect unintentional weight loss likely to continue due to inability to take PO and nutrition support is necessary to prevent further pro-tamika depletion. Lab / Micro Data 02/12/23 04:50 02/12/23 04:50 Labs: Laboratory Results - last 24 hr 02/12/23 04:50: WBC 9.3, RBC 3.61 L, Hgb 10.4 L, Hct 34.0 L, MCV 94.2 H, MCH 28.8, MCHC 30.6 L, RDW Std Deviation 49.6 H, RDW Coeff of Minerva 14.3, Plt Count 233, MPV 9.5, Immature Gran % (Auto) 0.900, Neut % (Auto) 87.0 H, Lymph % (Auto) 6.0 L, Garvin % (Auto) 4.3, Eos % (Auto) 1.7, Baso % (Auto) 0.1, Absolute Neuts (auto) 8.1 H, Absolute Lymphs (auto) 0.56 L, Nucleated RBC % 0, Differential Comment SCANNED, PT 41.3 H, INR 4.2 H*, Sodium 147 H, Potassium 3.1 L, Chloride 108 H, Carbon Dioxide 37.0 H, Anion Gap 2 L, BUN 21 H, Creatinine 0.65 L, Estim Creat Clear Calc 48.29, Est GFR (MDRD) Af Amer 148, Est GFR (MDRD) Non-Af 123, BUN/Creatinine Ratio 32.1 H, Glucose 125 H, Calcium 8.9 Micro: Microbiology 02/08/23 11:27 Sputum, Expectorated/Coughed Gram Stain - Final 02/08/23 11:27 Sputum, Expectorated/Coughed Respiratory Culture - Final Streptococcus pneumoniae Staphylococcus aureus 02/08/23 02:30 Blood Culture (Wb) #2 - Anticubital Left Blood Culture - Preliminary No growth in 48 hours. 02/08/23 02:15 Blood Culture (Wb) - Anticubital Right Blood Culture - Preliminary No growth in 48 hours. 02/08/23 05:30 Mucosa - Nasopharyngeal Respiratory Panel (PCR) - Final Rhinovirus 02/08/23 05:05 Urine, Clean Catch Legionella Antigen - Final 02/08/23 05:05 Urine, Clean Catch Streptococcus pneumoniae Antigen (M - Final Physical Exam Narrative General: Alert, oriented, appears tired HEENT normocephalic, dry mucous membranes Eyes: Anicteric, normal conjunctiva, extraocular movements grossly intact Neck: Supple Respiratory: Somewhat increased respiratory effort and diffusely coarse Cardiovascular: Regular rate GI: Soft, nontender, nondistended Extremities: No significant edema Musculoskeletal: Moving all extremities Neuro: Does have difficulty getting words out Skin: No rashes appreciated Psych: Cooperative Assessment & Plan Assessment/Plan (1) Hypoxia: (2) History of throat cancer: PLAN: Plan #Hypoxia due to probable aspiration pneumonia and URI due to rhinovirus infection saturation was in the 70s on admission. CXR showed bilateral pulmonary opacities concerning for infection and/or aspiration. 2D echo: EF of 50-55%, with septal hypokinesis and moderately enlarged left and right atria. ICD pacer leads in the right atrium. Pulmonary artery systolic pressure is 45-50mhg on IV lasix. on 4L of oxygen by nasal canula respiratory panel positive for rhinovirus infection Sputum cultures growing Strep pneumonia and Staph aureus, both sensitive to levofloxacin. Was started on IV vancomycin; will switch to IV levofloxacin. blood cultures negative -02/12: Wean O2 as tolerated, continue Levaquin, will DC Rocephin given both organisms growing are covered by Levaquin #Dysphagia with history of throat cancer status post radiation and chemotherapy found to have stricture status post dilation has been having dysphagia which is worsening, especially to solids an dliquids over the past several weeks. Had a history of head and neck cancer and had radiation. Has had significant dyspagia requiring esophageal dilatation CT of the soft tissue neck with IV contrast showed submucosal edema and adjacent soft tissue thickening of the hypopharynx on the left side with irregularity of the left thyroid cartilage, concerning for malignancy vs infection. CT chest showed mediastinal and right hilar lymphadenopathy, bilateral airspace disease as well as cardiomegaly and chronic interstitial lung disease GI on board. Had EGD yesteday which showed a benign appearing esophageal stenosis which ws dilated, and a medium sizes hiatal hernia, with no gross lesions in the duodenal bulb. currently NPO speech therapy on board; modified barium swallow showed inability to initiate a complete swallow and complete occlusion and aspiration of thin liquid by teaspoon with weak reflexive cough. Limited trials done as patient desaturated after attempts at swallowing trial. Still n.p.o. except for ice chips. Speech therapy on board and reassess patient today. If he still remains NPO, will have to re-evaluate for alternate means of nutrition. -02/12: Continues to work with speech therapy, D5 normal saline changed to D5 half-normal saline due to increasing sodium and chloride, this was GI, if patient agreeable will need to pursue PEG placement. Patient first to meet with hospice to discuss options but given patient's lack of improvement and prolonged lack of nutrition we will need to decide hospice versus PEG placement. Referral placed #Chronic afib on coumadin> INR was supratherapeuic at 6.9 on admission. INR went up to 7.9 and he received a dose of vitamin K 2.5mg INR today is 3.5 on metoprolol. back on coumadin. -02/12: INR going back up and is supratherapeutic today at 4.2, it appears patient has not been receiving his Coumadin as he is not taking p.o. 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 Not on home statin -02/12: Metoprolol IV as needed, can consider switching to rectal aspirin if absolutely necessary #hypothyroidism; on synthroid DVT prophylaxis; INR supratherapeutic Time spent in the patient's overall evaluation,decision-making process, review of diagnostic data, adjustment of management, discussion with other providers, nursing nursing and ancillary staff involved in patient's care documentation, 51 minutes Charges/Coding Visit Charges Inpatient E&M: 80463 Subs Hosp L3
[2023-02-12] MEDS: Dext 5%-0.45% NS 1,000 ML 75 ML IV (10:00)
[2023-02-12] MEDS: Potassium Chloride 10mEq/100mL 10 MEQ/100 ML IV.SOLN. 100 MEQ IV BOLUS ×2 (12:57→15:07)
--- NOTE | 2023-02-12 13:35 | EX.PCM.PN.GI ---
Subjective Subjective Patient is feeling about the same. He denies any abdominal pain, nausea, cramping but he still has esophageal dysphagia. Objective Data Objective Data Vital Signs: Vital Signs Temp Pulse Resp BP Pulse Ox O2 Del Method O2 Flow Rate 97.4 F L 74 22 H 134/63 H 96 Nasal Cannula 2 02/12/23 10:00 02/12/23 10:00 02/12/23 10:00 02/12/23 10:00 02/12/23 10:00 02/12/23 10:00 02/12/23 10:00 Oxygen Flow Rate (L/min) 2 Oxygen Delivery Method Nasal Cannula Weight: 144 lb 9.972 oz Body Mass Index (BMI) 21.9 Intake & Output: Intake and Output for Last 24 Hours 02/10/23 02/11/23 02/12/23 23:59 23:59 23:59 Intake Total 793.5 / 793.5 2465 / 2465 782.5 / 782.5 Output Total 450 / 450 1100 / 1100 150 / 150 Balance 343.5 / 343.5 1365 / 1365 632.5 / 632.5 Medical Nutrition Assessment Dietitian: Malnutrition Criteria Met Start: 02/08/23 15:17 Freq: Status: Active Protocol: Document 02/11/23 15:24 RMA (Rec: 02/11/23 15:24 RMA [id number]) Nutrition Malnutrition Evidence of Malnutrition Exists Yes Malnutrition (severe): Acute Illness/Injury,Chronic Evidenced By Suboptimal Energy Intake ( Severe),Weight Loss (Severe), Physical Changes (Moderate) Intake Problem Inadequate Oral Intake Etiology related to swallowing difficulty Signs/Symptoms as evidenced by NPO x day 3 Status Active Problem Clinical Problem Acute Disease or Injury Related Malnutrition Etiology 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 Recommend PEG for enteral nutrition support if diet remains contraindicated and pt unsafe for PO. Pt will try ensure plus high protein and magic cup for tolerance if PO diet advanced. Suspect unintentional weight loss likely to continue due to inability to take PO and nutrition support is necessary to prevent further pro-tamika depletion. Lab / Micro Data 02/12/23 04:50 02/12/23 04:50 Labs: Laboratory Results - last 24 hr 02/12/23 04:50: WBC 9.3, RBC 3.61 L, Hgb 10.4 L, Hct 34.0 L, MCV 94.2 H, MCH 28.8, MCHC 30.6 L, RDW Std Deviation 49.6 H, RDW Coeff of Minerva 14.3, Plt Count 233, MPV 9.5, Immature Gran % (Auto) 0.900, Neut % (Auto) 87.0 H, Lymph % (Auto) 6.0 L, [place] % (Auto) 4.3, Eos % (Auto) 1.7, Baso % (Auto) 0.1, Absolute Neuts (auto) 8.1 H, Absolute Lymphs (auto) 0.56 L, Nucleated RBC % 0, Differential Comment SCANNED, PT 41.3 H, INR 4.2 H*, Sodium 147 H, Potassium 3.1 L, Chloride 108 H, Carbon Dioxide 37.0 H, Anion Gap 2 L, BUN 21 H, Creatinine 0.65 L, Estim Creat Clear Calc 48.29, Est GFR (MDRD) Af Amer 148, Est GFR (MDRD) Non-Af 123, BUN/Creatinine Ratio 32.1 H, Glucose 125 H, Calcium 8.9 Micro: Microbiology 02/08/23 11:27 Sputum, Expectorated/Coughed Gram Stain - Final 02/08/23 11:27 Sputum, Expectorated/Coughed Respiratory Culture - Final Streptococcus pneumoniae Staphylococcus aureus 02/08/23 02:30 Blood Culture (Wb) #2 - Anticubital Left Blood Culture - Preliminary No growth in 48 hours. 02/08/23 02:15 Blood Culture (Wb) - Anticubital Right Blood Culture - Preliminary No growth in 48 hours. 02/08/23 05:30 Mucosa - Nasopharyngeal Respiratory Panel (PCR) - Final Rhinovirus 02/08/23 05:05 Urine, Clean Catch Legionella Antigen - Final 02/08/23 05:05 Urine, Clean Catch Streptococcus pneumoniae Antigen (M - Final Physical Exam Const alert, oriented x3 and no apparent distress Constitutional Narrative: frail General Appearance: cooperative and comfortable HEENT normocephalic, head/scalp atraumatic, hearing grossly normal bilaterally and nasal mucous membranes and turbinates normal Mouth: dry mucous membranes Eyes PERRL, EOMs intact bilaterally and conjunctivae normal Neck full ROM, no lymphadenopathy, supple and no JVD Lymph Lymphatic: no lymphadenopathy noted and no lymphedema noted Chest inspection of chest normal Resp normal respiratory effort, normal air movement and clear to auscultation bilaterally Resp Narrative: Few crackles bilaterally. Remains on 4L of oxygen by nasal canula Cardio regular rate, regular rhythm, S1 normal heart sound, S2 normal heart sound, no murmurs and peripheral pulses 2+ throughout GI normal to inspection, nondistended, normoactive bowel sounds, soft to palpation, non-tender and non-distended Back/Spine normal ROM Extremity normal to inspection, full ROM, normal capillary refill, no clubbing, cyanosis or edema, no calf tenderness and no pedal edema Skin no rashes or lesions noted General Skin Exam: no breakdown and turgor normal Neuro CN's II-XII intact bilaterally, no focal motor deficits and no sensory deficits noted Motor Exam: strength 5/5 throughout and general weakness Psych mental status grossly normal, thought process normal and cooperative Appearance: appropriate Assessment & Plan Assessment/Plan (1) Hypoxia: PLAN: Plan Patient is an 87-year-old male with history of chronic A-fib on warfarin, history of throat cancer s/p radiation and chemotherapy, esophageal narrowing post radiation s/p esophageal dilation with shortness of breath and difficulty swallowing. Acute hypoxic respiratory failure with dyspnea secondary to RSV. He is only on 2 L of oxygen at this time. He should be able to tolerate an upper endoscopy. He is also being treated for aspiration pneumonia. Patient noted worsening dysphagia with liquids and solids over the past several weeks. 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 Had significant dysphagia requiring esophageal dilation about 5 years ago. Newly worsening dysphagia may be secondary to progression of chronic esophageal scarring, cannot rule out new malignancy. CT soft tissue neck with IV contrast showed submucosal edema and adjacent soft tissue thickening of hypopharynx on the left side with irregularity of left thyroid cartilage, concerning for possible malignancy versus infection versus secondary to previous radiation treatment. CT chest showed mediastinal and right hilar lymphadenopathy, bilateral airspace disease, cardiomegaly and chronic interstitial lung disease. Patient was dilated as safely as possible up to 51 [place]. 60 [place] is normal diameter and typically 54 [place] as needed to be able to swallow solid foods. However he has a significant oropharyngeal dysphagia that is different from his esophageal dysphagia from his previous radiation therapy. He may need supplemental feeding in the future with a feeding tube. 02/12-patient is working with speech therapy. He is allowed sips and some ice. Complains of mouth being very dry. He may need some viscous lidocaine if approved by speech therapy as he does have significant radiation-induced injury. Continue PPI therapy. May need alternative means of nutrition in the future. Charges/Coding Visit Charges Inpatient E&M: 66921 Subs Hosp L3
--- NOTE | 2023-02-12 13:37 | CASEMGMT ---
RN notified YARA that patient and family are interested in Hospice. YARA spoke with patient's Rahel. Rahel confirmed they would like to talk with Hospice and she would like [facility]. YARA let Rahel know SW will make a referral and someone from hospice will call her to set up an appointment. She verbalized understanding. YARA sent a referral to [facility] with hospice. Cecilia Clifford MSW ARA
[2023-02-13] VITALS (7 sets, daily range): BP systolic 137–155; BP diastolic 67–99; PULSE 62–71; RESP 16–22; TEMP 36.1–37.1; O2SAT 94–98; BMI 21.9
[2023-02-13] MEDS: Dext 5%-0.45% NS 1,000 ML 75 ML IV ×2 (00:39→12:58)
[2023-02-13] MEDS: Potassium Chloride 10mEq/100mL 10 MEQ/100 ML IV.SOLN. 100 MEQ IV BOLUS (04:10)
[2023-02-13] MEDS: Potassium Chloride 10mEq/100mL 10 MEQ/100 ML IV.SOLN. 60 MEQ IV BOLUS ×3 (05:46→09:44)
[2023-02-13 06:48] LABS: Absolute Lymphocyte Count 0.62 X10^3/uL (0.83-4.51); Absolute Neutrophil Count 9.3 X10^3/uL (2.0-7.7); Basophil# 0.04 X10^3/uL; Basophil% 0.4 % (0-1); Eosinophil# 0.22 X10^3/uL; Eosinophils% 2.1 % (0-5); Hematocrit 35.9 % (40-54); Hemoglobin 10.4 g/dL (13.0-16.5); Lymphocyte # 0.62 X10^3/ul (0.83-4.51); Lymphocyte % 5.8 % (19-41); Mean Corpuscular Hgb 27.6 pg (27.0-32.0); Mean Corpuscular Volume 95.2 fL (80-94); Mean Platelet Vol. 9.6 fl (6.2-12.0); Monocyte# 0.39 X10^3/uL; Monocyte% 3.7 % (0-10); NRBC Flagged by Analyzer 0 % (0-5); Neutrophil # 9.27 X10^3/uL (2.7-7.7); Neutrophil % 86.9 % (47-70); Platelet Count 255 K/mm3 (150-450); RBC Distribution Width CV 14.5 % (11.6-14.6); RBC Distribution Width SD 50.6 fl (35.1-43.9); Red Blood Count 3.77 M/mm3 (4.6-6.2); White Blood Count 10.7 K/mm3 (4.4-11.0)
[2023-02-13 07:03] LABS: International Normalized Ratio 4.2; Prothrombin Time (Protime)PT. 41.5 SECONDS (11.7-14.9)
[2023-02-13 07:20] LABS: Anion Gap 1 (5-15); BUN 17 mg/dL (7-18); BUN/Creat Ratio 28.2 RATIO (10-20); Calcium,Total 8.9 mg/dL (8.5-10.1); Chloride 108 mmol/L (98-107); EST Glomerular Filtration Rate 135 mL/min (>60); Est Glom Filt Rate - Afr Amer 163 mL/min (>60); Estimated Creatinine Clearance 48.29 ml/min; Glucose 122 mg/dL (74-106); Potassium 3.4 mmol/L (3.5-5.1); Sodium Level 146 mmol/L (136-145)
[2023-02-13 10:09] LABS: Magnesium 2.1 mg/dL (1.6-2.6)
[2023-02-13] MEDS: levoFLOXacin IV 500 MG/100 ML BAG 100 MG IV (11:33)
[2023-02-13] MEDS: Albuterol 2.5 MG/3 ML VIAL.NEB. INHALATION ×2 (12:06→19:00)
--- NOTE | 2023-02-13 15:13 | PN.HOSP_ITS ---
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, oral cavity, and pharynx (02/08/23) Subjective Subjective Patient feeling somewhat better from a respiratory standpoint and O2 sats improving but still difficulty swallowing, he and family discussed with hospice and would like to proceed with feeding tube Objective Data Objective Data Vital Signs: Vital Signs Temp Pulse Resp BP Pulse Ox O2 Del Method O2 Flow Rate 98.2 F 62 22 H 144/72 H 97 Nasal Cannula 2 02/13/23 10:00 02/13/23 10:00 02/13/23 12:03 02/13/23 10:00 02/13/23 10:00 02/13/23 14:00 02/13/23 14:00 Oxygen Flow Rate (L/min) 2 Oxygen Delivery Method Nasal Cannula Weight: 65.6 kg Body Mass Index (BMI) 21.9 Intake & Output: Intake and Output for Last 24 Hours 02/11/23 02/12/23 02/13/23 23:59 23:59 23:59 Intake Total 2465 / 2465 1982.5 / 1982.5 1423.75 / 1423.75 Output Total 1100 / 1100 350 / 350 500 / 500 Balance 1365 / 1365 1632.5 / 1632.5 923.75 / 923.75 Medical Nutrition Assessment Dietitian: Malnutrition Criteria Met Start: 02/08/23 15:17 Freq: Status: Active Protocol: Document 02/13/23 13:07 RMA (Rec: 02/13/23 13:07 RMA [id number]) Nutrition Malnutrition Evidence of Malnutrition Exists Yes Malnutrition (severe): Acute Illness/Injury,Chronic Evidenced By Suboptimal Energy Intake ( Severe),Weight Loss (Severe), Physical Changes (Moderate) Intake Problem Inadequate Oral Intake Etiology related to swallowing difficulty Signs/Symptoms as evidenced by NPO x day 5 Status Active Problem Clinical Problem Acute Disease or Injury Related Malnutrition Etiology 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 related to swallowing difficulty and inadequate oral intake Signs/Symptoms as evidenced by BMI 22.0, approximately 5% weight loss x past 3 weeks, ~11% weight loss x past 1 year, PO meeting less than 50% estimated nutrition needs x 1 month, visible muscle wasting and fat depletion in the clavicle, face, arms and legs and extended NPO Status Active Problem Recommendation Dietitian Recommendations/Changes Ability to take safe and adequate PO appears unlikely, suggest enteral nutrition support to meet estimated energy and protein needs-- recommend PEG for enteral nutrition support if diet remains contraindicated/pt unsafe for PO and in accordance with patient wishes . If deemed safe to swallow, recommend liberalized regular diet as tolerated with texture /consistency as per HAT STEAMER. Pt will try ensure plus high protein and magic cup for tolerance if PO diet advanced. Suspect unintentional weight loss likely to continue due to inability to take PO and nutrition support is necessary to prevent further pro-tamika depletion. Noted pt/family to meet with hospice today and decide regarding alternative nutrition support via feeding tube. Lab / Micro Data 02/13/23 05:59 02/13/23 05:59 Labs: Laboratory Results - last 24 hr 02/13/23 05:59: WBC 10.7, RBC 3.77 L, Hgb 10.4 L, Hct 35.9 L, MCV 95.2 H, MCH 27.6, MCHC 29.0 L D, RDW Std Deviation 50.6 H, RDW Coeff of Minerva 14.5, Plt Count 255, MPV 9.6, Immature Gran % (Auto) 1.100 H, Neut % (Auto) 86.9 H, Lymph % (Auto) 5.8 L, [place] % (Auto) 3.7, Eos % (Auto) 2.1, Baso % (Auto) 0.4, Absolute Neuts (auto) 9.3 H, Absolute Lymphs (auto) 0.62 L, Nucleated RBC % 0, PT 41.5 H, INR 4.2 H*, Sodium 146 H, Potassium 3.4 L, Chloride 108 H, Carbon Dioxide 37.0 H , Anion Gap 1 L, BUN 17, Creatinine 0.60 L, Estim Creat Clear Calc 48.29, Est GFR (MDRD) Af Amer 163, Est GFR (MDRD) Non-Af 135, BUN/Creatinine Ratio 28.2 H, Glucose 122 H, Calcium 8.9, Magnesium 2.1 Micro: Microbiology 02/08/23 02:30 Blood Culture (Wb) #2 - Anticubital Left Blood Culture - Final No growth in 5 days. 02/08/23 02:15 Blood Culture (Wb) - Anticubital Right Blood Culture - Final No growth in 5 days. 02/08/23 11:27 Sputum, Expectorated/Coughed Gram Stain - Final 02/08/23 11:27 Sputum, Expectorated/Coughed Respiratory Culture - Final Streptococcus pneumoniae Staphylococcus aureus 02/08/23 05:30 Mucosa - Nasopharyngeal Respiratory Panel (PCR) - Final Rhinovirus 02/08/23 05:05 Urine, Clean Catch Legionella Antigen - Final 02/08/23 05:05 Urine, Clean Catch Streptococcus pneumoniae Antigen (M - Final Physical Exam Narrative General: Alert, oriented, appears less tired today HEENT normocephalic Eyes: Anicteric, normal conjunctiva, extraocular movements grossly intact Neck: Supple Respiratory: Coarse in the bases but improving aeration, improving respiratory effort Cardiovascular: Regular rate GI: Soft, nontender, nondistended Extremities: No significant edema Musculoskeletal: Moving all extremities Neuro: Does have difficulty getting words out Skin: No rashes appreciated Psych: Cooperative Assessment & Plan Assessment/Plan (1) Hypoxia: (2) History of throat cancer: PLAN: Plan #Hypoxia due to probable aspiration pneumonia and URI due to rhinovirus infection * saturation was in the 70s on admission. * CXR showed bilateral pulmonary opacities concerning for infection and/or aspiration. * 2D echo: EF of 50-55%, with septal hypokinesis and moderately enlarged left and right atria. ICD pacer leads in the right atrium. Pulmonary artery systolic pressure is 45-50mhg * on IV lasix. * on 4L of oxygen by nasal canula * respiratory panel positive for rhinovirus infection * Sputum cultures growing Strep pneumonia and Staph aureus, both sensitive to levofloxacin. Was started on IV vancomycin; will switch to IV levofloxacin. * blood cultures negative -02/12: Wean O2 as tolerated, continue Levaquin, will DC Rocephin given both organisms growing are covered by Levaquin -02/13: O2 saturations improving today, remains on oxygen but improved sats and clinically improving, continue present management #Dysphagia with history of throat cancer status post radiation and chemotherapy found to have stricture status post dilation * has been having dysphagia which is worsening, especially to solids an dliquids over the past several weeks. * Had a history of head and neck cancer and had radiation. Has had significant dyspagia requiring esophageal dilatation * CT of the soft tissue neck with IV contrast showed submucosal edema and adjacent soft tissue thickening of the hypopharynx on the left side with irregularity of the left thyroid cartilage, concerning for malignancy vs infection. * CT chest showed mediastinal and right hilar lymphadenopathy, bilateral air space disease as well as cardiomegaly and chronic interstitial lung disease * GI on board. Had EGD yesteday which showed a benign appearing esophageal stenosis which ws dilated, and a medium sizes hiatal hernia, with no gross lesions in the duodenal bulb. * currently NPO * speech therapy on board; modified barium swallow showed inability to initiate a complete swallow and complete occlusion and aspiration of thin liquid by teaspoon with weak reflexive cough. Limited trials done as patient desatura leilani after attempts at swallowing trial. * Still n.p.o. except for ice chips. Speech therapy on board and reassess patient today. * If he still remains NPO, will have to re-evaluate for alternate means of nutrition. -02/12: Continues to work with speech therapy, D5 normal saline changed to D5 half-normal saline due to increasing sodium and chloride, this was GI, if patient agreeable will need to pursue PEG placement. Patient first to meet with hospice to discuss options but given patient's lack of improvement and prolonged lack of nutrition we will need to decide hospice versus PEG placement. Referral placed -02/13: Patient family wanted proceed with feeding tube, discussed with GI, patient for placement tomorrow #Chronic afib * on coumadin> INR was supratherapeuic at 6.9 on admission. * INR went up to 7.9 and he received a dose of vitamin K 2.5mg * INR today is 3.5 * on metoprolol. back on coumadin. -02/12: INR going back up and is supratherapeutic today at 4.2, it appears patient has not been receiving his Coumadin as he is not taking p.o. so we will stop this altogether and continue to trend, currently not bleeding and risk of giving IV vitamin K likely outweighs benefits acutely given INR less than 4.5 and patient cannot take oral vitamin K, will continue to monitor -02/13: INR unchanged today, continue to hold Coumadin, given his need for PEG placement and unable to take p.o. we will give IV vitamin K #Hypothyroidism -Continue Synthroid -02/12: Has been unable to take Synthroid, if no alternative means of medications becomes available may need to switch to IV in the future #Failure to thrive * has had ~ 10 pound weight loss over the pat several weeks, and hasnt been eating and drinking well * albumin is 2.7 * Nutrition on board #CAD s/p CABG x4 and history of PPM; on aspirin and metoprolol. Not on home statin -02/12: Metoprolol IV as needed, can consider switching to rectal aspirin if absolutely necessary #hypothyroidism; on synthroid DVT prophylaxis; INR supratherapeutic-given vitamin K, will add SCDs Time spent in the patient's overall evaluation,decision-making process, review of diagnostic data, adjustment of management, discussion with other providers, nursing nursing and ancillary staff involved in patient's care documentation, 51 minutes Charges/Coding Visit Charges Inpatient E&M: 37607 Subs Hosp L3
--- NOTE | 2023-02-13 15:41 | CASEMGMT ---
Social Work SW met with pt, pt and son and discussed discharge plan. Pt and confirm that PEG tube is to be placed tomorrow and then they will discharge to [facility] at a skilled level of care. Hospice has been declined at this time. DC physician assistant primary care to notify [facility] of d/c plan. Plan: [facility], when medically ready DANILO Casillas
--- NOTE | 2023-02-13 15:42 | CASEMGMT ---
Discharge Planning SL updated that patient will have peg placed tomorrow. Pily Newton, Discharge Planning Asst.
[2023-02-13] MEDS: Phytonadione (Vit K) 5 MG in 0.9% Normal Saline (50mL Bag) 50 ML 150 MG IV (16:26)
--- NOTE | 2023-02-13 17:32 | PN.GI_ITS ---
Subjective Subjective Patient is still having a lot of difficulty swallowing. Objective Data Objective Data Vital Signs: Vital Signs Temp Pulse Resp BP Pulse Ox O2 Del Method O2 Flow Rate 96.9 F L 64 18 137/67 H 94 Nasal Cannula 2 02/13/23 15:24 02/13/23 15:24 02/13/23 15:24 02/13/23 15:24 02/13/23 15:24 02/13/23 15:24 02/13/23 16:43 Oxygen Flow Rate (L/min) 2 Oxygen Delivery Method Nasal Cannula Weight: 144 lb 9.972 oz Body Mass Index (BMI) 21.9 Intake & Output: Intake and Output for Last 24 Hours 02/11/23 02/12/23 02/13/23 23:59 23:59 23:59 Intake Total 2465 / 2465 1982.5 / 1982.5 1474.25 / 1474.25 Output Total 1100 / 1100 350 / 350 500 / 500 Balance 1365 / 1365 1632.5 / 1632.5 974.25 / 974.25 Medical Nutrition Assessment Dietitian: Malnutrition Criteria Met Start: 02/08/23 15:17 Freq: Status: Active Protocol: Document 02/13/23 13:07 RMA (Rec: 02/13/23 13:07 RMA [id number]) Nutrition Malnutrition Evidence of Malnutrition Exists Yes Malnutrition (severe): Acute Illness/Injury,Chronic Evidenced By Suboptimal Energy Intake ( Severe),Weight Loss (Severe), Physical Changes (Moderate) Intake Problem Inadequate Oral Intake Etiology related to swallowing difficulty Signs/Symptoms as evidenced by NPO x day 5 Status Active Problem Clinical Problem Acute Disease or Injury Related Malnutrition Etiology 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 related to swallowing difficulty and inadequate oral intake Signs/Symptoms as evidenced by BMI 22.0, approximately 5% weight loss x past 3 weeks, ~11% weight loss x past 1 year, PO meeting less than 50% estimated nutrition needs x 1 month, visible muscle wasting and fat depletion in the clavicle, face, arms and legs and extended NPO Status Active Problem Recommendation Dietitian Recommendations/Changes Ability to take safe and adequate PO appears unlikely, suggest enteral nutrition support to meet estimated energy and protein needs-- recommend PEG for enteral nutrition support if diet remains contraindicated/pt unsafe for PO and in accordance with patient wishes . If deemed safe to swallow, recommend liberalized regular diet as tolerated with texture /consistency as per COMMERCIAL CONSTRUCTION ESTIMATOR. Pt will try ensure plus high protein and magic cup for tolerance if PO diet advanced. Suspect unintentional weight loss likely to continue due to inability to take PO and nutrition support is necessary to prevent further pro-tamika depletion. Noted pt/family to meet with hospice today and decide regarding alternative nutrition support via feeding tube. Lab / Micro Data 02/13/23 05:59 02/13/23 05:59 Labs: Laboratory Results - last 24 hr 02/13/23 05:59: WBC 10.7, RBC 3.77 L, Hgb 10.4 L, Hct 35.9 L, MCV 95.2 H, MCH 27.6, MCHC 29.0 L D, RDW Std Deviation 50.6 H, RDW Coeff of Minerva 14.5, Plt Count 255, MPV 9.6, Immature Gran % (Auto) 1.100 H, Neut % (Auto) 86.9 H, Lymph % (Auto) 5.8 L, [place] % (Auto) 3.7, Eos % (Auto) 2.1, Baso % (Auto) 0.4, Absolute Neuts (auto) 9.3 H, Absolute Lymphs (auto) 0.62 L, Nucleated RBC % 0, PT 41.5 H, INR 4.2 H*, Sodium 146 H, Potassium 3.4 L, Chloride 108 H, Carbon Dioxide 37.0 H , Anion Gap 1 L, BUN 17, Creatinine 0.60 L, Estim Creat Clear Calc 48.29, Est GFR (MDRD) Af Amer 163, Est GFR (MDRD) Non-Af 135, BUN/Creatinine Ratio 28.2 H, Glucose 122 H, Calcium 8.9, Magnesium 2.1 Micro: Microbiology 02/08/23 02:30 Blood Culture (Wb) #2 - Anticubital Left Blood Culture - Final No growth in 5 days. 02/08/23 02:15 Blood Culture (Wb) - Anticubital Right Blood Culture - Final No growth in 5 days. 02/08/23 11:27 Sputum, Expectorated/Coughed Gram Stain - Final 02/08/23 11:27 Sputum, Expectorated/Coughed Respiratory Culture - Final Streptococcus pneumoniae Staphylococcus aureus 02/08/23 05:30 Mucosa - Nasopharyngeal Respiratory Panel (PCR) - Final Rhinovirus 02/08/23 05:05 Urine, Clean Catch Legionella Antigen - Final 02/08/23 05:05 Urine, Clean Catch Streptococcus pneumoniae Antigen (M - Final Physical Exam Narrative General: Alert, oriented, appears less tired today HEENT normocephalic Eyes: Anicteric, normal conjunctiva, extraocular movements grossly intact Neck: Supple Respiratory: Coarse in the bases but improving aeration, improving respiratory effort Cardiovascular: Regular rate GI: Soft, nontender, nondistended Extremities: No significant edema Musculoskeletal: Moving all extremities Neuro: Does have difficulty getting words out Skin: No rashes appreciated Psych: Cooperative Assessment & Plan Assessment/Plan (1) Hypoxia: PLAN: Plan Patient is an 87-year-old male with history of chronic A-fib on warfarin, history of throat cancer s/p radiation and chemotherapy, esophageal narrowing post radiation s/p esophageal dilation with shortness of breath and difficulty swallowing. Acute hypoxic respiratory failure with dyspnea secondary to RSV. He is only on 2 L of oxygen at this time. He should be able to tolerate an upper endoscopy. He is also being treated for aspiration pneumonia. Patient noted worsening dysphagia with liquids and solids over the past several weeks. 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 Had significant dysphagia requiring esophageal dilation about 5 years ago. Newly worsening dysphagia may be secondary to progression of chronic esophageal scarring, cannot rule out new malignancy. CT soft tissue neck with IV contrast showed submucosal edema and adjacent soft tissue thickening of hypopharynx on the left side with irregularity of left thyroid cartilage, concerning for possible malignancy versus infection versus secondary to previous radiation treatment. CT chest showed mediastinal and right hilar lymphadenopathy, bilateral airspace disease, cardiomegaly and chronic interstitial lung disease. Patient was dilated as safely as possible up to 51 Bangl[place]hi. 60 Bangladeshi is normal diameter and typically 54 Bangl[place]hi as needed to be able to swallow solid foods. However he has a significant oropharyngeal dysphagia that is different from his esophageal dysphagia from his previous radiation therapy. He may need supplemental feeding in the future with a feeding tube. 02/12-patient is working with speech therapy. He is allowed sips and some ice. Complains of mouth being very dry. He may need some viscous lidocaine if approved by speech therapy as he does have significant radiation-induced injury. Continue PPI therapy. May need alternative means of nutrition in the future. 02/13-worsening esophageal dysphagia and oropharyngeal dysphagia thought to be secondary to radiation. Patient will undergo PEG tube tomorrow. I will give fresh frozen plasma prior to the procedure. Charges/Coding Visit Charges Inpatient E&M: 67352 [facility] Hosp L3
[2023-02-14] VITALS (17 sets, daily range): BP systolic 114–162; BP diastolic 55–106; PULSE 64–82; RESP 14–19; TEMP 36.4–37.1; O2SAT 91–98
[2023-02-14] MEDS: Dext 5%-0.45% NS 1,000 ML 75 ML IV ×2 (00:44→21:58)
--- NOTE | 2023-02-14 05:45 | NURSING ---
report called to AC, patient taken down.
[2023-02-14] MEDS: Lactated Ringers 1,000 ML 15 ML IV (06:05)
[2023-02-14 06:34] LABS: INR Fingerstick 1.7; Prothrombin Time Fingerstick 18.4 SEC (11.7-14.9)
--- NOTE | 2023-02-14 07:17 | OP.EGD_ITS ---
Patient Name: Martin Sanders Procedure Date: 02/14/2023 6:19 AM Date of : 1935 Age: 87 Procedure: Upper GI endoscopy Indications: Dysphagia, Failure to respond to medical treatment Providers: Mike Lagunas DO Medicines: Monitored Anesthesia Care Patient Profile: This is an 87 year old male. Refer to note in patient chart for documentation of history and physical. Patient has symptoms of dysphagia with both liquids and solids. Complications: No immediate complications. Procedure: Pre-Anesthesia Assessment: - Prior to the procedure, a History and Physical was performed, and patient medications and allergies were reviewed. The patient is competent. The risks and benefits of the procedure and the sedation options and risks were discussed with the patient. All questions were answered and informed consent was obtained. Patient identification and proposed procedure were verified by the physician in the pre-procedure area. Mental Status Examination: alert and oriented. Airway Examination: normal oropharyngeal airway and neck mobility. Prophylactic Antibiotics: The patient does not require prophylactic antibiotics. Prior Anticoagulants: The patient has taken no anticoagulant or antiplatelet agents. ASA Grade Assessment: III - A patient with severe systemic disease. After reviewing the risks and benefits, the patient was deemed in satisfactory condition to undergo the procedure. The anesthesia plan was to use monitored anesthesia care (MAC). Immediately prior to administration of medications, the patient was re-assessed for adequacy to receive sedatives. The heart rate, respiratory rate, oxygen saturations, blood pressure, adequacy of pulmonary ventilation, and response to care were monitored throughout the procedure. The physical status of the patient was re-assessed after the procedure. After obtaining informed consent, the endoscope was passed under direct vision. Throughout the procedure, the patient's blood pressure, pulse, and oxygen saturations were monitored continuously. The gastroscope was introduced through the mouth, and advanced to the second part of duodenum. The upper GI endoscopy was accomplished without difficulty. The patient tolerated the procedure well. Scope In: 6:47:29 AM Scope Out: 7:04:34 AM Total Procedure Duration Time 0 hours 17 minutes 5 seconds Findings: One benign-appearing, intrinsic severe stenosis was found 19 to 23 cm from the incisors. The stenosis was traversed after dilation. A guidewire was placed and the scope was withdrawn. Dilation was performed with a Savary dilator with no resistance at 45 Fr. The dilation site was examined and showed moderate improvement in luminal narrowing. Estimated blood loss was minimal. A medium-sized hiatal hernia was present. Patchy mild inflammation characterized by friability was found in the gastric body. Biopsies were taken with a cold forceps for Helicobacter pylori testing. The patient was placed in the supine position for PEG placement. The stomach was insufflated to appose gastric and abdominal castillo. A site was located in the cardia with excellent transillumination for placement. The abdominal wall was marked and prepped in a sterile manner. The area was anesthetized with 5 mL of 1% lidocaine. The trocar needle was introduced through the abdominal wall and into the stomach under direct endoscopic view. A snare was introduced through the endoscope and opened in the gastric lumen. The guide wire was passed through the trocar and into the open snare. The snare was closed around the guide wire. The endoscope and snare were removed, pulling the wire out through the mouth. A skin incision was made at the site of needle insertion. The endoscopically removable 20 Fr Bard gastrostomy tube was lubricated. The G-tube was tied to the guide wire and pulled through the mouth and into the stomach. The trocar needle was removed, and the gastrostomy tube was pulled out from the stomach through the skin. The external bumper was attached to the gastrostomy tube, and the tube was cut to remove the guide wire. The final position of the gastrostomy tube was confirmed by relook endoscopy, and skin marking noted to be 4 cm at the external bumper. The final tension and compression of the abdominal wall by the PEG tube and external bumper were checked and revealed that the bumper was loose and not touching the skin. The feeding tube was capped, and the tube site cleaned and dressed. Estimated blood loss was minimal. No gross lesions were noted in the duodenal bulb. Impression: - Benign-appearing esophageal stenosis. Dilated. - Medium-sized hiatal hernia. - Gastritis. Biopsied. - No gross lesions in the duodenal bulb. - An endoscopically removable PEG placement was successfully completed. Recommendation: - [facility]. - Please follow the post-PEG recommendations including: Nutrition consult for formula and volume. - Continue present medications. Procedure Code(s): --- Professional --- 19574, Esophagogastroduodenoscopy, flexible, transoral; with directed placement of percutaneous gastrostomy tube 87507, 51, Esophagogastroduodenoscopy, flexible, transoral; with insertion of guide wire followed by passage of dilator(s) through esophagus over guide wire 23543, 59, Esophagogastroduodenoscopy, flexible, transoral; with biopsy, single or multiple CPT copyright 2021 [employer]. All rights reserved. The codes documented in this report are preliminary and upon irrigator gravity flow review may be revised to meet current compliance requirements. Mike Lagunas DO 02/14/2023 7:15:48 AM This report has been signed electronically. Number of Addenda: 0 Note Initiated On: 02/14/2023 6:19 AM
--- NOTE | 2023-02-14 07:17 | OP.CCLET_ITS ---
02/14/2023 Olive Ruvalcaba [address] [place] [address] Re : Upper GI endoscopy procedure for Martin Sanders Dear Dr. Ruvalcaba This procedure was performed on Tuesday, February 14, 2023. My impressions and recommendations are as follows: Impressions : - Benign-appearing esophageal stenosis. Dilated. - Medium-sized hiatal hernia. - Gastritis. Biopsied. - No gross lesions in the duodenal bulb. - An endoscopically removable PEG placement was successfully completed. Recommendations : - [facility]. - Please follow the post-PEG recommendations including: Nutrition consult for formula and volume. - Continue present medications. My findings are described in the full procedure note, which is enclosed. If I can be of further assistance, please feel free to contact me at . Sincerely, Mike Lagunas, 02/14/2023 7:15:48 AM This report has been signed electronically.
--- NOTE | 2023-02-14 07:47 | PN.HOSP_ITS ---
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, oral cavity, and pharynx (02/08/23) Subjective Subjective Patient doing well post PEG tube, presently on the bedpan trying have a bowel movement breathing better today Objective Data Objective Data Vital Signs: Vital Signs Temp Pulse Resp BP Pulse Ox O2 Del Method O2 Flow Rate 98.3 F 68 16 116/70 94 Nasal Cannula 4 02/14/23 07:40 02/14/23 07:40 02/14/23 07:40 02/14/23 07:40 02/14/23 07:40 02/14/23 07:40 02/14/23 07:40 Oxygen Flow Rate (L/min) 4 Oxygen Delivery Method Nasal Cannula Weight: 65.6 kg Body Mass Index (BMI) 21.9 Intake & Output: Intake and Output for Last 24 Hours 02/12/23 02/13/23 02/14/23 23:59 23:59 23:59 Intake Total 1982.5 / 1982.5 1474.25 / 1474.25 1376.25 / 1376.25 Output Total 350 / 350 500 / 500 200 / 200 Balance 1632.5 / 1632.5 974.25 / 974.25 1176.25 / 1176.25 Medical Nutrition Assessment Dietitian: Malnutrition Criteria Met Start: 02/08/23 15:17 Freq: Status: Active Protocol: Document 02/13/23 13:07 RMA (Rec: 02/13/23 13:07 RMA [id number]) Nutrition Malnutrition Evidence of Malnutrition Exists Yes Malnutrition (severe): Acute Illness/Injury,Chronic Evidenced By Suboptimal Energy Intake ( Severe),Weight Loss (Severe), Physical Changes (Moderate) Intake Problem Inadequate Oral Intake Etiology related to swallowing difficulty Signs/Symptoms as evidenced by NPO x day 5 Status Active Problem Clinical Problem Acute Disease or Injury Related Malnutrition Etiology 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 related to swallowing difficulty and inadequate oral intake Signs/Symptoms as evidenced by BMI 22.0, approximately 5% weight loss x past 3 weeks, ~11% weight loss x past 1 year, PO meeting less than 50% estimated nutrition needs x 1 month, visible muscle wasting and fat depletion in the clavicle, face, arms and legs and extended NPO Status Active Problem Recommendation Dietitian Recommendations/Changes Ability to take safe and adequate PO appears unlikely, suggest enteral nutrition support to meet estimated energy and protein needs-- recommend PEG for enteral nutrition support if diet remains contraindicated/pt unsafe for PO and in accordance with patient wishes . If deemed safe to swallow, recommend liberalized regular diet as tolerated with texture /consistency as per [facility]. Pt will try ensure plus high protein and magic cup for tolerance if PO diet advanced. Suspect unintentional weight loss likely to continue due to inability to take PO and nutrition support is necessary to prevent further pro-tamika depletion. Noted pt/family to meet with hospice today and decide regarding alternative nutrition support via feeding tube. Lab / Micro Data 02/14/23 09:44 02/14/23 09:44 Labs: Laboratory Results - last 24 hr 02/13/23 05:59: Magnesium 2.1 02/13/23 20:50: Blood Type B POSITIVE 02/14/23 06:32: POC PT 18.4 H, INR 1.7 Micro: Microbiology 02/08/23 02:30 Blood Culture (Wb) #2 - Anticubital Left Blood Culture - Final No growth in 5 days. 02/08/23 02:15 Blood Culture (Wb) - Anticubital Right Blood Culture - Final No growth in 5 days. 02/08/23 11:27 Sputum, Expectorated/Coughed Gram Stain - Final 02/08/23 11:27 Sputum, Expectorated/Coughed Respiratory Culture - Final Streptococcus pneumoniae Staphylococcus aureus 02/08/23 05:30 Mucosa - Nasopharyngeal Respiratory Panel (PCR) - Final Rhinovirus 02/08/23 05:05 Urine, Clean Catch Legionella Antigen - Final 02/08/23 05:05 Urine, Clean Catch Streptococcus pneumoniae Antigen (M - Final Physical Exam Narrative General: Alert, oriented, appears less tired today HEENT normocephalic Eyes: Anicteric, normal conjunctiva, extraocular movements grossly intact Neck: Supple Respiratory: Aeration improving, improving respiratory effort Cardiovascular: Regular rate GI: Soft, nontender, nondistended Extremities: No significant edema Musculoskeletal: Moving all extremities Neuro: Does have difficulty getting words out Skin: No rashes appreciated Psych: Cooperative Assessment & Plan Assessment/Plan (1) Hypoxia: (2) History of throat cancer: PLAN: Plan #Hypoxia due to probable aspiration pneumonia and URI due to rhinovirus infection * saturation was in the 70s on admission. * CXR showed bilateral pulmonary opacities concerning for infection and/or aspiration. * 2D echo: EF of 50-55%, with septal hypokinesis and moderately enlarged left and right atria. ICD pacer leads in the right atrium. Pulmonary artery systolic pressure is 45-50mhg * on IV lasix. * on 4L of oxygen by nasal canula * respiratory panel positive for rhinovirus infection * Sputum cultures growing Strep pneumonia and Staph aureus, both sensitive to levofloxacin. Was started on IV vancomycin; will switch to IV levofloxacin. * blood cultures negative -02/12: Wean O2 as tolerated, continue Levaquin, will DC Rocephin given both organisms growing are covered by Levaquin -02/13: O2 saturations improving today, remains on oxygen but improved sats and clinically improving, continue present management -02/14: Continue Levaquin, patient is improving, documented increase in O2 postsurgery but in room on eval doing well and symptomatically feels he is improving #Dysphagia with history of throat cancer status post radiation and chemotherapy found to have stricture status post dilation * has been having dysphagia which is worsening, especially to solids an dliquids over the past several weeks. * Had a history of head and neck cancer and had radiation. Has had significant dyspagia requiring esophageal dilatation * CT of the soft tissue neck with IV contrast showed submucosal edema and adjacent soft tissue thickening of the hypopharynx on the left side with irregularity of the left thyroid cartilage, concerning for malignancy vs infection. * CT chest showed mediastinal and right hilar lymphadenopathy, bilateral airspace disease as well as cardiomegaly and chronic interstitial lung disease * GI on board. Had EGD yesteday which showed a benign appearing esophageal stenosis which ws dilated, and a medium sizes hiatal hernia, with no gross l esions in the duodenal bulb. * currently NPO * speech therapy on board; modified barium swallow showed inability to initiate a complete swallow and complete occlusion and aspiration of thin liquid by yajaira [place] with weak reflexive cough. Limited trials done as patient desaturated after attempts at swallowing trial. * Still n.p.o. except for ice chips. Speech therapy on board and reassess patient today. * If he still remains NPO, will have to re-evaluate for alternate means of nutrition. -02/12: Continues to work with speech therapy, D5 normal saline changed to D5 half-normal saline due to increasing sodium and chloride, this was GI, if patient agreeable will need to pursue PEG placement. Patient first to meet with hospice to discuss options but given patient's lack of improvement and prolonged lack of nutrition we will need to decide hospice versus PEG placement. Referral placed -02/13: Patient family wanted proceed with feeding tube, discussed with GI, patient for placement tomorrow -02/14: Status post successful PEG placement, had some gastritis but has not been able to get his p.o. Protonix and this will be able to go down PEG tube, switch to IV, nutrition is consulted #Chronic afib * on coumadin> INR was supratherapeuic at 6.9 on admission. * INR went up to 7.9 and he received a dose of vitamin K 2.5mg * INR today is 3.5 * on metoprolol. back on coumadin. -02/12: INR going back up and is supratherapeutic today at 4.2, it appears patient has not been receiving his Coumadin as he is not taking p.o. so we will stop this altogether and continue to trend, currently not bleeding and risk of giving IV vitamin K likely outweighs benefits acutely given INR less than 4.5 and patient cannot take oral vitamin K, will continue to monitor -02/13: INR unchanged today, continue to hold Coumadin, given his need for PEG placement and unable to take p.o. we will give IV vitamin K -02/14: INR is 1.7 this a.m. 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 Not on home statin -02/12: Metoprolol IV as needed, can consider switching to rectal aspirin if absolutely necessary -02/14: PEG tube placed #hypothyroidism; on synthroid DVT prophylaxis; SCDs at this time Time spent in the patient's overall evaluation,decision-making process, review of diagnostic data, adjustment of management, discussion with other providers, nursing nursing and ancillary staff involved in patient's care documentation, 51 minutes Charges/Coding Visit Charges Inpatient E&M: 94391 Subs Hosp L3
[2023-02-14 09:54] LABS: Absolute Neutrophil Count 10.4 X10^3/uL (2.0-7.7); Basophil# 0.03 X10^3/uL; Basophil% 0.3 % (0-1); Eosinophil# 0.14 X10^3/uL; Eosinophils% 1.2 % (0-5); Hematocrit 34.8 % (40-54); Hemoglobin 10.3 g/dL (13.0-16.5); Lymphocyte % 4.3 % (19-41); Mean Corp Hgb Conc 29.6 g/dL (32-36); Mean Corpuscular Hgb 28.3 pg (27.0-32.0); Mean Corpuscular Volume 95.6 fL (80-94); Mean Platelet Vol. 9.4 fl (6.2-12.0); Monocyte# 0.34 X10^3/uL; Monocyte% 2.9 % (0-10); NRBC Flagged by Analyzer 0 % (0-5); Neutrophil % 89.6 % (47-70); POSITIVE DIFFERENTIAL YES; Platelet Count 232 K/mm3 (150-450); RBC Distribution Width CV 14.5 % (11.6-14.6); RBC Distribution Width SD 50.7 fl (35.1-43.9); Red Blood Count 3.64 M/mm3 (4.6-6.2); White Blood Count 11.6 K/mm3 (4.4-11.0)
[2023-02-14] MEDS: levoFLOXacin IV 500 MG/100 ML BAG 100 MG IV (09:54)
[2023-02-14 09:56] LABS: Differential Indicated SCAN CRITERIA MET
[2023-02-14] MEDS: Pantoprazole Sodium 40 MG in 0.9% Normal Saline (100mL MB+) 100 ML 330 MG IV (09:56)
[2023-02-14 10:32] LABS: International Normalized Ratio 1.3; Prothrombin Time (Protime)PT. 16.3 SECONDS (11.7-14.9)
[2023-02-14 10:34] LABS: Anion Gap 2 (5-15); BUN 14 mg/dL (7-18); BUN/Creat Ratio 23.9 RATIO (10-20); Calcium,Total 8.6 mg/dL (8.5-10.1); Chloride 105 mmol/L (98-107); Creatinine, Serum 0.59 mg/dL (0.70-1.30); EST Glomerular Filtration Rate 139 mL/min (>60); Est Glom Filt Rate - Afr Amer 168 mL/min (>60); Estimated Creatinine Clearance 48.29 ml/min; Glucose 104 mg/dL (74-106); Potassium 3.6 mmol/L (3.5-5.1); Sodium Level 143 mmol/L (136-145)
[2023-02-14 10:38] LABS: Differential Comment SCANNED
[2023-02-15 03:00] VITALS: BP 127/72; PULSE 64; RESP 18; TEMP 36.4; O2SAT 97
[2023-02-15 07:15] VITALS: O2SAT 95
[2023-02-15 07:30] LABS: Absolute Lymphocyte Count 0.42 X10^3/uL (0.83-4.51); Absolute Neutrophil Count 9.8 X10^3/uL (2.0-7.7); Basophil# 0.02 X10^3/uL; Basophil% 0.2 % (0-1); Eosinophil# 0.16 X10^3/uL; Eosinophils% 1.5 % (0-5); Hematocrit 35.7 % (40-54); Hemoglobin 10.6 g/dL (13.0-16.5); Lymphocyte # 0.42 X10^3/ul (0.83-4.51); Lymphocyte % 3.9 % (19-41); Mean Corp Hgb Conc 29.7 g/dL (32-36); Mean Corpuscular Hgb 28.3 pg (27.0-32.0); Mean Corpuscular Volume 95.5 fL (80-94); Mean Platelet Vol. 9.7 fl (6.2-12.0); Monocyte# 0.27 X10^3/uL; Monocyte% 2.5 % (0-10); NRBC Flagged by Analyzer 0 % (0-5); Neutrophil # 9.81 X10^3/uL (2.7-7.7); Neutrophil % 91.1 % (47-70); POSITIVE DIFFERENTIAL YES; Platelet Count 251 K/mm3 (150-450); RBC Distribution Width CV 14.4 % (11.6-14.6); RBC Distribution Width SD 50.4 fl (35.1-43.9); Red Blood Count 3.74 M/mm3 (4.6-6.2); White Blood Count 10.8 K/mm3 (4.4-11.0)
[2023-02-15 07:34] LABS: Differential Indicated SCAN CRITERIA MET
[2023-02-15 07:39] LABS: International Normalized Ratio 1.2; Prothrombin Time (Protime)PT. 15.6 SECONDS (11.7-14.9)
[2023-02-15 08:00] LABS: Anion Gap 1 (5-15); BUN 14 mg/dL (7-18); BUN/Creat Ratio 22.1 RATIO (10-20); Calcium,Total 8.5 mg/dL (8.5-10.1); Chloride 104 mmol/L (98-107); Creatinine, Serum 0.63 mg/dL (0.70-1.30); EST Glomerular Filtration Rate 127 mL/min (>60); Est Glom Filt Rate - Afr Amer 154 mL/min (>60); Estimated Creatinine Clearance 48.29 ml/min; Glucose 121 mg/dL (74-106); Potassium 3.6 mmol/L (3.5-5.1); Sodium Level 141 mmol/L (136-145)
[2023-02-15 08:18] LABS: Differential Comment SCANNED
[2023-02-15 09:00] VITALS: BP 127/67; PULSE 64; RESP 18; TEMP 36.4; O2SAT 92
[2023-02-15] MEDS: levoFLOXacin IV 500 MG/100 ML BAG 100 MG IV (09:14)
[2023-02-15] MEDS: Pantoprazole Sodium 40 MG in 0.9% Normal Saline (100mL MB+) 100 ML 330 MG IV (09:17)
[2023-02-15] MEDS: 0.9% Saline Lock 10 ML Syringe IV (09:20)
[2023-02-15 10:26] VITALS: O2SAT 96
[2023-02-15] MEDS: Dext 5%-0.45% NS 1,000 ML 75 ML IV (12:56)
--- NOTE | 2023-02-15 13:16 | CASEMGMT ---
Addendum entered by Sunny Stovall 02/16/23 08:20: Romeo Qiu @ [facility] palliative, meeting w/liaison is scheduled for Friday 02/16 at 11:00am. Original Note: GHANSHYAM FINLEY NOTE: Pt qualifies for Palliative referral. Dr Ochoa states, if family agreeable, then referral could be placed. GHANSHYAM FINLEY to room. Pt sitting up in chair. and dtr @ bedside. states when hospice came to talk with them on Sunday, they did discuss palliative as well and they would like palliative for pt. Order for referral placed and e-mail sent to [facility] re: referral. Call to [facility] and left VM for them to call pt's for f/u and also made aware pt will be discharging to [facility] GHANSHYAM FINLEY
--- NOTE | 2023-02-15 13:30 | RAD_ITS ---
STUDY: X-RAY CHEST REASON FOR EXAM: Male, 87 years old. Fever and cough TECHNIQUE: Single AP portable view of the chest. COMPARISON: 02/08/2023 FINDINGS: Stable appearance of a right subclavian pacemaker, EKG leads overlie the chest Lungs are expanded with persistent diffuse airspace opacifications in both lung machado with an enlarging right pleural effusion since the previous study. Follow-up recommended to assure resolution. Sternal cerclage wires and vascular clips are present from a prior sternotomy and coronary artery bypass graft procedure (CABG). Normal mediastinum and richardson. Normal visualized pulmonary arteries. There is atherosclerotic calcification of the aortic arch with tortuosity. There are diffuse degenerative changes of the visualized thoracic spine. Normal visualized ribs, clavicles, and shoulders. There is no demonstrated abnormality of the visualized soft tissue structures of the upper abdomen. RAD/Chest 1 View (Portable) IMPRESSION: Persistent diffuse airspace opacifications in both lung machado, right greater than left with an enlarging right pleural effusion since the previous study. Follow-up recommended to ensure resolution Remote CABG Degenerative bony changes Electronically Signed: Javad Mendosa MD at 15:33 EDT ,
--- NOTE | 2023-02-15 13:59 | CPS ---
Pt unable to understand instruction of pep, but is able to do i.s.
--- NOTE | 2023-02-15 14:48 | PN.HOSP_ITS ---
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, oral cavity, and pharynx (02/08/23) Subjective Subjective Patient been having increasing shortness of breath since last night, oxygenation improves when he coughs and has wet cough again, denies abdominal pain Objective Data Objective Data Vital Signs: Vital Signs Temp Pulse Resp BP Pulse Ox O2 Del Method O2 Flow Rate 97.5 F L 64 18 127/67 H 96 Nasal Cannula 5 02/15/23 09:00 02/15/23 09:00 02/15/23 09:00 02/15/23 09:00 02/15/23 10:26 02/15/23 09:00 02/15/23 12:05 Oxygen Flow Rate (L/min) 5 Oxygen Delivery Method Nasal Cannula Weight: 65.6 kg Body Mass Index (BMI) 21.9 Intake & Output: Intake and Output for Last 24 Hours 02/13/23 02/14/23 02/15/23 23:59 23:59 23:59 Intake Total 1474.25 / 1474.25 2320.00 / 2320.00 1210 / 1210 Output Total 500 / 500 550 / 550 500 / 500 Balance 974.25 / 974.25 1770.00 / 1770.00 710 / 710 Medical Nutrition Assessment Dietitian: Malnutrition Criteria Met Start: 02/08/23 15:17 Freq: Status: Active Protocol: Document 02/13/23 13:07 RMA (Rec: 02/13/23 13:07 RMA [id number]) Nutrition Malnutrition Evidence of Malnutrition Exists Yes Malnutrition (severe): Acute Illness/Injury,Chronic Evidenced By Suboptimal Energy Intake ( Severe),Weight Loss (Severe), Physical Changes (Moderate) Intake Problem Inadequate Oral Intake Etiology related to swallowing difficulty Signs/Symptoms as evidenced by NPO x day 5 Status Active Problem Clinical Problem Acute Disease or Injury Related Malnutrition Etiology 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 related to swallowing difficulty and inadequate oral intake Signs/Symptoms as evidenced by BMI 22.0, approximately 5% weight loss x past 3 weeks, ~11% weight loss x past 1 year, PO meeting less than 50% estimated nutrition needs x 1 month, visible muscle wasting and fat depletion in the clavicle, face, arms and legs and extended NPO Status Active Problem Recommendation Dietitian Recommendations/Changes Ability to take safe and adequate PO appears unlikely, suggest enteral nutrition support to meet estimated energy and protein needs-- recommend PEG for enteral nutrition support if diet remains contraindicated/pt unsafe for PO and in accordance with patient wishes . If deemed safe to swallow, recommend liberalized regular diet as tolerated with texture /consistency as per [employer]. Pt will try ensure plus high protein and magic cup for tolerance if PO diet advanced. Suspect unintentional weight loss likely to continue due to inability to take PO and nutrition support is necessary to prevent further pro-tamika depletion. Noted pt/family to meet with hospice today and decide regarding alternative nutrition support via feeding tube. Lab / Micro Data 02/15/23 06:24 02/15/23 06:24 Labs: Laboratory Results - last 24 hr 02/15/23 06:24: WBC 10.8, RBC 3.74 L, Hgb 10.6 L, Hct 35.7 L, MCV 95.5 H, MCH 28.3, MCHC 29.7 L, RDW Std Deviation 50.4 H, RDW Coeff of Minerva 14.4, Plt Count 251, MPV 9.7, Immature Gran % (Auto) 0.800, Neut % (Auto) 91.1 H, Lymph % (Auto) 3.9 L, Jerome % (Auto) 2.5, Eos % (Auto) 1.5, Baso % (Auto) 0.2, Absolute Neuts (auto) 9.8 H, Absolute Lymphs (auto) 0.42 L, Nucleated RBC % 0, Differential Comment SCANNED, PT 15.6 H, INR 1.2, Sodium 141, Potassium 3.6, Chloride 104, Carbon Dioxide 36.0 H, Anion Gap 1 L, BUN 14, Creatinine 0.63 L, Estim Creat Clear Calc 48.29, Est GFR (MDRD) Af Amer 154, Est GFR (MDRD) Non-Af 127, BUN/Creatinine Ratio 22.1 H, Glucose 121 H, Calcium 8.5 Micro: Microbiology 02/15/23 13:35 Nasal Secretion SARS-CoV-2 & FLU Antigen (Rapid) - Final 02/08/23 02:30 Blood Culture (Wb) #2 - Anticubital Left Blood Culture - Final No growth in 5 days. 02/08/23 02:15 Blood Culture (Wb) - Anticubital Right Blood Culture - Final No growth in 5 days. 02/08/23 11:27 Sputum, Expectorated/Coughed Gram Stain - Final 02/08/23 11:27 Sputum, Expectorated/Coughed Respiratory Culture - Final Streptococcus pneumoniae Staphylococcus aureus 02/08/23 05:30 Mucosa - Nasopharyngeal Respiratory Panel (PCR) - Final Rhinovirus 02/08/23 05:05 Urine, Clean Catch Legionella Antigen - Final 02/08/23 05:05 Urine, Clean Catch Streptococcus pneumoniae Antigen (M - Final Physical Exam Narrative General: Alert, oriented, appears less tired today HEENT normocephalic Eyes: Anicteric, normal conjunctiva, extraocular movements grossly intact Neck: Supple Respiratory: Diminished at lung bases, no sounds coarse again to auscultation on right side, increased respiratory effort today slightly Cardiovascular: Regular rate GI: Soft, nontender, nondistended Extremities: No significant edema Musculoskeletal: Moving all extremities Neuro: Does have difficulty getting words out Skin: No rashes appreciated Psych: Cooperative Assessment & Plan Assessment/Plan (1) Hypoxia: (2) History of throat cancer: PLAN: Plan #Hypoxia due to probable aspiration pneumonia and URI due to rhinovirus infection * saturation was in the 70s on admission. * CXR showed bilateral pulmonary opacities concerning for infection and/or aspiration. * 2D echo: EF of 50-55%, with septal hypokinesis and moderately enlarged left and right atria. ICD pacer leads in the right atrium. Pulmonary artery systolic pressure is 45-50mhg * on IV lasix. * on 4L of oxygen by nasal canula * respiratory panel positive for rhinovirus infection * Sputum cultures growing Strep pneumonia and Staph aureus, both sensitive to levofloxacin. Was started on IV vancomycin; will switch to IV levofloxacin. * blood cultures negative -02/12: Wean O2 as tolerated, continue Levaquin, will DC Rocephin given both organisms growing are covered by Levaquin -02/13: O2 saturations improving today, remains on oxygen but improved sats and clinically improving, continue present management -02/14: Continue Levaquin, patient is improving, documented increase in O2 postsurgery but in room on eval doing well and symptomatically feels he is improving -02/15: Had been improving however reports that overnight he felt more short of breath and still feeling more short of breath than he had been, review of chest x-ray appears to have effusion on right side and increased infiltrates, patient already on antibiotics, may be aspirating his saliva, will give instructions for patient to sleep in semirecumbent position, will start guaifenesin, chest physiotherapy, incentive spirometry and reswab for viruses to make sure no superimposed illness. Additionally consulted pulmonology given his very poor ability to pulmonary toilet and worsening respiratory status after initial improvement #Dysphagia with history of throat cancer status post radiation and chemotherapy found to have stricture status post dilation * has been having dysphagia which is worsening, especially to solids an dliquids over the past several weeks. * Had a history of head and neck cancer and had radiation. Has had significant dyspagia requiring esophageal dilatation * CT of the soft tissue neck with IV contrast showed submucosal edema and adjacent soft tissue thickening of the hypopharynx on the left side with irregularity of the left thyroid cartilage, concerning for malignancy vs infection. * CT chest showed mediastinal and right hilar lymphadenopathy, bilateral airspace disease as well as cardiomegaly and chronic interstitial lung disease * GI on board. Had EGD yesteday which showed a benign appearing esophageal stenosis which ws dilated, and a medium sizes hiatal hernia, with no gross lesions in the duodenal bulb. * currently NPO * speech therapy on board; modified barium swallow showed inability to initiate a complete swallow and complete occlusion and aspiration of thin liquid by teaspoon with weak reflexive cough. Limited trials done as patient desaturated after attempts at swallowing trial. * Still n.p.o. except for ice chips. Speech therapy on board and reassess patient today. * If he still remains NPO, will have to re-evaluate for alternate means of nutrition. -02/12: Continues to work with speech therapy, D5 normal saline changed to D5 half-normal saline due to increasing sodium and chloride, this was GI, if patient agreeable will need to pursue PEG placement. Patient first to meet with hospice to discuss options but given patient's lack of improvement and prolonged lack of nutrition we will need to decide hospice versus PEG placement. Referral placed -02/13: Patient family wanted proceed with feeding tube, discussed with GI, patient for placement tomorrow -02/14: Status post successful PEG placement, had some gastritis but has not been able to get his p.o. Protonix and this will be able to go down PEG tube, switch to IV, nutrition is consulted -02/15: PEG tube placed, patient to start Jevity today. Counseled patient and his that nutrition will help prolong life but will not drastically improve his current quality or help his breathing problems #Chronic afib * on coumadin> INR was supratherapeuic at 6.9 on admission. * INR went up to 7.9 and he received a dose of vitamin K 2.5mg * INR today is 3.5 * on metoprolol. back on coumadin. -02/12: INR going back up and is supratherapeutic today at 4.2, it appears patient has not been receiving his Coumadin as he is not taking p.o. so we will stop this altogether and continue to trend, currently not bleeding and risk of giving IV vitamin K likely outweighs benefits acutely given INR less than 4.5 and patient cannot take oral vitamin K, will continue to monitor -02/13: INR unchanged today, continue to hold Coumadin, given his need for PEG placement and unable to take p.o. we will give IV vitamin K -02/14: INR is 1.7 this a.m. 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 Not on home statin -02/12: Metoprolol IV as needed, can consider switching to rectal aspirin if absolutely necessary -02/14: PEG tube placed -02/15: Meds changed to G-tube compatible versions #hypothyroidism; on synthroid DVT prophylaxis; SCDs at this time Time spent in the patient's overall evaluation,decision-making process, review of diagnostic data, adjustment of management, discussion with other providers, nursing nursing and ancillary staff involved in patient's care documentation, 51 minutes Charges/Coding Visit Charges Inpatient E&M: 49832 [facility] Hosp L3
[2023-02-15 15:00] VITALS: BP 145/70; PULSE 67; RESP 18; TEMP 36.8; O2SAT 96
[2023-02-15] MEDS: Jevity 1.5 1,000 ML 20 ML GT (15:28)
[2023-02-15] MEDS: guaiFENesin 10 ML UDC (200MG/10ML) GT ×2 (17:03→20:41)
[2023-02-15] MEDS: Sodium Chloride 0.65% 1 SPRAY SPRAY.BTL 2 SPRAY NASAL (17:05)
--- NOTE | 2023-02-15 17:26 | EX.PCM.PN.GI ---
Subjective Subjective Patient underwent PEG tube placement. He is not having any bleeding around the PEG site and not have any abdominal pain or nausea. He is tolerating tube feedings. Objective Data Objective Data Vital Signs: Vital Signs Temp Pulse Resp BP Pulse Ox O2 Del Method O2 Flow Rate 98.2 F 67 18 145/70 H 96 Nasal Cannula 5 02/15/23 15:00 02/15/23 15:00 02/15/23 15:00 02/15/23 15:00 02/15/23 15:00 02/15/23 15:31 02/15/23 15:31 Oxygen Flow Rate (L/min) 5 Oxygen Delivery Method Nasal Cannula Weight: 144 lb 9.972 oz Body Mass Index (BMI) 21.9 Intake & Output: Intake and Output for Last 24 Hours 02/13/23 02/14/23 02/15/23 23:59 23:59 23:59 Intake Total 1474.25 / 1474.25 2320.00 / 2320.00 1410 / 1410 Output Total 500 / 500 550 / 550 500 / 500 Balance 974.25 / 974.25 1770.00 / 1770.00 910 / 910 Medical Nutrition Assessment Dietitian: Malnutrition Criteria Met Start: 02/08/23 15:17 Freq: Status: Active Protocol: Document 02/13/23 13:07 RMA (Rec: 02/13/23 13:07 RMA [id number]) Nutrition Malnutrition Evidence of Malnutrition Exists Yes Malnutrition (severe): Acute Illness/Injury,Chronic Evidenced By Suboptimal Energy Intake ( Severe),Weight Loss (Severe), Physical Changes (Moderate) Intake Problem Inadequate Oral Intake Etiology related to swallowing difficulty Signs/Symptoms as evidenced by NPO x day 5 Status Active Problem Clinical Problem Acute Disease or Injury Related Malnutrition Etiology 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 related to swallowing difficulty and inadequate oral intake Signs/Symptoms as evidenced by BMI 22.0, approximately 5% weight loss x past 3 weeks, ~11% weight loss x past 1 year, PO meeting less than 50% estimated nutrition needs x 1 month, visible muscle wasting and fat depletion in the clavicle, face, arms and legs and extended NPO Status Active Problem Recommendation Dietitian Recommendations/Changes Ability to take safe and adequate PO appears unlikely, suggest enteral nutrition support to meet estimated energy and protein needs-- recommend PEG for enteral nutrition support if diet remains contraindicated/pt unsafe for PO and in accordance with patient wishes . If deemed safe to swallow, recommend liberalized regular diet as tolerated with texture /consistency as per TAKE DOWN INSPECTOR. Pt will try ensure plus high protein and magic cup for tolerance if PO diet advanced. Suspect unintentional weight loss likely to continue due to inability to take PO and nutrition support is necessary to prevent further pro-tamika depletion. Noted pt/family to meet with hospice today and decide regarding alternative nutrition support via feeding tube. Lab / Micro Data 02/15/23 06:24 02/15/23 06:24 Labs: Laboratory Results - last 24 hr 02/15/23 06:24: WBC 10.8, RBC 3.74 L, Hgb 10.6 L, Hct 35.7 L, MCV 95.5 H, MCH 28.3, MCHC 29.7 L, RDW Std Deviation 50.4 H, RDW Coeff of Minerva 14.4, Plt Count 251, MPV 9.7, Immature Gran % (Auto) 0.800, Neut % (Auto) 91.1 H, Lymph % (Auto) 3.9 L, [place] % (Auto) 2.5, Eos % (Auto) 1.5, Baso % (Auto) 0.2, Absolute Neuts (auto) 9.8 H, Absolute Lymphs (auto) 0.42 L, Nucleated RBC % 0, Differential Comment SCANNED, PT 15.6 H, INR 1.2, Sodium 141, Potassium 3.6, Chloride 104, Carbon Dioxide 36.0 H, Anion Gap 1 L, BUN 14, Creatinine 0.63 L, Estim Creat Clear Calc 48.29, Est GFR (MDRD) Af Amer 154, Est GFR (MDRD) Non-Af 127, BUN/Creatinine Ratio 22.1 H, Glucose 121 H, Calcium 8.5 Micro: Microbiology 02/15/23 Unknown Mucosa - Nose Respiratory Panel (PCR) - Final 02/15/23 13:35 Nasal Secretion SARS-CoV-2 & FLU Antigen (Rapid) - Final 02/08/23 02:30 Blood Culture (Wb) #2 - Anticubital Left Blood Culture - Final No growth in 5 days. 02/08/23 02:15 Blood Culture (Wb) - Anticubital Right Blood Culture - Final No growth in 5 days. 02/08/23 11:27 Sputum, Expectorated/Coughed Gram Stain - Final 02/08/23 11:27 Sputum, Expectorated/Coughed Respiratory Culture - Final Streptococcus pneumoniae Staphylococcus aureus 02/08/23 05:30 Mucosa - Nasopharyngeal Respiratory Panel (PCR) - Final Rhinovirus 02/08/23 05:05 Urine, Clean Catch Legionella Antigen - Final 02/08/23 05:05 Urine, Clean Catch Streptococcus pneumoniae Antigen (M - Final Radiography Diagnostic Testing: Radiology Impression Chest X-Ray 02/15/23 13:30 IMPRESSION: Persistent diffuse airspace opacifications in both lung machado, right greater than left with an enlarging right pleural effusion since the previous study. Follow-up recommended to ensure resolution Remote CABG Degenerative bony changes Electronically Signed: Javad Mendosa MD at 15:33 EDT , Physical Exam Narrative General: Alert, oriented, appears less tired today HEENT normocephalic Eyes: Anicteric, normal conjunctiva, extraocular movements grossly intact Neck: Supple Respiratory: Diminished at lung bases, no sounds coarse again to auscultation on right side, increased respiratory effort today slightly Cardiovascular: Regular rate GI: Soft, nontender, nondistended Extremities: No significant edema Musculoskeletal: Moving all extremities Neuro: Does have difficulty getting words out Skin: No rashes appreciated Psych: Cooperative Assessment & Plan Assessment/Plan (1) Hypoxia: PLAN: Plan Patient is an 87-year-old male with history of chronic A-fib on warfarin, history of throat cancer s/p radiation and chemotherapy, esophageal narrowing post radiation s/p esophageal dilation with shortness of breath and difficulty swallowing. Acute hypoxic respiratory failure with dyspnea secondary to RSV. He is only on 2 L of oxygen at this time. He should be able to tolerate an upper endoscopy. He is also being treated for aspiration pneumonia. Patient noted worsening dysphagia with liquids and solids over the past several weeks. 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 Had significant dysphagia requiring esophageal dilation about 5 years ago. Newly worsening dysphagia may be secondary to progression of chronic esophageal scarring, cannot rule out new malignancy. CT soft tissue neck with IV contrast showed submucosal edema and adjacent soft tissue thickening of hypopharynx on the left side with irregularity of left thyroid cartilage, concerning for possible malignancy versus infection versus secondary to previous radiation treatment. CT chest showed mediastinal and right hilar lymphadenopathy, bilateral airspace disease, cardiomegaly and chronic interstitial lung disease. Patient was dilated as safely as possible up to 51 [place]. 60 [place] is normal diameter and typically 54 [place] as needed to be able to swallow solid foods. However he has a significant oropharyngeal dysphagia that is different from his esophageal dysphagia from his previous radiation therapy. He may need supplemental feeding in the future with a feeding tube. 02/12-patient is working with speech therapy. He is allowed sips and some ice. Complains of mouth being very dry. He may need some viscous lidocaine if approved by speech therapy as he does have significant radiation-induced injury. Continue PPI therapy. May need alternative means of nutrition in the future. 02/13-worsening esophageal dysphagia and oropharyngeal dysphagia thought to be secondary to radiation. Patient will undergo PEG tube tomorrow. I will give fresh frozen plasma prior to the procedure. 02/15-status post PEG tube placement. He has not shown any signs of aspiration. Patient is okay to be on anticoagulation. Continue tube feedings as previously ordered. Charges/Coding Visit Charges Inpatient E&M: 96943 Subs Hosp L3
[2023-02-15 22:00] VITALS: BP 137/73; PULSE 65; RESP 20; TEMP 36.9; O2SAT 98
[2023-02-16] VITALS (8 sets, daily range): BP systolic 126–131; BP diastolic 57–72; PULSE 62–72; RESP 16–18; TEMP 36.2–36.9; O2SAT 93–98
[2023-02-16] MEDS: guaiFENesin 10 ML UDC (200MG/10ML) GT ×4 (02:18→20:10)
[2023-02-16] MEDS: Levothyroxine 125 MCG Tablet GT (05:11)
[2023-02-16 06:26] LABS: Absolute Lymphocyte Count 0.62 X10^3/uL (0.83-4.51); Absolute Neutrophil Count 11.1 X10^3/uL (2.0-7.7); Basophil# 0.02 X10^3/uL; Basophil% 0.2 % (0-1); Eosinophil# 0.33 X10^3/uL; Eosinophils% 2.6 % (0-5); Hematocrit 35.4 % (40-54); Hemoglobin 10.4 g/dL (13.0-16.5); Lymphocyte # 0.62 X10^3/ul (0.83-4.51); Lymphocyte % 4.9 % (19-41); Mean Corp Hgb Conc 29.4 g/dL (32-36); Mean Corpuscular Hgb 27.8 pg (27.0-32.0); Mean Corpuscular Volume 94.7 fL (80-94); Mean Platelet Vol. 9.7 fl (6.2-12.0); Monocyte# 0.38 X10^3/uL; NRBC Flagged by Analyzer 0 % (0-5); Neutrophil # 11.14 X10^3/uL (2.7-7.7); Neutrophil % 88.6 % (47-70); Platelet Count 259 K/mm3 (150-450); RBC Distribution Width CV 14.5 % (11.6-14.6); RBC Distribution Width SD 50.2 fl (35.1-43.9); Red Blood Count 3.74 M/mm3 (4.6-6.2); White Blood Count 12.6 K/mm3 (4.4-11.0)
[2023-02-16 06:54] LABS: International Normalized Ratio 1.4; Prothrombin Time (Protime)PT. 16.8 SECONDS (11.7-14.9)
[2023-02-16 06:56] LABS: Anion Gap -1 (5-15); BUN 15 mg/dL (7-18); BUN/Creat Ratio 22.1 RATIO (10-20); Calcium,Total 8.3 mg/dL (8.5-10.1); Chloride 100 mmol/L (98-107); Creatinine, Serum 0.68 mg/dL (0.70-1.30); EST Glomerular Filtration Rate 118 mL/min (>60); Est Glom Filt Rate - Afr Amer 142 mL/min (>60); Estimated Creatinine Clearance 48.29 ml/min; Glucose 120 mg/dL (74-106); Potassium 3.6 mmol/L (3.5-5.1); Sodium Level 138 mmol/L (136-145)
--- NOTE | 2023-02-16 08:13 | PN.HOSP_ITS ---
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 because he was up at night and was somewhat delirious Objective Data Objective Data Vital Signs: Vital Signs Temp Pulse Resp BP Pulse Ox O2 Del Method O2 Flow Rate 97.6 F L 62 18 129/62 H 98 Nasal Cannula 5 02/16/23 04:00 02/16/23 04:00 02/16/23 04:00 02/16/23 04:00 02/16/23 04:00 02/16/23 04:00 02/16/23 04:00 Oxygen Flow Rate (L/min) 5 Oxygen Delivery Method Nasal Cannula Weight: 65.6 kg Body Mass Index (BMI) 21.9 Intake & Output: Intake and Output for Last 24 Hours 02/14/23 02/15/23 02/16/23 23:59 23:59 23:59 Intake Total 2320.00 / 2320.00 2135.42 / 2135.42 180 / 180 Output Total 550 / 550 650 / 950 450 / 450 Balance 1770.00 / 1770.00 1485.42 / 1185.42 -270 / -270 Medical Nutrition Assessment Dietitian: Malnutrition Criteria Met Start: 02/08/23 15:17 Freq: Status: Active Protocol: Document 02/13/23 13:07 RMA (Rec: 02/13/23 13:07 RMA [id number]) Nutrition Malnutrition Evidence of Malnutrition Exists Yes Malnutrition (severe): Acute Illness/Injury,Chronic Evidenced By Suboptimal Energy Intake ( Severe),Weight Loss (Severe), Physical Changes (Moderate) Intake Problem Inadequate Oral Intake Etiology related to swallowing difficulty Signs/Symptoms as evidenced by NPO x day 5 Status Active Problem Clinical Problem Acute Disease or Injury Related Malnutrition Etiology 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 related to swallowing difficulty and inadequate oral intake Signs/Symptoms as evidenced by BMI 22.0, approximately 5% weight loss x past 3 weeks, ~11% weight loss x past 1 year, PO meeting less than 50% estimated nutrition needs x 1 month, visible muscle wasting and fat depletion in the clavicle, face, arms and legs and extended NPO Status Active Problem Recommendation Dietitian Recommendations/Changes Ability to take safe and adequate PO appears unlikely, suggest enteral nutrition support to meet estimated energy and protein needs-- recommend PEG for enteral nutrition support if diet remains contraindicated/pt unsafe for PO and in accordance with patient wishes . If deemed safe to swallow, recommend liberalized regular diet as tolerated with texture /consistency as per RESPOOLER. Pt will try ensure plus high protein and magic cup for tolerance if PO diet advanced. Suspect unintentional weight loss likely to continue due to inability to take PO and nutrition support is necessary to prevent further pro-tamika depletion. Noted pt/family to meet with hospice today and decide regarding alternative nutrition support via feeding tube. Lab / Micro Data 02/16/23 05:55 02/16/23 05:55 Labs: Laboratory Results - last 24 hr 02/15/23 06:24: Differential Comment SCANNED 02/16/23 05:55: WBC 12.6 H, RBC 3.74 L, Hgb 10.4 L, Hct 35.4 L, MCV 94.7 H, MCH 27.8, MCHC 29.4 L, RDW Std Deviation 50.2 H, RDW Coeff of Minerva 14.5, Plt Count 259, MPV 9.7, Immature Gran % (Auto) 0.700, Neut % (Auto) 88.6 H, Lymph % (Auto) 4.9 L, [place] % (Auto) 3.0, Eos % (Auto) 2.6, Baso % (Auto) 0.2, Absolute Neuts (auto) 11.1 H, Absolute Lymphs (auto) 0.62 L, Nucleated RBC % 0, PT 16.8 H, INR 1.4, Sodium 138, Potassium 3.6, Chloride 100, Carbon Dioxide 39.0 H, Anion Gap - 1 L, BUN 15, Creatinine 0.68 L, Estim Creat Clear Calc 48.29, Est GFR (MDRD) Af Amer 142, Est GFR (MDRD) Non-Af 118, BUN/Creatinine Ratio 22.1 H, Glucose 120 H, Calcium 8.3 L Micro: Microbiology 02/15/23 Unknown Mucosa - Nose Respiratory Panel (PCR) - Final 02/15/23 13:35 Nasal Secretion SARS-CoV-2 & FLU Antigen (Rapid) - Final 02/08/23 02:30 Blood Culture (Wb) #2 - Anticubital Left Blood Culture - Final No growth in 5 days. 02/08/23 02:15 Blood Culture (Wb) - Anticubital Right Blood Culture - Final No growth in 5 days. 02/08/23 11:27 Sputum, Expectorated/Coughed Gram Stain - Final 02/08/23 11:27 Sputum, Expectorated/Coughed Respiratory Culture - Final Streptococcus pneumoniae Staphylococcus aureus 02/08/23 05:30 Mucosa - Nasopharyngeal Respiratory Panel (PCR) - Final Rhinovirus 02/08/23 05:05 Urine, Clean Catch Legionella Antigen - Final 02/08/23 05:05 Urine, Clean Catch Streptococcus pneumoniae Antigen (M - Final Radiography Diagnostic Testing: Radiology Impression Chest X-Ray 02/15/23 13:30 IMPRESSION: Persistent diffuse airspace opacifications in both lung machado, right greater than left with an enlarging right pleural effusion since the previous study. Follow-up recommended to ensure resolution Remote CABG Degenerative bony changes Electronically Signed: Javad Mendosa MD at 15:33 EDT Reading Location ID and State: [address] [place] [address] , Service support , Physical Exam Narrative General: Alert, oriented, is somewhat tired HEENT normocephalic Eyes: Anicteric, normal conjunctiva, extraocular movements grossly intact Neck: Supple Respiratory: Diminished at lung bases, still coarse at right side but slightly improved from yesterday, respiratory effort slightly improved Cardiovascular: Regular rate GI: Soft, nontender, nondistended Extremities: No significant edema Musculoskeletal: Moving all extremities Neuro: Does have difficulty getting words out Skin: No rashes appreciated Psych: Cooperative Assessment & Plan Assessment/Plan (1) Hypoxia: (2) History of throat cancer: PLAN: Plan #Hypoxia due to probable aspiration pneumonia and URI due to rhinovirus infection * saturation was in the 70s on admission. * CXR showed bilateral pulmonary opacities concerning for infection and/or aspiration. * 2D echo: EF of 50-55%, with septal hypokinesis and moderately enlarged left and right atria. ICD pacer leads in the right atrium. Pulmonary artery systolic pressure is 45-50mhg * on IV lasix. * on 4L of oxygen by nasal canula * respiratory panel positive for rhinovirus infection * Sputum cultures growing Strep pneumonia and Staph aureus, both sensitive to levofloxacin. Was started on IV vancomycin; will switch to IV levofloxacin. * blood cultures negative -02/12: Wean O2 as tolerated, continue Levaquin, will DC Rocephin given both organisms growing are covered by Levaquin -02/13: O2 saturations improving today, remains on oxygen but improved sats and clinically improving, continue present management -02/14: Continue Levaquin, patient is improving, documented increase in O2 postsurgery but in room on eval doing well and symptomatically feels he is improving -02/15: Had been improving however reports that overnight he felt more short of breath and still feeling more short of breath than he had been, review of chest x-ray appears to have effusion on right side and increased infiltrates, patient already on antibiotics, may be aspirating his saliva, will give instructions for patient to sleep in semirecumbent position, will start guaifenesin, chest physiotherapy, incentive spirometry, has 1 more dose of Levaquin, will also need outpatient pulm follow-up #Dysphagia with history of throat cancer status post radiation and chemotherapy found to have stricture status post dilation * has been having dysphagia which is worsening, especially to solids an dliquids over the past several weeks. * Had a history of head and neck cancer and had radiation. Has had significant dyspagia requiring esophageal dilatation * CT of the soft tissue neck with IV contrast showed submucosal edema and adjacent soft tissue thickening of the hypopharynx on the left side with irregularity of the left thyroid cartilage, concerning for malignancy vs infection. * CT chest showed mediastinal and right hilar lymphadenopathy, bilateral airspace disease as well as cardiomegaly and chronic interstitial lung disease * GI on board. Had EGD yesteday which showed a benign appearing esophageal stenosis which ws dilated, and a medium sizes hiatal hernia, with no gross lesions in the duodenal bulb. * currently NPO * speech therapy on board; modified barium swallow showed inability to initiate a complete swallow and complete occlusion and aspiration of thin liquid by teaspoon with weak reflexive cough. Limited trials done as patient desaturated after attempts at swallowing trial. * Still n.p.o. except for ice chips. Speech therapy on board and reassess patient today. * If he still remains NPO, will have to re-evaluate for alternate means of nutrition. -02/12: Continues to work with speech therapy, D5 normal saline changed to D5 half-normal saline due to increasing sodium and chloride, this was GI, if patient agreeable will need to pursue PEG placement. Patient first to meet with hospice to discuss options but given patient's lack of improvement and prolonged lack of nutrition we will need to decide hospice versus PEG placement. Referral placed -02/13: Patient family wanted proceed with feeding tube, discussed with GI, patient for placement tomorrow -02/14: Status post successful PEG placement, had some gastritis but has not been able to get his p.o. Protonix and this will be able to go down PEG tube, switch to IV, nutrition is consulted -02/15: PEG tube placed, patient to start Jevity today. Counseled patient and his that nutrition will help prolong life but will not drastically improve his current quality or help his breathing problems -02/16: Tube feeds started #Chronic afib * on coumadin> INR was supratherapeuic at 6.9 on admission. * INR went up to 7.9 and he received a dose of vitamin K 2.5mg * INR today is 3.5 * on metoprolol. back on coumadin. -02/12: INR going back up and is supratherapeutic today at 4.2, it appears patient has not been receiving his Coumadin as he is not taking p.o. so we will stop this altogether and continue to trend, currently not bleeding and risk of giving IV vitamin K likely outweighs benefits acutely given INR less than 4.5 and patient cannot take oral vitamin K, will continue to monitor -02/13: INR unchanged today, continue to hold Coumadin, given his need for PEG placement and unable to take p.o. we will give IV vitamin K -02/14: INR is 1.7 this a.m. 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 Not on home statin -02/12: Metoprolol IV as needed, can consider switching to rectal aspirin if absolutely necessary -02/14: PEG tube placed -02/15: Meds changed to G-tube compatible versions #hypothyroidism; on synthroid DVT prophylaxis; SCDs at this time Time spent in the patient's overall evaluation,decision-making process, review of diagnostic data, adjustment of management, discussion with other providers, nursing nursing and ancillary staff involved in patient's care documentation, 45 minutes Charges/Coding Visit Charges Inpatient E&M: 48594 Subs Hosp L2
--- NOTE | 2023-02-16 09:57 | CON.PCM.CC_ITS ---
Assessment & Plan Assessment/Plan (1) Hypoxia: (2) History of throat cancer: PLAN: Plan RECOMMENDATIONS: 1. Initiate gentle diuresis 2. Repeat chest x-ray if oxygenation not improving 3. P.o. intake per speech recommendations 4. Aggressive nutritional support 5. Possible PFT and repeat imaging as an outpatient IMPRESSIONS: 1. Acute hypoxic respiratory insufficiency Clinical suspicion for multifactorial etiology. Patient did have a rhinovirus infection on presentation and likely also had an element of aspiratio n pneumonia. Patient with significant hypoxia on presentation with elevated pulmonary artery pressures. Patient had initially been treated with Lasix, but this was discontinued. Patient has been receiving significant IV fluids given his n.p.o. status. Patient appears to be about 6 L positive over the course of his hospitalization. This is confounded by possible underlying COPD and an element of restriction secondary to kyphosis. Recommend gentle diuresis initially. If patient is not responsive, additional recommendations can be given. Patient ultimately will require outpatient evaluation with repeat imaging. Patient does have significant pulmonary hypertension and will likely desaturate with minimal exertion. Patient does have poor pulmonary toileting, but this may improve with additional nutritional support. 2. Dysphagia status post throat cancer with chemo and radiation Speech therapy is following the patient. Patient recently had an EGD. [place] pace currently with a PEG tube. Tube feed recommendations per speech and dietitian. Strict n.p.o. for now pending marginal respiratory status. Patient may be able to work with speech therapy once respiratory status improves. 3. Chronic A-fib/CAD status post CABG/pulmonary hypertension/failure to thrive/hypothyroidism/advanced age/debility Complicates care, management, recovery and prognosis. Clinical suspicion for exacerbation of pulmonary hypertension secondary to extra fluid given n.p.o. status. We will need to monitor for refeeding electrolyte disturbances. Okay to continue baseline medications from my perspective HPI Consult Data Date of Consult: 02/16/23 HPI Narrative HPI Narrative: IVANIA GOMEZ is an 87 M, with past medical history listed below, who presented to [facility] 02/08/2023 secondary to difficulty swallowing. Patient reportedly had had difficulty swallowing, dysphagia and constant clearing of his throat for approximately 2 weeks. Patient was noted to be desaturating into the 70s and lost about 10 pounds in the last 2 weeks. Patient did have a history of throat cancer and had received radiation and chemotherapy approximately 15 years ago requiring stretching 5 years ago. Since being hospitalized, patient has had significant difficulty passing a swallow study. Patient had been requiring supplemental oxygen with increasing requirements recently. Family had elected an aggressive stance and a PEG was placed recently to help with nutrition. Given patient's increased oxygen requirements, a pulmonary consult was recommended. Patient has been on antibiotics secondary to concerns for aspiration pneumonia. Patient's was present during my evaluation. Patient reportedly has a [id number] smoking history at a minimum. Patient quit sometime ago. Patient does state that he was seen by Dr. Almanza in the past, approximately 10 to 15 years ago and had a pulmonary function test. Patient reportedly was told that it was not normal, but not bad enough to be followed. Patient's reports patient has had progressive kyphosis over this period of time. Patient reportedly has had difficulty with shortness of breath for some time, but had attributed this to his previous throat cancer. Patient reportedly was not using any inhalers at baseline. Patient was anticoagulated with Coumadin therapy. Patient denies any chest trauma. Patient feels subjectively improved after placement of the PEG. Patient is not reporting any discomfort in the area. Patient does report he has had difficulty with clearing secretions. Patient's reports that he is significantly more weak than he has been in the past. Patient does have an extensive cardiac history with a history of endocarditis. Patient did have an echocardiogram completed during this hospitalization showing an EF of 55% with septal hypokinesis. Patient also had biatrial enlargement with severe tricuspid insufficiency and a estimated pulmonary artery pressure of 50 mmHg. Review of systems otherwise negative from a constitutional, HEENT, respiratory, cardiovascular, GI, genitourinary, musculoskeletal, skin, neurologic, psychiatric and hematologic system unless stated above. [facility] Medical History Anemia Atherosclerotic heart disease of [place] coronary artery without angina pectoris Atrial arrhythmia Atrioventricular block Bilateral carotid artery disease Bruit of left carotid artery Cardiac pacemaker in situ Chronic atrial fibrillation Endocarditis Essential hypertension GERD (gastroesophageal reflux disease) History of throat cancer HLD (hyperlipidemia) HTN (hypertension) [place] [employer] current use of anticoagulant Neoplasm of oropharynx Nonsustained ventricular tachycardia Paroxysmal tachycardia Paroxysmal ventricular tachycardia Pure hypercholesterolemia Syncope and collapse Ventricular fibrillation Ventricular tachycardia Home Medications aspirin 81 mg tablet,delayed release 81 mg PO QDAY 04/26/17 [History Last Taken 12/25/17] cholecalciferol (vitamin D3) 50 mcg (2,000 unit) tablet 2,000 unit PO QDAY 04/26/17 [History Last Taken Unknown] ferrous sulfate 325 mg (65 mg iron) tablet,delayed release See Rx Instructions PO QDAY 04/30/17 [History Last Taken Unknown] doxazosin 2 mg tablet 2 mg PO QDAY #90 tabs 08/29/22 [Rx Last Taken Unknown] levothyroxine 125 mcg tablet 125 mcg PO DAILY 08/29/22 [History Last Taken Unknown] metoprolol succinate 25 mg tablet,extended release 24 hr 25 mg PO DAILY #90 tabs 08/29/22 [Rx Last Taken Unknown] nitroglycerin 400 mcg/spray translingual 0.4 mg translingual Q5M PRN chest pain #4.9 grams 08/29/22 [Rx Last Taken Unknown] lansoprazole 30 mg delayed release,disintegrating tablet 30 mg feeding tube DAILY #30 tabs 02/15/23 [Rx Last Taken Unknown] warfarin 3 mg tablet 1.5 mg PO QDAY #90 tabs 02/15/23 [Rx Last Taken Unknown] Allergy/AdvReac Type Severity Reaction Status Date / Time No Known Allergies Allergy Verified 02/08/23 02:09 Family History Father Hypertension Heart disease Cancer lung Son Hypertension Mother Cancer liver Son H/O cardiac radiofrequency ablation Hypertension Son Hypertension Surgical History History of cholecystectomy History of circumcision History of squamous cell carcinoma excision History of tonsillectomy (~1942) Hx of CABG (~2006) S/P placement of cardiac pacemaker S/P PTCA (percutaneous transluminal coronary angioplasty) (~03/24/97) Social History Smoking Status: Former smoker how long ago did patient quit smokin years ago alcohol intake: current alcohol intake frequency: a few times a week Alcohol type: beer substance use type: does not use caffeine: Yes Type: coffee Number of servings: 3 eating out: 1-3 times/week what type of physical activity do you participate in: none seatbelt use: always do you feel safe at home: Yes ROS ROS Narrative See HPI Physical Exam Const alert and oriented x3 Constitutional Narrative: Slightly garbled speech. General Appearance: frail HEENT normocephalic and head/scalp atraumatic HEENT Narrative: Slight temporal wasting Eyes PERRL, EOMs intact bilaterally and conjunctivae normal Neck full ROM Neck Narrative: JVD noted Chest Chest Narrative: Significant kyphosis appreciated Resp Effort and Inspection: actively coughing non-productive, loose and rattling and prolonged expiratory phase Auscultation: rales; Negative for rhonchi or wheezes Cardio S1 normal heart sound and S2 normal heart sound Heart Sounds: murmur diastolic III/ low-pitched mid GI normal to inspection, nondistended, normoactive bowel sounds Inspection: GI tube present Extremity General Extremity: Negative for edema Skin Skin Narrative: Dermal atrophy noted Neuro oriented x3 Psych Mood & Affect: flat affect Medical Records Data Attestation: I reviewed the patient's medical records Medical Nutrition Assessment Dietitian: Malnutrition Criteria Met Start: 02/08/23 15:17 Freq: Status: Active Protocol: Document 02/13/23 13:07 RMA (Rec: 02/13/23 13:07 RMA [id number]) Nutrition Malnutrition Evidence of Malnutrition Exists Yes Malnutrition (severe): Acute Illness/Injury,Chronic Evidenced By Suboptimal Energy Intake ( Severe),Weight Loss (Severe), Physical Changes (Moderate) Intake Problem Inadequate Oral Intake Etiology related to swallowing difficulty Signs/Symptoms as evidenced by NPO x day 5 Status Active Problem Clinical Problem Acute Disease or Injury Related Malnutrition Etiology 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 related to swallowing difficulty and inadequate oral intake Signs/Symptoms as evidenced by BMI 22.0, approximately 5% weight loss x past 3 weeks, ~11% weight loss x past 1 year, PO meeting less than 50% estimated nutrition needs x 1 month, visible muscle wasting and fat depletion in the clavicle, face, arms and legs and extended NPO Status Active Problem Recommendation Dietitian Recommendations/Changes Ability to take safe and adequate PO appears unlikely, suggest enteral nutrition support to meet estimated energy and protein needs-- recommend PEG for enteral nutrition support if diet remains contraindicated/pt unsafe for PO and in accordance with patient wishes . If deemed safe to swallow, recommend liberalized regular diet as tolerated with texture /consistency as per [employer]. Pt will try ensure plus high protein and magic cup for tolerance if PO diet advanced. Suspect unintentional weight loss likely to continue due to inability to take PO and nutrition support is necessary to prevent further pro-tamika depletion. Noted pt/family to meet with hospice today and decide regarding alternative nutrition support via feeding tube. Lab / Micro Data Attestation: I reviewed the patient's lab results. 02/16/23 05:55 02/16/23 05:55 Labs: Laboratory Results - last 24 hr 02/16/23 05:55: WBC 12.6 H, RBC 3.74 L, Hgb 10.4 L, Hct 35.4 L, MCV 94.7 H, MCH 27.8, MCHC 29.4 L, RDW Std Deviation 50.2 H, RDW Coeff of [place]erv[place] 14.5, Plt Count 259, MPV 9.7, Immature Gran % (Auto) 0.700, Neut % (Auto) 88.6 H, Lymph % (Auto) 4.9 L, [place] % (Auto) 3.0, Eos % (Auto) 2.6, Baso % (Auto) 0.2, Absolute Neuts (auto) 11.1 H, Absolute Lymphs (auto) 0.62 L, Nucleated RBC % 0, PT 16.8 H, INR 1.4, Sodium 138, Potassium 3.6, Chloride 100, Carbon Dioxide 39.0 H, Anion Gap - 1 L, BUN 15, Creatinine 0.68 L, Estim Creat Clear Calc 48.29, Est GFR (MDRD) Af Amer 142, Est GFR (MDRD) Non-Af 118, BUN/Creatinine Ratio 22.1 H, Glucose 120 H, Calcium 8.3 L Micro: Microbiology 02/15/23 Unknown Mucosa - Nose Respiratory Panel (PCR) - Final 02/15/23 13:35 Nasal Secretion SARS-CoV-2 & FLU Antigen (Rapid) - Final Radiology Impression Chest X-Ray 02/15/23 13:30 IMPRESSION: Persistent diffuse airspace opacifications in both lung [place], right greater than left with an enlarging right pleural effusion since the previous study. Follow-up recommended to ensure resolution Remote CABG Degenerative bony changes Electronically Signed: Javad Mendosa MD at 15:33 EDT , Charges/Coding Visit Charges Inpatient E&M: 03027 Init Hosp L3
[2023-02-16] MEDS: Pantoprazole Sodium 40 MG in 0.9% Normal Saline (100mL MB+) 100 ML 330 MG IV (11:05)
[2023-02-16] MEDS: Metoprolol Tartrate 25 MG Tablet 12.5 MG GT ×2 (11:08→20:10)
[2023-02-16] MEDS: Acetaminophen 650 MG/20 ML UDC GT ×2 (11:09→17:11)
[2023-02-16] MEDS: Aspirin 81 MG TAB.CHEW GT (11:09)
[2023-02-16] MEDS: Furosemide 10 MG/ML Liquid 20 MG GT ×2 (11:09→17:10)
[2023-02-16] MEDS: levoFLOXacin IV 500 MG/100 ML BAG 100 MG IV (11:36)
[2023-02-16] MEDS: Warfarin 1 MG, Warfarin 0.5 MG 1.5 MG GT (17:16)
[2023-02-16] MEDS: Jevity 1.5 1,000 ML 50 ML GT (17:34)
[2023-02-16] MEDS: MELATONIN 3 MG TABLET PO (20:10)
[2023-02-17] VITALS (9 sets, daily range): BP systolic 97–137; BP diastolic 53–64; PULSE 60–76; RESP 16–26; TEMP 36.1–37; O2SAT 93–96
[2023-02-17] MEDS: Albuterol 2.5 MG/3 ML VIAL.NEB. INHALATION (00:53)
[2023-02-17] MEDS: Levothyroxine 125 MCG Tablet GT (05:16)
[2023-02-17 07:06] LABS: Absolute Lymphocyte Count 0.51 X10^3/uL (0.83-4.51); Absolute Neutrophil Count 10.8 X10^3/uL (2.0-7.7); Basophil# 0.03 X10^3/uL; Basophil% 0.2 % (0-1); Eosinophil# 0.33 X10^3/uL; Eosinophils% 2.7 % (0-5); Hematocrit 33.6 % (40-54); Lymphocyte # 0.51 X10^3/ul (0.83-4.51); Lymphocyte % 4.2 % (19-41); Mean Corp Hgb Conc 29.8 g/dL (32-36); Mean Corpuscular Hgb 28.2 pg (27.0-32.0); Mean Corpuscular Volume 94.9 fL (80-94); Mean Platelet Vol. 9.7 fl (6.2-12.0); Monocyte# 0.42 X10^3/uL; Monocyte% 3.5 % (0-10); NRBC Flagged by Analyzer 0 % (0-5); Neutrophil # 10.79 X10^3/uL (2.7-7.7); Neutrophil % 88.7 % (47-70); POSITIVE DIFFERENTIAL YES; Platelet Count 253 K/mm3 (150-450); RBC Distribution Width CV 14.4 % (11.6-14.6); Red Blood Count 3.54 M/mm3 (4.6-6.2); White Blood Count 12.2 K/mm3 (4.4-11.0)
[2023-02-17 07:12] LABS: International Normalized Ratio 1.4; Prothrombin Time (Protime)PT. 16.7 SECONDS (11.7-14.9)
[2023-02-17 07:17] LABS: Differential Indicated SCAN CRITERIA MET
[2023-02-17 07:40] LABS: Anion Gap 0 (5-15); BUN 15 mg/dL (7-18); BUN/Creat Ratio 22.9 RATIO (10-20); Calcium,Total 7.4 mg/dL (8.5-10.1); Chloride 96 mmol/L (98-107); Creatinine, Serum 0.66 mg/dL (0.70-1.30); EST Glomerular Filtration Rate 122 mL/min (>60); Est Glom Filt Rate - Afr Amer 148 mL/min (>60); Estimated Creatinine Clearance 48.29 ml/min; Glucose 130 mg/dL (74-106); Potassium 3.4 mmol/L (3.5-5.1); Sodium Level 136 mmol/L (136-145)
[2023-02-17 07:49] LABS: Hypochromasia 1+
--- NOTE | 2023-02-17 08:20 | PN.HOSP_ITS ---
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, oral cavity, and pharynx (02/08/23) Subjective Subjective Patient feeling more short of breath overnight, O2 requirements 7 L this morning, patient primarily reports difficulty clearing secretions, also reports some pressure and burning when he peed this morning Objective Data Objective Data Vital Signs: Vital Signs Temp Pulse Resp BP Pulse Ox O2 Del Method O2 Flow Rate 97.7 F L 76 18 114/61 93 Nasal Cannula 7 02/17/23 08:10 02/17/23 08:10 02/17/23 08:10 02/17/23 08:10 02/17/23 08:10 02/17/23 08:10 02/17/23 08:10 Oxygen Flow Rate (L/min) 7 Oxygen Delivery Method Nasal Cannula Weight: 65.6 kg Body Mass Index (BMI) 21.9 Intake & Output: Intake and Output for Last 24 Hours 02/15/23 02/16/23 02/17/23 23:59 23:59 23:59 Intake Total 2135.42 / 2135.42 1376.67 / 1376.67 Output Total 650 / 950 1100 / 1500 800 / 800 Balance 1485.42 / 1185.42 276.67 / -123.33 -800 / -800 Medical Nutrition Assessment Dietitian: Malnutrition Criteria Met Start: 02/08/23 15:17 Freq: Status: Active Protocol: Document 02/13/23 13:07 RMA (Rec: 02/13/23 13:07 RMA [id number]) Nutrition Malnutrition Evidence of Malnutrition Exists Yes Malnutrition (severe): Acute Illness/Injury,Chronic Evidenced By Suboptimal Energy Intake ( Severe),Weight Loss (Severe), Physical Changes (Moderate) Intake Problem Inadequate Oral Intake Etiology related to swallowing difficulty Signs/Symptoms as evidenced by NPO x day 5 Status Active Problem Clinical Problem Acute Disease or Injury Related Malnutrition Etiology 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 related to swallowing difficulty and inadequate oral intake Signs/Symptoms as evidenced by BMI 22.0, approximately 5% weight loss x past 3 weeks, ~11% weight loss x past 1 year, PO meeting less than 50% estimated nutrition needs x 1 month, visible muscle wasting and fat depletion in the clavicle, face, arms and legs and extended NPO Status Active Problem Recommendation Dietitian Recommendations/Changes Ability to take safe and adequate PO appears unlikely, suggest enteral nutrition support to meet estimated energy and protein needs-- recommend PEG for enteral nutrition support if diet remains contraindicated/pt unsafe for PO and in accordance with patient wishes . If deemed safe to swallow, recommend liberalized regular diet as tolerated with texture /consistency as per [employer]. Pt will try ensure plus high protein and magic cup for tolerance if PO diet advanced. Suspect unintentional weight loss likely to continue due to inability to take PO and nutrition support is necessary to prevent further pro-tamika depletion. Noted pt/family to meet with hospice today and decide regarding alternative nutrition support via feeding tube. Lab / Micro Data 02/17/23 06:15 02/17/23 06:15 Labs: Laboratory Results - last 24 hr 02/17/23 06:15: WBC 12.2 H, RBC 3.54 L, Hgb 10.0 L, Hct 33.6 L, MCV 94.9 H, MCH 28.2, MCHC 29.8 L, RDW Std Deviation 51.0 H, RDW Coeff of [place] 14.4, Plt Count 253, MPV 9.7, Immature Gran % (Auto) 0.700, Neut % (Auto) 88.7 H, Lymph % (Auto) 4.2 L, [place] % (Auto) 3.5, Eos % (Auto) 2.7, Baso % (Auto) 0.2, Absolute Neuts (auto) 10.8 H, Absolute Lymphs (auto) 0.51 L, Nucleated RBC % 0, Hypochromasia 1+, PT 16.7 H, INR 1.4, Sodium 136, Potassium 3.4 L, Chloride 96 L, Carbon Dioxide 40.0 H, Anion Gap 0 L, BUN 15, Creatinine 0.66 L, Estim Creat Clear Calc 48.29, Est GFR (MDRD) Af Amer 148, Est GFR (MDRD) Non-Af 122, BUN/Creatinine Ratio 22.9 H, Glucose 130 H, Calcium 7.4 L Micro: Microbiology 02/15/23 Unknown Mucosa - Nose Respiratory Panel (PCR) - Final 02/15/23 13:35 Nasal Secretion SARS-CoV-2 & FLU Antigen (Rapid) - Final 02/08/23 02:30 Blood Culture (Wb) #2 - Anticubital Left Blood Culture - Final No growth in 5 days. 02/08/23 02:15 Blood Culture (Wb) - Anticubital Right Blood Culture - Final No growth in 5 days. 02/08/23 11:27 Sputum, Expectorated/Coughed Gram Stain - Final 02/08/23 11:27 Sputum, Expectorated/Coughed Respiratory Culture - Final Streptococcus pneumoniae Staphylococcus aureus 02/08/23 05:30 Mucosa - Nasopharyngeal Respiratory Panel (PCR) - Final Rhinovirus 02/08/23 05:05 Urine, Clean Catch Legionella Antigen - Final 02/08/23 05:05 Urine, Clean Catch Streptococcus pneumoniae Antigen (M - Final Physical Exam Narrative General: Alert, oriented, is somewhat tired HEENT normocephalic Eyes: Anicteric, normal conjunctiva, extraocular movements grossly intact Neck: Supple Respiratory: Diminished at lung bases, still coarse at right side primarily, respiratory effort slightly improved Cardiovascular: Regular rate GI: Soft, nontender, nondistended Extremities: No significant edema Musculoskeletal: Moving all extremities Neuro: Does have difficulty getting words out Skin: No rashes appreciated Psych: Cooperative Assessment & Plan Assessment/Plan (1) Hypoxia: (2) History of throat cancer: PLAN: Plan #Hypoxia due to probable aspiration pneumonia and URI due to rhinovirus infection * saturation was in the 70s on admission. * CXR showed bilateral pulmonary opacities concerning for infection and/or aspiration. * 2D echo: EF of 50-55%, with septal hypokinesis and moderately enlarged left and right atria. ICD pacer leads in the right atrium. Pulmonary artery systolic pressure is 45-50mhg * on IV lasix. * on 4L of oxygen by nasal canula * respiratory panel positive for rhinovirus infection * Sputum cultures growing Strep pneumonia and Staph aureus, both sensitive to levofloxacin. Was started on IV vancomycin; will switch to IV levofloxacin. * blood cultures negative -02/12: Wean O2 as tolerated, continue Levaquin, will DC Rocephin given both organisms growing are covered by Levaquin -02/13: O2 saturations improving today, remains on oxygen but improved sats and clinically improving, continue present management -02/14: Continue Levaquin, patient is improving, documented increase in O2 postsurgery but in room on eval doing well and symptomatically feels he is improving -02/15: Had been improving however reports that overnight he felt more short of breath and still feeling more short of breath than he had been, review of chest x-ray appears to have effusion on right side and increased infiltrates, patient already on antibiotics, may be aspirating his saliva, will give instructions for patient to sleep in semirecumbent position, will start guaifenesin, chest physiotherapy, incentive spirometry, has 1 more dose of Levaquin, will also need outpatient pulm follow-up -02/17: Patient further desaturated overnight #Dysphagia with history of throat cancer status post radiation and chemotherapy found to have stricture status post dilation * has been having dysphagia which is worsening, especially to solids an dliquids over the past several weeks. * Had a history of head and neck cancer and had radiation. Has had significant dyspagia requiring esophageal dilatation * CT of the soft tissue neck with IV contrast showed submucosal edema and adjacent soft tissue thickening of the hypopharynx on the left side with irregularity of the left thyroid cartilage, concerning for malignancy vs infection. * CT chest showed mediastinal and right hilar lymphadenopathy, bilateral airspace disease as well as cardiomegaly and chronic interstitial lung disease * GI on board. Had EGD yesteday which showed a benign appearing esophageal stenosis which ws dilated, and a medium sizes hiatal hernia, with no gross lesions in the duodenal bulb. * currently NPO * speech therapy on board; modified barium swallow showed inability to initiate a complete swallow and complete occlusion and aspiration of thin liquid by teaspoon with weak reflexive cough. Limited trials done as patient desaturated after attempts at swallowing trial. * Still n.p.o. except for ice chips. Speech therapy on board and reassess patient today. * If he still remains NPO, will have to re-evaluate for alternate means of nutrition. -02/12: Continues to work with speech therapy, D5 normal saline changed to D5 half-normal saline due to increasing sodium and chloride, this was GI, if patient agreeable will need to pursue PEG placement. Patient first to meet with hospice to discuss options but given patient's lack of improvement and prolonged lack of nutrition we will need to decide hospice versus PEG placement. Referral placed -02/13: Patient family wanted proceed with feeding tube, discussed with GI, patient for placement tomorrow -02/14: Status post successful PEG placement, had some gastritis but has not been able to get his p.o. Protonix and this will be able to go down PEG tube, switch to IV, nutrition is consulted -02/15: PEG tube placed, patient to start Jevity today. Counseled patient and his that nutrition will help prolong life but will not drastically improve his current quality or help his breathing problems -02/16: Tube feeds started -02/17: Tolerating tube feeds thus far, continue monitor lytes and replace #Burning on urination -Will check UA and urine culture #Chronic afib * on coumadin> INR was supratherapeuic at 6.9 on admission. * INR went up to 7.9 and he received a dose of vitamin K 2.5mg * INR today is 3.5 * on metoprolol. back on coumadin. -02/12: INR going back up and is supratherapeutic today at 4.2, it appears patient has not been receiving his Coumadin as he is not taking p.o. so we will stop this altogether and continue to trend, currently not bleeding and risk of giving IV vitamin K likely outweighs benefits acutely given INR less than 4.5 and patient cannot take oral vitamin K, will continue to monitor -02/13: INR unchanged today, continue to hold Coumadin, given his need for PEG placement and unable to take p.o. we will give IV vitamin K -02/14: INR is 1.7 this a.m. -02/15: We will plan to restart Coumadin at discharge or sooner if patient will have prolonged hospitalization -02/16: Given he will be here over the weekend will restart Coumadin -02/17: Coumadin restarted, monitor INR #Hypothyroidism -Continue Synthroid -02/12: Has been unable to take Synthroid, if no alternative means of medications becomes available may need to switch to IV in the future -02/14: PEG tube placed -02/15: Synthroid good on PEG tube #Failure to thrive * has had ~ 10 pound weight loss over the pat several weeks, and hasnt been eati ng and drinking well * albumin is 2.7 * Nutrition on board #CAD s/p CABG x4 and history of PPM; on aspirin and metoprolol. Not on home statin -02/12: Metoprolol IV as needed, can consider switching to rectal aspirin if absolutely necessary -02/14: PEG tube placed -02/15: Meds changed to G-tube compatible versions #hypothyroidism; on synthroid DVT prophylaxis; SCDs at this time Time spent in the patient's overall evaluation,decision-making process, review of diagnostic data, adjustment of management, discussion with other providers, nursing nursing and ancillary staff involved in patient's care documentation, 45 minutes Charges/Coding Visit Charges Inpatient E&M: 03728 Subs Hosp L2
[2023-02-17 09:03] LABS: Magnesium 1.9 mg/dL (1.6-2.6); Phosphorus 1.2 mg/dL (2.5-4.9)
[2023-02-17] MEDS: Calcium Gluconate IV 2 GM in 0.9% Normal Saline (100mL Bag) 100 ML IV (09:08)
[2023-02-17] MEDS: Aspirin 81 MG TAB.CHEW GT (09:08)
[2023-02-17] MEDS: Furosemide 10 MG/ML Liquid 20 MG GT ×2 (09:09→18:42)
[2023-02-17] MEDS: Pantoprazole Sodium 40 MG in 0.9% Normal Saline (100mL MB+) 100 ML 330 MG IV (09:24)
[2023-02-17] MEDS: guaiFENesin 10 ML UDC (200MG/10ML) GT ×3 (09:24→22:00)
--- NOTE | 2023-02-17 09:45 | PCM.PN.INT ---
Assessment & Plan Assessment/Plan (1) Hypoxia: (2) History of throat cancer: PLAN: Plan RECOMMENDATIONS: 1. Continue gentle diuresis 2. Initiate vest therapy for pulmonary toileting 3. P.o. intake per speech recommendations 4. Aggressive nutritional support 5. Out of bed as tolerated IMPRESSIONS: 1. Acute hypoxic respiratory insufficiency Clinical suspicion for multifactorial etiology. Patient did have a rhinovirus infection on presentation and likely also had an element of aspiration pneumonia. Patient with significant hypoxia on presentation with elevated pulmonary artery pressures. Patient had initially been treated with Lasix, but this was discontinued. Patient has been receiving significant IV fluids given his n.p.o. status. Patient appears to be about 6 L positive over the course of his hospitalization. This is confounded by possible underlying COPD and an element of restriction secondary to kyphosis. Recommend gentle diuresis initially. Patient with acute worsening this morning, but this is likely secondary to a mucous plug. Will initiate vest therapy. Continue with diuresis. 2. Dysphagia status post throat cancer with chemo and radiation Speech therapy is following the patient. Patient recently had an EGD. Patient currently with a PEG tube. Tube feed recommendations per speech and dietitian. Strict n.p.o. for now pending marginal respiratory status. Patient may be able to work with speech therapy once respiratory status improves. 3. Chronic A-fib/CAD status post CABG/pulmonary hypertension/failure to thrive/hypothyroidism/advanced age/debility Complicates care, management, recovery and prognosis. Clinical suspicion for exacerbation of pulmonary hypertension secondary to extra fluid given n.p.o. status. We will need to monitor for refeeding electrolyte disturbances. Okay to continue baseline medications from my perspective Subjective Subjective Patient did okay overnight. However, this morning patient started to have hypoxia requiring increased FiO2 requirements. Patient is not currently reporting any chest pain. Patient has had difficulty coughing up secretions. Objective Data Objective Data Vital Signs: Vital Signs Temp Pulse Resp BP Pulse Ox O2 Del Method O2 Flow Rate 36.5 C L 76 18 114/61 93 Nasal Cannula 7 02/17/23 08:10 02/17/23 08:10 02/17/23 08:10 02/17/23 08:10 02/17/23 08:10 02/17/23 08:14 02/17/23 08:10 Oxygen Flow Rate (L/min) 7 Oxygen Delivery Method Nasal Cannula Weight: 65.6 kg Body Mass Index (BMI) 21.9 Intake & Output: Intake and Output for Last 24 Hours 02/15/23 02/16/23 02/17/23 23:59 23:59 23:59 Intake Total 2135.42 / 2135.42 1376.67 / 1376.67 Output Total 650 / 950 1100 / 1500 800 / 800 Balance 1485.42 / 1185.42 276.67 / -123.33 -800 / -800 Medical Nutrition Assessment Dietitian: Malnutrition Criteria Met Start: 02/08/23 15:17 Freq: Status: Active Protocol: Document 02/13/23 13:07 RMA (Rec: 02/13/23 13:07 RMA [id number]) Nutrition Malnutrition Evidence of Malnutrition Exists Yes Malnutrition (severe): Acute Illness/Injury,Chronic Evidenced By Suboptimal Energy Intake ( Severe),Weight Loss (Severe), Physical Changes (Moderate) Intake Problem Inadequate Oral Intake Etiology related to swallowing difficulty Signs/Symptoms as evidenced by NPO x day 5 Status Active Problem Clinical Problem Acute Disease or Injury Related Malnutrition Etiology 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 related to swallowing difficulty and inadequate oral intake Signs/Symptoms as evidenced by BMI 22.0, approximately 5% weight loss x past 3 weeks, ~11% weight loss x past 1 year, PO meeting less than 50% estimated nutrition needs x 1 month, visible muscle wasting and fat depletion in the clavicle, face, arms and legs and extended NPO Status Active Problem Recommendation Dietitian Recommendations/Changes Ability to take safe and adequate PO appears unlikely, suggest enteral nutrition support to meet estimated energy and protein needs-- recommend PEG for enteral nutrition support if diet remains contraindicated/pt unsafe for PO and in accordance with patient wishes . If deemed safe to swallow, recommend liberalized regular diet as tolerated with texture /consistency as per PAVING SUPERVISOR. Pt will try ensure plus high protein and magic cup for tolerance if PO diet advanced. Suspect unintentional weight loss likely to continue due to inability to take PO and nutrition support is necessary to prevent further pro-tamika depletion. Noted pt/family to meet with hospice today and decide regarding alternative nutrition support via feeding tube. Lab / Micro Data Attestation: I reviewed the patient's lab results. 02/17/23 06:15 02/17/23 06:15 Labs: Laboratory Results - last 24 hr 02/17/23 06:15: WBC 12.2 H, RBC 3.54 L, Hgb 10.0 L, Hct 33.6 L, MCV 94.9 H, MCH 28.2, MCHC 29.8 L, RDW Std Deviation 51.0 H, RDW Coeff of Minerva 14.4, Plt Count 253, MPV 9.7, Immature Gran % (Auto) 0.700, Neut % (Auto) 88.7 H, Lymph % (Auto) 4.2 L, [place] % (Auto) 3.5, Eos % (Auto) 2.7, Baso % (Auto) 0.2, Absolute Neuts (auto) 10.8 H, Absolute Lymphs (auto) 0.51 L, Nucleated RBC % 0, Hypochromasia 1+, PT 16.7 H, INR 1.4, Sodium 136, Potassium 3.4 L, Chloride 96 L, Carbon Dioxide 40.0 H, Anion Gap 0 L, BUN 15, Creatinine 0.66 L, Estim Creat Clear Calc 48.29, Est GFR (MDRD) Af Amer 148, Est GFR (MDRD) Non-Af 122, BUN/Creatinine Ratio 22.9 H, Glucose 130 H, Calcium 7.4 L, Phosphorus 1.2 L, Magnesium 1.9 Micro: Microbiology 02/15/23 Unknown Mucosa - Nose Respiratory Panel (PCR) - Final 02/15/23 13:35 Nasal Secretion SARS-CoV-2 & FLU Antigen (Rapid) - Final 02/08/23 02:30 Blood Culture (Wb) #2 - Anticubital Left Blood Culture - Final No growth in 5 days. 02/08/23 02:15 Blood Culture (Wb) - Anticubital Right Blood Culture - Final No growth in 5 days. 02/08/23 11:27 Sputum, Expectorated/Coughed Gram Stain - Final 02/08/23 11:27 Sputum, Expectorated/Coughed Respiratory Culture - Final Streptococcus pneumoniae Staphylococcus aureus 02/08/23 05:30 Mucosa - Nasopharyngeal Respiratory Panel (PCR) - Final Rhinovirus 02/08/23 05:05 Urine, Clean Catch Legionella Antigen - Final 02/08/23 05:05 Urine, Clean Catch Streptococcus pneumoniae Antigen (M - Final Physical Exam Const alert and oriented x3 Constitutional Narrative: Slightly garbled speech. General Appearance: frail HEENT normocephalic and head/scalp atraumatic Eyes PERRL, EOMs intact bilaterally and conjunctivae normal Neck full ROM Neck Narrative: JVD noted Chest Chest Narrative: Significant kyphosis appreciated Resp Effort and Inspection: actively coughing non-productive, loose and rattling and prolonged expiratory phase Auscultation: rales; Negative for rhonchi or wheezes Cardio S1 normal heart sound and S2 normal heart sound Heart Sounds: murmur diastolic III/ low-pitched mid GI normal to inspection, nondistended, normoactive bowel sounds Inspection: GI tube present Extremity General Extremity: Negative for edema Skin Skin Narrative: Dermal atrophy noted Neuro oriented x3 Psych Mood & Affect: flat affect Charges/Coding Visit Charges Inpatient E&M: 63625 Subs Hosp L3
[2023-02-17 14:01] LABS: Bacteria 0 SEEN /hpf (None Seen); Mucous, Urine 0 SEEN /hpf (<or=2+); Red Blood Cells-Urine 0 SEEN /hpf (0-5); Squamous Epithelial Cells - UA 0 SEEN /hpf (0-5); White Blood Cells 0 SEEN /hpf (0-5)
[2023-02-17 14:13] LABS: Color, Urine Yellow (Yellow); Glucose, Dipstick Normal (Normal); Ketone-Dipstick Negative (Negative); Leukocyte Esterase-Dipstick Negative /ul (Negative); Nitrite-Dipstick Negative (Negative); Occult Blood-Urine Negative /ul (Negative); Protein-Dipstick Negative (Negative); Urine Bilirubin Dipstick Negative (Negative); Urine Clarity Clear (Clear); Urine Urobilinogen Normal (Normal); Urine pH 6.5 (5.0 - 8.0)
[2023-02-17] MEDS: AcetaZOLAMIDE 250 MG Tablet GT (14:22)
[2023-02-17] MEDS: Potassium Chloride Oral Soln 20 MEQ/15 ML UDC 40 MEQ GT (14:22)
[2023-02-17] MEDS: Potassium Phosphate 40 MM in 0.9% Normal Saline (500mL Bag) 500 ML 62.5 MM IV (14:22)
[2023-02-17] MEDS: Jevity 1.5 1,000 ML 50 ML GT (14:23)
[2023-02-17] MEDS: Warfarin 1 MG, Warfarin 0.5 MG 1.5 MG GT (16:39)
[2023-02-17] MEDS: MELATONIN 3 MG TABLET 10 MG PO (22:00)
[2023-02-18] VITALS (14 sets, daily range): BP systolic 102–112; BP diastolic 56–60; PULSE 59–64; RESP 17–20; TEMP 36.3–36.7; O2SAT 73–98
[2023-02-18] MEDS: guaiFENesin 10 ML UDC (200MG/10ML) GT ×6 (03:29→23:45)
[2023-02-18] MEDS: Levothyroxine 125 MCG Tablet GT (05:24)
[2023-02-18 06:20] LABS: International Normalized Ratio 1.3; Prothrombin Time (Protime)PT. 15.9 SECONDS (11.7-14.9)
--- NOTE | 2023-02-18 06:48 | NURSING ---
pt 73% on RA, pt took HFNC off nose., bumped to 12L HFNC and sats up to 93%. Pt states, I am trying to get someone attention, bc I want to get up. RN explained/showed pt how to call for help w/ call light if needs any assistance. Pt agrees w/ use of call light at this time. Assisted pt to chair with the chair alarm on. Pt on SD monitor w/ cont pulse ox. at bedside.
[2023-02-18 07:02] LABS: Anion Gap 2 (5-15); BUN 15 mg/dL (7-18); BUN/Creat Ratio 19.8 RATIO (10-20); Chloride 94 mmol/L (98-107); Creatinine, Serum 0.76 mg/dL (0.70-1.30); EST Glomerular Filtration Rate 104 mL/min (>60); Est Glom Filt Rate - Afr Amer 125 mL/min (>60); Estimated Creatinine Clearance 48.29 ml/min; Glucose 114 mg/dL (74-106); Potassium 4.1 mmol/L (3.5-5.1); Sodium Level 133 mmol/L (136-145)
[2023-02-18 07:28] LABS: Absolute Lymphocyte Count 0.78 X10^3/uL (0.83-4.51); Absolute Neutrophil Count 12.6 X10^3/uL (2.0-7.7); Basophil# 0.06 X10^3/uL; Basophil% 0.4 % (0-1); Eosinophil# 0.28 X10^3/uL; Hemoglobin 10.7 g/dL (13.0-16.5); Lymphocyte # 0.78 X10^3/ul (0.83-4.51); Lymphocyte % 5.4 % (19-41); Mean Corp Hgb Conc 29.7 g/dL (32-36); Mean Corpuscular Hgb 27.9 pg (27.0-32.0); Mean Corpuscular Volume 93.8 fL (80-94); Mean Platelet Vol. 10.4 fl (6.2-12.0); Monocyte# 0.56 X10^3/uL; Monocyte% 3.9 % (0-10); NRBC Flagged by Analyzer 0 % (0-5); Neutrophil # 12.59 X10^3/uL (2.7-7.7); Neutrophil % 87.7 % (47-70); Platelet Count 286 K/mm3 (150-450); RBC Distribution Width CV 14.7 % (11.6-14.6); RBC Distribution Width SD 50.5 fl (35.1-43.9); Red Blood Count 3.84 M/mm3 (4.6-6.2); White Blood Count 14.4 K/mm3 (4.4-11.0)
[2023-02-18 07:29] LABS: Phosphorus 3.3 mg/dL (2.5-4.9)
--- NOTE | 2023-02-18 07:53 | PN.HOSP_ITS ---
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, oral cavity, and pharynx (02/08/23) Subjective Subjective Patient beginning to cough up secretions, does feel better today, had difficulty urinating yesterday and had Kenyon placed, does report he has not been having very good bowel movements, agreeable to bowel regimen, reported he briefly had 2 episodes around his PEG tube site that her but not presently having pain and no other abdominal pain Objective Data Objective Data Vital Signs: Vital Signs Temp Pulse Resp BP Pulse Ox O2 Del Method O2 Flow Rate 97.5 F L 63 20 H 112/56 L 93 High Flow 12 02/18/23 03:22 02/18/23 03:27 02/18/23 03:22 02/18/23 03:22 02/18/23 06:22 02/18/23 06:22 02/18/23 06:22 Oxygen Flow Rate (L/min) 12 Oxygen Delivery Method High Flow Weight: 65.6 kg Body Mass Index (BMI) 21.9 Intake & Output: Intake and Output for Last 24 Hours 02/16/23 02/17/23 02/18/23 23:59 23:59 23:59 Intake Total 1376.67 / 1376.67 1743.3333 / 1743.3333 Output Total 1100 / 1500 3100 / 3100 900 / 900 Balance 276.67 / -123.33 -1356.6667 / -1356.6667 -900 / -900 Medical Nutrition Assessment Dietitian: Malnutrition Criteria Met Start: 02/08/23 15:17 Freq: Status: Active Protocol: Document 02/13/23 13:07 RMA (Rec: 02/13/23 13:07 RMA [id number]) Nutrition Malnutrition Evidence of Malnutrition Exists Yes Malnutrition (severe): Acute Illness/Injury,Chronic Evidenced By Suboptimal Energy Intake ( Severe),Weight Loss (Severe), Physical Changes (Moderate) Intake Problem Inadequate Oral Intake Etiology related to swallowing difficulty Signs/Symptoms as evidenced by NPO x day 5 Status Active Problem Clinical Problem Acute Disease or Injury Related Malnutrition Etiology 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 related to swallowing difficulty and inadequate oral intake Signs/Symptoms as evidenced by BMI 22.0, approximately 5% weight loss x past 3 weeks, ~11% weight loss x past 1 year, PO meeting less than 50% estimated nutrition needs x 1 month, visible muscle wasting and fat depletion in the clavicle, face, arms and legs and extended NPO Status Active Problem Recommendation Dietitian Recommendations/Changes Ability to take safe and adequate PO appears unlikely, suggest enteral nutrition support to meet estimated energy and protein needs-- recommend PEG for enteral nutrition support if diet remains contraindicated/pt unsafe for PO and in accordance with patient wishes . If deemed safe to swallow, recommend liberalized regular diet as tolerated with texture /consistency as per TIE MILL OPERATOR. Pt will try ensure plus high protein and magic cup for tolerance if PO diet advanced. Suspect unintentional weight loss likely to continue due to inability to take PO and nutrition support is necessary to prevent further pro-tamika depletion. Noted pt/family to meet with hospice today and decide regarding alternative nutrition support via feeding tube. Lab / Micro Data 02/18/23 06:40 02/18/23 05:45 Labs: Laboratory Results - last 24 hr 02/17/23 06:15: Phosphorus 1.2 L, Magnesium 1.9 02/17/23 13:40: Urine Color Yellow, Urine Clarity Clear, Urine pH 6.5, Ur Specific [place] 1.010, Urine Protein Negative, Urine Glucose (UA) Normal, Urine Ketones Negative, Urine Occult Blood Negative, Urine Nitrite Negative, Urine Bilirubin Negative, Urine Urobilinogen Normal, Ur Leukocyte Esterase Negative, Urine RBC 0 SEEN, Urine WBC 0 SEEN, Ur Squamous Epith Cells 0 SEEN, Urine Bacteria 0 SEEN, Urine Mucus 0 SEEN 02/18/23 05:45: WBC Cancelled, Corrected WBC Cancelled, RBC Cancelled, Hgb Cancelled, Hct Cancelled, MCV Cancelled, MCH Cancelled, MCHC Cancelled, RDW Std Deviation Cancelled, RDW Coeff of Minerva Cancelled, Plt Count Cancelled, MPV Cancelled, Immature Gran % (Auto) Cancelled, Neut % (Auto) Cancelled, Lymph % (Auto) Cancelled, [place] % (Auto) Cancelled, Eos % (Auto) Cancelled, Baso % (Auto) Cancelled, Absolute Neuts (auto) Cancelled, Absolute Lymphs (auto) Cancelled, Total Counted Cancelled, Neutrophils % (Manual) Cancelled, Band Neutrophils % Cancelled, Lymphocytes % (Manual) Cancelled, Monocytes % (Manual) Cancelled, Eosinophils % (Manual) Cancelled, Basophils % (Manual) Cancelled, Metamyelocytes % Cancelled, Myelocytes % Cancelled, Promyelocytes % Cancelled, Blast Cells % Cancelled, Plasma Cell % (Manual) Cancelled, Other Cells % Cancelled, Nucleated RBC % Cancelled, Nucleated RBCs/100 WBC Cancelled, Differential Comment Cancelled, Diff Path Review Cancelled, Hypersegmented Neuts Cancelled, Atypical Lymphocytes Cancelled, Reactive Lymphocytes Cancelled, Smudge Cells Cancelled, Toxic Granulation Cancelled, Toxic Vacuolation Cancelled, Dohle Bodies Ca ncelled, Sophie Rods Cancelled, Platelet Estimate Cancelled, Plt Morphology Comment Cancelled, RBC Morphology Cancelled 02/18/23 05:45: RBC Morphology Cancelled, Polychromasia Cancelled, Hypochromasia Cancelled, Poikilocytosis Cancelled, Basophilic Stippling Cancelled, Anisocyto sis Cancelled, Microcytosis Cancelled, Macrocytosis Cancelled, Spherocytes Cancelled, Sickle Cells Cancelled, Target Cells Cancelled, Tear Drop Cells Cancelled, Ovalocytes Cancelled, Stomatocytes Cancelled, [place] Bodies Cancelled, [place] Cells Cancelled, Bite Cells Cancelled, Crenated Cell Cancelled, Acanthocytes (Spur) Cancelled, Rouleaux Cancelled, Schistocytes Cancelled, PT 15.9 H, INR 1.3, Sodium 133 L, Potassium 4.1, Chloride 94 L, Carbon Dioxide 37.0 H, Anion Gap 2 L, BUN 15, Creatinine 0.76, Estim Creat Clear Calc 48.29, Est GFR (MDRD) Af Amer 125, Est GFR (MDRD) Non-Af 104, BUN/Creatinine Ratio 19.8, Glucose 114 H, Calcium 8.0 L, Phosphorus 3.3 02/18/23 06:40: WBC 14.4 H, RBC 3.84 L, Hgb 10.7 L, Hct 36.0 L, MCV 93.8, MCH 27.9, MCHC 29.7 L, RDW Std Deviation 50.5 H, RDW Coeff of Minerva 14.7 H, Plt Count 286, MPV 10.4, Immature Gran % (Auto) 0.600, Neut % (Auto) 87.7 H, Lymph % (Auto) 5.4 L, [place] % (Auto) 3.9, Eos % (Auto) 2.0, Baso % (Auto) 0.4, Absolute Neuts (auto) 12.6 H, Absolute Lymphs (auto) 0.78 L, Nucleated RBC % 0 Micro: Microbiology 02/15/23 Unknown Mucosa - Nose Respiratory Panel (PCR) - Final 02/15/23 13:35 Nasal Secretion SARS-CoV-2 & FLU Antigen (Rapid) - Final 02/08/23 02:30 Blood Culture (Wb) #2 - Anticubital Left Blood Culture - Final No growth in 5 days. 02/08/23 02:15 Blood Culture (Wb) - Anticubital Right Blood Culture - Final No growth in 5 days. 02/08/23 11:27 Sputum, Expectorated/Coughed Gram Stain - Final 02/08/23 11:27 Sputum, Expectorated/Coughed Respiratory Culture - Final Streptococcus pneumoniae Staphylococcus aureus 02/08/23 05:30 Mucosa - Nasopharyngeal Respiratory Panel (PCR) - Final Rhinovirus 02/08/23 05:05 Urine, Clean Catch Legionella Antigen - Final 02/08/23 05:05 Urine, Clean Catch Streptococcus pneumoniae Antigen (M - Final Physical Exam Narrative General: Alert, oriented, is somewhat tired HEENT normocephalic Eyes: Anicteric, normal conjunctiva, extraocular movements grossly intact Neck: Supple Respiratory: Diminished at lung bases, respiratory effort improving, aeration improved today Cardiovascular: Regular rate GI: Soft, nontender, nondistended, no abnormalities at PEG tube site Extremities: No significant edema Musculoskeletal: Moving all extremities Neuro: Does have difficulty getting words out Skin: No rashes appreciated Psych: Cooperative Assessment & Plan Assessment/Plan (1) Hypoxia: (2) History of throat cancer: PLAN: Plan #Hypoxia due to probable aspiration pneumonia and URI due to rhinovirus infection * saturation was in the 70s on admission. * CXR showed bilateral pulmonary opacities concerning for infection and/or aspiration. * 2D echo: EF of 50-55%, with septal hypokinesis and moderately enlarged left and right atria. ICD pacer leads in the right atrium. Pulmonary artery systolic pressure is 45-50mhg * on IV lasix. * on 4L of oxygen by nasal canula * respiratory panel positive for rhinovirus infection * Sputum cultures growing Strep pneumonia and Staph aureus, both sensitive to levofloxacin. Was started on IV vancomycin; will switch to IV levofloxacin. * blood cultures negative -02/12: Wean O2 as tolerated, continue Levaquin, will DC Rocephin given both organisms growing are covered by Levaquin -02/13: O2 saturations improving today, remains on oxygen but improved sats and clinically improving, continue present management -02/14: Continue Levaquin, patient is improving, documented increase in O2 postsurgery but in room on eval doing well and symptomatically feels he is improving -02/15: Had been improving however reports that overnight he felt more short of breath and still feeling more short of breath than he had been, review of chest x-ray appears to have effusion on right side and increased infiltrates, patient already on antibiotics, may be aspirating his saliva, will give instructions for patient to sleep in semirecumbent position, will start guaifenesin, chest physiotherapy, incentive spirometry, has 1 more dose of Levaquin, will also need outpatient pulm follow-up -02/17: Patient further desaturated overnight -02/18: Has very thick secretions and is doing well with the vest, feels he is doing better today, does clinically appear to be doing better, continue pulmonary toileting and present management. Patient reported difficulty sleeping overnight despite the melatonin, discussed that we can slowly adjust medications as he tolerates but do not want to over sedate him and he is agreeable, added very small dose of Remeron #Dysphagia with history of throat cancer status post radiation and chemotherapy found to have stricture status post dilation * has been having dysphagia which is worsening, especially to solids an dliquids over the past several weeks. * Had a history of head and neck cancer and had radiation. Has had significant dyspagia requiring esophageal dilatation * CT of the soft tissue neck with IV contrast showed submucosal edema and adjacent soft tissue thickening of the hypopharynx on the left side with irregularity of the left thyroid cartilage, concerning for malignancy vs infection. * CT chest showed mediastinal and right hilar lymphadenopathy, bilateral airspace disease as well as cardiomegaly and chronic interstitial lung disease * GI on board. Had EGD yesteday which showed a benign appearing esophageal stenosis which ws dilated, and a medium sizes hiatal hernia, with no gross lesions in the duodenal bulb. * currently NPO * speech therapy on board; modified barium swallow showed inability to initiate a complete swallow and complete occlusion and aspiration of thin liquid by teaspoon with weak reflexive cough. Limited trials done as patient desaturated after attempts at swallowing trial. * Still n.p.o. except for ice chips. Speech therapy on board and reassess patient today. * If he still remains NPO, will have to re-evaluate for alternate means of nutrition. -02/12: Continues to work with speech therapy, D5 normal saline changed to D5 half-normal saline due to increasing sodium and chloride, this was GI, if patient agreeable will need to pursue PEG placement. Patient first to meet with hospice to discuss options but given patient's lack of improvement and prolonged lack of nutrition we will need to decide hospice versus PEG placement. Referral placed -02/13: Patient family wanted proceed with feeding tube, discussed with GI, patient for placement tomorrow -02/14: Status post successful PEG placement, had some gastritis but has not been able to get his p.o. Protonix and this will be able to go down PEG tube, switch to IV, nutrition is consulted -02/15: PEG tube placed, patient to start Jevity today. Counseled patient and his that nutrition will help prolong life but will not drastically improve his current quality or help his breathing problems -02/16: Tube feeds started -02/17: Tolerating tube feeds thus far, continue monitor lytes and replace -02/18: Continue to monitor and replace lytes, PEG site examined and no drainage erythema #Burning on urination -Will check UA and urine culture -02/18: UA not suggestive of UTI but patient developed urinary retention x2 so Kenyon placed, suspect there may be a component of constipation so we will add Mi raLAX twice daily scheduled #Chronic afib * on coumadin> INR was supratherapeuic at 6.9 on admission. * INR went up to 7.9 and he received a dose of vitamin K 2.5mg * INR today is 3.5 * on metoprolol. back on coumadin. -02/12: INR going back up and is supratherapeutic today at 4.2, it appears patient has not been receiving his Coumadin as he is not taking p.o. so we will stop this altogether and continue to trend, currently not bleeding and risk of giving IV vitamin K likely outweighs benefits acutely given INR less than 4.5 and patient cannot take oral vitamin K, will continue to monitor -02/13: INR unchanged today, continue to hold Coumadin, given his need for PEG placement and unable to take p.o. we will give IV vitamin K -02/14: INR is 1.7 this a.m. -02/15: We will plan to restart Coumadin at discharge or sooner if patient will have prolonged hospitalization -02/16: Given he will be here over the weekend will restart Coumadin -02/17: Coumadin restarted, monitor INR -02/18: INR remains low however given elevated INR on presentation hesitant to be aggressive, if not increasing in next 1 to 2 days can escalate dosing #Hypothyroidism -Continue Synthroid -02/12: Has been unable to take Synthroid, if no alternative means of medications becomes available may need to switch to IV in the future -02/14: PEG tube placed -02/15: Synthroid through PEG tube #Failure to thrive * has had ~ 10 pound weight loss over the pat several weeks, and hasnt been eating and drinking well * albumin is 2.7 * Nutrition on board #CAD s/p CABG x4 and history of PPM; on aspirin and metoprolol. Not on home statin -02/12: Metoprolol IV as needed, can consider switching to rectal aspirin if absolutely necessary -02/14: PEG tube placed -02/15: Meds changed to G-tube compatible versions #hypothyroidism; on synthroid DVT prophylaxis; SCDs at this time Time spent in the patient's overall evaluation,decision-making process, review of diagnostic data, adjustment of management, discussion with other providers, nursing nursing and ancillary staff involved in patient's care documentation, 45 minutes Charges/Coding Visit Charges Inpatient E&M: 29808 Subs Hosp L2
--- NOTE | 2023-02-18 08:26 | PN.CC_ITS ---
Assessment & Plan Assessment/Plan (1) Hypoxia: (2) History of throat cancer: PLAN: Plan RECOMMENDATIONS: 1. Continue gentle diuresis 2. Continue vest therapy for pulmonary toileting with increased mucolytic 3. Repeat chest x-ray in a.m. to evaluate response 4. Aggressive nutritional support 5. Out of bed as tolerated IMPRESSIONS: 1. Acute hypoxic respiratory insufficiency Clinical suspicion for multifactorial etiology. Patient did have a rhinovirus infection on presentation and likely also had an element of as piration pneumonia. Patient with significant hypoxia on presentation with elevated pulmonary artery pressures. Patient had initially been treated with Lasix, but this was discontinued. Patient has been receiving significant IV fluids given his n.p.o. status. Patient appears still to be about 4 L positive over the course of his hospitalization. This is confounded by possible underlying COPD and an element of restriction secondary to kyphosis. Recommend gentle diuresis initially. Patient with very thick secretions. We will continue with aggressive pulmonary toileting 2. Dysphagia status post throat cancer with chemo and radiation Speech therapy is following the patient. Patient recently had an EGD. Patient currently with a PEG tube. Tube feed recommendations per speech and dietitian. Strict n.p.o. for now pending marginal respiratory status. Patient may be able to work with speech therapy once respiratory status improves. 3. Chronic A-fib/CAD status post CABG/pulmonary hypertension/failure to thrive/hypothyroidism/advanced age/debility Complicates care, management, recovery and prognosis. Clinical suspicion for exacerbation of pulmonary hypertension secondary to extra fluid given n.p.o. status. We will need to monitor for refeeding electrolyte disturbances. Okay to continue baseline medications from my perspective Subjective Subjective Patient up in the chair. Did discuss with the respiratory therapist and she is reporting good response to the vest therapy, but extremely thick secretions. No hemoptysis has been reported. Patient has been tolerating tube feeds. Objective Data Objective Data Vital Signs: Vital Signs Temp Pulse Resp BP Pulse Ox O2 Del Method O2 Flow Rate 36.4 C L 63 20 H 112/56 L 93 High Flow 12 02/18/23 03:22 02/18/23 03:27 02/18/23 03:22 02/18/23 03:22 02/18/23 06:22 02/18/23 06:22 02/18/23 06:22 Oxygen Flow Rate (L/min) 12 Oxygen Delivery Method High Flow Weight: 65.6 kg Body Mass Index (BMI) 21.9 Intake & Output: Intake and Output for Last 24 Hours 02/16/23 02/17/23 02/18/23 23:59 23:59 23:59 Intake Total 1376.67 / 1376.67 1743.3333 / 1743.3333 Output Total 1100 / 1500 3100 / 3100 900 / 900 Balance 276.67 / -123.33 -1356.6667 / -1356.6667 -900 / -900 Medical Nutrition Assessment Dietitian: Malnutrition Criteria Met Start: 02/08/23 15:17 Freq: Status: Active Protocol: Document 02/13/23 13:07 RMA (Rec: 02/13/23 13:07 RMA [id number]) Nutrition Malnutrition Evidence of Malnutrition Exists Yes Malnutrition (severe): Acute Illness/Injury,Chronic Evidenced By Suboptimal Energy Intake ( Severe),Weight Loss (Severe), Physical Changes (Moderate) Intake Problem Inadequate Oral Intake Etiology related to swallowing difficulty Signs/Symptoms as evidenced by NPO x day 5 Status Active Problem Clinical Problem Acute Disease or Injury Related Malnutrition Etiology 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 related to swallowing difficulty and inadequate oral intake Signs/Symptoms as evidenced by BMI 22.0, approximately 5% weight loss x past 3 weeks, ~11% weight loss x past 1 year, PO meeting less than 50% estimated nutrition needs x 1 month, visible muscle wasting and fat depletion in the clavicle, face, arms and legs and extended NPO Status Active Problem Recommendation Dietitian Recommendations/Changes Ability to take safe and adequate PO appears unlikely, suggest enteral nutrition support to meet estimated energy and protein needs-- recommend PEG for enteral nutrition support if diet remains contraindicated/pt unsafe for PO and in accordance with patient wishes . If deemed safe to swallow, recommend liberalized regular diet as tolerated with texture /consistency as per [employer]. Pt will try ensure plus high protein and magic cup for tolerance if PO diet advanced. Suspect unintentional weight loss likely to continue due to inability to take PO and nutrition support is necessary to prevent further pro-tamika depletion. Noted pt/family to meet with hospice today and decide regarding alternative nutrition support via feeding tube. Lab / Micro Data Attestation: I reviewed the patient's lab results. 02/18/23 06:40 02/18/23 05:45 Labs: Laboratory Results - last 24 hr 02/17/23 06:15: Phosphorus 1.2 L, Magnesium 1.9 02/17/23 13:40: Urine Color Yellow, Urine Clarity Clear, Urine pH 6.5, Ur Specific [place] 1.010, Urine Protein Negative, Urine Glucose (UA) Normal, Urine Ketones Negative, Urine Occult Blood Negative, Urine Nitrite Negative, Urine Bilirubin Negative, Urine Urobilinogen Normal, Ur Leukocyte Esterase Negative, Urine RBC 0 SEEN, Urine WBC 0 SEEN, Ur Squamous Epith Cells 0 SEEN, Urine Bacteria 0 SEEN, Urine Mucus 0 SEEN 02/18/23 05:45: WBC Cancelled, Corrected WBC Cancelled, RBC Cancelled, Hgb Cancelled, Hct Cancelled, MCV Cancelled, MCH Cancelled, MCHC Cancelled, RDW Std Deviation Cancelled, RDW Coeff of Minerva Cancelled, Plt Count Cancelled, MPV C ancelled, Immature Gran % (Auto) Cancelled, Neut % (Auto) Cancelled, Lymph % (Auto) Cancelled, [place] % (Auto) Cancelled, Eos % (Auto) Cancelled, Baso % (Auto) Cancelled, Absolute Neuts (auto) Cancelled, Absolute Lymphs (auto) Cancelled, Total Counted Cancelled, Neutrophils % (Manual) Cancelled, Band Neutrophils % Cancelled, Lymphocytes % (Manual) Cancelled, Monocytes % (Manual) Cancelled, Eosinophils % (Manual) Cancelled, Basophils % (Manual) Cancelled, Metamyelocytes % Cancelled, Myelocytes % Cancelled, Promyelocytes % Cancelled, Blast Cells % Cancelled, Plasma Cell % (Manual) Cancelled, Other Cells % Cancelled, Nucleated RBC % Cancelled, Nucleated RBCs/100 WBC Cancelled, Differential Comment Cancelled, Diff Path Review Cancelled, Hypersegmented Neuts Cancelled, Atypical Lymphocytes Cancelled, Reactive Lymphocytes Cancelled, Smudge Cells Cancelled, Toxic Granulation Cancelled, Toxic Vacuolation Cancelled, Dohle Bodies Cancelled, Sophie Rods Cancelled, Platelet Estimate Cancelled, Plt Morphology Comment Cancelled, RBC Morphology Cancelled 02/18/23 05:45: RBC Morphology Cancelled, Polychromasia Cancelled, Hypochromasia Cancelled, Poikilocytosis Cancelled, Basophilic Stippling Cancelled, Anisocytosis Cancelled, Microcytosis Cancelled, Macrocytosis Cancelled, Sph erocytes Cancelled, Sickle Cells Cancelled, Target Cells Cancelled, Tear Drop Cells Cancelled, Ovalocytes Cancelled, Stomatocytes Cancelled, [place] Bodies Cancelled, Miriam Cells Cancelled, Bite Cells Cancelled, Crenated Cell Cancelled, Acanthocytes (Spur) Cancelled, Rouleaux Cancelled, Schistocytes Cancelled, PT 15.9 H, INR 1.3, Sodium 133 L, Potassium 4.1, Chloride 94 L, Carbon Dioxide 37.0 H, Anion Gap 2 L, BUN 15, Creatinine 0.76, Estim Creat Clear Calc 48.29, Est GFR (MDRD) Af Amer 125, Est GFR (MDRD) Non-Af 104, BUN/Creatinine Ratio 19.8, Glucose 114 H, Calcium 8.0 L, Phosphorus 3.3 02/18/23 06:40: WBC 14.4 H, RBC 3.84 L, Hgb 10.7 L, Hct 36.0 L, MCV 93.8, MCH 27.9, MCHC 29.7 L, RDW Std Deviation 50.5 H, RDW Coeff of Minerva 14.7 H, Plt Count 286, MPV 10.4, Immature Gran % (Auto) 0.600, Neut % (Auto) 87.7 H, Lymph % (Auto) 5.4 L, [place] % (Auto) 3.9, Eos % (Auto) 2.0, Baso % (Auto) 0.4, Absolute Neuts (auto) 12.6 H, Absolute Lymphs (auto) 0.78 L, Nucleated RBC % 0 Micro: Microbiology 02/15/23 Unknown Mucosa - Nose Respiratory Panel (PCR) - Final 02/15/23 13:35 Nasal Secretion SARS-CoV-2 & FLU Antigen (Rapid) - Final 02/08/23 02:30 Blood Culture (Wb) #2 - Anticubital Left Blood Culture - Final No growth in 5 days. 02/08/23 02:15 Blood Culture (Wb) - Anticubital Right Blood Culture - Final No growth in 5 days. 02/08/23 11:27 Sputum, Expectorated/Coughed Gram Stain - Final 02/08/23 11:27 Sputum, Expectorated/Coughed Respiratory Culture - Final Streptococcus pneumoniae Staphylococcus aureus 02/08/23 05:30 Mucosa - Nasopharyngeal Respiratory Panel (PCR) - Final Rhinovirus 02/08/23 05:05 Urine, Clean Catch Legionella Antigen - Final 02/08/23 05:05 Urine, Clean Catch Streptococcus pneumoniae Antigen (M - Final Physical Exam Const alert and oriented x3 Constitutional Narrative: Slightly garbled speech. Stronger vocalization today compared to yesterday General Appearance: frail HEENT normocephalic and head/scalp atraumatic Eyes PERRL, EOMs intact bilaterally and conjunctivae normal Neck full ROM Neck Narrative: JVD noted Chest Chest Narrative: Significant kyphosis appreciated Resp Effort and Inspection: prolonged expiratory phase Auscultation: rales; Negative for rhonchi or wheezes Cardio S1 normal heart sound and S2 normal heart sound Heart Sounds: murmur diastolic III/ low-pitched mid GI normal to inspection, nondistended, normoactive bowel sounds Inspection: GI tube present Extremity General Extremity: Negative for edema Skin Skin Narrative: Dermal atrophy noted Neuro oriented x3 and CN's II-XII intact bilaterally Psych Mood & Affect: flat affect Charges/Coding Visit Charges Inpatient E&M: 97403 Subs Hosp L2
[2023-02-18] MEDS: Pantoprazole Sodium 40 MG in 0.9% Normal Saline (100mL MB+) 100 ML 330 MG IV (08:44)
[2023-02-18] MEDS: Furosemide 10 MG/ML Liquid 20 MG GT ×2 (08:45→17:04)
[2023-02-18] MEDS: Aspirin 81 MG TAB.CHEW GT (08:45)
[2023-02-18] MEDS: Lactated Ringers 1,000 ML 15 ML IV (08:50)
[2023-02-18] MEDS: Jevity 1.5 1,000 ML 50 ML GT (14:43)
[2023-02-18] MEDS: Polyethylene Glycol 3350 17 GM PACKET GT ×2 (16:55→21:11)
[2023-02-18] MEDS: Warfarin 1 MG, Warfarin 0.5 MG 1.5 MG GT (16:56)
[2023-02-18] MEDS: MELATONIN 3 MG TABLET 10 MG PO (21:10)
[2023-02-18] MEDS: Mirtazapine 15 MG Tablet 7.5 MG GT (21:10)
[2023-02-19] VITALS (9 sets, daily range): BP systolic 107–117; BP diastolic 52–62; PULSE 60–66; RESP 18–45; TEMP 36.4–36.6; O2SAT 94–99; BMI 22.3
[2023-02-19] MEDS: Levothyroxine 125 MCG Tablet GT (05:23)
[2023-02-19] MEDS: guaiFENesin 10 ML UDC (200MG/10ML) GT ×2 (05:23→09:03)
[2023-02-19 06:07] LABS: Absolute Lymphocyte Count 0.59 X10^3/uL (0.83-4.51); Absolute Neutrophil Count 10.2 X10^3/uL (2.0-7.7); Basophil# 0.08 X10^3/uL; Basophil% 0.7 % (0-1); Eosinophil# 0.28 X10^3/uL; Eosinophils% 2.4 % (0-5); Hematocrit 33.6 % (40-54); Hemoglobin 10.4 g/dL (13.0-16.5); Lymphocyte # 0.59 X10^3/ul (0.83-4.51); Mean Corpuscular Volume 90.6 fL (80-94); Mean Platelet Vol. 10.4 fl (6.2-12.0); Monocyte# 0.64 X10^3/uL; Monocyte% 5.4 % (0-10); NRBC Flagged by Analyzer 0.5 % (0-5); Neutrophil # 10.19 X10^3/uL (2.7-7.7); Neutrophil % 85.9 % (47-70); POSITIVE DIFFERENTIAL YES; Platelet Count 291 K/mm3 (150-450); RBC Distribution Width CV 14.9 % (11.6-14.6); RBC Distribution Width SD 49.6 fl (35.1-43.9); Red Blood Count 3.71 M/mm3 (4.6-6.2); White Blood Count 11.9 K/mm3 (4.4-11.0)
[2023-02-19 06:08] LABS: International Normalized Ratio 1.2; Prothrombin Time (Protime)PT. 15.4 SECONDS (11.7-14.9)
[2023-02-19 06:14] LABS: Differential Indicated SCAN CRITERIA MET
[2023-02-19 06:42] LABS: Anion Gap 0 (5-15); BUN 17 mg/dL (7-18); BUN/Creat Ratio 24.8 RATIO (10-20); Calcium,Total 8.3 mg/dL (8.5-10.1); Chloride 94 mmol/L (98-107); Creatinine, Serum 0.69 mg/dL (0.70-1.30); EST Glomerular Filtration Rate 116 mL/min (>60); Est Glom Filt Rate - Afr Amer 140 mL/min (>60); Estimated Creatinine Clearance 49.03 ml/min; Glucose 106 mg/dL (74-106); Potassium 4.3 mmol/L (3.5-5.1); Sodium Level 134 mmol/L (136-145)
[2023-02-19 07:15] LABS: Anisocytosis 1+
--- NOTE | 2023-02-19 07:50 | CPS ---
Declined vest at this time.
[2023-02-19] MEDS: Pantoprazole Sodium 40 MG in 0.9% Normal Saline (100mL MB+) 100 ML 330 MG IV (09:01)
[2023-02-19] MEDS: Aspirin 81 MG TAB.CHEW GT (09:01)
[2023-02-19] MEDS: Polyethylene Glycol 3350 17 GM PACKET GT (09:02)
[2023-02-19] MEDS: Furosemide 10 MG/ML Liquid 20 MG GT (09:02)
--- NOTE | 2023-02-19 10:48 | CASEMGMT ---
Per physician patient and family would like to talk with Hospice again. YARA called Magui at Hospice and she said patient's did call and let them know they would like to proceed with Hospice. Magui will have a nurse come over to [facility]. YARA will send updates to Magui as well. Cecilia BULLOCK
--- NOTE | 2023-02-19 11:19 | PCM.PN.HOSP ---
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, oral cavity, and pharynx (02/08/23) Subjective Subjective Patient is an 87-year-old gentleman admitted with shortness of breath Objective Data Objective Data Vital Signs: Vital Signs Temp Pulse Resp BP Pulse Ox O2 Del Method O2 Flow Rate 97.9 F 60 20 H 117/62 93 Airvo 3 02/19/23 04:11 02/19/23 04:11 02/19/23 04:11 02/19/23 04:11 02/19/23 07:50 02/19/23 09:01 02/19/23 07:50 FiO2 44 02/19/23 04:11 Oxygen Flow Rate (L/min) 3 Oxygen Delivery Method Airvo Weight: 66.6 kg Body Mass Index (BMI) 22.3 Intake & Output: Intake and Output for Last 24 Hours 02/17/23 02/18/23 02/19/23 23:59 23:59 23:59 Intake Total 1743.3333 / 1743.3333 1334.75 / 1334.75 110 / 110 Output Total 3100 / 3100 2050 / 2050 1000 / 1000 Balance -1356.6667 / -1356.6667 -715.25 / -715.25 -890 / -890 Medical Nutrition Assessment Dietitian: Malnutrition Criteria Met Start: 02/08/23 15:17 Freq: Status: Active Protocol: Document 02/13/23 13:07 RMA (Rec: 02/13/23 13:07 RMA [id number]) Nutrition Malnutrition Evidence of Malnutrition Exists Yes Malnutrition (severe): Acute Illness/Injury,Chronic Evidenced By Suboptimal Energy Intake ( Severe),Weight Loss (Severe), Physical Changes (Moderate) Intake Problem Inadequate Oral Intake Etiology related to swallowing difficulty Signs/Symptoms as evidenced by NPO x day 5 Status Active Problem Clinical Problem Acute Disease or Injury Related Malnutrition Etiology 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 related to swallowing difficulty and inadequate oral intake Signs/Symptoms as evidenced by BMI 22.0, approximately 5% weight loss x past 3 weeks, ~11% weight loss x past 1 year, PO meeting less than 50% estimated nutrition needs x 1 month, visible muscle wasting and fat depletion in the clavicle, face, arms and legs and extended NPO Status Active Problem Recommendation Dietitian Recommendations/Changes Ability to take safe and adequate PO appears unlikely, suggest enteral nutrition support to meet estimated energy and protein needs-- recommend PEG for enteral nutrition support if diet remains contraindicated/pt unsafe for PO and in accordance with patient wishes . If deemed safe to swallow, recommend liberalized regular diet as tolerated with texture /consistency as per [employer]. Pt will try ensure plus high protein and magic cup for tolerance if PO diet advanced. Suspect unintentional weight loss likely to continue due to inability to take PO and nutrition support is necessary to prevent further pro-tamika depletion. Noted pt/family to meet with hospice today and decide regarding alternative nutrition support via feeding tube. Lab / Micro Data 02/19/23 05:16 02/19/23 05:16 Labs: Laboratory Results - last 24 hr 02/19/23 05:16: WBC 11.9 H, RBC 3.71 L, Hgb 10.4 L, Hct 33.6 L, MCV 90.6, MCH 28.0, MCHC 31.0 L, RDW Std Deviation 49.6 H, RDW Coeff of Minerva 14.9 H, Plt Count 291, MPV 10.4, Immature Gran % (Auto) 0.600, Neut % (Auto) 85.9 H, Lymph % (Auto) 5.0 L, [place] % (Auto) 5.4, Eos % (Auto) 2.4, Baso % (Auto) 0.7, Absolute Neuts (auto) 10.2 H, Absolute Lymphs (auto) 0.59 L, Nucleated RBC % 0.5, Anisocytosis 1+, PT 15.4 H, INR 1.2, Sodium 134 L, Potassium 4.3, Chloride 94 L, Carbon Dioxide 40.0 H, Anion Gap 0 L, BUN 17, Creatinine 0.69 L, Estim Creat Clear Calc 49.03, Est GFR (MDRD) Af Amer 140, Est GFR (MDRD) Non-Af 116, BUN/Creatinine Ratio 24.8 H, Glucose 106, Calcium 8.3 L Micro: Microbiology 02/17/23 13:40 Urine, Random Urine Culture - Final Culture exhibits no growth. 02/15/23 Unknown Mucosa - Nose Respiratory Panel (PCR) - Final 02/15/23 13:35 Nasal Secretion SARS-CoV-2 & FLU Antigen (Rapid) - Final 02/08/23 02:30 Blood Culture (Wb) #2 - Anticubital Left Blood Culture - Final No growth in 5 days. 02/08/23 02:15 Blood Culture (Wb) - Anticubital Right Blood Culture - Final No growth in 5 days. 02/08/23 11:27 Sputum, Expectorated/Coughed Gram Stain - Final 02/08/23 11:27 Sputum, Expectorated/Coughed Respiratory Culture - Final Streptococcus pneumoniae Staphylococcus aureus 02/08/23 05:30 Mucosa - Nasopharyngeal Respiratory Panel (PCR) - Final Rhinovirus 02/08/23 05:05 Urine, Clean Catch Legionella Antigen - Final 02/08/23 05:05 Urine, Clean Catch Streptococcus pneumoniae Antigen (M - Final Physical Exam Narrative GENERAL: cooperative on Vapotherm HEENT: Atraumatic; normocephalic EYES; Anicteric, Normal Conjunctiva NECK; supple, normal thyroid, RESPIRATORY: Diminished to auscultation CARDIOVASCULAR: Regular S1 S2, GI: soft, normoactive bowel sounds, : No Renal angle tenderness; EXTREMITIES: No edema, no clubbing, MUSCULOSKELETAL: no muscle wasting NEURO: Awake; no lateralizing signs. SKIN: No Rash PSYCH; Flat affect Assessment & Plan Assessment/Plan (1) Hypoxia: PLAN: Plan Patient is an 87-year-old gentleman admitted with shortness of breath 1. Acute hypoxia ? Secondary to combination of aspiration pneumonia and upper respiratory tract infection secondary to rhinovirus infection with superimposed bacterial infection ? Patient sputum cultures grew strep pneumonia as well as Staph aureus. Patient managed with Levaquin and vancomycin. Had a discussion with family. Patient does not want any aggressive measures at this point and is asking for hospice 2. Dysphagia ? 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 Chronic A-fib ? On systemic anticoagulation with Coumadin which I do not plan to continue given the fact that patient is going to hospice. Rate is controlled 4. Hypothyroidism - Patient is on levothyroxine home dose continued 5. Coronary artery disease With previous CABG. 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 Recommendations from dietitian reviewed 8. Physical deconditioning - Requested for PT OT eval and social services specialist to assist with discharge planning 9. DVT prophylaxis -SCDs at this time Time spent in the patient's overall evaluation,decision-making process, review of diagnostic data, adjustment of management, discussion with other providers, nursing nursing and ancillary staff involved in patient's care documentation, 50m minutes Charges/Coding Visit Charges Inpatient E&M: 33642 Subs Hosp L3
--- NOTE | 2023-02-19 11:26 | CPS ---
declined vest @this time, waiting on Hospice.
--- NOTE | 2023-02-19 13:26 | CASEMGMT ---
Addendum entered by Cecilia Clifford 02/19/23 13:29: YARA notified Koby Justin via [employer]. Cecilia BULLOCK Original Note: SW spoke with the receptionist telephone operator and patient was accepted in the inpatient unit. SW made copies of the DNR for hospice. YARA also asked physician to put in a discharge order. The receptionist telephone operator thinks their mobile unit will be able to picker and packer patient. Plan: d/c to [facility] inpatient unit. Cecilia BULLOCK
--- NOTE | 2023-02-19 13:28 | PCM.DC.SUM ---
Providers Date of Admission: 02/08/23 Primary Care Physician: Dr. Olive Ruvalcaba, Consultations 02/08/23 03:52 Consult: Gastroenterology Routine Consulting Provider: [facility] Reason for Consult: dysphagia, h/o head/neck ca w/ esophageal dilation EMERGENT Consult: No Notified: Yes Date Notified: 02/08/23 Time Notified: 07:24 Method of Notification: Text 02/15/23 13:43 Consult: [employer] / Pulmonary Medicine Routine Consulting Provider: Pulmonary Medicine saba Melcher [place] Reason for Consult: Worsening hypoxia despite conservative managment, poor prognosis EMERGENT Consult: No Notified: Yes Date Notified: 02/15/23 Time Notified: 13:43 Method of Notification: Text Reason For Visit: DYSPHAGIA, HYPOXIA Diagnosis Discharge Diagnosis (1) Hypoxia: Status: Acute Code(s): R09.02 - Hypoxemia Plan Patient is an 87-year-old gentleman admitted with shortness of breath 1. Acute hypoxia ? Secondary to combination of aspiration pneumonia and upper respiratory tract infection secondary to rhinovirus infection with superimposed bacterial infection ? Patient sputum cultures grew strep pneumonia as well as Staph aureus. Patient managed with Levaquin and vancomycin. Had a discussion with family. Patient does not want any aggressive measures at this point and is asking for hospice 2. Dysphagia ? 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 Chronic A-fib ? On systemic anticoagulation with Coumadin which I do not plan to continue given the fact that patient is going to hospice. Rate is controlled 4. Hypothyroidism - Patient is on levothyroxine home dose continued 5. Coronary artery disease With previous CABG. 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 Recommendations from dietitian reviewed 8. Physical deconditioning - Requested for PT OT eval and psychotherapist social worker to assist with discharge planning 9. DVT prophylaxis -SCDs at this time Time spent in the patient's overall evaluation,decision-making process, review of diagnostic data, adjustment of management, discussion with other providers, nursing nursing and ancillary staff involved in patient's care documentation, 50m minutes Advance planning; did discuss with the patient and family regarding advanced directives as well as CODE STATUS. Did explain the various scenarios involved ( FULL CODE, DNR CCA, DNR CCA with no intubation, and DNR CC and what each meant) patient elected to be DNR CC. Order was placed. Time spent on discussion 18 minutes. Medications at Discharge Home Medications aspirin 81 mg tablet,delayed release 81 mg PO QDAY 04/26/17 cholecalciferol (vitamin D3) 50 mcg (2,000 unit) tablet 2,000 unit PO QDAY 04/26/17 ferrous sulfate 325 mg (65 mg iron) tablet,delayed release See Rx Instructions PO QDAY 04/30/17 doxazosin 2 mg tablet 2 mg PO QDAY #90 tabs 08/29/22 levothyroxine 125 mcg tablet 125 mcg PO DAILY 08/29/22 metoprolol succinate 25 mg tablet,extended release 24 hr 25 mg PO DAILY #90 tabs 08/29/22 nitroglycerin 400 mcg/spray translingual 0.4 mg translingual Q5M PRN chest pain #4.9 grams 08/29/22 lansoprazole 30 mg delayed release,disintegrating tablet 30 mg feeding tube DAILY #30 tabs 02/15/23 acetaminophen 650 mg/20.3 mL oral solution 650 mg (20.3 mL) G-tube Q6H PRN PRN Pain 1-10 Or Fever>100.7 #0 mL 02/19/23 albuterol sulfate 2.5 mg/3 mL (0.083 %) solution for nebulization 2.5 mg (3 mL) inhalation Q4H.RT PRN WHEEZING #0 mL 02/19/23 aspirin 81 mg chewable tablet 81 mg G-tube BREAKFAST #0 tabs 02/19/23 furosemide 10 mg/mL oral solution 20 mg (2 mL) G-tube BIDLX #0 mL 02/19/23 guaifenesin 100 mg/5 mL oral liquid 100 mg (5 mL) G-tube Q4H #0 mL 02/19/23 lactose-reduced food with fiber 0.06 gram-1.5 kcal/mL oral liquid (Jevity 1.5 Tamika) See Rx Instructions .Route .COMPLEX #9,000 mL 02/19/23 levothyroxine 125 mcg tablet 62.5 mcg (1/2 x 125 mcg) G-tube Th@0600 #0 tabs 02/19/23 melatonin 3 mg tablet 10 mg (3.3333 x 3 mg) PO QHS #0 tabs 02/19/23 metoprolol tartrate 25 mg tablet 12.5 mg (1/2 x 25 mg) G-tube BID #0 tabs 02/19/23 mirtazapine 15 mg tablet 7.5 mg (1/2 x 15 mg) G-tube QHS #0 tabs 02/19/23 polyethylene glycol 3350 17 gram oral powder packet 17 g G-tube BID #0 ea 02/19/23 sodium chloride 0.65 % nasal spray aerosol (Deep Sea Nasal) 1 spray NASAL TID PRN PRN Nasal Dryness #0 mL 02/19/23 Hospital Course Summary of Care Provided Minutes Spent on Discharge: 50 Physical Exam Narrative GENERAL: cooperative on Vapotherm HEENT: Atraumatic; normocephalic EYES; Anicteric, Normal Conjunctiva NECK; supple, normal thyroid, RESPIRATORY: Diminished to auscultation CARDIOVASCULAR: Regular S1 S2, GI: soft, normoactive bowel sounds, : No Renal angle tenderness; EXTREMITIES: No edema, no clubbing, MUSCULOSKELETAL: no muscle wasting NEURO: Awake; no lateralizing signs. SKIN: No Rash PSYCH; Flat affect Medical Records Data Medical Nutrition Assessment Dietitian: Malnutrition Criteria Met Start: 02/08/23 15:17 Freq: Status: Active Protocol: Document 02/19/23 12:00 RMA (Rec: 02/19/23 12:00 RMA [id number]) Nutrition Malnutrition Evidence of Malnutrition Exists Yes Malnutrition (severe): Acute Illness/Injury,Chronic Evidenced By Suboptimal Energy Intake ( Severe),Weight Loss (Severe), Physical Changes (Moderate) Intake Problem Inadequate Oral Intake Etiology related to swallowing difficulty Signs/Symptoms as evidenced by NPO and need for PEG tube for enteral nutrition support Status Active Problem Clinical Problem Acute Disease or Injury Related Malnutrition Etiology 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 related to swallowing difficulty and inadequate oral intake Signs/Symptoms as evidenced by BMI 22.0, approximately 5% weight loss x past 3 weeks, ~11% weight loss x past 1 year, PO meeting less than 50% estimated nutrition needs x 1 month, visible muscle wasting and fat depletion in the clavicle, face, arms and legs and extended NPO Status Active Problem Recommendation Dietitian Recommendations/Changes Will continue NPO; Enteral Nutrition Support via PEG tube : Jevity 1.5 at 50mL/hr goal rate with 180mL feeding tube flush 6x daily to provide 1800kcal, 76.5 grams protein, and 1992mL water per day. PO regular diet as deemed safe per ELECTRONIC TYPESETTING MACHINE OPERATOR. ONS if cleared for PO nutrition. Pt/family wishing to proceed with hospice care. Weight / BMI Weight Weight: 66.6 kg Body Mass Index (BMI) 22.3 ABG / Lab / Microbiology Data 02/19/23 05:16 02/19/23 05:16 Laboratory: Laboratory Results - last 24 hr 02/19/23 05:16: WBC 11.9 H, RBC 3.71 L, Hgb 10.4 L, Hct 33.6 L, MCV 90.6, MCH 28.0, MCHC 31.0 L, RDW Std Deviation 49.6 H, RDW Coeff of Minerva 14.9 H, Plt Count 291, MPV 10.4, Immature Gran % (Auto) 0.600, Neut % (Auto) 85.9 H, Lymph % (Auto) 5.0 L, [place] % (Auto) 5.4, Eos % (Auto) 2.4, Baso % (Auto) 0.7, Absolute Neuts (auto) 10.2 H, Absolute Lymphs (auto) 0.59 L, Nucleated RBC % 0.5, Anisocytosis 1+, PT 15.4 H, INR 1.2, Sodium 134 L, Potassium 4.3, Chloride 94 L, Carbon Dioxide 40.0 H, Anion Gap 0 L, BUN 17, Creatinine 0.69 L, Estim Creat Clear Calc 49.03, Est GFR (MDRD) Af Amer 140, Est GFR (MDRD) Non-Af 116, BUN/Creatinine Ratio 24.8 H, Glucose 106, Calcium 8.3 L Microbiology: Microbiology 02/17/23 13:40 Urine, Random Urine Culture - Final Culture exhibits no growth. 02/15/23 Unknown Mucosa - Nose Respiratory Panel (PCR) - Final 02/15/23 13:35 Nasal Secretion SARS-CoV-2 & FLU Antigen (Rapid) - Final 02/08/23 02:30 Blood Culture (Wb) #2 - Anticubital Left Blood Culture - Final No growth in 5 days. 02/08/23 02:15 Blood Culture (Wb) - Anticubital Right Blood Culture - Final No growth in 5 days. 02/08/23 11:27 Sputum, Expectorated/Coughed Gram Stain - Final 02/08/23 11:27 Sputum, Expectorated/Coughed Respiratory Culture - Final Streptococcus pneumoniae Staphylococcus aureus 02/08/23 05:30 Mucosa - Nasopharyngeal Respiratory Panel (PCR) - Final Rhinovirus 02/08/23 05:05 Urine, Clean Catch Legionella Antigen - Final 02/08/23 05:05 Urine, Clean Catch Streptococcus pneumoniae Antigen (M - Final D/C Instructions Discharge Diet: - (via feeding tube ) Discharge Activity: Return to Normal Activity Call your doctor if you observe: Fever of 101 or Higher, Shortness of breath, Fainting spells and Chest pain Meaningful Use Info Meaningful Use Diagnoses (Choose all that apply): None applicable Discharge Plan Admission Admit Date/Time: 02/08/23 03:59 Primary Reason for Your Visit: Dysphagia and hypoxia Attending Provider: Martin Bland Primary Care Provider: Olive Ruavlcaba Consulting Providers: Tj Newton; Evelyn Hairston; Talon Valles; Willie Gates; Kenny Funes; Lebron Vasquez; Miguel Zaldivar; Agnes Cabrera TRAIN DISPATCHER; Tracey Ochoa Instructions Patient Instructions: Gastrostomy Feeding Tube Care ..., Feeding Tube, ED Feeding Tube Insertion Additional Instructions / Restrictions: DISCHARGE INSTRUCTIONS PLEASE READ *Please take this with you to your next doctors appointment* -You will be discharged with a PEG tube and will initiate feedings through that -Recommend you continue to work with speech therapy -Your pantoprazole will be switched to lansoprazole so it can be given through feeding tube -Please call your primary care provider's office upon discharge to schedule a hospital follow up within 1 week. -For any concerning signs or symptoms please call 911 or proceed to the nearest emergency department Discharge Orders/Prescriptions Prescriptions: New lansoprazole 30 mg tablet,disintegrat, delay rel 30 mg feeding tube DAILY Qty: 30 0RF polyethylene glycol 3350 17 gram Powder In Packet 17 g G-tube BID Qty: 0 0RF melatonin 3 mg Tablet 10 mg PO QHS Qty: 0 0RF levothyroxine 125 mcg Tablet 62.5 mcg G-tube Th@0600 Qty: 0 0RF mirtazapine 15 mg Tablet 7.5 mg G-tube QHS Qty: 0 0RF Deep Sea Nasal 0.65 % Aerosol,Amigo 1 spray NASAL TID PRN PRN (Reason: Nasal Dryness) Qty: 0 0RF metoprolol tartrate 25 mg Tablet 12.5 mg G-tube BID Qty: 0 0RF Jevity 1.5 Tamika 0.06 gram-1.5 kcal/mL liquid See Rx Instructions .ROUTE .COMPLEX Qty: 9000 0RF Rx Instructions: mL via feeding tube as recommended by speech therapy albuterol sulfate 2.5 mg /3 mL (0.083 %) Solution For Nebulization 2.5 mg inhalation Q4H.RT PRN (Reason: WHEEZING) Qty: 0 0RF furosemide 10 mg/mL Solution 20 mg G-tube BIDLX Qty: 0 0RF guaifenesin 100 mg/5 mL Liquid 100 mg G-tube Q4H Qty: 0 0RF aspirin 81 mg Tablet,Chewable 81 mg G-tube BREAKFAST Qty: 0 0RF acetaminophen 650 mg/20.3 mL Solution 650 mg G-tube Q6H PRN PRN (Reason: Pain 1-10 Or Fever>100.7) Qty: 0 0RF Continued doxazosin 2 mg tablet 2 mg PO QDAY Qty: 90 3RF metoprolol succinate 25 mg tablet extended release 24 hr 25 mg PO DAILY Qty: 90 4RF nitroglycerin 400 mcg/spray spray,non-aerosol 0.4 mg Translingual Q5M PRN (Reason: chest pain) Qty: 4.9 3RF aspirin 81 mg tablet,delayed release (DR/EC) 81 mg PO QDAY cholecalciferol (vitamin D3) 2,000 unit tablet 2,000 unit tablet 2,000 unit PO QDAY ferrous sulfate 325 mg (65 mg iron) tablet,delayed release (DR/EC) See Patient Comments PO QDAY Dose Instruction: 1/2 tablet daily PO QDAY Patient Comments: 1/2 tablet daily PO QDAY Rx Instructions: 1/2 tablet daily PO QDAY levothyroxine 125 mcg tablet 125 mcg PO DAILY Rx Instructions: 1/2 tab on Discontinued pantoprazole [Protonix] 40 mg tablet,delayed release (DR/EC) 40 mg PO Q OTHER DAY warfarin 3 mg tablet 3 mg PO QDAY Qty: 90 3RF Protocol: Dose Management Condition: Sunday Dose/Route: 1.5 mg Instruction: 0.5 x 3 mg tablets Condition: Sunday Dose/Route: 1.5 mg Instruction: 0.5 x 3 mg tablets Condition: Sunday Dose/Route: 1.5 mg Instruction: 0.5 x 3 mg tablets Condition: Sunday Dose/Route: 3 mg Instruction: 1 x 3 mg tablet Condition: Dose/Route: 1.5 mg Instruction: 0.5 x 3 mg tablets Condition: Sunday Dose/Route: 1.5 mg Instruction: 0.5 x 3 mg tablets Condition: Sunday Dose/Route: 1.5 mg Instruction: 0.5 x 3 mg tablets Protocol Text: Adjustment Start Date: Sunday01/26/23 INR Value: 2.9 INR Date: 01/26/23 Recheck Date: 02/23/23 Patient Comments: 3 mg po on SUNDAY ONLY 1.5 MG -SUNDAY azithromycin [Zithromax Z-Cesar] 250 mg tablet See Rx Instructions PO .COMPLEX Qty: 6 0RF Rx Instructions: For 250 mg dose pack: take 500 mg today (day 1), then 250 mg for 4 days (days 2-5) PO Referrals / Follow Up: Olive Ruvalcaba DO [Primary Care Provider] - Within 2 Weeks Disposition Disposition (needs filled in before D/C Order can be placed): Hospice in Medical Facility Charges/Coding Visit Charges Inpatient E&M: 41162 Disch Hosp >30min Procedures Hospitalists Procedures: 58740 Advncd Care Plan 30 Min
--- NOTE | 2023-02-19 14:30 | PHA.DC.MR.R ---
Pharmacy [place] Med Reconciliation Pharmacy Service has performed discharge medication reconciliation for this patient. The patient's discharge medication list was reviewed for discrepancies and discrepancies were resolved. Medications at Discharge Home Medications aspirin 81 mg tablet,delayed release 81 mg PO QDAY 04/26/17 cholecalciferol (vitamin D3) 50 mcg (2,000 unit) tablet 2,000 unit PO QDAY 04/26/17 ferrous sulfate 325 mg (65 mg iron) tablet,delayed release See Rx Instructions PO QDAY 04/30/17 doxazosin 2 mg tablet 2 mg PO QDAY #90 tabs 08/29/22 levothyroxine 125 mcg tablet 125 mcg PO DAILY 08/29/22 metoprolol succinate 25 mg tablet,extended release 24 hr 25 mg PO DAILY #90 tabs 08/29/22 nitroglycerin 400 mcg/spray translingual 0.4 mg translingual Q5M PRN chest pain #4.9 grams 08/29/22 lansoprazole 30 mg delayed release,disintegrating tablet 30 mg feeding tube DAILY #30 tabs 02/15/23 acetaminophen 650 mg/20.3 mL oral solution 650 mg (20.3 mL) G-tube Q6H PRN PRN Pain 1-10 Or Fever>100.7 #0 mL 02/19/23 albuterol sulfate 2.5 mg/3 mL (0.083 %) solution for nebulization 2.5 mg (3 mL) inhalation Q4H.RT PRN WHEEZING #0 mL 02/19/23 aspirin 81 mg chewable tablet 81 mg G-tube BREAKFAST #0 tabs 02/19/23 furosemide 10 mg/mL oral solution 20 mg (2 mL) G-tube BIDLX #0 mL 02/19/23 guaifenesin 100 mg/5 mL oral liquid 100 mg (5 mL) G-tube Q4H #0 mL 02/19/23 lactose-reduced food with fiber 0.06 gram-1.5 kcal/mL oral liquid (Jevity 1.5 Oumar) See Rx Instructions .Route .COMPLEX #9,000 mL 02/19/23 levothyroxine 125 mcg tablet 62.5 mcg (1/2 x 125 mcg) G-tube Th@0600 #0 tabs 02/19/23 melatonin 3 mg tablet 10 mg (3.3333 x 3 mg) PO QHS #0 tabs 02/19/23 metoprolol tartrate 25 mg tablet 12.5 mg (1/2 x 25 mg) G-tube BID #0 tabs 02/19/23 mirtazapine 15 mg tablet 7.5 mg (1/2 x 15 mg) G-tube QHS #0 tabs 02/19/23 polyethylene glycol 3350 17 gram oral powder packet 17 g G-tube BID #0 ea 02/19/23 sodium chloride 0.65 % nasal spray aerosol (Deep Sea Nasal) 1 spray NASAL TID PRN PRN Nasal Dryness #0 mL 02/19/23
[2023-02-20 14:09] LABS: ACHR Recep AB, Blocking 8 % (0-25)
== END 2023-02-19 15:57 | disposition hospice, inpatient (51) | DRG 177 ==
LOC: ED 03:29 → PCU 04:05
PROVIDERS: Anesthesiology; Internal Medicine; Internal Medicine Gastroenterology; Student in an Organized Health Care Education/Training Program; Admitting Provider Hospitalist; Emergency Provider Emergency Medicine; PCP Internal Medicine; Visit Provider Internal Medicine
PROC: 0DJ08ZZ Inspection of Upper Intestinal Tract, Via Natural or Artificial Opening Endoscopic (ICD-10-PCS; CPT 43235; principal; 2023-02-09 12:55)
DX: J69.0 Pneumonitis due to inhalation of food and vomit (principal); J96.01 Acute respiratory failure with hypoxia; E43 Unspecified severe protein-calorie malnutrition; I48.20 Chronic atrial fibrillation, unspecified; K22.2 Esophageal obstruction; R13.14 Dysphagia, pharyngoesophageal phase; B97.4 Respiratory syncytial virus as the cause of diseases classified elsewhere; R62.7 Adult failure to thrive; R54 Age-related physical debility; J15.211 Pneumonia due to Methicillin susceptible Staphylococcus aureus; J13 Pneumonia due to Streptococcus pneumoniae; I10 Essential (primary) hypertension; E03.9 Hypothyroidism, unspecified; I25.10 Atherosclerotic heart disease of native coronary artery without angina pectoris; E78.00 Pure hypercholesterolemia, unspecified; K44.9 Diaphragmatic hernia without obstruction or gangrene; K29.70 Gastritis, unspecified, without bleeding; I44.30 Unspecified atrioventricular block; R13.12 Dysphagia, oropharyngeal phase; R30.0 Dysuria; R33.9 Retention of urine, unspecified; Y84.2 Radiological procedure and radiotherapy as the cause of abnormal reaction of the patient, or of later complication, without mention of misadventure at the time of the procedure; Z68.22 Body mass index [BMI] 22.0-22.9, adult; Z66 Do not resuscitate; Z95.0 Presence of cardiac pacemaker; Z95.1 Presence of aortocoronary bypass graft; Z98.61 Coronary angioplasty status; Z90.49 Acquired absence of other specified parts of digestive tract; Z79.01 Long term (current) use of anticoagulants; Z79.82 Long term (current) use of aspirin; Z79.899 Other long term (current) drug therapy; Z85.21 Personal history of malignant neoplasm of larynx; Z87.891 Personal history of nicotine dependence
CPT/HCPCS: 36415; 36416; 70491; 71045; 71260; 74230; 80048; 80053; 81001; 83519; 83605; 83735; 83880; 84100; 85025; 85027; 85610; 85730; 86900; 86901; 87040; 87070; 87077; 87086; 87186; 87205; 87428; 87449; 87633; 92526; 92610; 92611; 93005; 93306; 94640; 94660; 94667; 94668; 94762; 97110; 97116; 97162; 97166; 97530; 97535; 97802; 97803; 99285; J7040; J7050; J7120; P9017; Q9957; Q9967; A4216; C1769; J0612; J1940; J2405; J3490; J7799